=== PATIENT | female | born 1995 | race Caucasian/White ===

== ENCOUNTER 2016-10-18 21:51 | Emergency (ER) | payer MEDICAID ==
[~2016-10-18] VITALS: Ht 157.5 cm; Wt 51.3 kg
[~2016-10-18 21:51] MED LIST: BACTRIM DS 8001 TA1 PO; BACTRIM DS 8001 TAB PO; BENADRYL ALLERG25 MG PO; HYDROXYZINE10 MG PO; LO LOESTRIN FE1 TAB PO; NOMEDS XX; PEN-VK500 MG PO; PHENERGAN 25MG.25 M1 PO; PREDNISONE 10MG10 MG PO; PROVERA 10MG TA10 MG PO; TAMIFLU 75MG CA75 MG PO; VOLTAREN75 MG PO
--- NOTE | 2016-10-18 22:16 | Emergency Room Report ---
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 N Clinical Suspician of Infection? N Mental Status: 1 - Regular (Normal Baseline) Sepsis Risk:Low Sepsis Risk Have you (or family members/close friends) recently traveled outside the [place]? N If Yes, where/when: Have you had exposure to infectious disease within the past month? TB? Other? Specify: Source patient, RN notes reviewed, family, RN/MD Exam Limitations no limitations Comment This is a 20-year-old lady arriving to the emergency room together with her grandmother complaining with vaginal bleeding. I have seen this same patient on Saturday, with same symptoms at that time she presented here complaining with vaginal bleeding for the past 3 weeks, specifically advising that she has been using at least 32 tampons per day. I have started her on Provera and instructed her to follow-up with Dr. Ruiz. The CT scan of her abdomen and pelvis also indicated a ruptured ovarian cyst. Patient was started with Dr. Hirsch on control pills, upon completion of the prescription for Provera. Return to work today, and started passing blood clots as well as bright blood vaginally again. ALLERGIES Coded Allergies: No Known Allergies (10/18/16) Home Medications Active Scripts Medroxyprogesterone Acetate (Provera 10MG Tablet) 10 MG PO DAILY #10 TAB Prov: 10/15/16 History Medical History General CAD? No Angina: No [place]: No Hypertension? No Hyperlipidemia? No CHF? No DVT? No PE? No COPD? No Asthma? No Anemia? No GERD? No Gastric ulcers? No GI Bleed? No Hernia? No Thyroid Problems? No Hypothyroidism? No CVA? No Seizures? No Diabetes? No Renal Insuffiency? No End Stage Renal Disease? No UTI? No Stones? No BPH? No GB Disease: No Nephritic Syndrome? No Asplenia? No Hepatitis? No Sickle Cell Disease? No Arthritis? No Migraines? No Cataracts? No Glaucoma? No MRSA? Yes HIV? No TB? No Anxiety? No Depression? No Cancer? No More? No Immunization Hx DT/Tetanus 5-10 Years Ago Surgical Hx Previous Surgery?Y Tonsils [employer] [place] Hx LMP Now Social History Smoking Hx Smoker: Current Every Day Smoker Tobacco: Yes Type Cigarettes Alcohol Alcohol: No Review of Systems All Other Systems Reviewed and Negative Genitourinary abnormal vaginal bleeding. Physical Exam Vital Signs Vital Signs Date Time Temp Pulse Resp B/P Pulse O2 O2 Flow FiO2 Ox Delivery Rate 10/19 2219 98.0 85 20 121/68 99 10/18 2152 98.0 85 20 121/ 99 General Appearance normal appearance, WD/WN, no apparent distress Neck normal inspection, non-tender, supple, full range of motion Respiratory Status Yes: trachea midline, chest symmetrical, non tender chest. No: respiratory distress. Lung Sounds bilateral: normal breath sounds, lungs clear. 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 No Comment Patient appears medically stable, in no acute distress. Given the fact that she has just had a thorough workup, no further testing is medically necessary this time. Patient will be written a work excuse for a couple of days, instructed to follow-up with Dr. Hirsch if not better, on Saturday. She will continue her Provera as instructed on Saturday. Results/Orders Laboratory Tests 10/18/162152: Sodium Cancelled, Potassium Cancelled, Chloride Cancelled, Carbon Dioxide Cancelled, BUN Cancelled, Creatinine Cancelled, Estimated Creat Clear Cancelled, Estimated GFR (MDRD) Cancelled, Glucose Cancelled, Calcium Cancelled, Total Bilirubin Cancelled, AST Cancelled, ALT Cancelled, Alkaline Phosphatase Cancelled, Total Protein Cancelled, Albumin Cancelled, Globulin Cancelled, Albumin/Globulin Ratio Cancelled, WBC Cancelled, RBC Cancelled, Hgb Cancelled, Hct Cancelled, MCV Cancelled, RDW Cancelled, Plt Count Cancelled, Gran % Cancelled, Gran # Cancelled, Lymphocytes % Cancelled, Eosinophils % Cancelled, Basophils % Cancelled, Lymphocytes # Cancelled, Eosinophils # Cancelled, Basophils # Cancelled, PUBS MCHC Cancelled, MCH Cancelled, Urine Color Cancelled , Urine Appearance Cancelled, Urine pH Cancelled, Ur Specific [place] Cancelled Current Medication Orders Sig/Linda Start time Last Medication Dose Route Stop Time Status Admin Acetaminophen/ 0 .STK-MED ONE 10/18 2201 DC Codeine Phosphate PO Acetaminophen/ 1 ANDREY ONCE ONE 10/18 2199 DC 10/18 Codeine Phosphate PO 10/18 Departure Departure Time of Disposition 2213 Disposition DC Home or Self Care(routine) Clinical Impression Primary Impression: Vaginal bleeding Condition STABLE Referrals Joseph ZENG,Ronny [place]: 5 Days-Call Office if not better Patient Instructions DI for Vaginal Bleeding Additional Instructions Please remain a complete pelvic rest (no intercourse, no heavy lifting, no excessive walking, etc) for the next 3 days. If any recurrent vaginal bleeding follow-up with Dr. Hirsch on Saturday. Continue Provera as previously discussed. Discharge Counseling Counseled pt/family regarding diagnosis, medications/RX, home care, follow up needs Comment Please remain a complete pelvic rest (no intercourse, no heavy lifting, no excessive walking, etc) for the next 3 days. If any recurrent vaginal bleeding follow-up with Dr. Hirsch on Saturday. Continue Provera as previously discussed. ED Critical Care Critical Care No at [id number]
--- NOTE | 2016-10-18 22:16 | Emergency Room Report ---
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 N Clinical Suspician of Infection? N Mental Status: 1 - Regular (Normal Baseline) Sepsis Risk:Low Sepsis Risk Have you (or family members/close friends) recently traveled outside the [place]? N If Yes, where/when: Have you had exposure to infectious disease within the past month? TB? Other? Specify: Source patient, RN notes reviewed, family, RN/MD Exam Limitations no limitations Comment This is a 20-year-old lady arriving to the emergency room together with her grandmother complaining with vaginal bleeding. I have seen this same patient on Saturday, with same symptoms at that time she presented here complaining with vaginal bleeding for the past 3 weeks, specifically advising that she has been using at least 32 tampons per day. I have started her on Provera and instructed her to follow-up with Dr. Ruiz. The CT scan of her abdomen and pelvis also indicated a ruptured ovarian cyst. Patient was started with Dr. Hirsch on control pills, upon completion of the prescription for Provera. Return to work today, and started passing blood clots as well as bright blood vaginally again. ALLERGIES Coded Allergies: No Known Allergies (10/18/16) Home Medications Active Scripts Medroxyprogesterone Acetate (Provera 10MG Tablet) 10 MG PO DAILY #10 TAB Prov: 10/15/16 History Medical History General CAD? No Angina: No [place]: No Hypertension? No Hyperlipidemia? No CHF? No DVT? No PE? No COPD? No Asthma? No Anemia? No GERD? No Gastric ulcers? No GI Bleed? No Hernia? No Thyroid Problems? No Hypothyroidism? No CVA? No Seizures? No Diabetes? No Renal Insuffiency? No End Stage Renal Disease? No UTI? No Stones? No BPH? No GB Disease: No Nephritic Syndrome? No Asplenia? No Hepatitis? No Sickle Cell Disease? No Arthritis? No Migraines? No Cataracts? No Glaucoma? No MRSA? Yes HIV? No TB? No Anxiety? No Depression? No Cancer? No More? 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 Physical Exam Vital Signs Vital Signs Date Time Temp Pulse Resp B/P Pulse O2 O2 Flow FiO2 Ox Delivery Rate 10/19 2219 98.0 85 20 121/68 99 10/18 2152 98.0 85 20 121/ 99 General Appearance normal appearance, WD/WN, no apparent distress Neck normal inspection, non-tender, supple, full range of motion Respiratory Status Yes: trachea midline, chest symmetrical, non tender chest. No: respiratory distress. Lung Sounds bilateral: normal breath sounds, lungs clear. 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 No Comment Patient appears medically stable, in no acute distress. Given the fact that she has just had a thorough workup, no further testing is medically necessary this time. Patient will be written a work excuse for a couple of days, instructed to follow-up with Dr. Hirsch if not better, on Saturday. She will continue her Provera as instructed on Saturday. Results/Orders Laboratory Tests 10/18/162152: Sodium Cancelled, Potassium Cancelled, Chloride Cancelled, Carbon Dioxide Cancelled, BUN Cancelled, Creatinine Cancelled, Estimated Creat Clear Cancelled, Estimated GFR (MDRD) Cancelled, Glucose Cancelled, Calcium Cancelled, Total Bilirubin Cancelled, AST Cancelled, ALT Cancelled, Alkaline Phosphatase Cancelled, Total Protein Cancelled, Albumin Cancelled, Globulin Cancelled, Albumin/Globulin Ratio Cancelled, WBC Cancelled, RBC Cancelled, Hgb Cancelled, Hct Cancelled, MCV Cancelled, RDW Cancelled, Plt Count Cancelled, Gran % Cancelled, Gran # Cancelled, Lymphocytes % Cancelled, Eosinophils % Cancelled, Basophils % Cancelled, Lymphocytes # Cancelled, Eosinophils # Cancelled, Basophils # Cancelled, PUBS MCHC Cancelled, MCH Cancelled, Urine Color Cancelled , Urine Appearance Cancelled, Urine pH Cancelled, Ur Specific [place] Cancelled Current Medication Orders Sig/Linda Start time Last Medication Dose Route Stop Time Status Admin Acetaminophen/ 0 .STK-MED ONE 10/18 2201 DC Codeine Phosphate PO Acetaminophen/ 1 ANDREY ONCE ONE 10/18 2199 DC 10/18 Codeine Phosphate PO 10/18 Departure Departure Time of Disposition 2213 Disposition DC Home or Self Care(routine) Clinical Impression Primary Impression: Vaginal bleeding Condition STABLE Referrals Joseph ZENG,Ronny [place]: 5 Days-Call Office if not better Patient Instructions DI for Vaginal Bleeding Additional Instructions Please remain a complete pelvic rest (no intercourse, no heavy lifting, no excessive walking, etc) for the next 3 days. If any recurrent vaginal bleeding follow-up with Dr. Hirsch on Saturday. Continue Provera as previously discussed. Discharge Counseling Counseled pt/family regarding diagnosis, medications/RX, home care, follow up needs Comment Please remain a complete pelvic rest (no intercourse, no heavy lifting, no excessive walking, etc) for the next 3 days. If any recurrent vaginal bleeding follow-up with Dr. Hirsch on Saturday. Continue Provera as previously discussed. ED Critical Care Critical Care No at [id number]
[2016-10-18 22:20] VITALS: BP 121/68
[2016-10-20] MEDS ORDERED: CRYSELLE 30 MCG1 TAB PO (08:48)
[2016-10-20] MEDS ORDERED: AVPAK AZITHROM250 MG PO (08:51)
[2016-10-20] MEDS ORDERED: ULTRAM50 MG PO (11:11)
[2016-10-20] MEDS ORDERED: PHENERGAN25 M3 PO (11:13)
== END 2016-10-18 22:20 | disposition home or self-care (01) ==
LOC: ER 21:51
DX: N93.9 Abnormal uterine and vaginal bleeding, unspecified (principal); Z72.0 Tobacco use

== ENCOUNTER → 2017-03-05 | Outpatient (CLI) | payer MEDICAID ==
[~2017-03-05] MED LIST changes: +AVPAK AZITHROM250 MG PO; +CRYSELLE 30 MCG1 TAB PO; +PHENERGAN25 M3 PO; +ULTRAM50 MG PO
[2017-03-05 08:00] LABS: FASTING URINE GLUCOSE NEGATIVE
[2017-03-05 08:20] LABS: BUN 12 mg/dL (7-18); GFR (ESTIMATED) 91 ML/MIN (59-)
[2017-03-05 09:17] LABS: 1 HR URINE GLUCOSE NEGATIVE mg/ml
[2017-03-05 10:22] LABS: 2 HR URINE GLUCOSE NEGATIVE mg/ml
[2017-03-05 11:21] LABS: 3 HR URINE GLUCOSE NEGATIVE mg/ml
== END ==
LOC: LAB 07:38
PROVIDERS: Family Medicine Addiction Medicine
DX: R42 Dizziness and giddiness (principal)

== ENCOUNTER 2017-03-18 13:19 | Emergency (ER) | payer MEDICAID ==
[~2017-03-18] VITALS: Ht 157.5 cm; Wt 48.1 kg
[2017-03-18 13:39] LABS: URINE BILIRUBIN - DIPSTICK 1+ (NEG)
[2017-03-18 13:40] LABS: URINE BLOOD 3+ (NEG)
--- NOTE | 2017-03-18 14:14 | Urgent Treatment Center Report ---
See Addendum History of Present Issue Date/Time Seen by Provider 03/18/17 1352 Visit Reason Pt arrived:Walked Presenting Problem:BURNING WITH URINATION, LEFT SIDE PAIN Location if Accident: Onset of symptoms date/time:/ or onset unknown for:MEDICAL HX UNKNOWN Have you (or family members/close friends) recently traveled outside the [place]? N If Yes, where/when: Have you had exposure to infectious disease within the past month? TB? Other? Specify: Patient state that she thinks she has a UTI States that she has been having some burning and pain with urination. States that she feels like she is having to go freqently and only going small amounts at time. States that pain is worse in her left side and pain has continued to get worse so she decided to come in and get checked out ALLERGIES Coded Allergies: No Known Allergies (10/18/16) Home Medications Reported Medications NORGESTREL-ETHINYL ESTRADIOL (Cryselle-28 Tablet) 1 TAB PO DAILY #28 History Medical History General CAD? No Angina: No [place]: No Hypertension? No Hyperlipidemia? No CHF? No DVT? No PE? No COPD? No Asthma? No Anemia? No GERD? No Gastric ulcers? No GI Bleed? No Hernia? No Thyroid Problems? No Hypothyroidism? No CVA? No Seizures? No Diabetes? No Renal Insuffiency? No UTI? No Stones? No BPH? No GB Disease: No Nephritic Syndrome? No Asplenia? No Hepatitis? No Sickle Cell Disease? No Arthritis? No Migraines? No Cataracts? No Glaucoma? No MRSA? Yes HIV? No TB? No Anxiety? No Depression? No Cancer? No More? No Immunization HX DT/Tetanus 5-10 Years Ago Surgical Hx Previous Surgery?Y Tonsils Social History Smoking Hx Smoker: Current Every Day Smoker Tobacco: Yes Type Cigarettes Packs/day < 1 Pack Alcohol Alcohol: No Review of Systems All Other Systems Reviewed and Negative Genitourinary frequency, hesitancy, pain. Comment State that she has been having pain with urination, burning when she urinated, feeling of urgency and frequency for a couple of weeks now States that she has had some extra antibiotics at home that she has taken but they have not helped with her symptoms Physical Exam Vital Signs Vital Signs Date Time Temp Pulse Resp B/P Pulse O2 O2 Flow FiO2 Ox Delivery Rate 03/18 1336 98.3 112 16 130/90 98 General Appearance normal appearance, WD/WN, no apparent distress Respiratory Status Yes: trachea midline, chest symmetrical, non tender chest. No: respiratory distress. Cardiovascular normal exam, regular rate/rhythm, no peripheral edema, no gallop Gastrointestinal normal bowel sounds, normal exam, non tender, no guarding Back normal inspection, no CVA tenderness, no vertebral tenderness Neurologic alert, normal exam, oriented x 3 Medical Decision Making LABS/Meds/Orders Pt receiving controlled substance in ED? No Results/Orders Laboratory Tests 03/18/17 1330: Urine Test NEGATIVE 03/18/17 1322: Urine Color DARK YELLOW, Urine Appearance Clear, Urine pH 5.5, Ur Specific [place] >1.030 H, Urine Protein 3+ H, Urine Ketones TRACE H, Urine Blood 3+ H, Urine Nitrate NEGATIVE, Urine Bilirubin 1+ H, Urine Urobilinogen 0.2, Ur Leukocyte Esterase 1+ H, Urine Glucose NEGATIVE Current Medication Orders Sig/Linda Start time Last Medication Dose Route Stop Time Status Admin Ceftriaxone Sodium 0 .STK-MED ONE 03/18 1401 DC .ROUTE Lidocaine HCl 0 .STK-MED ONE 03/18 1401 DC .ROUTE Ceftriaxone Sodium 1 GM ONCE ONE 03/18 1400 DC 03/18 IM 03/18 1401 1407 Lidocaine HCl 0 ONCE ONE 03/18 1400 DC 03/18 IM 03/18 1401 1408 Orders Procedure Date/time Status [facility] URINE 03/18 1330 Complete [facility] URINE DIPSTICK 03/18 1322 Complete Departure Departure Time of Disposition 1414 Disposition DC Home or Self Care(routine) Clinical Impression Primary Impression: UTI (urinary tract infection) Qualifiers: Urinary tract infection type: site unspecified Hematuria presence: with hematuria Qualified Code: N39.0 - Urinary tract infection, site not specified Condition STABLE Referrals Star ZENG,Celso Perez MD,[place] Patient Instructions Urinary Tract Infection Additional Instructions If UTI's continued may want to follow up with Urology for evaluation DRINK PLENTY OF WATER, water will help to flush the kidneys and keep you hydrated you need to be drinking lots of water Take medication as prescribed Follow up with family doctor Return if needed Discharge Counseling Counseled pt/family regarding diagnosis, test results, home care, follow up needs Prescriptions Current Visit Scripts SULFAMETHOXAZOLE W/TRIMETHOPRI (Bactrim Ds Tab) 1 TABLET PO BID #20 TAB Phenazopyridine HCl (Pyridium) 100 MG PO TID #6 TAB at 0045
[2017-03-18 14:18] VITALS: BP 130/90
--- OUTSIDE RECORDS SUMMARY | 2017-03-28 03:31 | External Medical Summary Rpt | CCD ---
Author Author , ZAK Organization ZAK Address Unknown Phone [email or web address] Care Team Providers Care Air Traffic Control Manager Name Role Phone HAIR J, HAIR J Unavailable Unavailable HAIR J, HAIR J Unavailable Unavailable ARNOLD EDA, ARNOLD Unavailable Unavailable EDA ARNOLD EDA, ARNOLD Unavailable Unavailable EDA ODELL ODELL Unavailable Unavailable ODELL ODELL Unavailable Unavailable BEINEKE, BEINEKE Unavailable Unavailable BESSON XANDER, BESSON Unavailable Unavailable XANDER KRANTHI MÁRQUEZ, KRANTHI YULISA Unavailable Unavailable KRANTHI ANN YULISA Unavailable Unavailable KRANTHI DAMON MD, Unavailable Unavailable KRANTHI DAMON MD [facility] Unavailable Unavailable SERVICE, [facility] KATT AIR BAG BUILDER, KATT Unavailable Unavailable AIR BAG BUILDER KATT AIR BAG BUILDER, KATT Unavailable Unavailable AIR BAG BUILDER CELLAROSI - YORBA, Unavailable Unavailable CELLAROSI - YORBA SHY BEGUM Unavailable Unavailable HERIBERTO BEGUM, Unavailable Unavailable HERIBERTO BEGUM [facility], Unavailable Unavailable [facility] Unavailable Unavailable LAB, [facility] PRANEETH, PRANEETH Unavailable Unavailable PRANEETH TONJA, Unavailable Unavailable PRANEETH TONJA PRANEETH FILIPPO, Unavailable Unavailable PRANEETH, FILIPPO YULI VISION, Unavailable Unavailable YULI VISION [place] Un[facility] Un[facility] [place] BHANU DEWEY, Unavailable Unavailable BHANU DEWEY BHANU DEWEY, Unavailable Unavailable BHANU DEWEY MURRAY, MURRAY Unavailable Unavailable MURRAY, MURRAY Unavailable Unavailable [place] BETTINA, Unavailable Unavailable [place] BETTINA [place] BETTINA, Unavailable Unavailable [place] BETTINA MAIRA, MAIRA Unavailable Unavailable MAIRA MANSOOR, MAIRA Unavailable Unavailable MANSOOR MAIRA MANSOOR, MAIRA Unavailable Unavailable MANSOOR MARYAN BARRY, Unavailable Unavailable MARYAN BARRY [facility], Unavailable Unavailable [facility] Unavailable Unavailable [place] Unavailable Unavailable [facility], [facility] Un[facility] Un[facility] Un[facility] Un[facility] Un[facility] Unavailable [facility], [facility] CASE, CASE Unavailable Unavailable MOORE, MOORE Unavailable Unavailable MOORE, MOORE Unavailable Unavailable MOORE, NICKIE A, Unavailable Unavailable MOORE, NICKIE A [facility], Unavailable Unavailable [facility] KEDING SAPPHIRE, KEDING Unavailable Unavailable SAPPHIRE [place] SAPPHIRE, [place] Unavailable Unavailable SAPPHIRE [facility] Unavailable Unavailable [facility], [facility] Nohemy Simons MD, Unavailable Unavailable Nohemy Simons MD [facility] Unavailable Unavailable [facility], [facility] Unavailable Unavailable [facility], [facility] Unavailable Unavailable [facility] Unavailable Unavailable [facility], [facility] Unavailable Unavailable CORPORATION OF AM, 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 Unavailable Unavailable ASSOCIATES, 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 Gilbert Brary MD, Unavailable Unavailable Gilbert Barry MD [facility] Unavailable Unavailable SERVICES, [facility] DAVID HERNANDEZ Unavailable Unavailable ALE AVILA, Unavailable Unavailable ALE AGUILERA JAM, Unavailable Unavailable AGIULERA JAM LINWOOD ROS, LINWOOD Unavailable Unavailable ROS NEVAEH DMD BAPTIST, NEVAEH Unavailable Unavailable DMD [facility]IST NEVAEH DMD BAPTIST, NEVAEH Unavailable Unavailable [facility]MD [facility] Un[facility] GERALD KER, GERALD KER Unavailable Unavailable BARBER, IDRIS A, Unavailable Unavailable BARBER, IDRIS A MIKI RAN, MIKI RAN Unavailable Unavailable MIKI ELIZONDO, MIKI RAN Unavailable Unavailable [facility], Un[facility]available [facility], [facility] RICH II, RICH Unavailable Unavailable II RICH II O, RICH Unavailable Unavailable II O RICH II O, RICH Unavailable Unavailable II O [facility], Unavailable Unavailable [facility], Unavailable Unavailable [facility] Unavailable Unavailable [facility], [id number], Unavailable Unavailable [id number] Unavailable Unavailable [id number] [address] [id number], [facility] [id number] [address] [id number] ANDRE BRITNEY, ANDRE Unavailable Unavailable BRITNEY DEE OUMOU, Unavailable Unavailable DEE OUMOU DEE OUMOU, Unavailable Unavailable DEE [facility]UM[facility] TERESA CELESTE, TERESA Unavailable Unavailable CELESTE TERESA CELESTE, TERESA Unavailable Unavailable CELESTE SCIFRES ANG, SCIFRES Unavailable Unavailable ANG CURIEL EUGENIA, CURIEL Unavailable Unavailable EUGENIA HAILE, HAILE Unavailable Unavailable [facility], Unavailable Unavailable [facility] Unavailable Unavailable EMERGENCY PHYS, [facility] IVAN DON, Unavailable Unavailable IVAN DON IVAN DON, Unavailable Unavailable IVAN DON IVAN, DON R, Unavailable Unavailable IVAN, DON R [facility], Unavailable Unavailable [facility] Unavailable Unavailable #591, [id number] ANTHONY, ANTHONY Unavailable Unavailable Purpose Continuity of Care Document - 02-02-2008 through 2016 Problems Code Diagnosis DOS Provider Status [id number] OTHER 01-16-2017 [facility] SPECIFIED DORSOPATHIE S LUMBAR REGION M546 PAIN IN 01-16-2017 [facility] THORACIC SPINE M9906 SEGMENTAL & 01-16-2017 [facility] SOMATIC DYSFUNCTION LOWER EXTREMITY J05704 REGULAR 01-07-2017 [facility] ASTIGMATISM BILATERAL R51 HEADACHE 12-14-2016 [facility] W60004 MIGRAINE 10-23-2016 [facility] UNS NOT N EMERGENCY INTRACT W/O PHYS STATUS MIGRAINOSUS N938 OTHER SPEC 10-23-2016 LABORATORY ABNORMAL [facility] OF UTERINE & ALEENA H VAGINAL BLEEDING R110 NAUSEA 10-23-2016 [facility] Z720 TOBACCO USE 10-20-2016 [facility] N939 ABNORMAL 10-18-2016 [facility], VAGINAL PLLC BLEEDING UNSPECIFIED N34570 UNSPECIFIED 10-15-2016 [facility]IAN [facility], CYST RIGHT PLLC SIDE N921 EXCESS & 10-15-2016 [facility] FREQUENT [facility], MENSTRUATIO PLLC N W/IRREGULAR CYCLE [id number] PAIN IN 09-26-2016 [facility] RIGHT SHOULDER M542 CERVICALGIA 09-26-2016 [facility] D40472 MUSCLE 09-26-2016 [facility] SPASM OF BACK M9901 SEGMENTAL & 09-26-2016 [facility] SOMATIC DYSFUNCTION CERVICAL REGION M9902 SEGMENTAL & 09-26-2016 [facility] SOMATIC DYSFUNCTION THORACIC REGION M9905 SEGMENTAL & 09-26-2016 [facility] SOMATIC DYSFUNCTION OF PELVIC REGION M545 LOW BACK 09-17-2016 [place] [facility] M9903 SEGMENTAL & 09-17-2016 [place] S[facility]AT[facility] FAMILY DYSFUNCTION CHIROPRACTI OF LUMBAR C REGION M9904 SEGMENTAL & 09-17-2016 [place] SOMATIC FAMILY DYSFUNCTION CHIROPRACTI OF SACRAL C REGION V7231 ROUTINE 06-04-2013 HAIR J GYNECOLOGIC AL EXAMINATION V7241 06-04-2013 HAIR J EXAMINATION OR TEST NEGATIVE RESULT V745 SCREENING 06-04-2013 HAIR J EXAMINATION FOR VENEREAL DISEASE 782.1 782.1 03-24-2013 [place] NONSPECIF [facility] SKIN ERUPT [facility] 7827 SPONTANEOUS 03-24-2013 [facility] 786.59 786.59 03-24-2013 [place] CHEST PAIN [facility] 42446 OTHER CHEST 03-24-2013 [place] PAIN [facility] 5990 URINARY 12-15-2012 KRANTHI YULISA TRACT INFECTION SITE NOT SPECIFIED 413.9 413.9 12-07-2012 [place] ANGINA [facility] PECTORIS [facility] NEC/NOS 4139 OTHER AND 12-07-2012 [place] UNSPECIFIED [facility] ANGINA INC PECTORIS 599.0 599.0 URIN 12-07-2012 [place] TRACT [facility] INFECTION Hospital NOS 46641 ACUTE 10-28-2012 IVAN LARYNGITIS, DON WITHOUT MENTION OF OBSTRUCTIO 4659 ACUTE URIS 10-28-2012 IVAN OF DON UNSPECIFIED SITE 462 ACUTE 10-24-2012 [facility] 4618 OTHER ACUTE 10-16-2012 [facility] 30777 NAUSEA WITH 10-16-2012 [facility] VOMITING PHYSICIANS GROUP 76928 INTESTINAL 10-03-2012 [facility] INF PHYSICIANS ENTERITIS GROUP DUE OTH VIRAL ENTERITIS 0091 COLITIS 09-25-2012 [facility] ENTERIT&GAS PHYSICIANS TROENTERIT GROUP INF ORIGIN 75572 UNSPECIFIED 09-02-2012 KRANTHI YULISA VIRAL INFECTION IN CCE & UNS SITE 786.50 786.50 09-01-2012 [place] CHEST PAIN [facility] 34212 CHEST PAIN 09-01-2012 MAIRA MANSOOR UNSPECIFIED 7850 UNSPECIFIED 08-11-2012 [facility] TACHYCARDIA [facility] 0340 STREPTOCOCC 07-28-2012 [facility] AL SORE PHYSICIANS THROAT GROUP 01470 ESOPHAGEAL 07-10-2012 [facility] EDA REFLUX 34482 UNS 07-10-2012 [facility] EDA GASTRITIS&G ASTRODUODIT IS W/O MENTION HEMORR 5589 OTH&UNSPEC 05-29-2012 [facility] NONINFECTIO [facility]GENCY US SERVICES GASTROENTER ITIS&COLITI S 86154 ABDOMINAL 05-29-2012 [facility] PAIN, EMERGENCY UNSPECIFIED SERVICES SITE 80805 ABDOMINAL 05-29-2012 [facility] RIGHT [facility] LOWER INC QUADRANT 20751 NAUSEA 05-27-2012 KRANTHI YULISA ALONE 0542 HERPETIC 05-13-2012 [facility] GINGIVOSTOM DON ATITIS 10368 UNSPECIFIED 04-02-2012 TERES[facility] CELESTE VAGINITIS AND VULVOVAGINI TIS 7804 DIZZINESS 03-17-2012 KRANTHI YULISA AND GIDDINESS V7242 03-12-2012 [facility] EXAMINATION HIGH OR TEST SCHOOL HEAL POSITIVE RESULT 7232 CERVICOCRAN 02-13-2012 [place] IAL [facility] SYNDROME C CENTE 7241 PAIN IN 02-13-2012 [place] THORACIC [facility] SPINE C CENTE 7248 OTHER 02-13-2012 [place] SYMPTOMS CHIROPRACTI REFERABLE C CENTE TO BACK 7392 NONALLOPATH 12-25-2011 [place] IC LESION CHIROPRACTI OF THORACIC C CENTE REGION NEC 7394 NONALLOPATH 12-25-2011 [place] IC LESION CHIROPRACTI OF SACRAL C CENTE REGION NEC 6820 CELLULITIS 12-18-2011 BHANU AND ABSCESS DEWEY OF FACE 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 47336 ULCERATIVE 11-21-2011 AGUILERA BLEPHARITIS JAM 4619 ACUTE 10-23-2011 BHANU SINUSITIS, DEWEY UNSPECIFIED 4660 ACUTE 10-23-2011 BHANU BRONCHITIS DEWEY 6100 SOLITARY 10-04-2011 HAIR J CYST OF BREAST 6102 FIBROADENOS 10-04-2011 HAIR J IS OF BREAST 6101 DIFFUSE 09-21-2011 [facility] 30133 MASTODYNIA 09-21-2011 [facility] 33405 LUMP OR 09-18-2011 RICH II MASS IN O BREAST 6260 ABSENCE OF 09-12-2011 [facility] MENSTRUATIO [facility] N INC 04034 ASTHMA, 08-23-2011 [place] UNSPECIFIED BETTINA , UNSPECIFIED STATUS 52669 OTHER SPEC 08-23-2011 [place] GASTRITIS BETTINA WITHOUT MENTION HEMORRHAGE 97188 ACUTE 08-09-2011 [facility] WITHOUT MENTION OF HEMORRHAGE 54176 VOMITING 08-09-2011 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 67611 CHRONIC 08-08-2011 DEE TENSION OUM[facility] TYPE HEADACHE 33505 ABDOMINAL 08-08-2011 DEE PAIN RIGHT OUMOU UPPER QUADRANT 6235 LEUKORRHEA 07-11-2011 LAB [facility] NOT AMERIC SPECIFIED HOLDING INFECTIVE V2503 ENCOUNTER 07-10-2011 [facility]O EMERGENCY CONTRACEPT CNSL&PRESCR IPTION 463 ACUTE 05-16-2011 DEE TONSILLITIS OUMOU V0481 NEED 04-18-2011 [facility]CTI [facility] CENTER VACCINATION &INOCULATIO N FLU 91194 OTHER 03-26-2011 [facility] FATIGUE INC 67056 CHRONIC 03-21-2011 IVAN FATIGUE DON SYNDROME 6826 CELLULITIS 02-05-2011 IVAN AND ABSCESS DON OF LEG EXCEPT FOOT 5210 DENTAL 01-17-2011 NEVAEH DMD CARIES BAPTIST 6253 DYSMENORRHE 01-02-2011 [place] 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 6262 EXCESSIVE 01-02-2011 [place] 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 MENSTRUATIO N 41210 DIARRHEA 08-10-2010 [facility] 9199 OTH&UNSPEC 07-31-2010 [place] SUP INJURY [facility] MX&UNSPEC SITES INF 09459 SHORTNESS 07-27-2010 [place] CO OF BREATH [facility] 7234 BRACHIAL 07-03-2010 [place] NEURITIS OR CHIROPRACTI C CENTE RADICULITIS NOS 25652 SPASM OF 07-03-2010 [place] MUSCLE [facility]OPRACTI C CENTE 7397 NONALLOPATH 07-03-2010 [place] IC LESION CHIROPRA[facility]I OF UPPER C CENTE EXTREMITIES NEC 7231 CERVICALGIA 05-04-2010 [place] SAPPHIRE 7840 HEADACHE 05-04-2010 [facility] CO [facility] 22370 METHICILLIN 04-04-2010 IV[facility] RESISTANT DON STAPHYLOCOC CUS AUREUS 7821 RASH AND 03-21-2010 IVAN OTHER DON NONSPECIFIC SKIN ERUPTION 97183 HORDEOLUM 03-02-2010 YULI EXTERNUM VISION 6929 CONTACT 01-31-2010 [facility] DERMATITIS& DON OTHER ECZ[place] DUE UNSPEC CAUSE 7098 OTHER 01-31-2010 [place] [place] SPECIFIED MIDDLE DISORDER OF SCHOOL SKIN 9164 HIP THI 01-11-2010 IVAN, LEG&ANK DON R INSECT BITE NONVENOMOUS W/O INF 20843 PAIN IN 11-01-2009 [facility] 92984 SPRAIN AND 11-01-2009 [facility] STRAIN OF EMERGENCY UNSPECIFIED SERVICES SITE OF ASSOCIATES WRIST 920 CONTUSION 11-01-2009 [facility] OF FACE EMERGENCY SCALP AND SERVICES NECK EXCEPT ASSOCIATES EYE 55069 UNSPECIFIED 08-26-2009 [place], SITE OF DON R ANKLE SPRAIN AND STRAIN 4779 ALLERGIC 08-15-2009 ELISABETH, RHINITIS IDRIS A CAUSE UNSPECIFIED 4871 INFLUENZA 03-15-2009 [place], WITH OTHER DON R RESPIRATORY MANIFESTATI ONS 3670 HYPERMETROP 01-17-2009 YULI IA VISION 56989 DENTAL 08-24-2008 [facility] CARIES FOR EXTENDING ORAL&MAXILL INTO PULP OFACIAL SURGERY 5216 ANKYLOSIS 08-24-2008 [facility] FOR ORAL&MAXILL OFACIAL SURGERY 37225 OTHER 02-02-2008 [place], SPECIFIED DON R DISORDERS OF URINARY TRACT Allergies, Adverse Reactions, Alerts Type Allergy to substance Adverse Reaction to Substance Substance Reaction Severity NO KNOWN ALLERGIES Unknown Unknown Medications Na ND Rx Da Fi Fi Am Da Di Ph RX Ph St me C No te ll ll ou ys ag ar # ys at rm s nt no ma ic us Or Da si cy ia de te s n re d NU 00 07 07 1. 28 00 RI Ac VA 05 -0 -2 00 00 TE ti RI 20 5- 8- 0 01 ve NG 27 20 20 18 AI 30 17 17 31 D VA 3 69 PH GI AR NA MA L CY RI NG #3 93 8 FL 68 05 06 1. 1 00 RI Ac UC 46 -1 -0 00 00 TE ti ON 20 2- 9- 0 01 ve AZ 10 20 20 18 AI OL 34 17 17 37 D E 0 44 PH 15 AR 0 MA MG CY TA #3 BL 93 ET 8 ME 29 05 06 4. 1 00 RI Ac TR 30 -1 -0 00 00 TE ti ON 00 2- 9- 0 01 ve ID 22 20 20 18 AI AZ 70 17 17 37 D OL 1 45 PH E AR 50 MA 0 CY MG #3 TA 93 BL 8 ET NU 00 05 06 1. 28 00 RI Ac VA 05 -0 -0 00 00 TE ti RI 20 8- 2- 0 01 ve NG 27 20 20 18 AI 30 17 17 31 D VA 3 69 PH GI AR NA MA L CY RI NG #3 93 8 MORRELL 55 05 06 9. 23 00 RI Ac MA 11 -0 -0 00 00 TE ti TR 10 9- 2- 0 01 ve IP 29 20 20 18 AI TA 10 17 17 33 D N 9 56 PH MORRELL AR CC MA CY 25 #3 MG 93 8 TA BL ET NJ 65 05 06 14 5 00 RI Ac OM 16 -0 -0 .0 00 TE ti ET 20 6- 2- 00 01 ve MARORQUIN 52 20 20 18 AI ZI 11 17 17 29 D NE 0 21 PH AR 25 MA CY MG #3 TA 93 BL 8 ET TR 65 05 06 15 5 00 RI Ac AM 16 -0 -0 .0 00 TE ti AD 20 6- 2- 00 01 ve OL 62 20 20 18 AI 71 17 17 29 D HC 1 22 PH L AR 50 MA CY MG #3 TA 93 BL 8 ET ME 00 05 06 20 5 00 RI Ac TO 09 -0 -0 .0 00 TE ti CL 32 7- 2- 00 01 ve OP 20 20 20 18 AI RA 30 17 17 29 D VA 5 80 PH DE AR MA 10 CY MG #3 93 TA 8 BL ET NJ 59 05 06 15 5 00 RI Ac ED 74 -1 -0 .0 00 TE ti NI 60 0- 2- 00 01 ve SO 17 20 20 18 AI NE 50 17 17 33 D 6 71 PH 20 AR MA MG CY TA #3 BL 93 ET 8 ME 59 05 05 10 [address] 76 -0 -2 .0 00 TE ti OX 23 1- 6- 00 01 ve YP 74 20 20 18 AI RO 20 17 17 22 D GE [address] AR ER MA ON CY E 10 #3 93 MG 8 TA B AZ 50 05 05 6. 5 00 RI Ac IT 11 -0 -2 00 00 TE ti HR 10 2- 6- 0 01 ve OM 78 20 20 18 AI YC 76 17 17 23 D IN 6 42 PH AR 25 MA 0 CY MG #3 TA 93 BL 8 ET CR 00 05 05 28 28 00 RI Ac YS 55 -0 -2 .0 00 TE ti EL 59 2- 6- 00 01 ve LE 04 20 20 18 AI -2 95 17 17 23 D 8 8 43 PH TA AR BL MA ET CY #3 93 8 SO 00 10 0 No DI 40 -0 UM 97 8- Lo 98 20 ng CH 30 13 er LO 9 RI Ac DE ti ve 0. 9% SO HERMES TI ON Fa 63 10 0 No mo 32 -0 ti 30 8- Lo di 73 20 ng ne 90 13 er 2 20 Ac MG ti /2 ve ML Vi al BA [address] 40 -0 ER 91 8- Lo IO [address] 60 13 er AT 5 IC Ac ti SA ve LI NE AL DI 00 10 0 No PH 40 -0 EN 92 8- Lo HY [address] 03 13 er AM 1 IN Ac E ti 50 ve MG /M L SY RN G SO 00 10 0 No HERMES 00 -0 -M 90 8- Lo ED 04 20 ng RO 72 13 er L 2 12 Ac 5 ti MG ve AL JU 00 09 10 6 21 21 RI 89 OW Ac NE 55 -1 -3 .0 TE 90 EN ti L 59 4- 0- 00 43 ve 1 02 20 20 AI RA MG 54 11 11 D ND -2 2 PH AL 0 AR W MC MA G CY TA BL 03 ET 93 8 # 03 93 JU 00 09 09 6 21 21 RI 89 OW Ac NE 55 -1 -1 .0 TE 90 EN ti L 59 4- 4- 00 43 ve 1 02 20 20 AI RA MG 54 11 11 D ND -2 2 PH AL 0 AR W MC MA G CY TA BL 03 ET 93 8 # 03 93 BE 50 09 09 1 28 28 RI 89 RU Ac YA 41 -0 -0 .0 TE 84 SS ti Z 90 9 27 EL ve 28 40 20 20 AI L 70 11 11 D DE TA 3 PH NI BL AR SE ET MA M CY 03 93 8 # 03 93 00 08 08 1 [address] Ac 14 -2 -2 .0 TE 59 EP ti 39 2- 2- 00 27 HE ve 89 20 20 AI NS 80 11 11 D 1 PH DO AR N MA R CY 03 93 8 # 03 93 TR 59 07 07 2. 1 RI 89 WE Ac IA 76 -2 -2 00 TE 21 LL ti ZO 23 5- 5- 0 77 S ve LA 71 20 20 AI CH M 80 11 11 D AM 0. 4 PH BE 25 AR RS MA MG CY MO RG TA 03 AN BL 93 ET 8 # 03 93 ME 50 07 07 14 7 RI 89 NE Ac TR 11 -1 -1 .0 TE 15 FF ti ON 10 87 ve ID 33 20 20 AI KE AZ 40 11 11 D RR OL 1 PH I E AR J 50 MA 0 CY MG 03 TA 93 BL 8 ET # 03 93 FL 00 07 07 1. 1 RI 89 NE Ac UC 17 -1 -1 00 TE 15 FF ti ON 25 9- 9- 0 88 ve AZ 41 20 20 AI KE OL 21 11 11 D RR E 1 PH I 15 AR J 0 MA MG CY TA 03 BL 93 ET 8 # 03 93 [place] 51 07 07 45 3 RI [address] 67 -1 -1 .0 TE 15 FF ti AT 21 9- 9- 00 89 ve IN 26 20 20 AI KE -T 30 11 11 D RR RI 1 PH I AM AR J CI MA NO CY LO NE 03 93 CR 8 EA # M 03 93 NJ 68 11 11 [address] Ac OM 38 -0 -0 .0 IN 61 EP ti ET 20 3- 3- 00 IC 16 HE ve MARROQUIN 04 20 20 NS ZI 10 10 10 PH NE 1 AR DO MA N 25 CY R MG LL C TA BL ET MORRELL 53 10 10 [address] Ac LF 74 -0 -0 .0 TE 32 EP ti AM 60 8- 8- 00 75 HE ve ET 27 20 20 AI NS HO 20 10 10 D XA 5 PH DO ZO AR N LE MA R -T CY MP 03 DS 93 8 TA # BL 03 ET 93 00 10 10 1 [address] Ac 14 -0 -0 .0 TE 28 EP ti 39 5- 5- 00 33 HE ve 89 20 20 AI NS 80 10 10 D 1 PH DO AR N MA R CY 03 93 8 # 03 93 LO 00 10 10 3 [address] Ac RA 78 -0 -0 .0 TE 28 EP ti TA 15 5- 5- 00 34 HE ve DI 07 20 20 AI NS NE 70 10 10 D 1 PH DO 10 AR N MA R MG CY TA 03 BL 93 ET 8 # 03 93 DO 00 09 09 20 10 RI 85 SC Ac XY 14 -1 -1 .0 TE 01 IF ti CY 33 6- 6- 00 89 RE ve CL 14 20 20 AI S IN 25 10 10 D AN E 0 PH GE HY AR LA CL MA M AT CY E 10 03 0 93 MG 8 # CA 03 P 93 00 08 08 [address] Ac 14 -1 -1 .0 TE 60 EP ti 39 7- 7- 00 10 HE ve 89 20 20 AI NS 80 10 10 D 1 PH DO AR N MA R CY 03 93 8 # 03 93 DE 51 08 08 [address] Ac SO 67 -1 -1 0. TE 60 EP ti XI 21 7- 7- 00 11 HE ve ME 27 20 20 0 AI NS TA 00 10 10 D SO 7 PH DO NE AR N MA R 0. CY 25 % 03 CR 93 EA 8 M # 03 93 DE 51 07 07 [address] Ac SO 67 -2 -2 0. TE 34 EP ti XI 21 8- 9- 00 13 HE ve ME 27 20 20 0 AI NS TA 00 10 10 D SO 7 PH DO NE AR N MA R 0. CY 25 % 03 CR 93 EA 8 M # 03 93 ME 00 07 07 2 [address] Ac TH 60 -2 -2 .0 TE 34 EP ti YL 34 8- 8- 00 12 HE ve NJ 59 20 20 AI NS ED 31 10 10 D NI 5 PH DO SO AR N LO MA R NE CY 4 03 MG 93 8 DO # SE 03 PK 93 00 05 05 2. [address] Ac 09 -2 -2 00 TE 57 EP ti 39 8- 8- 0 92 HE ve 10 20 20 AI NS 72 10 10 D 9 PH DO AR N MA R CY 03 93 8 # 03 93 RA 00 04 04 3 [address] Ac NI 17 -2 -2 .0 TE 16 EP ti TI 24 8- 8- 00 96 HE ve DI 35 20 20 AI NS NE 74 10 10 D 9 PH DO 15 AR N 0 MA R MG CY TA 03 BL 93 ET 8 # 03 93 AZ 59 03 03 6. [address] Ac IT 76 -3 -3 00 TE 77 EP ti HR 23 0- 0- 0 20 HE ve OM 06 20 20 AI NS YC 00 10 10 D IN 1 PH DO AR N 25 MA R 0 CY MG 03 TA 93 BL 8 ET # 03 93 IB 53 03 03 [address] Ac UP 74 -3 -3 .0 TE 77 EP ti RO 60 0- 0- 00 18 HE ve FE 46 20 20 AI NS N 40 10 10 D 40 5 PH DO 0 AR N MG MA R CY TA BL 03 ET 93 8 # 03 93 AM 65 01 01 00 [address] Ac OX 86 -1 -2 .0 TE 77 EP ti IC 20 9- 8- 00 62 HE ve IL 01 20 20 AI NS LI 60 10 10 D N 5 PH DO 25 AR N 0 M R MG #3 93 CA 8 PS UL E TA 00 09 10 00 10 5 WA 70 GA Ac VA 00 -2 -0 .0 L- 38 IN ti FL 40 5- 8- 00 MA 37 EY ve U 80 20 20 RT 5 75 08 09 09 VA 5 PH CH MG AR AE MA L CA CY S PS UL #5 E 91 NJ 60 09 09 00 [address] Ac OM 43 -0 -2 0. TE 90 EP ti ET 20 9- 4- 00 32 HE ve MARROQUIN 60 20 20 0 AI NS ZI 80 09 09 D NE 4 PH DO AR N 6. M R 25 #3 93 MG 8 /5 ML SY RP AZ 59 08 09 00 6. [address] Ac IT 76 -2 -1 00 TE 69 EP ti HR 23 4- 0- 0 40 HE ve OM 06 20 20 AI NS YC 00 09 09 D IN 1 PH DO AR N 25 M R 0 #3 MG 93 8 TA BL ET LO 00 08 09 00 [address] Ac RA 78 -2 -1 .0 TE 69 EP ti TA 15 4- 0- 00 41 HE ve DI 07 20 20 AI NS NE 70 09 09 D 1 PH DO 10 AR N M R MG #3 93 TA 8 BL ET NA 00 08 09 00 [address] Ac SO 08 -2 -1 .0 TE 69 EP ti NE 51 4- 0- 00 42 HE ve X 28 20 20 AI NS 50 80 09 09 D 1 PH DO MC AR N G M R NA #3 SA 93 L 8 SP RA Y 63 03 03 [address] Ac 30 -1 -[address] 96 EP ti 40 8- 6- 00 SI 33 HE ve 65 20 20 DE NS 80 09 09 1 PH DO AR N MA R CY OF CY NT HI AN A 00 03 03 00 1[address] Ac 09 -2 -2 00 TE 62 EP ti 39 0- 6- 0 34 HE ve 10 20 20 AI NS 72 09 09 D 9 PH DO AR N M R #3 93 8 NJ 00 03 03 [address] Ac OM 78 -1 -[address] 96 EP ti ET 11 8- 6- 00 SI 34 HE ve MARROQUIN 83 20 20 DE NS ZI 01 09 09 NE 0 PH DO AR N 25 MA R CY MG OF TA CY BL NT ET HI AN A Immunization Name Date Rout CVX Reac Dose Comm Prov Is Faci e tion ent ider Refu lity Give sed n IIV3 11-0 141 TRU No TRU 2-20 MUNA MUNA VACC 11 CO CO INE HEAL HEAL SPLI TH TH T CENT CENT VIRU ER ER S 0.5 ML DOSA GE IM USE IIV3 10-2 141 TRU No TRU 7-20 MUNA MUNA VACC 10 CO CO INE HEAL HEAL SPLI TH TH T CENT CENT VIRU ER ER S 0.5 ML DOSA GE IM USE IIV3 02-15 141 TRU No DHS/ 4-20 MUNA CO VACC 09 CO HEAL INE HEAL TH SPLI TH CENT T CENT RAL VIRU ER BANK S 0.5 ACCT ML DOSA GE IM USE Vital Signs 03-24-2013 15:44 Name Value Interpretat Reference Comment ion Range BP 70 mm[Hg] Diastolic BP Systolic 124 mm[Hg] Heart 80 /min Rate/Pulse O2% 98 % Respiratory 20 /min Rate 03-24-2013 15:14 Name Value Interpretat Reference Comment ion Range BP 63 mm[Hg] Diastolic BP Systolic 105 mm[Hg] Heart 60 /min Rate/Pulse O2% 99 % Respiratory 18 /min Rate 12-07-2012 22:14 Name Value Interpretat Reference Comment ion Range Body 97.8 [degF] Temperature BP 77 mm[Hg] Diastolic BP Systolic 125 mm[Hg] Heart 88 /min Rate/Pulse O2% 99 % Respiratory 20 /min Rate 12-07-2012 21:20 Name Value Interpretat Reference Comment ion Range BP 82 mm[Hg] Diastolic BP Systolic 131 mm[Hg] Heart 84 /min Rate/Pulse O2% 99 % Respiratory 20 /min Rate 09-01-2012 22:46 Name Value Interpretat Reference Comment ion Range BP 56 mm[Hg] Diastolic BP Systolic 119 mm[Hg] Heart 85 /min Rate/Pulse O2% 98 % Respiratory 12 /min Rate Results Labs Lab Lab Date Result Refere Interp Status Commen Order Detail nces retati t Range on CBC with AUTO DIFF (03-24-2013 14:10) WBC # 03-24- 10.9 4.5-13. complet Bld 013 K/MM3 0 ed Auto 14:10 RBC # 5.07 4.2-5.4 complet Bld 013 M/mm3 ed Auto 14:10 Hgb 15.0 12.2-16 complet Bld-mCn 013 g/dL .2 ed c 14:10 Hct Fr 44.7 % 37.0-47 complet Bld 013 .0 ed 14:10 MCV RBC 08- 88.2 fl 82.2-97 complet 013 .8 ed 14:10 MCH RBC 03-24- 29.5 pg 27-31.2 complet Qn 013 ed Auto 14:10 MEAN 33.5 31.8-35 complet CORPUSC 013 g/dl .4 ed ULAR 14:10 HGB CONC RDW RBC 13.7 % 11.5-17 complet Auto 013 .5 ed 14:10 Platele 211 142-424 complet t Bld 013 K/mm3 ed Ql 14:10 Manual MEAN 8.0 fl 7.4-10. complet PLATELE 013 4 ed T 14:10 VOLUME Granulo 73.2 % 37.0-80 complet cytes 013 .0 ed Fr Bld 14:10 Auto LYMPH % 03-24-2 21.6 % 10-50 complet 013 ed 14:10 Monocyt 03-24-2 4.7 % complet es Fr 013 ed Bld 14:10 Auto Eosinop 03-24-2 0.3 % 0.1-12. complet hil Fr 013 0 ed Bld 14:10 Auto Basophi 03-24-2 0.1 % 0.1-2.0 complet ls Fr 013 ed Bld 14:10 Auto Granulo 03-24-2 8.0 1.8-7.8 complet cytes # 013 K/mm3 ed Bld 14:10 Auto Lymphoc 08-2 2.4 0.7-4.5 complet ytes Fr 013 K/mm3 ed Bld 14:10 Auto Monocyt 08-2 0.5 0.1-1.0 complet es # 013 K/mm3 ed Bld 14:10 Auto Eosinop 08-2 0.0 0.0-0.4 complet hil # 013 K/mm3 ed Bld 14:10 Auto Basophi 03-24-2 0.0 0-0.2 complet ls # 013 K/MM3 ed Bld 14:10 Auto B-HCG Ur Ql (12-07-2012 21:20) B-HCG 06-23-2 NEGATIV NEG complet Ur Ql 013 E ed 21:20 URINALYSIS/COMPLETE (12-07-2012 21:20) URINE 06-23-2 RED YELLOW complet COLOR 013 ed 21:20 URINE 06-23-2 TURBID CLEAR complet APPEARA 013 ed NCE 21:20 URINE 06-23-2 NEGATIV NEG complet GLUCOSE 013 E ed - 21:20 DIPSTIC K URINE 06-23-2 NEGATIV NEG complet BILIRUB 013 E ed IN - 21:20 DIPSTIC K URINE 06-23-2 NEGATIV NEG complet KETONE 013 E mg/dL ed 21:20 URINE 06-23-2 Greater 1.005-1 complet SPECIFI 013 than .030 ed C 21:20 or GRAVITY equal to 1.030 URINE 06-23-2 3+ NEG complet BLOOD 013 ed 21:20 URINE 06-23-2 7.0 UNK 5.0-8.5 complet PH 013 ed 21:20 URINE 06-23-2 2+ NEG complet PROTEIN 013 mg/dL ed - 21:20 DIPSTIC K URINE 06-23-2 0.2 NEG complet UROBILI 013 E.U./dL ed NOGEN - 21:20 DIPSTIC K URINE 06-23-2 NEGATIV NEG complet NITRATE 013 E ed - 21:20 DIPSTIC K URINE 06-23-2 TRACE NEG complet LEUK 013 ed ESTERAS 21:20 E URINE 06-23-2 TNTC 0 complet RBC 013 rbc/hpf ed 21:20 URINE 06-23-2 OCC O complet WBC 013 wbc/hpf ed 21:20 COMPREHENSIVE METABOLIC PANEL (09-01-2012 21:30) Glucose 03-18-2 82 74-106 complet 013 mg/dL ed Bld-mCn 21:30 c BUN 03-18-2 10 7-18 complet Bld-mCn 013 mg/dL ed c 21:30 Creat 03-18-2 0.7 0.6-1.0 complet SerPl-m 013 mg/dL ed Cnc 21:30 ESTIMAT 03-18-2 95 50-200 complet ED 013 ML/MIN ed CREATIN 21:30 INE CLEARAN CE Sodium -18-2 140 136-145 complet SerPl-s 013 mmoL/L ed Cnc 21:30 Potassi 03-18-2 3.8 3.5-5.1 complet um 013 mmoL/L ed SerPl-s 21:30 Cnc Chlorid 18-2 105 98-107 complet e 013 mmoL/L ed SerPl-s 21:30 Cnc CO2 18-2 28 21.0-32 complet SerPl-s 013 mmoL/L .0 ed Cnc 21:30 Calcium 18-2 8.9 8.5-10. complet 013 mg/dL 1 ed SerPl-m 21:30 Cnc Prot -18-2 6.7 6.4-8.2 complet SerPl-m 013 gm/dL ed Cnc 21:30 Albumin 18-2 3.7 3.4-5.0 complet 013 gm/dL ed SerPl-m 21:30 Cnc Globuli 18-2 3.0 1.3-3.2 complet n 013 gm/dL ed Ser-mCn 21:30 c Albumin 18-2 1.2 UNK 1.1-1.8 complet /Glob 013 ed SerPl-m 21:30 Rto Bilirub 18-2 0.2 0.2-1.0 complet 013 mg/dL ed SerPl-m 21:30 Cnc AST 18-2 14 U/L 15-37 complet SerPl-c 013 ed Cnc 21:30 ALT 18-2 35 U/L 30-65 complet SerPl-c 013 ed Cnc 21:30 ALP 18-2 102 U/L 50-136 complet SerPl-c 013 ed Cnc 21:30 D Dimer PPP (09-01-2012 21:30) D Dimer 18-2 Less 0-400 complet PPP 013 than ed 21:30 100 ng/mL CBC with AUTO DIFF (09-01-2012 21:30) WBC # 03-18-2 5.1 4.5-13. complet Bld 013 K/MM3 0 ed Auto 21:30 RBC # -18-2 5.06 4.2-5.4 complet Bld 013 M/mm3 ed Auto 21:30 Hgb 18-2 14.9 12.2-16 complet Bld-mCn 013 g/dL .2 ed c 21:30 Hct Fr 18-2 42.5 % 37.0-47 complet Bld 013 .0 ed 21:30 MCV RBC 03-18-2 84.0 fl 82.2-97 complet 013 .8 ed 21:30 MCH RBC 03-18-2 29.4 pg 27-31.2 complet Qn 013 ed Auto 21:30 MEAN 03-18-2 35.0 31.8-35 complet CORPUSC 013 g/dl .4 ed ULAR 21:30 HGB CONC RDW RBC 03-18-2 12.6 % 11.5-17 complet Auto 013 .5 ed 21:30 Platele 03-18-2 175 142-424 complet t Bld 013 K/mm3 ed Ql 21:30 Manual MEAN 03-18-2 7.9 fl 7.4-10. complet PLATELE 013 4 ed T 21:30 VOLUME Granulo 03-18-2 47.1 % 37.0-80 complet cytes 013 .0 ed Fr Bld 21:30 Auto LYMPH % 03-18-2 45.2 % 10-50 complet 013 ed 21:30 Monocyt 03-18-2 4.9 % complet es Fr 013 ed Bld 21:30 Auto Eosinop 03-18-2 2.5 % 0.1-12. complet hil Fr 013 0 ed Bld 21:30 Auto Basophi 03-18-2 0.3 % 0.1-2.0 complet ls Fr 013 ed Bld 21:30 Auto Granulo 03-18-2 2.4 1.8-7.8 complet cytes # 013 K/mm3 ed Bld 21:30 Auto Lymphoc 03-18-2 2.3 0.7-4.5 complet ytes Fr 013 K/mm3 ed Bld 21:30 Auto Monocyt 03-18-2 0.3 0.1-1.0 complet es # 013 K/mm3 ed Bld 21:30 Auto Eosinop 03-18-2 0.1 0.0-0.4 complet hil # 013 K/mm3 ed Bld 21:30 Auto Basophi 03-18-2 0.0 0-0.2 complet ls # 013 K/MM3 ed Bld 21:30 Auto ESR Bld Qn 15M (09-01-2012 21:30) ESR Bld 03-18-2 1 mm/hr 0-20 complet Qn 15M 013 ed 21:30 B-HCG Ur Ql (09-01-2012 21:25) B-HCG 03-18-2 NEGATIV NEG complet Ur Ql 013 E ed 21:25 URINALYSIS/COMPLETE (09-01-2012 21:25) URINE 03-18-2 YELLOW YELLOW complet COLOR 013 ed 21:25 URINE 03-18-2 CLEAR CLEAR complet APPEARA 013 ed NCE 21:25 URINE 03-18-2 NEGATIV NEG complet GLUCOSE 013 E ed - 21:25 DIPSTIC K URINE 03-18-2 NEGATIV NEG complet BILIRUB 013 E ed IN - 21:25 DIPSTIC K URINE 03-18-2 NEGATIV NEG complet KETONE 013 E mg/dL ed 21:25 URINE 03-18-2 1.010 1.005-1 complet SPECIFI 013 UNK .030 ed C 21:25 GRAVITY URINE 03-18-2 NEGATIV NEG complet BLOOD 013 E ed 21:25 URINE 03-18-2 8.5 UNK 5.0-8.5 complet PH 013 ed 21:25 URINE 03-18-2 NEGATIV NEG complet PROTEIN 013 E mg/dL ed - 21:25 DIPSTIC K URINE 03-18-2 0.2 NEG complet UROBILI 013 E.U./dL ed NOGEN - 21:25 DIPSTIC K URINE 03-18-2 NEGATIV NEG complet NITRATE 013 E ed - 21:25 DIPSTIC K URINE 03-18-2 NEGATIV NEG complet LEUK 013 E ed ESTERAS 21:25 E URINE 03-18-2 OCC O complet WBC 013 wbc/hpf ed 21:25 URINE 03-18-2 3-5 0-5 complet SQUAMOU 013 #/hpf ed S CELLS 21:25 URINE 03-18-2 OCC O complet BACTERI 013 ed A 21:25 Procedures Procedure DOS Code Location Performer Comment THERAPEUT 16051 MURRAY MURRAY IC PX 1/> 7 AREAS [place] 15 [place] [address] MURRAY MURRAY 1/> AREAS 7 EACH 15 MIN NEUROMUSC REEDUCA CHIROPRAC 18050 MURRAY MURRAY TIC 7 MANIPULAT FARRAH TX SPINAL 3-4 REGIONS APPL 74546 MURRAY MURRAY MODALITY 7 1/> AREAS ELEC STIMJ UNATTENDE D CHIROPRAC 94960 MURRAY MURRAY TIC 7 MANIPLTV TX EXTRASPIN AL 1/> REGION OPHTH 10241 [facility] MOORE MEDICAL 7 XM&EVAL COMPRHNSV ESTAB PT 1/> FITTING 92500 OSCAR MOORE SPECTACLE 7 S XCPT APHAKIA MONOFOCAL IADNA 56482 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 CHLAMYDIA 7 Y GABBIE OF Y GABBIE OF ALEENA ALEENA TRACHOMAT H H IS AMPLIFIED PROBE TQ IADNA 74503 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 TRICHOMON 7 Y GABBIE OF Y [facility] [place] ALEENA VAGINALIS H H AMPLIFIED PROBE TECH IADNA 03459 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 NEISSERIA 7 Y GABBIE OF Y GAB[facility] OF ALEENA ALEENA GONORRHOE H H AE AMPLIFIED PROBE TQ FINAL G9638 THIERRY HART REPORTS 7 MEDICAL W/O DOC IMAGING 1/MORE ASS DOSE REDUCTION TECH GROUND A0425 [facility] MILEAGE 7 AMBULANCE AMBULANCE PER SERVICE SERVICE STATUTE MILE AMBULANCE A0429 [facility] SERVICE 7 AMBULANCE AMBULANCE BLS SERVICE SERVICE EMERGENCY TRANSPORT THERAPEUT 12366 ROSENDO ROSENDO IC 7 [facility] INJECTION [place] [address] [facility] HART HEAD/BRAI 7 MEDICAL N W/O IMAGING CONTRAST ASS MATERIAL GONADOTRO 40932 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 PIN 7 Y Y CHORIONIC CORPORATI CORPORATI ON OF AM ON OF AM QUANTITAT FARRAH US PREG 90258 [facility] PRANEETH UTERUS 7 MEDICAL REAL TIME IMAGING W/IMAGE ASS DCMTN TRANSVAG CHIROPRAC 94266 ODELL BAIN TIC 7 MANIPLTV TX EXTRASPIN AL 1/> REGION CHIROPRAC 32839 ODELL BAIN TIC 7 MANIPULAT FARRAH TX SPINAL 3-4 REGIONS CHIROPRAC 67352 [facility] FAMILY MANIPULAT CHIROPRAC FARRAH TX TIC SPINAL 5 REGIONS RADEX 89029 [facility] SPINE 7 FAMILY CERVICAL CHIROPRAC 2 OR 3 TIC VIEWS RADEX 58498 [facility] SPINE 7 FAMILY LUMBOSACR CHIROPRAC AL 2/3 TIC VIEWS APPL 59205 MANDO CRUZ MODALITY 7 FAMILY 1/> AREAS CHIROPRAC TRACTION TIC MECHANICA L BLOOD 65424 ROS[facility] ROBBINS COUNT 3 [facility] COMPLETE INC INC AUTO&AUTO DIFRNTL WBC URNLS DIP 32945 ROS[facility]O ROBBINS 3 [facility] STICK/TAB INC INC LET REAGENT AUTO MICROSCOP Y URINE 60816 [facility] ROBBINS 3 [facility] TEST INC INC VISUAL COLOR CMPRSN METHS IAADIADOO 09445 IVAN IVAN 3 DON DON STREPTOCO CCUS GROUP A CUL BACT 68491 Content Ramen QUEST XCPT 3 DIAGNOSTI DIAGNOSTI URINE CS CS BLOOD/STO OL AEROBIC ISOL IAADIADOO 44648 [facility] 3 PHYSICIAN PHYSICIAN STREPTOCO S GROUP S GROUP CCUS GROUP A URINE 24885 KRANTHI YULISA KRANTHI YULISA 3 TEST VISUAL COLOR CMPRSN METHS IAADIADOO 08331 [facility] 3 PHYSICIAN PHYSICIAN STREPTOCO S GROUP S GROUP CCUS GROUP A ECG 54754 MAIRA LEMUSEY ROUTINE 3 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 ECG W/LEAST 12 LDS I&R ONLY ECG 20229 ROSA ELENA CUBA ROUTINE 3 XANDER XANDER ECG W/LEAST 12 LDS I&R ONLY RADIOLOGI 81214 ROSENDO ROBBINS C EXAM 3 [facility] CHEST 2 INC INC VIEWS FRONTAL&[place] [address] ROSENDO ROBBINS THYROXINE 3 [facility] TOTAL INC INC SEDIMENTA 44708 ROSENDO ROBBINS TION RATE 3 [facility] RBC INC INC NON-AUTOM ATED BILIRUBIN 88609 ROSEND[facility] ROBBINS DIRECT 3 [facility] INC INC ECG 99894 ROS[facility] ROBBINS ROUTINE 3 [facility] ECG INC INC W/LEAST 12 LDS TRCG ONLY W/O I&R COMPREHEN 31274 ROS[facility] ROBBINS SIVE 3 [facility] [place] [address] ROSENDO ROBBINS THYROID 3 [facility] STIMULATI INC INC NG HORMONE TSH BLOOD 59232 ROS[facility] ROBBINS COUNT 3 [facility] COMPLETE INC INC AUTO&AUTO DIFRNTL WBC THYROID 92033 ROS[facility] ROBBINS HORM 3 [facility] UPTK/THYR INC INC OID HORMONE BINDING RATIO LIPID 71593 ROSEND[facility] ROBBINS PANEL 3 [facility] INC INC URNLS DIP 22687 [facility] ROBBINS 2 [facility] STICK/TAB INC INC LET REAGENT AUTO MICROSCOP Y BLOOD 96733 ROESNDO ROBBINS COUNT 2 [facility] COMPLETE INC INC AUTO&[place] [address] ROSENDO ROBBINS AMYLASE 2 [facility] INC INC COMPREHEN 31729 ROS[facility] ROBBINS SIVE 2 [facility] [place] [address] ROSENDO ROBBINS LIPASE 2 [place] [address] ROS[facility] ROBBINS INFUSION 2 [facility] THERAPY/P INC INC ROPHYLAXI S /DX 1ST TO 1 HR THERAPEUT 90093 ROS[facility] ROBBINS IC 2 [facility] INJECTION INC INC IV PUSH EACH NEW DRUG URINE 80095 [facility] ROBBINS 2 [facility] TEST INC INC VISUAL COLOR CMPRSN METHS IAADIADOO 48754 KRANTHI CRISOSTOMO YULISA 2 STREPTOCO CCUS GROUP A URNLS DIP 92377 IVAN IVAN 2 DON DON STICK/TAB LET RGNT NON-AUTO W/O MICRSCP IADNA 92749 MEDICAL MEDICAL NEISSERIA 2 DIAGNOSTI DIAGNOST[facility] GONORRHOE AE AMPLIFIED PROBE TQ IADNA NOS 04933 MEDICAL MEDICAL 2 DIAGNOSTI DIAGNOSTI AMPLIFIED [facility] PROBE TQ EACH ORGANISM IADNA 33184 MEDICAL MEDICAL ALAYNA 2 DIAGNOSTI DIAGNOSTI SPECIES [facility] AMPLIFIED PROBE TQ IADNA 44270 MEDICAL MEDICAL CHLAMYDIA 2 DIAGNOSTI DIAGNOSTI [facility] TRACHOMAT IS AMPLIFIED PROBE TQ URINE 66573 KRANTHI MÁRQUEZ KRANTHI YULISA 2 TEST VISUAL COLOR CMPRSN METHS URINE 32746 ROSENDO ROBBINS 2 [facility] VISUAL HEAL HEAL COLOR CMPRSN METHS THERAPEUT 69127 CAREY PATELANA IC PX 1/> 2 AREAS CHIROPRAC CHIROPRAC EACH 15 TIC CENTE TIC CENTE MIN EXERCISES CHIROPRAC 65960 [place] TIC 2 MANIPULAT CHIROPRAC CHIROPRAC FARRAH TX TIC CENTE TIC CENTE SPINAL 3-[place] [address] [place] 1/> AREAS 2 EACH 15 CHIROPRAC CHIROPRAC MINUTES TIC CENTE TIC CENTE MASSAGE CHIROPRAC 44095 [place] TIC 2 MANIPULAT CHIROPRAC CHIROPRAC FARRAH TX TIC CENTE TIC CENTE SPINAL 3-[place] [address] [place] 1/> AREAS 2 EACH 15 CHIROPRAC CHIROPRAC MIN TIC CENTE [place] [address] [place] 1/> AREAS 2 EACH 15 CHIROPRAC CHIROPRAC MIN TIC CENTE TIC CENTE NEUROMUSC REEDUCA THERAPEUT 92359 [place] IC PX 1/> 2 AREAS CHIROPRAC CHIROPRAC EACH 15 TIC [place]ENT[place] [address] [place] 1/> AREAS 2 EACH 15 CHIROPRAC CHIROPRAC MINUTES TIC CENTE TIC CENTE MASSAGE CHIROPRAC 41885 [place] TIC 2 MANIPULAT CHIROPRAC CHIROPRAC FARRAH TX TIC CENTE TIC CENTE SPINAL 3-4 REGIONS RADEX 75222 [place] SPINE 2 LUMBOSACR CHIROPRAC CHIROPRAC AL 2/3 TIC CENTE TIC CENTE VIEWS APPL 53703 [place] MODALITY 2 1/> AREAS CHIROPRAC CHIROPRAC TRACTION TIC CENTE TIC CENTE MECHANICA L APPL 78232 [place] MODALITY 2 1/> AREAS CHIROPRAC CHIROPRAC TRACTION T[place] [address] [place] 1/> AREAS 2 EACH 15 CHIROPRAC CHIROPRAC MINUTES TIC CENTE TIC CENTE MASSAGE CHIROPRAC 54811 [place] TIC 2 MANIPULAT CHIROPRAC CHIROPRAC FARRAH TX TIC CENTE TIC CENTE SPINAL 3-4 REGIONS THERAPEUT 85057 [place] IC PX 1/> 2 AREAS CHIROPRAC CHIROPRAC EACH 15 TIC CENTE TIC CENTE MIN EXERCISES THERAPEUT 26580 [place] IC PX 1/> 2 AREAS CHIROPRAC CHIROPRAC EACH 15 TIC CENTE TIC CENTE MIN EXERCISES CHIROPRAC 68516 [place] TIC 2 MANIPULAT CHIROPRAC CHIROPRAC FARRAH TX TIC CENTE TIC CENTE SPINAL 3-4 REGIONS APPL 40164 [place] MODALITY 2 1/> AREAS CHIROPRAC CHIROPRAC TRACTION TIC CENTE TIC CENTE MECHANICA L APPL 22220 [place] MODALITY 2 1/> AREAS CHIROPRAC CHIROPRAC TRACTION TIC CENTE TIC CENTE MECHANICA L MANUAL 69326 [place] THERAPY 2 TQS 1/> CHIROPRAC CHIROPRAC REGIONS TIC CENTE TIC CENTE EACH 15 MINUTES CHIROPRAC 69723 [place] TIC 2 MANIPULAT CHIROPRAC CHIROPRAC FARRAH TX TIC CENTE TIC CENTE SPINAL 3-4 REGIONS DETERMINA 14186 ALE AGUILERA TION 2 JAM JAM REFRACTIV E STATE PRESSURIZ 12783 ROSENDO CURIEL ED/NONPRE 2 [facility] INHALATIO N TREATMENT ALBUTEROL J7613 ROS[facility] CURIEL INHAL 2 [facility] PROD THRU DME U DOSE 1 MG US BREAST 97970 THIERRY DACOSTA REAL 2 MEDICAL TONJA TIME IMAGING W/IMAGE ASS DOCUMENTA TION BASIC 40996 ROS[facility] ROBBINS METABOLIC 2 [facility] [place] [address] ROSENDO ROBBINS THYROID 2 [facility] STIMULATI INC INC NG HORMONE TSH BLOOD 03717 ROS[facility] ROBBINS COUNT 2 [facility] COMPLETE INC INC AUTO&AUTO DIFRNTL WBC GONADOTRO 47614 ROS[facility] ROBBINS PIN 2 [facility] CHORIONIC INC INC QUANTITAT FARRAH SPMTRY 53955 [place] BARTHOLOMEW W/VC 2 BETTINA BETTINA EXPIRATOR Y ZOHAIB W/WO MXML VOL VNTJ INFUSION J7030 [facility] NORMAL 2 Y Y SALINE [facility] SOLUTION [address] [place] [address] [facility] LIPASE 2 Y Y [facility] BLOOD 06941 [facility] COUNT 2 Y Y COMPLETE [facility] AUTOMATED GONADOTRO 90329 [facility] PIN 2 Y Y CHORIONIC [facility] QUALITATI VE URNLS DIP 87678 [facility] 2 Y Y STICK/TAB [facility] LET REAGENT AUTO MICROSCOP Y COMPREHEN 87505 [facility] SIVE 2 Y Y METABOLIC [facility] PANEL ONDANSETR Q0162 [facility] ON 1 MG 2 Y Y ORL NOT [facility] EXCEED [address] [place] [address] [facility] INFUSION 2 Y Y HYDRATION [facility] INITIAL 31 MIN-1 HOUR IADNA 58354 LAB GABBIE LAB GABBIE NEISSERIA 2 [employer] GONORRHOE AE AMPLIFIED PROBE TQ IADNA 40338 LAB GABBIE LAB GABBIE CHLAMYDIA 2 [employer] TRACHOMAT IS AMPLIFIED PROBE TQ SMR PRIM 90268 [facility] [place] R[facility] SRC WET 2 MOUNT NFCT AGT URINE 44803 LUIZ DEE 1 OUMOU OUMOU TEST VISUAL COLOR CMPRSN METHS IIV3 86860 ROSEND[facility] ROBBINS VACCINE 1 [facility] VIRUS 0.5 ML DOSAGE IM USE BLOOD 56095 ROS[facility] ROBBINS COUNT 1 [facility] COMPLETE INC INC AUTO&[place] [address] [facility] ROBBINS THYROID 1 [facility] STIMULATI INC INC NG HORMONE TSH COMPREHEN 59469 [facility] ROBBINS SIVE 1 [facility] METABOLIC INC INC PANEL IAADIADOO 64457 [facility] CATHERINES 1 DON DON [place] IV D9242 NEVAEH DMD NEVAEH DMD CONSCIOUS 1 [facility] SEDATION/ ANALG - EA ADD 15 MINUTES IV D9242 NEVAEH DMD NEVAEH DMD CONSCIOUS 1 [employer] SEDATION/ ANALG - EA ADD 15 MINUTES SMR PRIM 30344 [place] GERALD KER SRC WET 1 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 MOUNT ASSOCIATE NFCT AGT S CUL BACT 09472 [facility] ROBBINS STOOL 1 [facility] AEROBIC INC INC ISOL SALMONELL A&SHIGELL IAADIADOO 85002 [facility] CATHERINES 1 DON DON STREPTOCO CCUS GROUP A CHIROPRAC 89448 [place] TIC 1 ROS MANIPULAT CHIROPRAC FARRAH TX TIC CENTE SPINAL 1-2 REGIONS APPL 76478 [place] MODALITY 1 ROS 1/> AREAS CHIROPRAC ELEC TIC CENTE STIMJ UNATTENDE D APPL 64565 [place] MODALITY 1 ROS 1/> AREAS CHIROPRAC TRACTION TIC CENTE MECHANICA L APPL 08051 [place] MODALITY 0 ROS 1/> AREAS CHIROPRAC TRACTION TIC CENTE MECHANICA L APPL 00815 [place] MODALITY 0 ROS 1/> AREAS CHIROPRAC ELEC TIC CENTE STIMJ UNATTENDE D CHIROPRAC 40542 [place] TIC 0 ROS MANIPULAT CHIROPRAC FARRAH TX TIC CENTE SPINAL 1-2 REGIONS CHIROPRAC 51639 [place] TIC 0 ROS MANIPLTV CHIROPRAC TX TIC CENTE EXTRASPIN AL 1/> REGION CHIROPRAC 31679 [place] TIC 0 ROS MANIPLTV CHIROPRAC TX TIC CENTE EXTRASPIN AL 1/> REGION CHIROPRAC 83621 [place] TIC 0 ROS MANIPULAT CHIROPRAC FARRAH TX TIC CENTE SPINAL 1-2 REGIONS APPL 36288 [place] MODALITY 0 ROS 1/> AREAS CHIROPRAC ELEC TIC CENTE STIMJ UNATTENDE D APPL 47156 [place] MODALITY 0 ROS 1/> AREAS CHIROPRAC TRACTION TIC CENTE MECHANICA L APPL 89960 [place] MODALITY 0 ROS 1/> AREAS CHIROPRAC ELEC TIC CENTE STIMJ UNATTENDE D APPL 51593 [place] MODALITY 0 ROS 1/> AREAS CHIROPRAC TRACTION TIC CENTE MECHANICA L CHIROPRAC 73836 [place] TIC 0 ROS MANIPULAT CHIROPRAC FARRAH TX TIC CENTE SPINAL 1-2 REGIONS CHIROPRAC 81092 [place] TIC 0 ROS MANIPLTV CHIROPRAC TX TIC CENTE EXTRASPIN AL 1/> REGION CHIROPRAC 73114 [place] TIC 0 ROS MANIPLTV CHIROPRAC TX TIC CENTE EXTRASPIN AL 1/> REGION CHIROPRAC 94199 [place] TIC 0 ROS MANIPULAT CHIROPRAC FARRAH TX TIC CENTE SPINAL 1-2 REGIONS APPL 85913 [place] MODALITY 0 ROS 1/> AREAS CHIROPRAC TRACTION TIC CENTE MECHANICA L APPL 46842 [place] MODALITY 0 ROS 1/> AREAS CHIROPRAC TIC CENTE ULTRASOUN D EA 15 MIN APPLICATI 47712 [place] ON 0 SAPPHIRE SAPPHIRE MODALITY 1/> AREAS HOT/COLD PACKS THERAPEUT 77015 [place] IC PX 1/> 0 SAPPHIRE SAPPHIRE AREAS EACH 15 MIN EXERCISES APPL 56842 [place] MODALITY 0 SAPPHIRE SAPPHIRE 1/> AREAS TRACTION MECHANICA L CHIROPRAC 58874 [place] TIC 0 SAPPHIRE SAPPHIRE MANIPULAT FARRAH TX SPINAL 1-2 REGIONS IIV3 07559 ROSENDO ROBBINS VACCINE [address] [facility] VIRUS 0.5 ML DOSAGE IM USE CUL BACT 41753 [facility] ROBBINS XCPT 0 [facility] URINE INC INC BLOOD/STO OL AEROBIC ISOL CUL BACT 74974 [facility] ROBBINS AEROBIC 0 [facility] ADDL INC INC METHS DEFINITIV E EA ISOL SUSCEPTIB 70576 [facility] ROBBINS LTY STDY 0 [facility] ANTIMICRB INC INC IAL MICRO/[place] [address] [place] PRANEETH, MAXILLOFA 0 MEDICAL FILIPPO CIAL W/O IMAGING CONTRAST ASSOCIATE MATERIAL S 3D 18010 [place] PRANEETH, RENDERING 0 MEDICAL FILIPPO IMAGING W/INTERP& ASSOCIATE POSTPROC S DIFF WORK STATION RADEX 90595 [facility] WRIST 0 MEDICAL FILIPPO COMPLETE IMAGING MINIMUM 3 ASSOCIATE VIEWS S URNLS DIP 62778 [facility] STICK/TAB INC INC LET REAGENT AUTO MICROSCOP Y URINE 93016 [facility] 0 [facility] TEST INC INC VISUAL COLOR CMPRSN METHS BLOOD 91264 [facility] ROBBINS COUNT 0 [facility] COMPLETE INC INC AUTO&AUTO DIFRNTL WBC BASIC 25632 [facility] ROBBINS METABOLIC 0 [facility] PANEL INC INC CALCIUM TOTAL RADEX 93147 MONCHO IVAN, ANKLE 0 DON R DON R COMPLETE MINIMUM 3 VIEWS RADIOLOGI 56749 MONCHO IVAN, C 0 DON R DON R EXAMINATI ON FOOT 2 VIEWS URNLS DIP 62105 COMBINED COMBINED 9 PHYSICIAN PHYSICIAN STICK/TAB S LAB S LAB LET REAGENT AUTO MICROSCOP Y GENERAL 38989 COMBINED COMBINED HEALTH 9 PHYSICIAN PHYSICIAN PANEL S LAB S LAB PARTICLE 19869 COMBINED COMBINED AGGLUTINA 9 PHYSICIAN PHYSICIAN TION S LAB S LAB SCREEN EACH ANTIBODY IAADIADOO 75055 COMBINED COMBINED 9 PHYSICIAN PHYSICIAN INFLUENZA S LAB S LAB IAADIADOO 22494 MONCHO IVAN, Marlen DON R DON R STREPTOCO CCUS GROUP A IAADI 03147 [facility] BULLON INFLUENZA 9 [facility] B VIRUS INC INC IAADI 00209 [facility] ROBBINS INFFLUENZ 9 [facility] A A VIRUS INC INC IADNA NOS 71849 [facility] ROB[facility]INS 9 [facility] AMPLIFIED INC INC PROBE TQ EACH ORGANISM IIV3 43475 DHS/CO [facility] VACCINE 9 HEALTH CO [facility] VIRUS 0.5 BANK ACCT ML DOSAGE IM USE IAADIADOO 83902 MONCHO IVAN, 9 DON R DON R STREPTOCO CCUS GROUP A OPHTH 57191 [facility] 9 VISION NICKIE A XM&EVAL COMPRHNSV ESTAB PT 1/> ORTHOPANT 48982 [facility] CHRISTINA BEGUM 9 FOR HERIBERTO S ORAL&MAXI LLOFACIAL SURGERY Encounters Encounter Start End Date Code Location Performer Type Date OFFICE 25990 [facility] OUTPATIEN 7 7 T NEW 30 MINUTES OFFICE 12562 [facility] CONSULTAT 7 7 N ION NEUROLOGY NEW/ESTAB PATIENT 40 MIN OFFICE 07021 THIERRY BEGUM OUTPATIEN 7 7 Treater T VISIT 25 MINUTES EMERGENCY 29760 [facility] 7 7 FRANNIE - YORBA DEPARTMEN EMERGENCY T VISIT PHYS HIGH/URGE NT SEVERITY OFFICE 11538 GUI CASE OUTPATIEN 7 7 ONLINE COMMUNICATIONS SPECIALIST T VISIT ASSOCIATE 15 S, MINUTES EMERGENCY 14723 BRANDYN BARRY DEPT 7 7 PHYSIC[facility] THRE[facility] - 7 7 [facility] OUTPATIEN INC T EMERGENCY 97595 [facility] 7 7 FRANNIE DEPARTMEN EMERGENCY T VISIT SERVI HIGH/URGE NT SEVERITY EMERGENCY 55549 [facility] 7 7 [facility] DEPARTMEN INC T VISIT LOW/MODER SEVERITY HOSPITAL [facility] - 7 7 [facility] OUTPATIEN INC T EMERGENCY 50832 BRANDYN SCHNEIDER 7 7 PHYSICIAN U DEPARTMEN S, PLLC T VISIT MODERATE SEVERITY OFFICE 52291 GUI VILLANUEVA OUTPATIEN 7 7 ONLINE COMMUNICATIONS SPECIALIST II T VISIT ASSOCIATE 15 S, MINUTES EMERGENCY 51771 [facility] 7 7 [facility] DEPARTMEN INC T VISIT LOW/MODER SEVERITY HOSPITAL [facility] - 7 7 [facility] OUTPATIEN INC T EMERGENCY 97753 BRANDYN SCHNEIDER DEPT 7 7 PHYSICIAN U VISIT S, PLLC HIGH SEVERITY& THREAT FUNCJ OFFICE 27100 ODELL BAIN OUTPATIEN 7 7 T NEW 30 MINUTES OFFICE 53182 MANDO CRUZ OUTPATIEN 7 7 FAMILY T NEW 30 CHIROPRAC MINUTES TIC PERIODIC 73032 REGINALDO Nation PREVENTIV 3 3 E MED EST PATIENT -17S Emergency MANN DAMON MD (ER) 3 14:10 3 15:45 [facility] - 3 3 [facility] OUTPATIEN INC T Emergency MANN Simons MD (ER) 3 21:33 3 22:14 [facility] EMERGENCY 37274 [facility] 3 3 [facility] DEPARTMEN INC T VISIT LOW/MODER SEVERITY HOSPITAL [facility] - 3 3 [facility] OUTPATIEN INC T OFFICE 14277 MONCHO CATHERINES OUTPATIEN 3 3 DON DON T VISIT 15 MINUTES OFFICE 18483 [facility] OUTPATIEN 3 3 PHYSICIAN T VISIT S GROUP 15 MINUTES OFFICE 41962 KRANTHI [facility] OUTPATIEN 3 3 T VISIT 15 MINUTES OFFICE 01709 [facility] OUTPATIEN 3 3 PHYSICIAN T VISIT S GROUP 10 MINUTES OFFICE 39112 [facility] OUTPATIEN 3 3 PHYSICIAN T VISIT S GROUP 15 MINUTES OFFICE 07542 [facility] OUTPATIEN 3 3 PHYSICIAN T VISIT S GROUP 15 MINUTES OFFICE 61440 KRANTHI MÁRQUEZ OUTPATIEN 3 3 T VISIT 15 MINUTES Emergency MANN Barry MD (ER) 3 21:04 3 23:15 [facility] EMERGENCY 27871 MAIRA BARRY DEPT 3 3 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 VISIT HIGH SEVERITY& THREAT FUNCJ OFFICE 41564 TYLEREMELY MIL[facility] OUTPATIEN 3 3 EDA EDA T VISIT 15 MINUTES HOSPITAL [facility] - 3 3 [facility] OUTPATIEN INC T OFFICE 86238 [facility] OUTPATIEN 3 3 PHYSICIAN T VISIT S GROUP 15 MINUTES OFFICE 46497 TYLEREMELY [facility] OUTPATIEN 3 3 EDA EDA T NEW 30 MINUTES OFFICE 89058 [facility] OUTPATIEN 3 3 PHYSICIAN T VISIT S GROUP 15 MINUTES HOSPITAL [facility] - 2 2 [facility] OUTPATIEN INC T EMERGENCY 90160 [facility] 2 2 [facility] DEPARTMEN INC T VISIT MODERATE SEVERITY EMERGENCY 50820 LUCRECIA POWELL DEPT 2 2 EMERGENCY BRITNEY VISIT SERVICES HIGH SEVERITY& THREAT FUNCJ OFFICE 35630 KRANTHI MÁRQUEZ OUTPATIEN 2 2 T VISIT 15 MINUTES OFFICE 08332 IVAN IVAN OUTPATIEN 2 2 DON DON T VISIT 15 MINUTES OFFICE 22912 IVAN IVAN OUTPATIEN 2 2 DON DON T VISIT 15 MINUTES OFFICE 80462 TERESA MOORE OUTPATIEN 2 2 CELESTE CELESTE T VISIT 15 MINUTES OFFICE 45330 KRANTHI MÁRQUEZ OUTPATIEN 2 2 T VISIT 15 MINUTES OFFICE 41673 [facility] ROBBINS OUTPATIEN 2 2 [facility] 15 HEAL HEAL MINUTES OFFICE 82739 MAIRA BARRY OUTPATIEN 2 2 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 T VISIT 10 MINUTES OFFICE 23130 MONCHO IVAN OUTPATIEN 2 2 DON DON T VISIT 15 MINUTES OFFICE 54014 CYNTHIANA OUTPATIEN 2 2 T VISIT CHIROPRAC 15 TIC CENTE MINUTES OFFICE 13944 BHANU BHANU OUTPATIEN 2 2 DEWEY DEWEY T VISIT 15 MINUTES OFFICE 99816 ALE AGUILERA OUTPATIEN 2 2 JAM JAM T NEW 60 MINUTES OFFICE 14587 [facility] CURIEL OUTPATIEN 2 2 [facility] T VISIT HOSPITAL 15 MINUTES OFFICE 86027 BHANU BHANU OUTPATIEN 2 2 DEWEY DEWEY T VISIT 15 MINUTES OFFICE 07250 REGINALDO HAIR J OUTPATIEN 2 2 T VISIT 10 MINUTES [facility] T OFFICE 34204 RICH RICH OUTPATIEN 2 2 II O II O T VISIT 15 MINUTES [facility] OFFICE 76732 [place] OUTPATIEN 2 2 BETTINA BETTINA T NEW 30 MINUTES EMERGENCY 24077 KATT BOLIVAR 2 2 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 T VISIT HIGH/URGE NT SEVERITY [facility] LUIZ DEE OUTPATIEN 2 2 [facility] O[facility] T VISIT 15 MINUTES OFFICE 89442 BHANU BHANU OUTPATIEN 2 2 DEWEY DEWEY T VISIT 10 MINUTES OFFICE 34644 LUIZ MORROWEFER OUTPATIEN 2 2 [facility] T VISIT 10 MINUTES OFFICE 77072 MIKI LIVINGSTON RAN OUTPATIEN 2 2 T VISIT 15 MINUTES OFFICE 05438 LUIZ BOXER OUTPATIEN 1 1 [facility] OUMOU T NEW 30 MINUTES [facility] OFFICE 21000 [facility]CHO ARMSTRONGHENS OUTPATIEN 1 1 DON DON T VISIT 15 MINUTES OFFICE 10024 IVAN IVAN OUTPATIEN 1 1 DON DON T VISIT 15 MINUTES OFFICE 82265 GUI GERALD KER OUTPATIEN 1 1 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 T NEW 30 [facility] MINUTES [facility] - [facility] 1 [facility] T OFFICE 18939 [facility] ARMSTRONGHENS OUTPATIEN 1 1 DON DON T VISIT 15 MINUTES OFFICE 54901 [facility] ROSENDO OUTPATIEN 1 1 [facility] 15 MINUTES OFFICE 45612 [facility] ROBBINS OUTPATIEN 1 1 [facility] 15 MINUTES OFFICE 13739 CAREY LINWOOD OUTPATIEN 0 0 ROS T NEW 30 [facility] ROBBINS OUTPATIEN 0 0 [facility] 10 MINUTES OFFICE 73381 IVANNAVID CATHERINES OUTPATIEN 0 0 DON DON T VISIT 15 MINUTES OFFICE 34615 IVAN IVAN OUTPATIEN 0 0 DON DON T VISIT 15 MINUTES [facility] T OFFICE 14599 MONCHO IVAN OUTPATIEN 0 0 DON DON T VISIT 15 MINUTES OFFICE 66904 YULI MOSCOSO OUTPATIEN 0 0 VISION ANG T NEW 20 MINUTES OFFICE 91709 MONCHO IVAN OUTPATIEN 0 0 DON DON T VISIT 15 MINUTES OFFICE 93848 ROSEND[facility] ROSENDO OUTPATIEN 0 0 [facility] 15 MINUTES OFFICE 39565 MONCHO IVAN OUTPATIEN 0 0 DON R DON R T VISIT 15 MINUTES [facility] OUT[facility] T EMERGENCY 62664 LUCRECIA BARRY, DEPT 0 0 EMERGENCY [facility] VISIT SERVICES HIGH SEVERITY& ASSOCIATE THREAT S FUN EMERGENCY 86731 [facility] 0 0 [facility] DEPARTMEN INC T VISIT LOW/MODER SEVERITY OFFICE 90252 MONCHO IVAN OUTPATIEN 0 0 DON R DON R T VISIT 15 MINUTES [facility] T OFFICE 55782 MONCHO IVAN OUTPATIEN 0 0 DON R DON R T VISIT 15 MINUTES OFFICE 40339 ELISABETH BARBER OUTPATIEN 0 0 IDRIS A IDRIS A T VISIT 15 MINUTES OFFICE 93828 MONCHO IVAN OUTPATIEN 0 0 DON R DON R T VISIT 25 MINUTES OFFICE 51030 ELISABETH BARBER OUTPATIEN 0 0 IDRIS A IDRIS A T VISIT 15 MINUTES OFFICE 01834 MONCHO IVAN OUTPATIEN 9 9 DON R DON R T VISIT 15 MINUTES OFFICE 06079 MONCHO IVAN OUTPATIEN 9 9 DON R DON R T VISIT 15 MINUTES EMERGENCY 46210 LUCRECIA BARRY, 9 9 EMERGENCY MARYAN S DEPARTMEN SERVICES T VISIT MODERATE ASSOCIATE SEVERITY S EMERGENCY 64631 [facility] 9 9 [facility] DEPART[facility] INC T VISIT LOW/MODER SEVERITY [facility]OSP[facility] 9 9 [facility] OUTPATI[facility] INC T OFFICE 30301 MONCHO IVAN OUTPATIEN 9 9 DON R DON R T VISIT 15 MINUTES OFFICE 86140 MONCHO IVAN OUTPATIEN 9 9 DON R DON R T VISIT 15 MINUTES OFFICE 71440 MONCHO IVAN OUTPATIEN 9 9 DON R DON R T VISIT 15 MINUTES OFFICE 38992 AL SHERI MARCUM 9 9 FOR HERIBERTO ARROYO 10 ORAL&MAXI MINUTES LLOFACIAL SURGERY OFFICE 94844 MONCHO IVAN OUTPATIEN 8 8 DON R DON R T NEW 20 MINUTES
--- OUTSIDE RECORDS SUMMARY | 2017-03-28 03:31 | External Medical Summary Rpt | CCD ---
Author Author , ZAK Organization ZAK Address Unknown Phone [email or web address] Care Team Providers Care [employer] Worker Name Role Phone HAIR J, HAIR J [...] DAMON MD, Unavailable Unavailable KRANTHI DAMON MD [facility] Unavailable Unavailable SERVICE, [facility] KATT 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, KATT Unavailable Unavailable 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 KATT 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, KATT Unavailable Unavailable 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 CELLAROSI - YORBA, Unavailable Unavailable CELLAROSI - YORBA SHY BEGUM Unavailable Unavailable HERIBERTO BEGUM, Unavailable Unavailable HERIBERTO BEGUM [facility], Unavailable Unavailable [facility] Unavailable Unavailable LAB, [facility] PRANEETH, PRANEETH Unavailable Unavailable PRANEETH TONJA, Unavailable Unavailable PRANEETH TONJA PRANEETH FILIPPO, Unavailable Unavailable PRANEETH, FILIPPO YULI VISION, Unavailable Unavailable [facility] [place] [facility] Un[facility] [place] BHANU DEWEY, Unavailable Unavailable BHANU DEWEY BHANU DEWEY, Unavailable Unavailable BHANU DEWEY MURRAY, MURRAY Unavailable Unavailable MURRAY, MURRAY Unavailable Unavailable [place] BETTINA, Unavailable Unavailable [place] BETTINA [place] BET[place]INA, Unavailable Unavailable [place] BETTINA MAIRA, MAIRA Unavailable Unavailable MAIRA MANSOOR, MAIRA Unavailable Unavailable MANSOOR MAIRA MANSOOR, MAIRA Unavailable Unavailable MANSOOR MARYAN BARRY, Unavailable Unavailable MARYAN BARRY [facility], Unavailable Unavailable [facility] Unavailable Unavailable PU[facility]O REAL, [facility] Unavailable Unavailable [facility]ENTER, [facility] Unavailable [facility] [...] NICKIE A, Unavailable Unavailable MOORE, NICKIE A [facility], Unavailable Unavailable [facility]ED[facility] SAPPHIRE, K[place] Unavailable Unavailable [facility]PHIRE [place] [facility], [place] Unavailable Unavailable [facility] Unavailable Unavailable [facility], [facility] Nohemy Simons MD, Unavailable [...] CORPORATION OF AM, 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 Unavailable Unavailable ASSOCIATES, 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 Gilbert Barry MD, Unavailable Unavailable Gilbert Barry MD [facility] Unavailable Unavailable SERVICES, [facility] DAVID HERNANDEZ Unavailable Unavailable ALE AVILA, Unavailable Unavailable ALE AGUILERA JAM, Unavailable Unavailable AGUILERA JAM LINWOOD ROS, LINWOOD Unavailable Unavailable ROS NEVAEH DMD HOLINESS, NEVAEH Unavailable Unavailable DMD HOLINESS NEVAEH DMD HOLINESS, NEVAEH Unavailable Unavailable DMD HOLINESS [facility], [facility] [...] [facility]NO[facility], Unavailable Unavailable [facility] Unavailable Unavailable [facility], [id number] Unavailable Unavailable [id number] Unavailable [facility]available [id number] [address] [id number], [facility] [id number] # [id number] ANDRE BRITNEY, ANDRE Unavailable Unavailable BRITNEY DEE OUMOU, Unavailable Unavailable DEE OUMOU DEE OUMOU, Unavailable Unavailable DEE OUMOU TERESA CELESTE, TERESA Unavailable Unavailable CELESTE TERESA CELESTE, TERESA Unavailable Unavailable CELESTE SCIFRES ANG, SCIFRES Unavailable Unavailable ANG CURIEL EUGENIA, CURIEL Unavailable Unavailable EUGENIA HAILE, HAILE Unavailable Unavailable SOTINGEANU, Unavailable [facility]available [facility] Unavailable Unavailable [facility]ENCY PH[facility], [facility] IVAN DON, Unavailable Unavailable IVAN DON IAVN DON, Unavailable Unavailable IVAN DON IVAN, DON R, Unavailable Unavailable IVAN, DON R [facility], Unavailable Unavailable [facility] Unavailable Unavailable #[id number], [id number] ANTHONY, ANTHONY Unavailable Unavailable Purpose Continuity of Care Document - 02-02-2008 through 2016 Problems Code Diagnosis DOS Provider Status M5386 OTHER 01-16-2017 MURRAY SPECIFIED DORSOPATHIE S LUMBAR REGION M546 PAIN IN 01-16-2017 [facility] THORACIC SPINE M9906 SEGMENTAL & 01-16-2017 [facility] SOMATIC DYSFUNCTION LOWER EXTREMITY F54238 REGULAR 01-07-2017 [facility] ASTIGMATISM BILATERAL R51 HEADACHE 12-14-2016 [facility] S83204 MIGRAINE 10-23-2016 [facility] UNS NOT N EMERGENCY INTRACT W/O PHYS STATUS MIGRAINOSUS N938 OTHER SPEC 10-23-2016 LABORATORY ABNORMAL GABBIE OF UTERINE & ALEENA H VAGINAL BLEEDING R110 NAUSEA 10-23-2016 [facility] Z720 TOBACCO USE 10-20-2016 PSYCHIATRIC N939 ABNORMAL 10-18-2016 [facility] UTERINE & PHYSICIANS, VAGINAL PLLC BLEEDING UNSPECIFIED L67651 UNSPECIFIED 10-15-2016 [facility] OVARIAN PHYSICIANS, CYST RIGHT PLLC SIDE N921 EXCESS & 10-15-2016 [facility] FREQUENT PHYSICIANS, MENSTRUATIO PLLC N W/IRREGULAR CYCLE L09775 PAIN IN 09-26-2016 [facility] RIGHT SHOULDER M542 CERVICALGIA 09-26-2016 [facility] B38256 MUSCLE 09-26-2016 [facility] SPASM OF BACK M9901 SEGMENTAL & 09-26-2016 [facility] SOMATIC DYSFUNCTION CERVICAL REGION M9902 SEGMENTAL & 09-26-2016 [facility] SOMATIC DYSFUNCTION THORACIC REGION M9905 SEGMENTAL & 09-26-2016 [facility] SOMATIC DYSFUNCTION OF PELVIC REGION M545 LOW BACK 09-17-2016 [place] PA[facility]ILY [facility] M9903 SEGMENTAL & 09-17-2016 [facility] SOMATIC FAMILY DYSFUNCTION CHIROPRACTI OF LUMBAR C REGION M9904 SEGMENTAL & 09-17-2016 [place] SOMATIC FAMILY DYSFUNCTION CHIROPRACTI OF SACRAL C REGION V7231 ROUTINE 06-04-2013 HAIR J GYNECOLOGIC AL EXAMINATION V7241 06-04-2013 HAIR J EXAMINATION OR TEST NEGATIVE RESULT V745 SCREENING 06-04-2013 HAIR J EXAMINATION FOR VENEREAL DISEASE 782.1 782.1 03-24-2013 [place] NONSPECIF [facility] SKIN ERUPT [facility] 7827 SPONTANEOUS 03-24-2013 [place] [facility] 786.59 786.59 03-24-2013 [place] CHEST PAIN [facility] 13483 OTHER CHEST 03-24-2013 [place] PAIN [facility] INC 5990 URINARY 12-15-2012 KRANTHI YULISA TRACT INFECTION SITE NOT SPECIFIED 413.9 413.9 12-07-2012 [place] ANGINA [facility] PECTORIS [facility] NEC/NOS 4139 OTHER AND 12-07-2012 [place] UNSPECIFIED [facility] ANGINA INC PECTORIS 599.0 599.0 URIN 12-07-2012 [place] TRACT [facility] INFECTION Hospital NOS 99605 ACUTE 10-28-2012 IVAN LARYNGITIS, DON WITHOUT MENTION OF OBSTRUCTIO 4659 ACUTE URIS 10-28-2012 IVAN OF DON UNSPECIFIED SITE 462 ACUTE 10-24-2012 [facility] 4618 OTHER ACUTE 10-16-2012 [facility] SINUSITIS [facility]YSIC[facility]ANS [facility] 17670 NAUSEA WITH 10-16-2012 [facility] VOMITING PHYSICIANS GROUP 46919 INTESTINAL 10-03-2012 [facility] INF PHYSICIANS ENTERITIS GROUP DUE OTH VIRAL ENTERITIS 0091 COLITIS 09-25-2012 [facility] ENTERIT&GAS PHYSICIANS TROENTERIT GROUP INF ORIGIN 90555 UNSPECIFIED 09-02-2012 KRANTHI YULISA VIRAL INFECTION IN CCE & UNS SITE 786.50 786.50 09-01-2012 [place] CHEST PAIN [facility] 02974 CHEST PAIN 09-01-2012 MAIRA MANSOOR UNSPECIFIED 7850 UNSPECIFIED 08-11-2012 [facility] [facility] TACHYCARDIA INC 0340 STREPTOCOCC 07-28-2012 [facility] AL SORE PHYSICIANS THROAT GROUP 95961 ESOPHAGEAL 07-10-2012 [facility] EDA REFLUX 89503 UNS 07-10-2012 [facility] EDA GASTRITIS&G ASTRODUODIT IS W/O MENTION HEMORR 5589 OTH&UNSPEC 05-29-2012 [facility] NONINFECTIO EMERGENCY US SERVICES GASTROENTER ITIS&COLITI S 64406 ABDOMINAL 05-29-2012 [facility] PAIN, EMERGENCY UNSPECIFIED SERVICES SITE 08846 ABDOMINAL 05-29-2012 [facility] PAIN RIGHT [facility] LOWER INC QUADRANT 39935 NAUSEA 05-27-2012 KRANTHI YULISA ALONE 0542 HERPETIC 05-13-2012 [facility] GINGIVOSTOM DON ATITIS 69213 UNSPECIFIED 04-02-2012 TERESA CELESTE VAGINITIS AND VULVOVAGINI [...] 12-18-2011 BHANU AND ABSCESS DEWEY OF FACE 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 52032 ULCERATIVE 11-21-2011 AGUILERA BLEPHARITIS JAM 4619 ACUTE 10-23-2011 BHANU SINUSITIS, DEWEY UNSPECIFIED 4660 ACUTE 10-23-2011 BHANU BRONCHITIS DEWEY 6100 SOLITARY 10-04-2011 HAIR J CYST OF BREAST 6102 FIBROADENOS 10-04-2011 HA[facility] J IS OF BREAST 6101 DIFFUSE 09-21-2011 [facility] 08581 MASTODYNIA 09-21-2011 [facility] 72714 LUMP OR 09-18-2011 RICH II MASS IN O BREAST 6260 ABSENCE OF 09-12-2011 [facility] MENSTRUATIO [facility] N INC 71053 ASTHMA, 08-23-2011 [place] UNSPECIFIED BETTINA , UNSPECIFIED STATUS 32508 OTHER SPEC 08-23-2011 [place] GASTRITIS BETTINA WITHOUT MENTION HEMORRHAGE 80641 ACUTE 08-09-2011 [facility] WITHOUT MENTION OF HEMORRHAGE 75310 VOMITING 08-09-2011 KATT 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 ALONE 38599 CHRONIC 08-08-2011 DEE TENSION OUMOU TYPE HEADACHE 36854 ABDOMINAL 08-08-2011 DEE PAIN RIGHT OUMOU UPPER QUADRANT 6235 LEUKORRHEA 07-11-2011 LAB GABBIE NOT AMERIC SPECIFIED HOLDING INFECTIVE V2503 ENCOUNTER 07-10-2011 [facility]O EMERGENCY CONTRACEPT CNSL&PRESCR IPTION 463 ACUTE 05-16-2011 DEE TONSILLITIS OUMOU V0481 NEED 04-18-2011 [facility] VACCINATION &INOCULATIO N FLU 93131 OTHER 03-26-2011 [facility] FATIGUE INC 77157 CHRONIC 03-21-2011 IVAN FATIGUE DON SYNDROME 6826 CELLULITIS 02-05-2011 IVAN AND ABSCESS DON OF LEG EXCEPT FOOT 5210 DENTAL 01-17-2011 NEVAEH DMD CARIES HOLINESS 6253 DYSMENORRHE 01-02-2011 [place] 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 6262 EXCESSIVE 01-02-2011 [place] FREQUENT 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 MENSTRUATIO N 06226 DIARRHEA 08-10-2010 [facility] 9199 OTH&UNSPEC 07-31-2010 [facility] CO SUP INJURY [facility] MX&UNSPEC SITES INF 27390 SHORTNESS 07-27-2010 [facility] CO OF BREATH [facility] 7234 BRACHIAL 07-03-2010 [place] NEURITIS OR [facility]IROPRACTI [facility] CENTE RADICULITIS NOS 11419 SPASM OF 07-03-2010 [place] MUSCLE [facility] CENTE 7397 NONALLOPATH 07-03-2010 [place] IC LESION CHIROPRACTI OF UPPER C CENTE EXTREMITIES NEC 7231 CERVICALGIA 05-04-2010 [place] SAPPHIRE 7840 HEADACHE 05-04-2010 [facility] CO [facility] 38121 METHICILLIN 04-04-2010 IVAN RESISTANT DON STAPHYLOCOC CUS AUREUS 7821 RASH AND 03-21-2010 IVAN OTHER DON NONSPECIFIC SKIN ERUPTION 86975 HORDEOLUM 03-02-2010 YULI EXTERNUM VISION 6929 CONTACT 01-31-2010 IV[facility] DERMATITIS& DON OTHER ECZEMA DUE UNSPEC CAUSE 7098 OTHER 01-31-2010 [facility] CO SPECIFIED MIDDLE DISORDER OF SCHOOL SKIN 9164 HIP THI 01-11-2010 IVAN, LEG&ANK DON R INSECT BITE NONVENOMOUS W/O INF 17585 PAIN IN 11-01-2009 [place] JOINT[facility] 96698 SPRAIN AND 11-01-2009 [facility] STRAIN OF EMERGENCY UNSPECIFIED SERVICES SITE OF ASSOCIATES WRIST 920 CONTUSION 11-01-2009 [facility] OF FACE EMERGENCY SCALP AND SERVICES NECK EXCEPT ASSOCIATES EYE 46156 UNSPECIFIED 08-26-2009 [place], SITE OF DON R ANKLE SPRAIN AND STRAIN 4779 ALLERGIC 08-15-2009 ELISABETH, RHINITIS IDRIS A CAUSE UNSPECIFIED 4871 INFLUENZA 03-15-2009 [facility], WITH OTHER DON R RESPIRATORY MANIFESTATI ONS 3670 HYPERMETROP 01-17-2009 YULI IA VISION 97709 DENTAL 08-24-2008 [facility] CARIES FOR EXTENDING ORAL&MAXILL INTO PULP OFACIAL SURGERY 5216 ANKYLOSIS 08-24-2008 [facility] FOR ORAL&MAXILL OFACIAL SURGERY 63671 OTHER 02-02-2008 [facility]CHO, SPECIFIED DON R DISORDERS [...] #3 MG 93 8 TA BL ET MS 65 05 06 14 5 00 RI Ac OM 16 -0 -0 .0 00 TE ti ET 20 6- 2- 00 01 ve MARROQUIN 52 20 20 18 AI ZI 11 [...] AI RA 30 17 17 29 D PR 5 80 PH DE AR MA 10 CY MG #3 93 TA 8 BL ET MS 59 05 06 15 5 00 RI [...] CR 8 EA # M 03 93 MS 68 11 11 1 12 2 CL [...] 34 8- 8- 00 12 HE ve MS 59 20 20 AI NS ED 31 [...] 00 10 5 WA 70 GA Ac PR 00 -2 -0 .0 L- 38 IN ti FL 40 5- 8- 00 MA 37 EY ve U 80 20 20 RT 5 75 08 09 09 PR 5 PH CH MG AR AE MA L CA CY S PS UL #5 E 91 MS 60 09 09 00 12 4 RI [...] AR N M R #3 93 8 MS 00 03 03 00 12 6 EA [...] Procedure DOS Code Location Performer Comment THERAPEUT 11728 MURRAY MURRAY IC PX 1/> 7 AREAS [place]ACH 15 [place] [address] MURRAY MURRAY 1/> AREAS 7 EACH 15 MIN NEUROMUSC REEDUCA CHIROPRAC 86450 MURRAY MURRAY TIC 7 MANIPULAT FARRAH TX SPINAL 3-4 REGIONS APPL 17845 MURRAY MURRAY MODALITY 7 1/> AREAS ELEC STIMJ UNATTENDE D CHIROPRAC 47734 MURRAY MURRAY TIC 7 MANIPLTV TX EXTRASPIN AL 1/> REGION OPHTH 01400 [facility] MEDICAL 7 XM&EVAL COMPRHNSV ESTAB PT 1/> FITTING 10320 OSCAR MOORE SPECTACLE 7 S XCPT APHAKIA MONOFOCAL IADNA 26267 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 CHLAMYDIA 7 Y GABBIE OF Y GABBIE OF ALEENA ALEENA TRACHOMAT H H IS AMPLIFIED PROBE TQ IADNA 12793 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 TRICHOMON 7 Y GABBIE OF Y GABBIE OF ALEENA ALEENA VAGINALIS H H AMPLIFIED PROBE TECH IADNA 88791 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 NEISSERIA 7 Y GABBIE OF Y GABBIE OF ALEENA ALEENA GONORRHOE H H AE AMPLIFIED PROBE TQ FINAL G9638 THIERRY HART REPORTS 7 MEDICAL W/O DOC IMAGING 1/MORE ASS DOSE REDUCTION TECH GROUND A0425 [facility] MILEAGE 7 AMBULANCE AMBULANCE PER SERVICE SERVICE STATUTE MILE AMBULANCE A0429 [facility] SERVICE 7 AMBULANCE AMBULANCE BLS SERVICE SERVICE EMERGENCY TRANSPORT THERAPEUT 27213 [facility] IC 7 MEM HOSP [facility]OS[facility] INJECTION [place] [address] [facility] HART HEAD/BRAI 7 MEDICAL N W/O IMAGING CONTRAST ASS MATERIAL GONADOTRO 75580 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 PIN 7 Y Y CHORIONIC CORPORATI CORPORATI ON OF AM ON OF AM QUANTITAT FARRAH US PREG 95130 [facility] PRANEETH UTERUS 7 MEDICAL REAL TIME IMAGING W/IMAGE ASS DCMTN TRANSVAG CHIROPRAC 38577 [facility] BAIN TIC 7 MANIPLTV TX EXTRASPIN AL 1/> REGION CHIROPRAC 88111 [facility] BAIN TIC 7 MANIPULAT FARRAH TX SPINAL 3-4 REGIONS [facility]OPRAC [facility]60 [facility] FAMILY MANIPULAT CHIROPRAC FARRAH TX TIC SPINAL 5 REGIONS RADEX 22577 [facility] SPINE 7 FAMILY CERVICAL CHIROPRAC 2 OR 3 TIC VIEWS RADEX 09931 [facility] SPINE 7 FAMILY LUMBOSACR CHIROPRAC AL 2/3 TIC VIEWS APPL 18003 MANDO CRUZ MODALITY 7 FAMILY 1/> AREAS CHIROPRAC TRACTION TIC MECHANICA L BLOOD 09789 [facility] COUNT 3 [facility] COMPLETE INC INC AUTO&AUTO DIFRNTL WBC URNLS DIP 28621 [facility] ROBBINS 3 [facility] STICK/TAB INC INC LET REAGENT AUTO MICROSCOP Y URINE 38128 [facility] ROBBINS 3 [facility] TEST INC INC VISUAL COLOR CMPRSN METHS IAADIADOO 85936 IVAN IVAN 3 DON DON STREPTOCO CCUS GROUP A CUL BACT 46224 [facility] XCPT 3 DIAGNOSTI DIAGNOSTI URINE CS CS BLOOD/STO OL AEROBIC ISOL IAADIADOO 03716 [facility] 3 PHYSICIAN PHYSICIAN STREPTOCO S GROUP S GROUP CCUS GROUP A URINE 56484 KRANTHI YULISA KRANTHI YULISA 3 TEST VISUAL COLOR CMPRSN METHS IAADIADOO 24926 [facility] 3 PHYSICIAN PHYSICIAN STREPTOCO S GROUP S GROUP CCUS GROUP A ECG 28759 MAIAR LEMUSEY ROUTINE 3 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 ECG W/LEAST 12 LDS I&R ONLY ECG 31661 ROSA ELENA CUBA ROUTINE 3 XANDER XANDER ECG W/LEAST 12 LDS I&R ONLY RADIOLOGI 48516 [facility] ROBBINS C EXAM 3 [facility] CHEST 2 INC INC VIEWS FRONTAL&[place] [address] [facility] THYROXINE 3 [facility] TOTAL INC INC SEDIMENTA 78510 [facility] TION RATE 3 [facility] H[facility] RBC INC INC NON-AUTOM ATED BILIRUBIN 12377 [facility] DIRECT 3 [facility]OS[facility]OS[facility] INC INC ECG 82912 [facility] ROUTINE 3 [facility] H[facility] ECG INC INC W/LEAST 12 LDS TRCG ONLY W/O I&R COMPREHEN 42462 [facility] SIVE 3 [facility] [place] [address] [facility] THYROID 3 [facility] H[facility] STIMULATI INC INC NG HORMONE TSH BLOOD 53664 [facility] COUNT 3 [facility]OS[facility] COMPLETE INC INC AUTO&AUTO DIFRNTL WBC THYROID 22564 [facility] HORM 3 [facility] UPTK/THYR INC INC OID HORMONE BINDING RATIO LIPID 58419 [facility] PANEL 3 [facility] INC INC URNLS DIP 05140 [facility] ROBBINS 2 [facility] STICK/TAB INC INC LET REAGENT AUTO MICROSCOP Y BLOOD 30576 [facility] COUNT 2 [facility] COMPLETE INC INC AUTO&[place] [address] [facility] AMYLASE 2 MEM HOS[facility]OS[facility] INC INC COMPREHEN 29805 [facility] SIVE 2 MEM [facility] [address] [facility] LIPASE 2 [place] [address] [facility] INFUSION 2 [facility] THERAPY/P INC INC ROPHYLAXI S /DX 1ST TO 1 HR THERAPEUT 52250 [facility] IC 2 [facility] INJECTION INC INC IV PUSH EACH NEW DRUG URINE 90482 [facility] ROBBINS 2 [facility] TEST INC INC VISUAL COLOR CMPRSN METHS IAADIADOO 77076 KRANTHI CRISOSTOMO YULISA 2 STREPTOCO CCUS GROUP A URNLS DIP 66082 IVAN IVAN 2 DON DON STICK/TAB LET RGNT NON-AUTO W/O MICRSCP IADNA 28117 MEDICAL MEDICAL NEISSERIA 2 DIAGNOSTI DIAGNOSTI [facility] GONORRHOE AE AMPLIFIED PROBE TQ IADNA NOS 93224 MEDICAL MEDICAL 2 DIAGNOSTI DIAGNOSTI AMPLIFIED C [facility] PROBE TQ EACH ORGANISM IADNA 73069 MEDICAL MEDICAL ALAYNA 2 DIAGNOSTI DIAGNOSTI SPECIES [facility] AMPLIFIED PROBE TQ IADNA 17788 MEDICAL MEDICAL CHLAMYDIA 2 DIAGNOSTI DIAGNOSTI [facility] LLC TRACHOMAT IS AMPLIFIED PROBE TQ URINE 67386 KRANTHI MÁRQUEZ KRANTHI YULISA 2 TEST VISUAL COLOR CMPRSN METHS URINE 09141 [facility] ROBBINS 2 [facility] VISUAL HEAL HEAL COLOR CMPRSN METHS THERAPEUT 60600 CAREY PATELANA IC PX 1/> 2 AREAS CHIROPRAC CHIROPRAC EACH 15 TIC CENTE TIC CENTE MIN EXERCISES CHIROPRAC 88560 [place] TIC 2 MANIPULAT CHIROPRAC CHIROPRAC FARRAH TX TIC CENTE TIC CENTE SPINAL 3-[place] [address] [place] 1/> AREAS 2 EACH 15 CHIROPRAC CHIROPRAC MINUTES TIC CENTE TIC CENTE MASSAGE CHIROPRAC 43197 [place] TIC 2 MANIPULAT CHIROPRAC CHIROPRAC FARRAH TX TIC CENTE TIC CENTE SPINAL 3-[place] [address] [place] 1/> AREAS 2 EACH 15 CHIROPRAC CHIROPRAC MIN TIC CENTE [place] [address] [place] 1/> AREAS 2 EACH 15 CHIROPRAC CHIROPRAC MIN TIC CENTE TIC CENTE NEUROMUSC REEDUCA THERAPEUT 74233 [place] IC PX 1/> 2 AREAS CHIROPRAC CHIROPRAC EACH 15 TIC [place] [address] [place] 1/> AREAS 2 EACH 15 CHIROPRAC CHIROPRAC MINUTES TIC CENTE TIC CENTE MASSAGE CHIROPRAC 25128 [place] TIC 2 MANIPULAT CHIROPRAC CHIROPRAC FARRAH TX TIC CENTE TIC CENTE SPINAL 3-4 REGIONS RADEX 38333 [place] SPINE 2 LUMBOSACR CHIROPRAC CHIROPRAC AL 2/3 TIC CENTE TIC CENTE VIEWS APPL 54235 [place] MODALITY 2 1/> AREAS CHIROPRAC CHIROPRAC TRACTION TIC CENTE TIC CENTE MECHANICA L APPL 23323 [place] MODALITY 2 1/> AREAS CHIROPRAC CHIROPRAC TRACTION T[place] [address] [place] 1/> AREAS 2 EACH 15 CHIROPRAC CHIROPRAC MINUTES TIC CENTE TIC CENTE MASSAGE CHIROPRAC 61355 [place] TIC 2 MANIPULAT CHIROPRAC CHIROPRAC FARRAH TX TIC CENTE TIC CENTE SPINAL 3-4 REGIONS THERAPEUT 59435 [place] IC PX 1/> 2 AREAS CHIROPRAC CHIROPRAC EACH 15 TIC CENTE TIC CENTE MIN EXERCISES THERAPEUT 15410 [place] IC PX 1/> 2 AREAS CHIROPRAC CHIROPRAC EACH 15 TIC CENTE TIC CENTE MIN EXERCISES CHIROPRAC 40447 [place] TIC 2 MANIPULAT CHIROPRAC CHIROPRAC FARRAH TX TIC CENTE TIC CENTE SPINAL 3-4 REGIONS APPL 33335 [place] MODALITY 2 1/> AREAS CHIROPRAC CHIROPRAC TRACTION TIC CENTE TIC CENTE MECHANICA L APPL 06105 [place] MODALITY 2 1/> AREAS CHIROPRAC CHIROPRAC TRACTION TIC CENTE TIC CENTE MECHANICA L MANUAL 38485 [place] THERAPY 2 TQS 1/> CHIROPRAC CHIROPRAC REGIONS TIC CENTE TIC CENTE EACH 15 MINUTES CHIROPRAC 82236 [place] TIC 2 MANIPULAT CHIROPRAC CHIROPRAC FARRAH TX TIC CENTE TIC CENTE SPINAL 3-4 REGIONS DETERMINA 29088 ALE AGUILERA TION 2 JAM JAM REFRACTIV E STATE PRESSURIZ 68356 [facility] CURIEL ED/NONPRE 2 [facility] INHALATIO N TREATMENT ALBUTEROL J7613 [place] CURIEL INHAL 2 [facility] PROD THRU DME U DOSE 1 MG US BREAST 19608 THIERRY DACOSTA REAL 2 MEDICAL TONJA TIME IMAGING W/IMAGE ASS DOCUMENTA TION BASIC 94888 [facility] ROBBINS METABOLIC 2 [facility] [place] [address] [facility] ROBBINS THYROID 2 [facility] STIMULATI INC INC NG HORMONE TSH BLOOD 86428 [facility] ROBBINS COUNT 2 [facility] COMPLETE INC INC AUTO&AUTO DIFRNTL WBC GONADOTRO 81387 [facility] ROBBINS PIN 2 [facility] CHORIONIC INC INC QUANTITAT FARRAH SPMTRY 94420 [place] BARTHOLOMEW W/VC 2 BETTINA BETTINA EXPIRATOR Y ZOHAIB W/WO MXML VOL VNTJ INFUSION J7030 [facility] NORMAL 2 Y Y SALINE [facility] SOLUTION [address] [place] [address] [facility] LIPASE 2 Y Y [facility] BLOOD 80098 [facility] COUNT 2 Y Y COMPLETE [facility] AUTOMATED GONADOTRO 42679 [facility] PIN 2 Y Y CHORIONIC [facility] QUALITATI VE URNLS DIP 06321 [facility] 2 Y Y STICK/TAB [facility] LET REAGENT AUTO MICROSCOP Y COMPREHEN 35435 [facility] SIVE 2 Y Y METABOLIC [facility] PANEL ONDANSETR Q0162 [facility] ON 1 MG 2 Y Y ORL NOT [facility] EXCEED [place] [address] [facility] INFUSION 2 Y Y HYDRATION [facility] INITIAL 31 MIN-1 HOUR IADNA 71752 [facility] NEISSERIA 2 [employer] [employer] GONORRHOE AE AMPLIFIED PROBE TQ IADNA 80793 [facility] CHLAMYDIA 2 [facility] [employer] [facility] TRACHOMAT IS AMPLIFIED PROBE TQ SMR PRIM 53923 [facility] [facility] WET 2 MOUNT NFCT AGT URINE 99105 LUIZ DEE 1 OUMOU OUMOU TEST VISUAL COLOR CMPRSN METHS IIV3 41225 [facility] ROBBINS VACCINE 1 [facility] VIRUS 0.5 ML DOSAGE IM USE BLOOD 29661 [facility] ROBBINS COUNT 1 [facility] COMPLETE INC INC AUTO&[place] [address] [facility] ROBBINS THYROID 1 [facility] STIMULATI INC INC NG HORMONE TSH COMPREHEN 36775 [facility] ROBBINS SIVE 1 [facility] METABOLIC INC INC PANEL IAADIADOO 84120 [place] CATHERINES 1 DON [place] IV D[address] NEVAEH DMD NEVAEH DMD CONSCIOUS 1 HOLINESS HOLINESS SEDATION/ ANALG - EA ADD 15 MINUTES IV D9242 NEVAEH DMD NEVAEH DMD CONSCIOUS 1 HOLINESS HOLINESS SEDATION/ ANALG - EA ADD 15 MINUTES SMR PRIM 30224 [place] [facility] K[facility] SRC WET 1 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 [employer] ASS[employer]IATE NFCT AGT S CUL BACT 32554 [facility] ROBBINS STOOL 1 [facility] AEROBIC INC INC ISOL SALMONELL A&SHIGELL IAADIADOO 50194 [place] CATHERINES 1 DON DON STREPTOCO CCUS GROUP A CHIROPRAC 04669 [place] TIC 1 ROS MANIPULAT CHIROPRAC FARRAH TX TIC CENTE SPINAL 1-2 REGIONS APPL 12737 [place] MODALITY 1 ROS 1/> AREAS CHIROPRAC ELEC TIC CENTE STIMJ UNATTENDE D APPL 78977 [place] MODALITY 1 ROS 1/> AREAS CHIROPRAC TRACTION TIC CENTE MECHANICA L APPL 45921 [place] MODALITY 0 ROS 1/> AREAS CHIROPRAC TRACTION TIC CENTE MECHANICA L APPL 02400 [place] MODALITY 0 ROS 1/> AREAS CHIROPRAC ELEC TIC CENTE STIMJ UNATTENDE D CHIROPRAC 62338 [place] TIC 0 ROS MANIPULAT CHIROPRAC FARRAH TX TIC CENTE SPINAL 1-2 REGIONS CHIROPRAC 13175 [place] TIC 0 ROS MANIPLTV CHIROPRAC TX TIC CENTE EXTRASPIN AL 1/> REGION CHIROPRAC 14500 [place] TIC 0 ROS MANIPLTV CHIROPRAC TX TIC CENTE EXTRASPIN AL 1/> REGION CHIROPRAC 72468 [place] TIC 0 ROS MANIPULAT CHIROPRAC FARRAH TX TIC CENTE SPINAL 1-2 REGIONS APPL 56301 [place] MODALITY 0 ROS 1/> AREAS CHIROPRAC ELEC TIC CENTE STIMJ UNATTENDE D APPL 11757 [place] MODALITY 0 ROS 1/> AREAS CHIROPRAC TRACTION TIC CENTE MECHANICA L APPL 62299 [place] MODALITY 0 ROS 1/> AREAS CHIROPRAC ELEC TIC CENTE STIMJ UNATTENDE D APPL 27089 [place] MODALITY 0 ROS 1/> AREAS CHIROPRAC TRACTION TIC CENTE MECHANICA L CHIROPRAC 68608 [place] TIC 0 ROS MANIPULAT CHIROPRAC FARRAH TX TIC CENTE SPINAL 1-2 REGIONS CHIROPRAC 32236 [place] TIC 0 ROS MANIPLTV CHIROPRAC TX TIC CENTE EXTRASPIN AL 1/> REGION CHIROPRAC 19538 [place] TIC 0 ROS MANIPLTV CHIROPRAC TX TIC CENTE EXTRASPIN AL 1/> REGION CHIROPRAC 50213 [place] TIC 0 ROS MANIPULAT CHIROPRAC FARRAH TX TIC CENTE SPINAL 1-2 REGIONS APPL 90168 [place] MODALITY 0 ROS 1/> AREAS CHIROPRAC TRACTION TIC CENTE MECHANICA L APPL 10347 [place] MODALITY 0 ROS 1/> AREAS CHIROPRAC TIC CENTE ULTRASOUN D EA 15 MIN APPLICATI 99778 [place] ON 0 SAPPHIRE SAPPHIRE MODALITY 1/> AREAS HOT/COLD PACKS THERAPEUT 31070 [place] IC PX 1/> 0 SAPPHIRE SAPPHIRE AREAS EACH 15 MIN EXERCISES APPL 19540 [place] MODALITY 0 SAPPHIRE SAPPHIRE 1/> AREAS TRACTION MECHANICA L CHIROPRAC 58938 [place] TIC 0 SAPPHIRE SAPPHIRE MANIPULAT FARRAH TX SPINAL 1-2 REGIONS IIV3 55945 [facility] 2001 VIRUS 0.5 ML DOSAGE IM USE CUL BACT 61878 [facility] XCPT [facility] URINE INC INC BLOOD/STO OL AEROBIC ISOL CUL BACT 86513 [facility] AEROBIC 0 [facility] ADDL INC INC METHS DEFINITIV E EA ISOL SUSCEPTIB 81974 [facility] LTY STDY 0 [facility] ANTIMICRB INC INC IAL MICRO/[place] [address] [place] PRANEETH, MAXILLOFA 0 MEDICAL FILIPPO CIAL W/O IMAGING CONTRAST ASSOCIATE MATERIAL S 3D 77795 [place] PRANEETH, RENDERING 0 MEDICAL FILIPPO IMAGING W/INTERP& ASSOCIATE POSTPROC S DIFF WORK STATION RADEX 08910 [facility], WRIST 0 MEDICAL FILIPPO COMPLETE IMAGING MINIMUM 3 ASSOCIATE VIEWS S URNLS DIP 43568 [facility] STICK/TAB INC INC LET REAGENT AUTO MICROSCOP Y URINE 20805 [facility] 0 [facility] TEST INC INC VISUAL COLOR CMPRSN METHS BLOOD 76984 [facility] COUNT 0 [facility] COMPLETE INC INC AUTO&AUTO DIFRNTL WBC BASIC 02097 [facility] METABOLIC 0 [facility] PANEL INC INC CALCIUM TOTAL RADEX 39952 MONCHO IVAN, ANKLE 0 DON R DON R COMPLETE MINIMUM 3 VIEWS RADIOLOGI 46382 MONCHO IVAN, C 0 DON R DON R EXAMINATI ON FOOT 2 VIEWS URNLS DIP 74182 COMBINED COMBINED 9 PHYSICIAN PHYSICIAN STICK/TAB S LAB S LAB LET REAGENT AUTO MICROSCOP Y GENERAL 17503 COMBINED COMBINED HEALTH 9 PHYSICIAN PHYSICIAN PANEL S LAB S LAB PARTICLE 96571 COMBINED COMBINED AGGLUTINA 9 PHYSICIAN PHYSICIAN TION S LAB S LAB SCREEN EACH ANTIBODY IAADIADOO 61538 COMBINED COMBINED 9 PHYSICIAN PHYSICIAN INFLUENZA S LAB S LAB IAADIADOO 78296 MONCHO IVAN, Marlen DON R DON R STREPTOCO CCUS GROUP A IAADI 96069 [facility] INFLUENZA 9 [facility] B VIRUS INC INC IAADI 12344 [facility] INFFLUENZ 9 [facility] A A VIRUS INC INC IADNA NOS 59147 [facility] AMPLIFIED INC INC PROBE TQ EACH ORGANISM IIV3 72092 DHS/CO [facility] VACCINE [address] [facility] [address] [facility] VIRUS 0.5 BANK ACCT ML DOSAGE IM USE IAADIADOO 81726 MONCHO IVAN, 9 DON R DON R STREPTOCO CCUS GROUP A OPHTH 59594 YULI MOORE [facility] 9 VISION NICKIE A XM&EVAL COMPRHNSV ESTAB PT 1/> ORTHOPANT 03680 [facility] CHRISTINA BEGUM 9 FOR HERIBERTO S ORAL&MAXI LLOFACIAL SURGERY Encounters Encounter Start End Date Code Location Performer Type Date OFFICE 69445 [facility] OUTPATIEN 7 7 T NEW 30 MINUTES OFFICE 23417 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 T VISIT ASSOCIATE 15 S, MINUTES EMERGENCY 80518 BRANDYN BARRY DEPT 7 7 PHYSICIAN VISIT S, [facility]& THREAT [facility] - 7 7 [facility] OUTPATIEN INC T EMERGENCY 48852 [facility] 7 7 FRANNIE DEPARTMEN EMERGENCY T VISIT SERVI HIGH/URGE NT SEVERITY EMERGENCY 93449 [facility] 7 7 [facility] DEPARTMEN INC T VISIT LOW/MODER SEVERITY [facility]OSPITAL [facility] - 7 7 [facility] OUTPATIEN INC T EMERGENCY 88803 BRANDYN SCHNEIDER 7 7 PHYSICIAN U DEPARTMEN S, PLLC T VISIT MODERATE SEVERITY OFFICE 72661 GUI VILLANUEVA OUTPATIEN 7 7 ASSISTANT ENGINEER II T VISIT ASSOCIATE 15 S, MINUTES EMERGENCY 61628 [facility] 7 7 [facility] DEPARTMEN INC T VISIT LOW/MODER SEVERITY [facility]OSPITAL [facility] - 7 7 [facility] OUTPATIEN INC T EMERGENCY 15513 BRANDYN SCHNEIDER DEPT 7 7 PHYSICIAN U VISIT S, PLLC HIGH SEVERITY& THREAT FUNCJ OFFICE 70830 ODELL BAIN OUTPATIEN 7 7 T NEW 30 MINUTES OFFICE 09301 MANDO CRUZ OUTPATIEN 7 7 FAMILY T NEW 30 CHIROPRAC MINUTES TIC PERIODIC 82628 REGINALDO Nation PREVENTIV 3 3 E MED EST PATIENT -17S Emergency MANN DAMON MD (ER) 3 14:10 3 15:45 [facility] - 3 3 [facility] OUTPATIEN INC T Emergency MANN Simons MD (ER) 3 21:33 3 22:14 [facility] EMERGENCY 18361 [facility] 3 3 [facility] DEPARTMEN INC T VISIT LOW/MODER SEVERITY HOSPITAL [facility] - 3 3 [facility] OUTPATIEN INC T OFFICE 52137 MONCHO CATHERINES OUTPATIEN 3 3 DON DON T VISIT 15 MINUTES OFFICE 04298 [facility] OUTPATIEN 3 3 PHYSICIAN T VISIT S GROUP 15 MINUTES OFFICE 86778 KRANTHI [facility] OUTPATIEN 3 3 T VISIT 15 MINUTES OFFICE 92192 [facility] OUTPATIEN 3 3 PHYSICIAN T VISIT S GROUP 10 MINUTES OFFICE 02986 [facility] OUTPATIEN 3 3 PHYSICIAN T VISIT S GROUP 15 MINUTES OFFICE 93676 [facility] OUTPATIEN 3 3 PHYSICIAN T VISIT S GROUP 15 MINUTES OFFICE 64995 KRANTHI MÁRQUEZ OUTPATIEN 3 3 T VISIT 15 MINUTES Emergency MANN Barry MD (ER) 3 21:04 3 23:15 [facility] EMERGENCY 05805 MAIRA BARRY DEPT 3 3 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 VISIT HIGH SEVERITY& THREAT FUNCJ OFFICE 31784 TYLEREMELY MILVIA OUTPATIEN 3 3 EDA EDA T VISIT 15 MINUTES HOSPITAL [facility] - 3 3 [facility] OUTPATIEN INC T OFFICE 20469 [facility] OUTPATIEN 3 3 PHYSICIAN T VISIT S GROUP 15 MINUTES OFFICE 73558 TYLEREMELY [facility] OUTPATIEN 3 3 EDA EDA T NEW 30 MINUTES OFFICE 94616 [facility] OUTPATIEN 3 3 PHYSICIAN T VISIT S GROUP 15 MINUTES HOSPITAL [facility] - 2 2 [facility] OUTPATIEN INC T EMERGENCY 78809 [facility] 2 2 [facility] DEPARTMEN INC T VISIT MODERATE SEVERITY EMERGENCY 06477 LUCRECIA POWELL DEPT 2 2 EMERGENCY BRITNEY VISIT SERVICES HIGH SEVERITY& THREAT FUNCJ OFFICE 28983 KRANTHI MÁRQUEZ OUTPATIEN 2 2 T VISIT 15 MINUTES OFFICE 73685 IVAN IVAN OUTPATIEN 2 2 DON DON T VISIT 15 MINUTES OFFICE 00118 IVAN IVAN OUTPATIEN 2 2 DON DON T VISIT 15 MINUTES OFFICE 14279 TERESA MOORE OUTPATIEN 2 2 CELESTE CELESTE T VISIT 15 MINUTES OFFICE 50168 KRANTHI MÁRQUEZ OUTPATIEN 2 2 T VISIT 15 MINUTES OFFICE 74254 [facility] ROBBINS OUTPATIEN 2 2 [facility]IS[facility] 15 HEAL HEAL MINUTES OFFICE 01677 MAIRA BARRY OUTPATIEN 2 2 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 T VISIT 10 MINUTES OFFICE 18013 MONCHO IVAN OUTPATIEN 2 2 DON DON T VISIT 15 MINUTES OFFICE 59588 [place] OUTPATIEN 2 2 T VISIT CHIROPRAC 15 TIC CENTE MINUTES OFFICE 36509 BHANU BHANU OUTPATIEN 2 2 DEWEY DEWEY T VISIT 15 MINUTES OFFICE 85484 ALE AGUILERA OUTPATIEN 2 2 JAM JAM T NEW 60 MINUTES OFFICE 32392 [facility] CURIEL OUTPATIEN 2 2 [facility] T VISIT HOSPITAL 15 MINUTES OFFICE 72161 BHANU BHANU OUTPATIEN 2 2 DEWEY DEWEY T VISIT 15 MINUTES OFFICE 01995 REGINALDO HAIR J OUTPATIEN 2 2 T VISIT 10 MINUTES HOSPITAL [facility] - 2 2 [facility] OUTPATIEN INC T OFFICE 88467 RICH RICH OUTPATIEN 2 2 II O II O T VISIT 15 MINUTES HOSPITAL [facility] - 2 2 [facility] OUTPATIEN INC T OFFICE 88356 [place] OUTPATIEN 2 2 BETTINA BETTINA T NEW 30 MINUTES EMERGENCY 63952 KATT BOLIVAR 2 2 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 DEPARTMEN T VISIT HIGH/URGE NT SEVERITY [facility] 10290 LUIZ DEE OUTPATIEN 2 2 OUMOU OUMOU T VISIT 15 MINUTES OFFICE 74249 BHANU BHANU OUTPATIEN 2 2 DEWEY DEWEY T VISIT 10 MINUTES OFFICE 83013 LUIZ MORROWEFER OUTPATIEN 2 2 [facility]UM[facility] OUMOU T VISIT 10 MINUTES OFFICE 88823 MIKI LIVINGSTON RAN OUTPATIEN 2 2 T VISIT 15 MINUTES OFFICE 06620 LUIZ BOXER OUTPATIEN 1 1 OUMOU OUMOU T NEW 30 MINUTES HOSPITAL [facility] - 1 1 [facility] OUTPATIEN INC T OFFICE 52585 MONCHO ARMSTRONGHENS OUTPATIEN 1 1 DON DON T VISIT 15 MINUTES OFFICE 79413 IVAN IVAN OUTPATIEN 1 1 DON DON T VISIT 15 MINUTES OFFICE 74612 GUI GERALD KER OUTPATIEN 1 1 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 T NEW 30 [facility] MINUTES [facility] - 1 1 [facility] OUTPATIEN INC T OFFICE 98936 MONCHO ARMSTRONGHENS OUTPATIEN 1 1 DON DON T VISIT 15 MINUTES OFFICE 49202 [facility] OUTPATIEN 1 1 [facility] 15 MINUTES OFFICE 97753 [facility] ROBBINS OUTPATIEN 1 1 [facility] 15 MINUTES OFFICE 99288 CAREY [facility] OUTPATIEN 0 0 ROS T NEW 30 [facility]IROPRAC [facility]UTES [facility] 81001 [facility] ROBBINS OUTPATIEN 0 0 [facility] 10 MINUTES OFFICE 83437 IVANNAVID CATHERINES OUTPATIEN 0 0 DON DON T VISIT 15 MINUTES OFFICE 51710 IVAN IVAN OUTPATIEN 0 0 DON DON T VISIT 15 MINUTES HOSPITAL [facility] - 0 0 [facility] OUTPATIEN INC T OFFICE 84246 MONCHO IVAN OUTPATIEN 0 0 DON DON T VISIT 15 MINUTES OFFICE 81597 YULI MOSCOSO OUTPATIEN 0 0 VISION ANG T NEW 20 MINUTES OFFICE 90782 MONCHO IVAN OUTPATIEN 0 0 DON DON T VISIT 15 MINUTES OFFICE 29613 [facility] OUTPATIEN 0 0 [facility] 15 MINUTES OFFICE 27518 MONCHO IVAN OUTPATIEN 0 0 DON R DON R T VISIT 15 MINUTES HOSPITAL [facility] 0 0 [facility] OUTPATIEN INC T EMERGENCY 07118 LUCRECIA BARRY, DEPT 0 0 EMERGENCY [facility] VISIT SERVICES HIGH SEVERITY& ASSOCIATE THREAT S FUN EMERGENCY 49105 [facility] 0 0 [facility] DEPARTMEN INC T VISIT LOW/MODER SEVERITY OFFICE 35790 MONCHO IVAN OUTPATIEN 0 0 DON R DON R T VISIT 15 MINUTES HOSPITAL [facility] - 0 0 [facility] OUTPATIEN INC T OFFICE 10948 MONCHO IVAN OUTPATIEN 0 0 DON R DON R T VISIT 15 MINUTES OFFICE 93054 ELISABETH BARBER OUTPATIEN 0 0 IDRIS A IDRIS A T VISIT 15 MINUTES OFFICE 80651 MONCHO IVAN OUTPATIEN 0 0 DON R DON R T VISIT 25 MINUTES OFFICE 62644 ELISABETH BARBER OUTPATIEN 0 0 IDRIS A IDRIS A T VISIT 15 MINUTES OFFICE 05052 MONCHO IVAN OUTPATIEN 9 9 DON R DON R T VISIT 15 MINUTES OFFICE 06841 MONCHO IVAN OUTPATIEN 9 9 DON R DON R T VISIT 15 MINUTES EMERGENCY 13481 LUCRECIA BARRY, 9 9 EMERGENCY MARYAN S DEPARTMEN SERVICES T VISIT MODERATE ASSOCIATE SEVERITY S EMERGENCY 87357 [facility] 9 9 [facility] DEPARTMEN INC T VISIT LOW/MODER SEVERITY HOSPITAL [facility] - 9 9 [facility] OUTPATIEN INC T OFFICE 66685 MONCHO IVAN OUTPATIEN 9 9 DON R DON R T VISIT 15 MINUTES OFFICE 36707 MONCHO IVAN OUTPATIEN 9 9 DON R DON R T VISIT 15 MINUTES OFFICE 51881 MONCHO IVAN OUTPATIEN 9 9 DON R DON R T VISIT 15 MINUTES OFFICE 29778 IA SHERI MARCUM 9 9 FOR HERIBERTO ARROYO 10 ORAL&MAXI MINUTES LLOFACIAL SURGERY OFFICE 53891 MONCHO IVAN OUTPATIEN 8 8 DON R DON R T NEW 20 MINUTES
--- OUTSIDE RECORDS SUMMARY | 2017-03-28 03:36 | External Medical Summary Rpt | CCD ---
Author Author , ZAK LEMUSRENE Address Unknown Phone [email or web address] Care Visual Journalist Name Role Phone REGINALDO Nation, REGINALDO Nation Unavailable Unavailable REGINALDO Nation, REGINALDO J Unavailable Unavailable ARNOLD EDA, ARNOLD Unavailable Unavailable EDA ARNOLD EDA, ARNOLD Unavailable Unavailable EDA ODELL, ODELL Unavailable Unavailable ODELL, ODELL Unavailable Unavailable BEINEKE, BEINEKE Unavailable Unavailable BESSON XANDER, BESSON Unavailable Unavailable XANDER KRANTHI YULISA, KRANTHI YULISA Unavailable Unavailable KRANTHI YULISA, KRANTHI YULISA Unavailable Unavailable [facility] Unavailable Unavailable SERVICE, [facility] KATT FLORAL DESIGNER, KATT Unavailable Unavailable FLORAL DESIGNER CELLAROSI - YORBA, Unavailable Unavailable CELLAROSI - YORBA SHY BEGUM Unavailable Unavailable HERIBERTO BEGUM, Unavailable Unavailable HERIBERTO BEGUM [facility], Un[facility] Unavailable Unavailable LAB, [facility] PRANEETH, PRANEETH Unavailable Unavailable PRANEETH TONJA, Unavailable Unavailable PRANEETH TONJA PRANEETH, FILIPPO, Unavailable Unavailable PRANEETH, FILIPPO [facility], Unavailable Unavailable [facility] [place] [facility] Un[facility] [place]available [place] BHANU DEWEY, Unavailable Unavailable BHANU DEWEY BHANU DEWEY, Unavailable Unavailable BHANU DEWEY MURRAY, MURRAY Unavailable Unavailable MURRAY, MURRAY Unavailable Unavailable [place] BETTINA, Unavailable Unavailable [place] BETTINA [place] BETTINA, Unavailable Unavailable [place] BETTINA MAIRA MAIRA Unavailable Unavailable MAIRA MANSOOR, MAIRA Unavailable Unavailable MANSOOR MAIRA MANSOOR, MAIRA Unavailable Unavailable MANSOOR MARYAN RAO, Unavailable Unavailable MARYAN RAO [facility], Unavailable Unavailable [facility] Unavailable Unavailable [facility] [place] Un[place] [facility], [facility] Unavailable Unavailable [facility] Unavailable [facility]available [facility]available [facility] [employer] [facility] Unavailable Un[facility] [employer] Unavailable Unavailable INC, [facility] CASE, CASE Unavailable Unavailable MOORE, MOORE Unavailable Unavailable MOORE, MOORE Unavailable Unavailable MOORE, NICKIE A, Unavailable Unavailable MOORE, NICKIE A [facility], Unavailable Unavailable [facility] KEDING SAPPHIRE, KEDING Unavailable Unavailable SAPPHIRE [facility] SAPPHIRE, K[place] Unavailable Unavailable SAP[facility] Unavailable Unavailable HOLD[facility], [facility] Unavailable Unavailable [facility], [facility] Unavailable Unavailable [facility], [facility] Unavailable Unavailable [facility], [facility] Unavailable Unavailable CORPORATION OF AM, [facility] [place] RN FIELD 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 Unavailable Unavailable [facility]OCIATES, 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 Unavailable Unavailable SERVICES, [facility] DAVID HERNANDEZ Unavailable Unavailable AGUILERA JAM, Unavailable Unavailable AGUILERA JAM AGUILERA JAM, Unavailable Unavailable AGUILERA JAM LINWOOD ROS, LINWOOD Unavailable Unavailable ROS NEVAEH DMD BAPTIST, NEVAEH Unavailable Unavailable DMD BAPTIST NEVAEH DMD BAPTIST, NEVAEH Unavailable Unavailable [facility] GERALD KER, GERALD KER Unavailable Unavailable BARBER IDRIS A, Unavailable Unavailable ELISABETH IDRIS A MIKI RAN, MIKI RAN Unavailable Unavailable MIKI DEL RIO RAN Unavailable Unavailable [facility], [facility]available [facility], [facility] RICH II, RICH Unavailable Unavailable II RICH II O, RICH Unavailable Unavailable II O RICH II O, RICH Unavailable Unavailable II O [facility], Unavailable Unavailable [facility], Unavailable Unavailable [facility] Unavailable Un[id number], Unavailable Unavailable [id number] Unavailable Unavailable [id number] [id number], [facility] [id number] [address] [id number] ANDRE TAN, ANDRE Unavailable Unavailable BRITNEY DEE OUMOU, Unavailable Unavailable DEE OUMOU DEE OUMOU, Unavailable Unavailable DEE OUM[facility] TERESA CELESTE, TERESA Unavailable Unavailable CELESTE TERESA CELESTE, TERESA Unavailable Unavailable CELESTE SCIFRES ANG, SCIFRES Unavailable Unavailable ANG CURIEL EUGENIA, CURIEL Unavailable Unavailable EUGENIA HAILE, HAILE Unavailable Unavailable [facility], [facility], [facility] IVAN DON, Unavailable Unavailable IVAN DON IVAN DON, Unavailable Unavailable IVAN DON IVAN, DON R, Unavailable Unavailable IVAN, DON R [facility], Unavailable Unavailable [facility] Unavailable Unavailable [address]591, [facility] ANTHONY CRUZ Unavailable Unavailable Purpose Continuity of Care Document - 02-02-2008 through 2016 Problems Code Diagnosis DOS Provider Status M5386 OTHER 01-16-2017 M[facility] SPECIFIED DORSOPATHIE S LUMBAR REGION M546 PAIN IN 01-16-2017 [facility] THORACIC SPINE M9906 SEGMENTAL & 01-16-2017 [facility] SOMATIC DYSFUNCTION LOWER EXTREMITY I42226 REGULAR 01-07-2017 MOORE ASTIGMATISM BILATERAL R51 HEADACHE 12-14-2016 [facility] N05244 MIGRAINE 10-23-2016 KRISTIN UNS NOT N EMERGENCY INTRACT W/O PHYS STATUS MIGRAINOSUS N938 OTHER SPEC 10-23-2016 LABORATORY ABNORMAL [facility] OF UTERINE & ALEENA H VAGINAL BLEEDING R110 NAUSEA 10-23-2016 [facility] Z720 TOBACCO USE 10-20-2016 [facility] N939 ABNORMAL 10-18-2016 [facility], VAGINAL PLLC BLEEDING UNSPECIFIED E49127 UNSPECIFIED 10-15-2016 [facility] OVARIAN [facility], CYST RIGHT PLLC SIDE N921 EXCESS & 10-15-2016 [facility] FREQUENT PHYS[facility]IANS, MENSTRUATIO PLLC N W/IRREGULAR CYCLE L30868 PAIN IN 09-26-2016 O[facility] RIGHT SHOULDER M542 CERVICALGIA 09-26-2016 O[facility] E15864 MUSCLE 09-26-2016 [facility] SPASM OF BACK M9901 SEGMENTAL & 09-26-2016 [facility] SOMATIC DYSFUNCTION CERVICAL REGION M9902 SEGMENTAL & 09-26-2016 [facility] SOMATIC DYSFUNCTION THORACIC REGION M9905 SEGMENTAL & 09-26-2016 [facility] SOMATIC DYSFUNCTION OF PELVIC REGION M545 LOW BACK 09-17-2016 [facility] PAIN FAMILY CHIROPRACTI C M9903 SEGMENTAL & 09-17-2016 [facility] SOMATIC FAMILY DYSFUNCTION CHIROPRACTI OF LUMBAR C REGION M9904 SEGMENTAL & 09-17-2016 [facility] SOMATIC FAMILY DYSFUNCTION CHIROPRACTI OF SACRAL C REGION V7231 ROUTINE 06-04-2013 REGINALDO Nation GYNECOLOGIC AL EXAMINATION V7241 06-04-2013 REGINALDO Nation EXAMINATION OR TEST NEGATIVE RESULT V745 SCREENING 06-04-2013 REGINALDO Nation EXAMINATION FOR VENEREAL DISEASE 7827 SPONTANEOUS 03-24-2013 [facility] 64071 OTHER CHEST 03-24-2013 [facility] 5990 URINARY 12-15-2012 KRANTHI YULISA TRACT INFECTION SITE NOT SPECIFIED 4139 OTHER AND 12-07-2012 [facility] UNSPECIFIED [facility] ANGINA INC PECTORIS 43344 ACUTE 10-28-2012 IVAN LARYNGITIS, DON WITHOUT MENTION OF OBSTRUCTIO 4659 ACUTE URIS 10-28-2012 IVAN OF DON UNSPECIFIED SITE 462 ACUTE 10-24-2012 [facility] 4618 OTHER ACUTE 10-16-2012 [facility] SINUSITIS PHYSICIANS GROUP 43405 NAUSEA WITH 10-16-2012 [facility] VOMITING PHYSICIANS GROUP 36509 INTESTINAL 10-03-2012 [facility] INF PHYSICIANS ENTERITIS GROUP DUE OT VIRAL ENTERITIS 0091 COLITIS 09-25-2012 [facility] ENTERIT&GAS PHYSICIANS TROENTERIT GROUP INF ORIGIN 83402 UNSPECIFIED 09-02-2012 KRANTHI YULISA VIRAL INFECTION IN CCE & UNS SITE 79983 CHEST PAIN 09-01-2012 MAIRA MANSOOR UNSPECIFIED 7850 UNSPECIFIED 08-11-2012 [facility] TACHYCARDIA INC 0340 STREPTOCOCC 07-28-2012 [facility] AL SORE PHYSICIANS THROAT GROUP 81245 ESOPHAGEAL 07-10-2012 ARNEMELY EDA REFLUX 10773 UNS 07-10-2012 [facility] VERAS GASTRITIS&G ASTRODUODIT IS W/O MENTION HEMORR 5589 OTH&UNSPEC 05-29-2012 [facility] NONINFECTIO [facility] US SERVICES GASTROENTER ITIS&COLITI S 46600 ABDOMINAL 05-29-2012 [facility] PAIN, EMERGENCY UNSPECIFIED SERVICES SITE 74513 ABDOMINAL 05-29-2012 [facility] PAIN RIGHT [facility] LOWER INC QUADRANT 26225 NAUSEA 05-27-2012 KRANTHI YULISA ALONE 0542 HERPETIC 05-13-2012 IVAN GINGIVOSTOM DON ATITIS 69846 UNSPECIFIED 04-02-2012 TERESA KAR VAGINITIS AND VULVOVAGINI TIS 7804 DIZZINESS 03-17-2012 [...] 12-18-2011 BHANU AND ABSCESS DEWEY OF FACE 46782 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 46446 ULCERATIVE 11-21-2011 AGUILERA BLEPHARITIS JAM 4619 ACUTE 10-23-2011 BHANU SINUSITIS, DEWEY UNSPECIFIED 4660 ACUTE 10-23-2011 BHANU BRONCHITIS DEWEY 6100 SOLITARY 10-04-2011 HAIR J CYST OF BREAST 6102 FIBROADENOS 10-04-2011 HAIR J IS OF BREAST 6101 DIFFUSE 09-21-2011 [facility] MEDICAL MASTOPATHY IMAGING ASS 77709 MASTODYNIA 09-21-2011 [facility] 15255 LUMP OR 09-18-2011 RICH II MASS IN O BREAST 6260 ABSENCE OF 09-12-2011 [facility] MENSTRUATIO [facility] N [facility] 90821 ASTHMA, 08-23-2011 [place] UNSPECIFIED BETTINA , UNSPECIFIED STATUS 90708 OTHER SPEC 08-23-2011 [place] GASTRITIS BETTINA WITHOUT MENTION HEMORRHAGE 21305 ACUTE 08-09-2011 [facility] WITHOUT MENTION OF HEMORRHAGE 82554 VOMITING 08-09-2011 KATT FLORAL DESIGNER ALONE 49053 CHRONIC 08-08-2011 DEE TENSION [facility]UM[facility] TYPE HEADACHE 40039 ABDOMINAL 08-08-2011 DEE PAIN RIGHT OUM[facility] UPPER QUADRANT 6235 LEUKORRHEA 07-11-2011 LAB [facility] NOT AMERIC SPECIFIED HOLDING INFECTIVE V2503 ENCOUNTER 07-10-2011 MIKI ELIZONDO EMERGENCY CONTRACEPT CNSL&PRESCR IPTION 463 ACUTE 05-16-2011 DEE TONSILLITIS OUMOU V0481 NEED 04-18-2011 [facility] VACCINATION &INOCULATIO N FLU 06367 OTHER 03-26-2011 [facility] FATIGUE INC 16234 CHRONIC 03-21-2011 IVAN FATIGUE DON SYNDROME 6826 CELLULITIS 02-05-2011 IVAN AND ABSCESS DON OF LEG EXCEPT FOOT 5210 DENTAL 01-17-2011 NEVAEH DMD CARIES BAPTIST 6253 DYSMENORRHE 01-02-2011 [place] A RN FIELD 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 ASS[facility] 6262 EXCESSIVE 01-02-2011 [place] FREQUENT RN FIELD 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 ASSOCIATES MENSTRUATIO N 42737 DIARRHEA 08-10-2010 [facility] [place] [place] [facility] 9199 OTH&UNSPEC 07-31-2010 [facility] SUP INJURY [facility]LE OT SCHOOL MX&UNSPEC SITES INF 71650 SHORTNESS 07-27-2010 [facility] OF BREATH MIDDLE SCHOOL 7234 BRACHIAL 07-03-2010 [place] NEURITIS OR [facility]IROPRACTI [facility] CENTE RADICULITIS NOS 53491 SPASM OF 07-03-2010 [place] MUSCLE [facility]OPRACTI [facility] CENTE 7397 NONALLOPATH 07-03-2010 [place] IC LESION CHIROPRACTI OF UPPER C CENTE EXTREMITIES NEC 7231 CERVICALGIA 05-04-2010 [place] SAPPHIRE 7840 HEADACHE 05-04-2010 [facility] 41392 METHICILLIN 04-04-2010 IVAN RESISTANT DON STAPHYLOCOC CUS AUREUS 7821 RASH AND 03-21-2010 IVAN OTHER DON NONSPECIFIC SKIN ERUPTION 99239 HORDEOLUM 03-02-2010 YULI EXTERNUM VISION 6929 CONTACT 01-31-2010 IVAN DERMATITIS& DON OTHER ECZEMA DUE UNSPEC CAUSE 7098 OTHER 01-31-2010 [facility] SPECIFIED MIDDLE DISORDER OF SCHOOL SKIN 9164 HIP THI 01-11-2010 IVAN, LEG&ANK DON R INSECT BITE NONVENOMOUS W/O INF 53714 PAIN IN 11-01-2009 [place] [facility] 96311 SPRAIN AND 11-01-2009 [facility] STRAIN OF EMERGENCY UNSPECIFIED SERVICES SITE OF ASSOCIATES WRIST 920 CONTUSION 11-01-2009 [facility] OF FACE EMERGENCY SCALP AND SERVICES NECK EXCEPT ASSOCIATES EYE 47913 UNSPECIFIED 08-26-2009 [facility], SITE OF DON R ANKLE SPRAIN AND STRAIN 4779 ALLERGIC 08-15-2009 BARBER, RHINITIS IDRIS A CAUSE UNSPECIFIED 4871 INFLUENZA 03-15-2009 [facility], WITH OTHER DON R RESPIRATORY MANIFESTATI ONS 3670 HYPERMETROP 01-17-2009 YULI IA VISION 25600 DENTAL 08-24-2008 [facility] FOR EXTENDING ORAL&MAXILL INTO PULP OFACIAL SURGERY 5216 ANKYLOSIS 08-24-2008 [facility] OF TEETH FOR ORAL&MAXILL OFACIAL SURGERY 99364 OTHER 02-02-2008 IVAN, SPECIFIED DON R DISORDERS OF URINARY TRACT Medications Na ND Rx Da Fi Fi [...] MG #3 TA 93 BL 8 ET DC 65 05 06 14 5 00 RI [...] AI RA 30 17 17 29 D IN 5 80 PH DE AR MA 10 CY MG #3 93 TA 8 BL ET NU 00 05 06 1. 28 [...] #3 MG 93 8 TA BL ET DC 59 05 06 15 5 00 RI [...] BL MA ET CY #3 93 8 JU 00 09 10 6 21 21 [...] .0 TE 84 SS ti Z 90 9- 9- 00 27 EL ve 28 40 20 20 [...] 00 TE 15 FF ti ON 25 02-23- 88 ve AZ 41 20 20 AI KE OL 21 11 11 D RR E 1 PH I 15 AR J 0 MA MG CY TA 03 BL 93 ET 8 # 03 93 [place] 51 07 07 45 3 RI [address] 67 -1 -1 .0 TE 15 FF ti AT 21 89 ve IN 26 20 20 AI KE -T 30 11 11 D RR RI 1 PH I AM AR J CI MA NO CY LO NE 03 93 CR 8 EA # M 03 93 DC 68 11 11 1 12 2 CL [...] 34 8- 8- 00 12 HE ve DC 59 20 20 AI NS ED 31 [...] BL 93 ET 8 # 03 93 IB 53 03 03 [address] Ac UP 74 -3 -3 .0 TE 77 EP ti RO 60 0- 0- 00 18 HE ve FE 46 20 20 AI NS N 40 10 10 D 40 5 PH DO 0 AR N MG MA R CY TA BL 03 ET 93 8 # 03 93 AZ 59 03 03 6. [address] Ac IT 76 -3 -3 00 TE 77 EP ti HR 23 0- 0- 0 20 HE ve OM 06 20 20 AI NS YC 00 10 10 D IN 1 PH DO AR N 25 MA R 0 CY MG 03 TA 93 BL 8 ET # 03 93 AM 65 01 01 [...] 00 10 5 WA 70 GA Ac IN 00 -2 -0 .0 L- 38 IN ti FL 40 5- 8- 00 MA 37 EY ve U 80 20 20 RT 5 75 08 09 09 IN 5 PH CH MG AR AE MA L CA CY S PS UL #5 E 91 DC 60 09 09 00 12 4 RI [...] 00 1[address] Ac 2 -2 00 TE 62 EP ti 39 0- 6- 0 34 HE ve 10 20 20 AI NS 72 09 09 D 9 PH DO AR N M R #3 93 8 DC 00 03 03 00 12 6 EA [...] 0.5 ML DOSA GE IM USE IIV3 09- 141 TRU No DHS/ 4-20 [facility] CO VACC 09 CO HEAL INE HEAL TH SPLI TH CENT T CENT RAL VIRU ER BANK S 0.5 ACCT ML DOSA GE IM USE Procedures Procedure DOS Code Location Performer Comment THERAPEUT 19872 MURRAY MURRAY IC PX 1/> 7 AREAS EACH 15 [place] [address] MURRAY MURRAY 1/> AREAS 7 EACH 15 MIN NEUROMUSC REEDUCA APPL 74585 MURRAY MURRAY MODALITY 7 1/> AREAS ELEC STIMJ UNATTENDE D CHIROPRAC 71424 MURRAY MURRAY TIC 7 MANIPLTV TX EXTRASPIN AL 1/> REGION CHIROPRAC 01595 MURRAY MURRAY TIC 7 MANIPULAT FARRAH TX SPINAL 3-4 REGIONS OPHTH 03947 [facility] MEDICAL 7 XM&EVAL COMPRHNSV ESTAB PT 1/> FITTING 64701 [facility] SPECTACLE 7 S XCPT [facility] 32836 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 CHLAMYDIA 7 Y GABBIE OF Y GABBIE OF ALEENA ALEENA TRACHOMAT H H IS AMPLIFIED PROBE TQ IADNA 92855 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 NEISSERIA 7 Y G[facility]E OF Y [facility] ALENEA GONORRHOE H H AE AMPLIFIED PROBE TQ IADNA 31424 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 TRICHOMON 7 Y GABBIE OF Y [facility] OF [facility]ENA ALEENA VAGINALIS H H AMPLIFIED PROBE TECH FINAL G9638 [facility] REPORTS 7 MEDICAL W/O DOC IMAGING 1/[place] [address] [facility] HEAD/BRAI 7 MEDICAL N W/O IMAGING CONTRAST ASS MATERIAL GROUND A0425 [facility] MILEAGE 7 AMBULANCE AMBULANCE PER SERVICE SERVICE STATUTE MILE AMBULANCE A0429 [facility] SERVICE 7 AMBULANCE AMBULANCE BLS SERVICE SERVICE EMERGENCY TRANSPORT THERAPEUT 76948 [facility] IC 7 [facility] INJECTION INC INC IV PUSH EACH NEW DRUG GONADOTRO 62279 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 PIN 7 Y Y CHORIONIC CORPORATI CORPORATI ON OF AM ON OF AM QUANTITAT FARRAH US PREG 39816 THI[facility] PRANEETH UTERUS 7 MEDICAL REAL TIME IMAGING W/IMAGE ASS DCMTN TRANSVAG CHIROPRAC 40535 [facility] TIC 7 MANIPLTV TX EXTRASPIN AL 1/> REGION CHIROPRAC 96002 [facility] TIC 7 MANIPULAT FARRAH TX SPINAL 3-4 REGIONS CHIROPRAC 06524 [facility] TIC 7 FAMILY MANIPULAT CHIROPRAC FARRAH TX TIC SPINAL 5 REGIONS APPL 64916 [facility] MODALITY 7 FAMILY 1/> AREAS CHIROPRAC TRACTION TIC MECHANICA L RADEX 51354 [facility] SPINE 7 FAMILY LUMBOSACR CHIROPRAC AL 2/3 TIC VIEWS RADEX 45718 [facility] SPINE 7 FAMILY CERVICAL CHIROPRAC 2 OR 3 TIC VIEWS BLOOD 85996 [facility] COUNT 3 [facility] COMPLETE INC INC AUTO&AUTO DIFRNTL WBC URINE 58429 [facility] 3 [facility] TEST INC INC VISUAL COLOR CMPRSN METHS URNLS DIP 98462 [facility] 3 [facility] STICK/TAB INC INC LET REAGENT AUTO MICROSCOP Y IAADIADOO 37709 [facility] IVAN 3 DON DON STREPTOCO CCUS GROUP A CUL BACT 68939 [employer] [facility] XCPT 3 DIAGNOSTI DIAGNOSTI URINE CS CS BLOOD/STO OL AEROBIC ISOL IAADIADOO 26151 [facility] 3 PHYSICIAN PHYSICIAN STREPTOCO S GROUP S GROUP CCUS GROUP A URINE 52318 KRANTHI YULISA KRANTHI YULISA 3 TEST VISUAL COLOR CMPRSN METHS IAADIADOO 92666 [facility] 3 PHYSICIAN PHYSICIAN STREPTOCO S GROUP S GROUP CCUS GROUP A ECG 60770 BESSON BESSON ROUTINE 3 XANDER XANDER ECG W/LEAST 12 LDS I&R ONLY ECG 86730 BESSON BESSON ROUTINE 3 XANDER XANDER ECG W/LEAST 12 LDS I&R ONLY LIPID 59381 [facility] PANEL 3 [place] [address] [facility] THYROID 3 [facility] [place] [place] [facility] STIMULATI INC INC NG HORMONE TSH RADIOLOGI 71712 PRANEETH DACOSTA C EXAM 3 TONJA TONJA CHEST 2 VIEWS FRONTAL&[place] [address] [facility] THYROXINE 3 [facility] TOTAL INC INC SEDIMENTA 01403 [facility] TION RATE 3 [facility] [place] [place] [facility] RBC INC INC NON-AUTOM ATED COMPREHEN 63908 [facility] SIVE 3 [facility] [place] [place] [facility] METABOLIC INC INC PANEL ECG 22792 [facility] ROUTINE 3 [facility] ECG INC INC W/LEAST 12 LDS TRCG ONLY W/O I&R BILIRUBIN 12272 [facility] DIRECT 3 [facility] INC INC BLOOD 98235 [facility] COUNT 3 [facility] COMPLETE INC INC AUTO&AUTO DIFRNTL WBC THYROID 81060 [facility] HORM 3 [facility] [place] [place] [facility] UPTK/THYR [place] [address] [facility] INFUSION 2 [facility] [place] [place] [facility] [place] [place] [facility] THERAPY/P INC INC ROPHYLAXI S /DX 1ST TO 1 HR THERAPEUT 12735 [facility] IC 2 [facility] INJECTION INC INC IV PUSH EACH NEW DRUG BLOOD 17807 [facility] COUNT 2 [facility] COMPLETE INC INC AUTO&AUTO DIFRNTL WBC COMPREHEN 06809 [facility] SIVE 2 [facility] [address] [facility] LIPASE 2 [facility] INC INC URINE 95386 [facility] 2 [facility] TEST INC [place] [address] [facility] AMYLASE 2 [facility]OS[facility] INC INC URNLS DIP 20456 [facility] 2 [facility] STICK/TAB INC INC LET REAGENT AUTO MICROSCOP Y IAADIADOO 35151 KRANTHI MÁRQUEZ 2 STREPTOCO CCUS GROUP A URNLS DIP 22509 IVAN IVAN 2 DON DON STICK/TAB LET RGNT NON-AUTO W/O MICRSCP IADNA 77253 MEDICAL MEDICAL NEISSERIA 2 DIAGNOSTI DIAGNOSTI [facility] GONORRHOE AE AMPLIFIED PROBE TQ IADNA NOS 60352 MEDICAL MEDICAL 2 DIAGNOSTI DIAGNOSTI AMPLIFIED C [facility] LAB [facility] PROBE TQ EACH ORGANISM IADNA 17228 MEDICAL MEDICAL ALAYNA 2 DIAGNOSTI DIAGNOSTI SPECIES [facility] AMPLIFIED PROBE TQ IADNA 34219 MEDICAL MEDICAL CHLAMYDIA 2 DIAGNOSTI DIAGNOSTI C LAB LLC C LAB LLC TRACHOMAT IS AMPLIFIED PROBE TQ URINE 25796 KRANTHI MÁRQUEZ 2 TEST VISUAL COLOR CMPRSN METHS URINE 91418 [facility] 2 [facility] [employer] S[facility] VISUAL HEAL HEAL COLOR CMPRSN METHS THERAPEUT 49339 CAREY PATELANA IC PX 1/> 2 AREAS CHIROPRAC CHIROPRAC EACH 15 TIC CENTE TIC CENTE MIN EXERCISES CHIROPRAC 31438 [place] TIC 2 MANIPULAT CHIROPRAC CHIROPRAC FARRAH TX TIC CENTE TIC CENTE SPINAL 3-4 REGIONS CHIROPRAC 95755 [place] TIC 2 MANIPULAT CHIROPRAC CHIROPRAC FARRAH TX TIC CENTE TIC CENTE SPINAL 3-[place] [address] [place] 1/> AREAS 2 EACH 15 CHIROPRAC CHIROPRAC MIN TIC CENTE [place] [address] [place] 1/> AREAS 2 EACH 15 CHIROPRAC CHIROPRAC MINUTES [place] [address] [place] 1/> AREAS 2 EACH 15 CHIROPRAC CHIROPRAC MINUTES TIC CENTE TIC CENTE MASSAGE APPL 46006 [place] MODALITY 2 1/> AREAS CHIROPRAC CHIROPRAC TRACTION TIC CENTE TIC CENTE MECHANICA L THERAPEUT 62278 [place] IC PX 1/> 2 AREAS CHIROPRAC CHIROPRAC EACH 15 TIC CENT[place] [address] [place] 1/> AREAS 2 EACH 15 CHIROPRAC CHIROPRAC MIN TIC CENTE TIC CENTE NEUROMUSC REEDUCA RADEX 24476 [place] SPINE 2 LUMBOSACR CHIROPRAC CHIROPRAC AL 2/3 TIC CENTE TIC CENTE VIEWS CHIROPRAC 84464 [place] TIC 2 MANIPULAT CHIROPRAC CHIROPRAC FARRAH TX TIC CENTE TIC CENTE SPINAL 3-4 REGIONS THERAPEUT 80709 [place] IC PX 1/> 2 AREAS CHIROPRAC CHIROPRAC EACH 15 TIC [place] [address] [place] 1/> AREAS 2 EACH 15 CHIROPRAC CHIROPRAC MINUTES TIC CENTE TIC CENTE MASSAGE APPL 37255 [place] MODALITY 2 1/> AREAS CHIROPRAC CHIROPRAC TRACTION TIC CENTE TIC CENTE MECHANICA L CHIROPRAC 62501 [place] TIC 2 MANIPULAT CHIROPRAC CHIROPRAC FARRAH TX TIC CENTE TIC CENTE SPINAL 3-4 REGIONS CHIROPRAC 32429 [place] TIC 2 MANIPULAT CHIROPRAC CHIROPRAC FARRAH TX TIC CENTE TIC CENTE SPINAL 3-4 REGIONS APPL 79158 [place] MODALITY 2 1/> AREAS CHIROPRAC CHIROPRAC TRACTION TIC CENTE TIC CENTE MECHANICA L THERAPEUT 40279 [place] IC PX 1/> 2 AREAS CHIROPRAC CHIROPRAC EACH 15 TIC CENTE TIC CENTE MIN EXERCISES APPL 98021 [place] MODALITY 2 1/> AREAS CHIROPRAC CHIROPRAC TRACTION TIC CENTE TIC CENTE MECHANICA L MANUAL 14712 [place] THERAPY 2 TQS 1/> CHIROPRAC CHIROPRAC REGIONS TIC CENTE TIC CENTE EACH 15 MINUTES CHIROPRAC 91285 [place] TIC 2 MANIPULAT CHIROPRAC CHIROPRAC FARRAH TX TIC CENTE TIC CENTE SPINAL 3-4 REGIONS DETERMINA 04214 AGUILERA AGUILERA IMELDAON 2 JAM JAM REFRACTIV E STATE ALBUTEROL J7613 [place] CURIEL INHAL 2 [facility] PROD THRU DME U DOSE 1 MG PRESSURIZ 52924 ROS[place] CURIEL ED/NONPRE 2 [facility] INHALATIO N TREATMENT US BREAST 27838 [place] ROBBINS REAL 2 [facility] [place] [place] [facility] [place] [place] [facility] TIME INC INC W/IMAGE DOCUMENTA TION GONADOTRO 62776 [facility] ROBBINS PIN 2 [facility] [place] [place] [facility] CHORIONIC INC INC QUANTITAT FARRAH BASIC 51688 ROSENDO ROBBINS METABOLIC 2 [facility] [place] [address] ROSENDO ROBBINS THYROID 2 [facility] [place] [place] [facility] STIMULATI INC INC NG HORMONE TSH BLOOD 85872 ROSENDO ROBBINS COUNT 2 [facility] COMPLETE INC INC AUTO&AUTO DIFRNTL WBC SPMTRY 82418 [place] [facility] W/VC 2 BETTINA BETTINA EXPIRATOR Y ZOHAIB W/WO MXML VOL VNTJ URNLS DIP 58440 [facility] 2 Y Y [facility] [place] [address] [facility] INFUSION 2 Y Y HYDRATION [facility] INITIAL 31 MIN-1 HOUR ONDANSETR [id number] [facility] ON 1 MG 2 Y Y ORL NOT [facility] EXCEED 48 HR DOSE REG INFUSION [id number] [facility] NORMAL 2 Y Y SALINE [facility] SOLUTION 1000 CC COMPREHEN [id number] [facility] SIVE 2 Y Y METABOLIC [facility] [place] [address] [facility] LIPASE 2 Y Y [facility] BLOOD 56654 [facility] COUNT 2 Y Y COMPLETE [facility] AUTOMATED GONADOTRO 45523 [facility] PIN 2 Y Y CHORIONIC [facility] QUALITATI VE IADNA 61171 LAB GABBIE LAB GABBIE NEISSERIA 2 [employer] GONORRHOE AE AMPLIFIED PROBE TQ IADNA 65455 [facility] CHLAMYDIA 2 [employer] TRACHOMAT IS AMPLIFIED PROBE TQ SMR PRIM 66036 MIKI ELIZONDO MIKI RAN SRC WET 2 MOUNT NFCT AGT URINE 42274 LUIZ DEE 1 [facility]UM[facility] TEST VISUAL COLOR CMPRSN METHS IIV3 72965 [facility] VACCINE 1 [facility] VIRUS 0.5 [place] [address] [facility] THYROID 1 [facility] STIMULATI INC INC NG HORMONE TSH COMPREHEN 08644 [facility] SIVE 1 [facility] METABOLIC INC INC PANEL BLOOD 66153 [facility] COUNT 1 [facility] COMPLETE INC INC AUTO&AUTO DIFRNTL WBC IAADIADOO 19719 IVAN IVAN 1 DON DON STREPTOC[place] IV D9242 NEVAEH DMD NEVAEH DMD CONSCIOUS 1 [employer] SEDATION/ ANALG - EA ADD 15 MINUTES IV D9242 NEVAEH DMD NEVAEH DMD CONSCIOUS 1 [employer] SEDATION/ ANALG - EA ADD 15 MINUTES SMR PRIM 99802 GUI GERALD KER SRC WET 1 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 NFCT AGT S CUL BACT 74247 [facility] STOOL 1 [facility] [place] [place] [facility] AEROBIC INC INC ISOL JANY Rosas&ALFRED IAADIADOO 25906 MONCHO CATHERINES 1 DON DON STREPTOCO CCUS GROUP A APPL 07088 [place] [facility] MODALITY 1 ROS 1/> AREAS CHIROPRAC ELEC TIC CENTE STIMJ UNATTENDE D APPL 20061 [place] [facility] MODALITY 1 ROS 1/> AREAS CHIROPRAC TRACTION TIC CENTE MECHANICA L CHIROPRAC 79775 [place] [facility] TIC 1 ROS MANIPULAT CHIROPRAC FARRAH TX TIC CENTE SPINAL 1-2 REGIONS CHIROPRAC 12730 [place] [facility] TIC 0 ROS MANIPLTV CHIROPRAC TX TIC CENTE EXTRASPIN AL 1/> REGION CHIROPRAC 67693 [place] TIC 0 ROS MANIPULAT CHIROPRAC FARRAH TX TIC CENTE SPINAL 1-2 REGIONS APPL 81565 [place] MODALITY 0 ROS 1/> AREAS CHIROPRAC TRACTION TIC CENTE MECHANICA L APPL 23142 [place] MODALITY 0 ROS 1/> AREAS CHIROPRAC ELEC TIC CENTE STIMJ UNATTENDE D APPL 97771 [place] MODALITY 0 ROS 1/> AREAS CHIROPRAC ELEC TIC CENTE STIMJ UNATTENDE D APPL 95744 [place] MODALITY 0 ROS 1/> AREAS CHIROPRAC TRACTION TIC CENTE MECHANICA L CHIROPRAC 18649 [place] TIC 0 ROS MANIPLTV CHIROPRAC TX TIC CENTE EXTRASPIN AL 1/> REGION CHIROPRAC 12510 [place] TIC 0 ROS MANIPULAT CHIROPRAC FARRAH TX TIC CENTE SPINAL 1-2 REGIONS CHIROPRAC 17152 [place] TIC 0 ROS MANIPULAT CHIROPRAC FARRAH TX TIC CENTE SPINAL 1-2 REGIONS CHIROPRAC 81684 [place] TIC 0 ROS MANIPLTV CHIROPRAC TX TIC CENTE EXTRASPIN AL 1/> REGION APPL 99827 [place] MODALITY 0 ROS 1/> AREAS CHIROPRAC TRACTION TIC CENTE MECHANICA L APPL 57442 [place] MODALITY 0 ROS 1/> AREAS CHIROPRAC ELEC TIC CENTE STIMJ UNATTENDE D APPL 39122 [place] MODALITY 0 ROS 1/> AREAS CHIROPRAC TRACTION TIC CENTE MECHANICA L CHIROPRAC 56251 [place] TIC 0 ROS MANIPLTV CHIROPRAC TX TIC CENTE EXTRASPIN AL 1/> REGION CHIROPRAC 42221 [place] TIC 0 ROS MANIPULAT CHIROPRAC FARRAH TX TIC CENTE SPINAL 1-2 REGIONS APPL 05606 [place] MODALITY 0 ROS 1/> AREAS CHIROPRAC TIC CENTE ULTRASOUN D EA 15 MIN APPLICATI 76988 [place] ON 0 SAPPHIRE SAPPHIRE MODALITY 1/> AREAS HOT/COLD PACKS THERAPEUT 17164 [place] IC PX 1/> 0 SAPPHIRE SAPPHIRE AREAS EACH 15 MIN EXERCISES CHIROPRAC 49257 [place] TIC 0 SAPPHIRE SAPPHIRE MANIPULAT FARRAH TX SPINAL 1-2 REGIONS APPL 37443 [place] MODALITY 0 SAPPHIRE SAPPHIRE 1/> AREAS TRACTION MECHANICA L IIV3 39789 [facility] VACCINE 0 [facility] VIRUS 0.5 ML DOSAGE IM USE SUSCEPTIB 12075 [facility] LTY STDY 0 [facility] ANTIMICRB INC INC IAL MICRO/AGA R DILUTJ CUL BACT 31610 [facility] XCPT 0 [facility] URINE INC INC BLOOD/STO OL AEROBIC ISOL CUL BACT 66446 [facility] AEROBIC 0 [facility] ADDL INC INC METHS DEFINITIV E EA ISOL 3D 28549 THIERRY DACOSTA RENDERING 0 MEDICAL FILIPPO IMAGING W/INTERP& ASSOCIATE POSTPROC S DIFF WORK STATION URINE 04595 [facility] 0 [facility] TEST INC INC VISUAL COLOR CMPRSN METHS RADEX 61539 THIERRY PRANEETH, WRIST 0 MEDICAL FILIPPO COMPLETE IMAGING MINIMUM [address] [place] [address] THIERRY PRANEETH, MAXILLOFA 0 MEDICAL FILIPPO CIAL W/O IMAGING CONTRAST ASSOCIATE MATERIAL S URNLS DIP 70933 [facility] 0 [facility] STICK/TAB INC INC LET REAGENT AUTO MICROSCOP Y BASIC 15200 [facility] METABOLIC 0 [facility] PANEL INC INC CALCIUM TOTAL BLOOD 03309 [facility] COUNT 0 [facility] COMPLETE INC INC AUTO&AUTO DIFRNTL WBC RADEX 93140 MONCHO IVAN, ANKLE 0 DON R DON R COMPLETE MINIMUM 3 VIEWS RADIOLOGI 45208 MONCHO IVAN, C 0 DON R DON R EXAMINATI ON FOOT 2 VIEWS URNLS DIP 57477 COMBINED COMBINED 9 PHYSICIAN PHYSICIAN STICK/TAB S LAB S LAB LET REAGENT AUTO MICROSCOP Y PARTICLE 81229 COMBINED COMBINED AGGLUTINA 9 PHYSICIAN PHYSICIAN TION S LAB S LAB SCREEN EACH ANTIBODY IAADIADOO 75175 COMBINED COMBINED 9 PHYSICIAN PHYSICIAN INFLUENZA S LAB S LAB GENERAL 11069 COMBINED COMBINED HEALTH 9 PHYSICIAN PHYSICIAN PANEL S LAB S LAB IAADIADOO 63612 MONCHO IVAN 9 DON R DON R STREPTOCO CCUS GROUP A IADNA NOS 13913 ROS[facility]ARISTEO ROBBINS 9 [facility] AMPLIFIED INC INC PROBE TQ EACH ORGANISM IAADI 90186 [facility]ARISTE[facility] ROBBINS INFLUENZA 9 [facility] B VIRUS INC INC IAADI 58372 [facility] INFFLUENZ 9 [facility] A A VIRUS INC INC IIV3 55010 [facility] VACCINE 9 HEALTH CO [facility] VIRUS 0.5 BANK ACCT ML DOSAGE IM USE IAADIADOO 80427 MONCHO IVAN 9 DON R DON R STREPTOCO CCUS GROUP A OPHTH 69388 YULI MOORE, [facility] 9 VISION NICKIE A XM&EVAL COMPRHNSV ESTAB PT 1/> ORTHOPANT 50558 CO CHRISTINA MARCUM 9 FOR HERIBERTO S ORAL&MAXI LLOFACIAL SURGERY Encounters Encounter Start End Date Code Location Performer Type Date OFFICE 47667 TERRI MURRAY OUTPATIEN 7 7 T NEW 30 MINUTES OFFICE 19930 [facility] 7 7 N ION NEUROLOGY NEW/ESTAB PATIENT 40 MIN OFFICE 55719 THIERRY BEGUM OUTPATIEN 7 7 [facility] T VISIT 25 MINUTES EMERGENCY 82229 [facility] 7 7 FRANNIE - YORBA DEPARTMEN EMERGENCY T VISIT PHYS HIGH/URGE NT SEVERITY OFFICE 06892 GUI CASE OUTPATIEN 7 7 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 T VISIT ASSOCIATE 15 S, MINUTES EMERGENCY 90496 BRANDYN RAO DEPT 7 7 PHYSICIAN VISIT S, PLLC HIGH SEVERITY& THREAT FUN [facility]OSP[facility] - 7 7 [facility] OUTPATIEN INC T EMERGENCY 65401 [facility] 7 7 FRANNIE DEPARTMEN EMERGENCY T VISIT SERVI HIGH/URGE NT SEVERITY EMERGENCY 75300 BRANDYN SCHNEIDER 7 7 PHYSICIAN U DEPARTMEN S, [facility] T VISIT MODERATE SEVERITY EMERGENCY 83310 [facility] 7 7 [facility] DEPARTMEN INC T VISIT LOW/MODER SEVERITY [facility]OSPITAL [facility] - 7 7 [facility] OUTPATIEN INC T OFFICE 80142 GUI VILLANUEVA OUTPATIEN 7 7 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 - 3 3 [facility] OUTPATIEN INC T EMERGENCY 68919 [facility] 3 3 [facility] DEPARTMEN INC T VISIT LOW/MODER SEVERITY HOSPITAL [facility] - 3 3 [facility] OUTPATIEN INC T OFFICE 26245 MONCHO IVAN OUTPATIEN 3 3 DON DON T VISIT 15 MINUTES OFFICE 98621 [facility] OUTPATIEN 3 3 PHYSICIAN T VISIT S GROUP 15 MINUTES OFFICE 42001 KRANTHI MÁRQUEZ OUTPATIEN 3 3 T VISIT 15 MINUTES OFFICE 42802 [facility] OUTPATIEN 3 3 PHYSICIAN T VISIT S GROUP 10 MINUTES OFFICE 03260 [facility] OUTPATIEN 3 3 PHYSICIAN T VISIT S GROUP 15 MINUTES OFFICE 93220 [facility] OUTPATIEN 3 3 PHYSICIAN T VISIT S GROUP 15 MINUTES OFFICE 28566 KRANTHI MÁRQUEZ OUTPATIEN 3 3 T VISIT 15 MINUTES EMERGENCY 28257 MAIRA RAO DEPT 3 3 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 VISIT HIGH SEVERITY& THREAT FUNCJ OFFICE 71789 MILVIA STEEL OUTPATIEN 3 3 EDA EDA T VISIT 15 MINUTES HOSPITAL [facility] - 3 3 [facility] OUTPATIEN INC T OFFICE 99080 [facility] OUTPATIEN 3 3 PHYSICIAN T VISIT S GROUP 15 MINUTES OFFICE 35132 MILVIA STEEL OUTPATIEN 3 3 EDA EDA T NEW 30 MINUTES OFFICE 14319 [facility] OUTPATIEN 3 3 PHYSICIAN T VISIT S GROUP 15 MINUTES EMERGENCY 46015 LUCRECIA POWELL DEPT 2 2 EMERGENCY BRITNEY VISIT SERVICES HIGH SEVERITY& THREAT FUNCJ EMERGENCY 37937 [facility] 2 2 [facility] DEPARTMEN INC T VISIT MODERATE SEVERITY HOSPITAL [facility] - 2 2 [facility] OUTPATIEN INC T OFFICE 71195 KRANTHI MÁRQUEZ OUTPATIEN 2 2 T VISIT 15 MINUTES OFFICE 08466 IVAN IVAN OUTPATIEN 2 2 DON DON T VISIT 15 MINUTES OFFICE 40625 MONCHO CATHERINES OUTPATIEN 2 2 DON DON T VISIT 15 MINUTES OFFICE 25686 TERESA MOORE OUTPATIEN 2 2 CELESTE CELESTE T VISIT 15 MINUTES OFFICE 16479 KRANTHI MÁRQUEZ OUTPATIEN 2 2 T VISIT 15 MINUTES OFFICE 53389 [facility] ROBBINS OUTPATIEN 2 2 [facility] 15 HEAL HEAL MINUTES OFFICE 45312 MAIRA RAO OUTPATIEN 2 2 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 T VISIT 10 MINUTES OFFICE 28339 MONCHO IVAN OUTPATIEN 2 2 DON DON T VISIT 15 MINUTES OFFICE 79271 [place] OUTPATIEN 2 2 T VISIT CHIROPRAC 15 TIC CENTE MINUTES OFFICE 78634 BHANU BHANU OUTPATIEN 2 2 DEWEY DEWEY T VISIT 15 MINUTES OFFICE 75870 ALE AGUILERA OUTPATIEN 2 2 JAM JAM T NEW 60 MINUTES OFFICE 17907 [facility] CURIEL OUTPATIEN 2 2 [facility] 15 MINUTES OFFICE 63302 BHANU BHANU OUTPATIEN 2 2 DEWEY DEWEY T VISIT 15 MINUTES OFFICE 26729 REGINALDO Nation OUTPATIEN 2 2 T VISIT 10 MINUTES HOSPITAL [facility] - 2 2 [facility] OUTPATIEN INC T OFFICE 43593 [facility] OUTPATIEN 2 2 II O II O T VISIT 15 MINUTES HOSPITAL [facility] - 2 2 [facility] OUTPATIEN INC T OFFICE 17423 [place] [facility] 2 2 BETTINA BETTINA T NEW 30 MINUTES EMERGENCY 66182 [facility] 2 2 Y [facility] T VISIT HIGH/URGE NT SEVERITY [facility]OSPITAL [facility] 2 2 Y [facility] T OFFICE 59059 DEE DEE OUTPATIEN 2 2 [facility]UM[facility] OUMOU T VISIT 15 MINUTES OFFICE 51929 BHANU BHANU OUTPATIEN 2 2 DEWEY DEWEY T VISIT 10 MINUTES OFFICE 50263 DEE DEE OUTPATIEN 2 2 OUMOU OUMOU T VISIT 10 MINUTES OFFICE 90593 MIKI LIV[place] RAN OUTPATIEN 2 2 T VISIT 15 MINUTES OFFICE 32180 DEE DEE OUTPATIEN 1 1 OUMOU OUMOU T NEW 30 MINUTES HOSPITAL [facility] - 1 1 [facility] OUTPATIEN INC T OFFICE 78085 MONCHO CATHERINES OUTPATIEN 1 1 DON DON T VISIT 15 MINUTES OFFICE 22151 MONCHO CATHERINES OUTPATIEN 1 1 DON DON T VISIT 15 MINUTES OFFICE 36775 [place] GERALD KER OUTPATIEN 1 1 RN FIELD 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 T NEW 30 ASSOCIATE MINUTES [facility] - 1 1 [facility] OUTPATIEN INC T OFFICE 80799 MONCHO ARMSTRONGHENS OUTPATIEN 1 1 DON DON T VISIT 15 MINUTES OFFICE 45247 [facility] ROBBINS OUTPATIEN 1 1 [facility] 15 MINUTES OFFICE 35800 [facility] ROBBINS OUTPATIEN 1 1 [facility] 15 MINUTES OFFICE 65739 CAREY MURRAYX OUTPATIEN 0 0 ROS T NEW 30 CHIROPRAC MINUTES [facility] OFFICE 79054 [facility] ROBBINS OUTPATIEN 0 0 [facility] 10 MINUTES OFFICE 22220 MONCHO CATHERINES OUTPATIEN 0 0 DON DON T VISIT 15 MINUTES OFFICE 09055 MONCHO ARMSTRONGHENS OUTPATIEN 0 0 DON DON T VISIT 15 MINUTES OFFICE 38218 IVAN IVAN OUTPATIEN 0 0 DON DON T VISIT 15 MINUTES HOSPITAL [facility] - 0 0 [facility] OUTPATIEN INC T OFFICE 82857 YULI MOSCOSO OUTPATIEN 0 0 VISION ANG T NEW 20 MINUTES OFFICE 04258 MONCHO ARMSTRONGHENS OUTPATIEN 0 0 DON DON T VISIT 15 MINUTES OFFICE 70916 [facility] ROBBINS OUTPATIEN 0 0 [facility] 15 MINUTES OFFICE 79667 IVAN, IVAN, OUTPATIEN 0 0 DON R DON R T VISIT 15 MINUTES EMERGENCY 61096 LUCRECIA RAO, DEPT 0 0 EMERGENCY [facility] VISIT SERVICES HIGH SEVERITY& ASSOCIATE THREAT S [facility] - 0 0 [facility] OUTPATIEN INC T EMERGENCY 37996 [facility] 0 0 [facility] DEPARTMEN INC T VISIT LOW/MODER SEVERITY OFFICE 21510 MONCHO IVAN OUTPATIEN 0 0 DON R DON R T VISIT 15 MINUTES HOSPITAL [facility] - 0 0 [facility] [place] [place] [facility] OUTPATIEN INC T OFFICE 54706 MONCHO IVAN OUTPATIEN 0 0 DON R DON R T VISIT 15 MINUTES OFFICE 08720 ELISABETH BARBER OUTPATIEN 0 0 IDRIS A IDRIS A T VISIT 15 MINUTES OFFICE 11009 MONCHO IVAN OUTPATIEN 0 0 DON R DON R T VISIT 25 MINUTES OFFICE 17398 ELISABETH BARBER OUTPATIEN 0 0 IDRIS A IDRIS A T VISIT 15 MINUTES OFFICE 23436 MONCHO IVAN OUTPATIEN 9 9 DON R DON R T VISIT 15 MINUTES OFFICE 08152 MONCHO IVAN OUTPATIEN 9 9 DON R DON R T VISIT 15 MINUTES EMERGENCY 70184 [facility] 9 9 [facility] [place] [place] [facility] DEPARTMEN INC T VISIT LOW/MODER SEVERITY HOSPITAL [facility] - 9 9 [facility] [place] [place] [facility] 36235 LUCRECIA RAO, 9 9 EMERGENCY [facility] T VISIT MODERATE ASSOCIATE SEVERITY S OFFICE 38594 MONCHO IVAN OUTPATIEN 9 9 DON R DON R T VISIT 15 MINUTES OFFICE 51694 MONCHO IVAN OUTPATIEN 9 9 DON R DON R T VISIT 15 MINUTES OFFICE 69090 MONCHO IVAN OUTPATIEN 9 9 DON R DON R T VISIT 15 MINUTES OFFICE 57429 CO SHERI MARCUM 9 9 FOR HERIBERTO S T NEW 10 ORAL&MAXI MINUTES LLOFACIAL SURGERY OFFICE 56040 MONCHO IVAN OUTPATIEN 8 8 DAINA R DAINA R T DINA 20 MINUTES
--- OUTSIDE RECORDS SUMMARY | 2017-03-28 03:36 | External Medical Summary Rpt | CCD ---
Author Author , ZAK LEMUSRENE Address Unknown Phone [email or web address] Care Team Providers Care Global Marketing Specialist Name Role Phone REGINALDO Nation, REGINALDO Nation Unavailable Unavailable REGINALDO Nation, REGINALDO J Unavailable Unavailable ARNOLD EDA, ARNOLD Unavailable Unavailable EDA ARNOLD EDA, ARNOLD Unavailable Unavailable EDA ODELL, ODELL Unavailable Unavailable OEDLL, ODELL Unavailable Unavailable BEINEKE, BEINEKE Unavailable Unavailable BESSON XANDER, BESSON Unavailable Unavailable XANDER KRANTHI YULISA, KRANTHI YULISA Unavailable Unavailable KRANTHI YULISA, KRANTHI YULISA Unavailable Unavailable [facility] Unavailable Unavailable SERVICE, [employer] [facility] KATT RETAIL SEASONAL SPECIALIST, KATT Unavailable Unavailable RETAIL SEASONAL SPECIALIST CELLAROSI - YORBA, Unavailable Unavailable CELLAROSI - YORBA SHY BEGUM Unavailable Unavailable HERIBERTO BEGUM, Unavailable Unavailable HERIBERTO BEGUM [facility], Un[facility] Unavailable Unavailable LAB, [facility] PRANEETH, PRANEETH Unavailable Unavailable PRANEETH TONJA, Unavailable Unavailable PRANEETH TONJA PRANEETH, FILIPPO, Unavailable Unavailable PRANEETH, FILIPPO [facility], Unavailable Unavailable [facility] [place] [facility] [place] [place] BHANU DEWEY, Unavailable Unavailable BHANU DEWEY BHANU DEWEY, Unavailable Unavailable BHANU DEWEY MURRAY, MURRAY Unavailable Unavailable MURRAY, MURRAY Unavailable Unavailable [place] BETTINA, Unavailable Unavailable [place] BETTINA [place] BETTINA, Unavailable Unavailable [place] BETTINA MAIRA MAIRA Unavailable Unavailable MAIRA MANSOOR, MAIRA Unavailable Unavailable MANSOOR MAIRA MANSOOR, MAIRA Unavailable Unavailable MANSOOR MARYAN RAO, Unavailable Unavailable MARYAN RAO [facility], Unavailable Unavailable [facility] Unavailable Unavailable [facility] [place] [facility] [facility] Unavailable Unavailable [facility] Unavailable Unavailable [facility] Unavailable [facility]available [facility] [employer] [facility] [employer] [employer] [facility] Unavailable Un[facility] [employer] [facility] Unavailable Unavailable INC, [facility] CASE, CASE Unavailable Unavailable MOORE, MOORE Unavailable Unavailable MOORE, MOORE Unavailable Unavailable MOORE, NICKIE A, Unavailable Unavailable MOORE, NICKIE A [facility], Unavailable Unavailable [facility], [facility] Unavailable Unavailable [facility]PH[facility], [place] Unavailable Unavailable [facility] Un[facility] Un[facility], [facility] Unavailable Unavailable HOLD[facility], [facility] Unavailable [facility]available HOLDING, [facility] Unavailable Unavailable [facility], [facility] Unavailable Unavailable [facility], [facility] Unavailable Unavailable CORPORATION OF AM, [facility] Unavailable Unavailable [facility], [facility] Unavailable Unavailable SERVICES, [facility] DAVID HERNANDEZ Unavailable Unavailable AGUILERA JAM, Unavailable Unavailable AGUILERA JAM AGUILERA JAM, Unavailable Unavailable AGUILERA JAM LINWOOD ROS, LINWOOD Unavailable Unavailable ROS NEVAEH DMD MANDAEISM, NEVAEH Unavailable Unavailable DMD MANDAEISM NEVAEH DMD MANDAEISM, NEVAEH Unavailable Unavailable [facility] Un[facility], MEDICAL [...] [facility], Unavailable Unavailable [facility] Unavailable Unavailable [facility], [id number], Unavailable Unavailable [id number] Unavailable Unavailable [id number] [address] [id number], [facility] [id number] [address] [id number] ANDRE TAN, ANDRE Unavailable Unavailable BRITNEY DEE OUMOU, Unavailable Unavailable DEE OUMOU DEE OUMOU, Unavailable Unavailable DEE OUM[facility] TERESA CELESTE, TERESA Unavailable Unavailable CELESTE TERESA CELESTE, TERESA Unavailable Unavailable CELESTE SCIFRES ANG, SCIFRES Unavailable Unavailable ANG CURIEL EUGENIA, CURIEL Unavailable Unavailable EUGENIA HAILE, HAILE Unavailable Unavailable SOTINGEANU, Unavailable [facility]available [facility] Unavailable Unavailable EMERGENCY PHYS, [facility] IVAN DON, Unavailable Unavailable IVAN DON IVAN DON, Unavailable Unavailable IVAN DON IVAN, DON R, Unavailable Unavailable IVAN, DON R [facility], Unavailable Unavailable [facility] Unavailable Unavailable #591, [facility] ANTHONY CRUZ Unavailable Unavailable Purpose Continuity of Care Document - 02-02-2008 through 2016 Problems Code Diagnosis DOS Provider Status [id number] OTHER 01-16-2017 MURRAY SPECIFIED DORSOPATHIE S LUMBAR REGION M546 PAIN IN 01-16-2017 [facility] THORACIC SPINE M9906 SEGMENTAL & 01-16-2017 [facility] SOMATIC DYSFUNCTION LOWER EXTREMITY U30464 REGULAR 01-07-2017 [facility] ASTIGMATISM BILATERAL R51 HEADACHE 12-14-2016 [facility] A80991 MIGRAINE 10-23-2016 [facility] UNS NOT N EMERGENCY INTRACT W/O PHYS STATUS MIGRAINOSUS N938 OTHER SPEC 10-23-2016 LABORATORY ABNORMAL [facility] OF UTERINE & [facility]LE[facility] H VAGINAL BLEEDING R110 NAUSEA 10-23-2016 [facility] Z720 TOBACCO USE 10-20-2016 [facility] N939 ABNORMAL 10-18-2016 [facility] UTERINE & PHYSICIANS, VAGINAL PLLC BLEEDING UNSPECIFIED C57179 UNSPECIFIED 10-15-2016 [facility] OVARIAN PHYSICIANS, CYST RIGHT PLLC SIDE N921 EXCESS & 10-15-2016 [facility] FREQUENT PHYSICIANS, MENSTRUATIO PLLC N W/IRREGULAR CYCLE L36176 PAIN IN 09-26-2016 [facility] RIGHT SHOULDER M542 CERVICALGIA 09-26-2016 [facility] L29050 MUSCLE 09-26-2016 [facility] SPASM OF BACK M9901 [...] SPONTANEOUS 03-24-2013 [facility] 79717 OTHER CHEST 03-24-2013 [facility] 5990 URINARY 12-15-2012 KRANTHI YULISA TRACT INFECTION SITE NOT SPECIFIED 4139 OTHER AND 12-07-2012 [facility] UNSPECIFIED [facility] ANGINA INC PECTORIS 44859 ACUTE 10-28-2012 IVAN LARYNGITIS, DON WITHOUT MENTION OF OBSTRUCTIO 4659 ACUTE URIS 10-28-2012 IVAN OF DON UNSPECIFIED SITE 462 ACUTE 10-24-2012 [facility] 4618 OTHER ACUTE 10-16-2012 [facility] SINUSITIS [facility] 01496 NAUSEA WITH 10-16-2012 [facility] VOMITING PHYSICIANS GROUP 12461 INTESTINAL 10-03-2012 [facility] INF PHYSICIANS ENTERITIS GROUP DUE OT VIRAL ENTERITIS 0091 COLITIS 09-25-2012 [facility] ENTERIT&GAS PHYSICIANS TROENTERIT GROUP INF ORIGIN 12716 UNSPECIFIED 09-02-2012 KRANTHI YULISA VIRAL INFECTION IN CCE & UNS SITE 28554 CHEST PAIN 09-01-2012 MAIRA MANSOOR UNSPECIFIED 7850 UNSPECIFIED 08-11-2012 [facility] TACHYCARDIA INC 0340 STREPTOCOCC 07-28-2012 [facility] AL SORE PHYSICIANS THROAT GROUP 60450 ESOPHAGEAL 07-10-2012 ARNEMELY EDA REFLUX 80682 UNS 07-10-2012 [facility]AS GASTRITIS&G ASTRODUODIT IS W/O MENTION HEMORR 5589 OTH&UNSPEC 05-29-2012 [place] NONINFECTIO [facility]Y US SERVICES GASTROENTER ITIS&COLITI S 74230 ABDOMINAL 05-29-2012 [place] PAIN, EMERGENCY UNSPECIFIED SERVICES SITE 22648 ABDOMINAL 05-29-2012 [facility] PAIN RIGHT [facility] LOWER INC QUADRANT 48541 NAUSEA 05-27-2012 KRANTHI YULISA ALONE 0542 HERPETIC 05-13-2012 IVAN GINGIVOSTOM DON ATITIS 74593 UNSPECIFIED 04-02-2012 TERESA KAR VAGINITIS AND VULVOVAGINI [...] 12-18-2011 BHANU AND ABSCESS DEWEY OF FACE 68142 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 17062 ULCERATIVE 11-21-2011 AGUILERA BLEPHARITIS JAM 4619 ACUTE 10-23-2011 BHANU SINUSITIS, DEWEY UNSPECIFIED 4660 ACUTE 10-23-2011 BHANU BRONCHITIS DEWEY 6100 SOLITARY 10-04-2011 HAIR J CYST OF BREAST 6102 FIBROADENOS 10-04-2011 HAIR J IS OF BREAST 6101 DIFFUSE 09-21-2011 [facility] MASTOPATHY IM[facility] 77235 MASTODYNIA 09-21-2011 [facility] 79565 LUMP OR 09-18-2011 [facility] II MASS IN O BREAST 6260 ABSENCE OF 09-12-2011 [facility] MENSTRUATIO [facility] N INC 33718 ASTHMA, 08-23-2011 [place] UNSPECIFIED BETTINA , UNSPECIFIED STATUS 82055 OTHER SPEC 08-23-2011 [place] GASTRITIS BETTINA WITHOUT MENTION HEMORRHAGE 51948 ACUTE 08-09-2011 [facility] WITHOUT MENTION OF HEMORRHAGE 56122 VOMITING 08-09-2011 KATT RETAIL SEASONAL SPECIALIST ALONE 89742 CHRONIC 08-08-2011 DEE TENSION [facility] TYPE HEADACHE 88512 ABDOMINAL 08-08-2011 DEE PAIN RIGHT [facility] UPPER QUADRANT 6235 LEUKORRHEA 07-11-2011 LAB [facility] NOT AMERIC SPECIFIED HOLDING INFECTIVE V2503 ENCOUNTER 07-10-2011 [facility] ELIZONDO EMERGENCY CONTRACEPT CNSL&PRESCR IPTION 463 ACUTE 05-16-2011 DEE TONSILLITIS OUMOU V0481 NEED 04-18-2011 [facility] VACCINATION &INOCULATIO N FLU 46077 OTHER 03-26-2011 [facility] FATIGUE INC 28066 CHRONIC 03-21-2011 IVAN FATIGUE DON SYNDROME 6826 CELLULITIS 02-05-2011 IVAN AND ABSCESS DON OF LEG EXCEPT FOOT 5210 DENTAL 01-17-2011 NEVAEH DMD CARIES MANDAEISM 6253 DYSMENORRHE 01-02-2011 [place] A GENERAL I [facility] 6262 EXCESSIVE 01-02-2011 [place] [facility]ENT GENER[facility] I [facility] ASSOC[facility]ATES MENSTRUATIO N 65732 DIARRHEA 08-10-2010 [facility] INC 9199 OTH&UNSPEC 07-31-2010 [facility]P [facility]Y [facility] OT S[facility]OL MX&UNSPEC SITES INF 47395 SHORTNESS 07-27-2010 [facility] OF BREATH [facility]LE SCHOOL 7234 BRACHIAL 07-03-2010 [place] [facility] RADICULITIS NOS 14096 SPASM OF 07-03-2010 [place] MUSCLE [facility]ENT[facility] 7397 NONALLOPATH 07-03-2010 [place] IC LESION [facility]OP[facility]I OF UPPER C CENTE EXTREMITIES NEC 7231 CERVICALGIA 05-04-2010 [place] 7840 HEADACHE 05-04-2010 [facility] 48073 METHICILLIN 04-04-2010 IVAN RESISTANT DON STAPHYLOCOC CUS AUREUS 7821 RASH AND 03-21-2010 IVAN OTHER DON NONSPECIFIC SKIN ERUPTION 70564 HORDEOLUM 03-02-2010 YULI EXTERNUM VISION 6929 CONTACT 01-31-2010 IVAN DERMATITIS& DON OTHER ECZEMA DUE UNSPEC CAUSE 7098 OTHER 01-31-2010 [facility] SPECIFIED MIDDLE DISORDER OF SCHOOL SKIN 9164 HIP THI 01-11-2010 IVAN, LEG&ANK DON R INSECT BITE NONVENOMOUS W/O INF 10276 PAIN IN 11-01-2009 [facility] [facility] 34550 SPRAIN AND 11-01-2009 [facility] STRAIN OF EMERGENCY UNSPECIFIED SERVICES SITE OF ASSOCIATES WRIST 920 CONTUSION 11-01-2009 [facility] OF FACE EMERGENCY SCALP AND SERVICES NECK EXCEPT ASSOCIATES EYE 05969 UNSPECIFIED 08-26-2009 [facility], SITE OF DON R ANKLE SPRAIN AND STRAIN 4779 ALLERGIC 08-15-2009 BARBER, RHINITIS IDRIS A CAUSE UNSPECIFIED 4871 INFLUENZA 03-15-2009 [facility], WITH OTHER DON R RESPIRATORY MANIFESTATI ONS 3670 HYPERMETROP 01-17-2009 YULI [place] VISION 39176 DENTAL 08-24-2008 [facility] FOR EXTENDING ORAL&MAXILL INTO PULP OFACIAL SURGERY 5216 ANKYLOSIS 08-24-2008 [facility] OF TEETH FOR ORAL&MAXILL OFACIAL SURGERY 77402 OTHER 02-02-2008 IVAN, SPECIFIED DON R DISORDERS [...] MG #3 TA 93 BL 8 ET AL 65 05 06 14 5 00 RI [...] AI RA 30 17 17 29 D AL 5 80 PH DE AR MA 10 [...] 17 33 D N 9 56 PH MORRLEL AR CC MA CY 25 #3 MG 93 8 TA BL ET AL 59 05 06 15 5 00 RI [...] CR 8 EA # M 03 93 AL 68 11 11 1 12 2 CL [...] 34 8- 8- 00 12 HE ve AL 59 20 20 AI NS ED 31 [...] 00 10 5 WA 70 GA Ac AL 00 -2 -0 .0 L- 38 IN ti FL 40 5- 8- 00 MA 37 EY ve U 80 20 20 RT 5 75 08 09 09 AL 5 PH CH MG AR AE MA L CA CY S PS UL #5 E 91 AL 60 09 09 00 12 4 RI [...] AR N M R #3 93 8 AL 00 03 03 00 12 6 EA [...] Procedure DOS Code Location Performer Comment THERAPEUT 29005 MURRAY MURRAY IC PX 1/> 7 AREAS [place]ACH 15 [place] [address] MURRAY MURRAY 1/> AREAS 7 EACH 15 MIN NEUROMUSC REEDUCA APPL 37864 MURRAY MURRAY MODALITY 7 1/> AREAS ELEC STIMJ UNATTENDE D CHIROPRAC 43054 MURRAY MURRAY TIC 7 MANIPLTV TX EXTRASPIN AL 1/> REGION CHIROPRAC 87786 MURRAY MURRAY TIC 7 MANIPULAT FARRAH TX SPINAL 3-4 REGIONS OPHTH 29519 [facility] MEDICAL 7 XM&EVAL COMPRHNSV ESTAB PT 1/> FITTING 40477 [facility] SPECTACLE 7 S XCPT APHAKIA MONOFOCAL [facility] 25125 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 CHLAMYDIA 7 Y GAB[facility] OF Y GABBEI OF ALEENA ALEENA TRACHOMAT H H IS AMPLIFIED PROBE TQ IADNA 31740 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 NEISSERIA 7 Y [facility] OF Y [facility] OF [facility]ENA ALEENA GONORRHOE H H AE AMPLIFIED PROBE TQ IADNA 94377 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 TRICHOMON 7 Y GABBIE OF Y [facility] OF ALEENA ALEENA VAGINALIS H H AMPLIFIED PROBE TECH FINAL G9638 [facility] REPORTS 7 MEDICAL W/O DOC IMAGING 1/[place] [address] [facility] HEAD/BRAI 7 MEDICAL N W/O IMAGING CONTRAST ASS MATERIAL GROUND A0425 [facility] MILEAGE 7 AMBULANCE AMBULANCE PER SERVICE SERVICE STATUTE MILE AMBULANCE A0429 [facility] SERVICE 7 AMBULANCE AMBULANCE BLS SERVICE SERVICE EMERGENCY TRANSPORT THERAPEUT 53207 [facility] IC 7 [facility] INJECTION INC INC IV PUSH EACH NEW DRUG GONADOTRO 56772 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 PIN 7 Y Y CHORIONIC CORPORATI CORPORATI ON OF AM ON OF AM QUANTITAT AFRRAH US PREG 66921 [facility] PRANEETH UTERUS 7 MEDICAL REAL TIME IMAGING W/IMAGE ASS DCMTN TRANSVAG CHIROPRAC 00984 [facility] BAIN TIC 7 MANIPLTV TX EXTRASPIN AL 1/> REGION CHIROPRAC 68340 [facility] BAIN TIC 7 MANIPULAT FARRAH TX SPINAL 3-[address] [facility] TIC 7 FAMILY MANIPULAT CHIROPRAC FARRAH TX TIC SPINAL [address] [facility] MODALITY 7 FAMILY 1/> AREAS CHIROPRAC TRACTION TIC MECHANICA L RADEX 00036 [facility] SPINE 7 FAMILY LUMBOSACR CHIROPRAC AL 2/[address] [facility] SPINE 7 FAMILY CERVICAL CHIROPRAC 2 OR 3 TIC VIEWS BLOOD 91554 [facility] COUNT 3 [facility] COMPLETE INC INC AUTO&AUTO DIFRNTL WBC URINE 21406 [facility]INS 3 [facility] TEST INC INC VISUAL COLOR CMPRSN METHS URNLS DIP 42088 [facility] 3 [facility] STICK/TAB INC INC LET REAGENT AUTO MICROSCOP Y IAADIADOO 81494 [facility] IVAN 3 DON DON STREPTOCO CCUS GROUP A CUL BACT 98904 [facility] XCPT 3 DIAGNOSTI DIAGNOSTI URINE CS CS BLOOD/STO OL AEROBIC ISOL IAADIADOO 36097 [facility] 3 PHYSICIAN PHYSICIAN STREPTOCO S GROUP S GROUP CCUS GROUP A URINE 81344 KRANTHI YULISA KRANTHI YULISA 3 TEST VISUAL COLOR CMPRSN METHS IAADIADOO 20283 [facility] 3 PHYSICIAN PHYSICIAN STREPTOCO S GROUP S GROUP CCUS GROUP A ECG 67337 BESSON BESSON ROUTINE 3 XANDER XANDER ECG W/LEAST 12 LDS I&R ONLY ECG 24164 [facility] BESSON ROUTINE 3 XANDER XANDER ECG W/LEAST 12 LDS I&R ONLY LIPID 59253 [facility] PANEL 3 [place] [address] [facility] THYROID 3 [facility] H[facility] STIMULATI INC INC NG HORMONE TSH RADIOLOGI 59202 PRANEETH DACOSTA C EXAM 3 TONJA TONJA CHEST 2 VIEWS FRONTAL&[place] [address] [facility] THYROXINE 3 [facility] TOTAL INC INC SEDIMENTA 21601 [facility] TION RATE 3 [facility] RBC INC INC NON-AUTOM ATED COMPREHEN 95698 [facility] SIVE 3 [facility] METABOLIC INC INC PANEL ECG 68286 [facility] ROUTINE 3 [facility] ECG INC INC W/LEAST 12 LDS TRCG ONLY W/O I&R BILIRUBIN 80652 [facility] DIRECT 3 [facility] INC INC BLOOD 69557 [facility] COUNT 3 [facility] COMPLETE INC INC AUTO&AUTO DIFRNTL WBC THYROID 07325 [facility] HORM 3 [facility] UPTK/THYR [place] [address] [facility] INFUSION 2 [facility] THERAPY/P INC INC ROPHYLAXI S /DX 1ST TO 1 HR THERAPEUT 28139 [facility] IC 2 [facility] INJECTION INC INC IV PUSH EACH NEW DRUG BLOOD 96805 [facility] COUNT 2 [facility] COMPLETE INC INC AUTO&AUTO DIFRNTL WBC COMPREHEN 89026 [facility] SIVE 2 [facility] [address] [facility] LIPASE 2 [facility] INC INC URINE 52775 [facility] 2 [facility] TEST INC [place] [address] [facility] AMYLASE 2 [facility] INC INC URNLS DIP 61187 [facility] 2 [facility] STICK/TAB INC INC LET REAGENT AUTO MICROSCOP Y IAADIADOO 56928 KRANTHI MÁRQUEZ 2 STREPTOCO CCUS GROUP A URNLS DIP 86875 IVAN IVAN 2 DON DON STICK/TAB LET RGNT NON-AUTO W/O MICRSCP IADNA 58462 MEDICAL MEDICAL NEISSERIA 2 DIAGNOSTI DIAGNOSTI [facility] GONORRHOE AE AMPLIFIED PROBE TQ IADNA NOS 42652 MEDICAL MEDICAL 2 DIAGNOSTI DIAGNOSTI AMPLIFIED [facility] PROBE TQ EACH ORGANISM IADNA 20377 MEDICAL MEDICAL ALAYNA 2 DIAGNOSTI DIAGNOSTI SPECIES [facility] AMPLIFIED PROBE TQ IADNA 86992 MEDICAL MEDICAL CHLAMYDIA 2 DIAGNOSTI DIAGNOSTI [facility] LAB LLC TRACHOMAT IS AMPLIFIED PROBE TQ URINE 22912 KRANTHI MÁRQUEZ 2 TEST VISUAL COLOR CMPRSN METHS URINE 41877 [facility]INS 2 [facility] [employer] [facility] [employer] S[facility] VISUAL HEAL HEAL COLOR CMPRSN METHS THERAPEUT 31974 CAREY PATELANA IC PX 1/> 2 AREAS CHIROPRAC CHIROPRAC EACH 15 TIC CENTE TIC CENTE MIN EXERCISES CHIROPRAC 87341 [place] TIC 2 MANIPULAT CHIROPRAC CHIROPRAC FARRAH TX TIC CENTE TIC CENTE SPINAL 3-4 REGIONS CHIROPRAC 97225 [place] TIC 2 MANIPULAT CHIROPRAC CHIROPRAC FARRAH TX TIC CENTE TIC CENTE SPINAL 3-[place] [address] [place] 1/> AREAS 2 EACH 15 CHIROPRAC CHIROPRAC MIN TIC CENTE [place] [address] [place] 1/> AREAS 2 EACH 15 CHIROPRAC CHIROPRAC MINUTES [place] [address] [place] 1/> AREAS 2 EACH 15 CHIROPRAC CHIROPRAC MINUTES TIC CENTE TIC CENTE MASSAGE APPL 59975 [place] MODALITY 2 1/> AREAS CHIROPRAC CHIROPRAC TRACTION TIC CENTE TIC CENTE MECHANICA L THERAPEUT 31529 [place] IC PX 1/> 2 AREAS CHIROPRAC CHIROPRAC EACH 15 TIC [place]ENT[place] [address] [place] 1/> AREAS 2 EACH 15 CHIROPRAC CHIROPRAC MIN TIC CENTE TIC CENTE NEUROMUSC REEDUCA RADEX 47666 [place] SPINE 2 LUMBOSACR CHIROPRAC CHIROPRAC AL 2/3 TIC CENTE TIC CENTE VIEWS CHIROPRAC 31600 [place] TIC 2 MANIPULAT CHIROPRAC CHIROPRAC FARRAH TX TIC CENTE TIC CENTE SPINAL 3-4 REGIONS THERAPEUT 90040 [place] IC PX 1/> 2 AREAS CHIROPRAC CHIROPRAC EACH 15 TIC [place] [address] [place] 1/> AREAS 2 EACH 15 CHIROPRAC CHIROPRAC MINUTES TIC CENTE TIC CENTE MASSAGE APPL 20224 [place] MODALITY 2 1/> AREAS CHIROPRAC CHIROPRAC TRACTION TIC CENTE TIC CENTE MECHANICA L CHIROPRAC 76903 [place] TIC 2 MANIPULAT CHIROPRAC CHIROPRAC FARRAH TX TIC CENTE TIC CENTE SPINAL 3-4 REGIONS CHIROPRAC 70960 [place] TIC 2 MANIPULAT CHIROPRAC CHIROPRAC FARRAH TX TIC CENTE TIC CENTE SPINAL 3-4 REGIONS APPL 97944 [place] MODALITY 2 1/> AREAS CHIROPRAC CHIROPRAC TRACTION TIC CENTE TIC CENTE MECHANICA L THERAPEUT 70487 [place] IC PX 1/> 2 AREAS CHIROPRAC CHIROPRAC EACH 15 TIC CENTE TIC CENTE MIN EXERCISES APPL 18180 [place] MODALITY 2 1/> AREAS CHIROPRAC CHIROPRAC TRACTION TIC CENTE TIC CENTE MECHANICA L MANUAL 67122 [place] THERAPY 2 TQS 1/> CHIROPRAC CHIROPRAC REGIONS TIC CENTE TIC CENTE EACH 15 MINUTES CHIROPRAC 22977 [place] TIC 2 MANIPULAT CHIROPRAC CHIROPRAC FARRAH TX TIC CENTE TIC CENTE SPINAL 3-4 REGIONS DETERMINA 29742 AGUILERA AGUILERA IMELDAON 2 JAM JAM REFRACTIV E STATE ALBUTEROL J7613 [facility] CURIEL INHAL 2 [facility] PROD THRU DME U DOSE 1 MG PRESSURIZ 65513 [facility] CURIEL ED/NONPRE 2 [facility] INHALATIO N TREATMENT US BREAST 11238 [facility] REAL 2 [facility] TIME INC INC W/IMAGE DOCUMENTA TION GONADOTRO 32890 [facility] PIN 2 [facility] CHORIONIC INC INC QUANTITAT FARRAH BASIC 17365 [facility] METABOLIC 2 [facility] [place] [address] [facility] THYROID 2 [facility] STIMULATI INC INC NG HORMONE TSH BLOOD 50725 [facility] COUNT 2 [facility] COMPLETE INC INC AUTO&AUTO DIFRNTL WBC SPMTRY 66634 [place] [facility] W/VC 2 BETTINA BETTINA EXPIRATOR Y ZOHAIB W/WO MXML VOL VNTJ URNLS DIP 03060 [facility] 2 Y Y STICK/[facility] [place] [address] [facility] INFUSION 2 Y Y HYDRATION [facility] INITIAL 31 MIN-1 HOUR ONDANSETR Q0162 [facility] ON 1 MG 2 Y Y ORL NOT HOSPITAL HOSPITAL EXCEED 48 HR DOSE REG INFUSION J7030 [facility] NORMAL 2 Y Y SALINE [facility] SOLUTION 1000 CC COMPREHEN 48215 [facility] SIVE 2 Y Y METABOLIC [place] [address] [facility] LIPASE 2 Y Y [facility]OSP[facility] BLOOD 76267 [facility] COUNT 2 Y Y COMPLETE [facility] AUTOMATED GONADOTRO 85082 [facility] PIN 2 Y Y CHORIONIC [facility] QUALITATI VE IADNA 93968 [facility] NEISSERIA 2 [facility] GONORRHOE AE AMPLIFIED PROBE TQ IADNA 30841 [facility] CHLAMYDIA 2 [facility] TRACHOMAT IS AMPLIFIED PROBE TQ SMR PRIM 51752 MIKI ELIZONDO MIKI RAN SRC WET 2 MOUNT NFCT AGT URINE 88742 LUIZ DEE 1 OUMOU OUMOU TEST VISUAL COLOR CMPRSN METHS IIV3 05711 [facility] ROBBINS VACCINE 1 [facility] VIRUS 0.5 [place] [address] [facility] THYROID 1 [facility] STIMULATI INC INC NG HORMONE TSH COMPREHEN 59293 [facility] SIVE 1 [facility] METABOLIC INC INC PANEL BLOOD 06484 [facility] COUNT 1 [facility] COMPLETE INC INC AUTO&AUTO DIFRNTL WBC IAADIADOO 59897 IVAN IVAN 1 DON DON ST[place] IV D[address]242 NEVAEH DMD NEVAEH DMD CONSCIOUS 1 MANDAEISM MANDAEISM SEDATION/ ANALG - EA ADD 15 MINUTES IV D9242 NEVAEH DMD NEVAEH DMD CONSCIOUS 1 MANDAEISM MANDAEISM SEDATION/ ANALG - EA ADD 15 MINUTES SMR PRIM 56431 GUI GERALD KER SRC WET 1 GENERAL 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 NFCT AGT S CUL BACT 94120 [facility]INS STOOL 1 [facility] AEROBIC INC INC ISOL JANY Rosas&ALFRED IAADIADOO 03099 [place] CATHERINES 1 DON DON STREPTOCO CCUS GROUP A APPL 30101 [place] [facility] MODALITY 1 ROS 1/> AREAS CHIROPRAC ELEC TIC CENTE STIMJ UNATTENDE D APPL 47632 [place] [facility] MODALITY 1 ROS 1/> AREAS CHIROPRAC TRACTION TIC CENTE MECHANICA L CHIROPRAC 25079 [place] [facility] TIC 1 ROS MANIPULAT CHIROPRAC F[facility] TX TIC CENTE SPINAL 1-2 REGIONS CHIROPRAC 17993 [place] [facility] TIC 0 ROS MANIPLTV CHIROPRAC TX TIC CENTE EXTRASPIN AL 1/> REGION CHIROPRAC 20790 [place] TIC 0 ROS MANIPULAT CHIROPRAC FARRAH TX TIC CENTE SPINAL 1-2 REGIONS APPL 84195 [place] MODALITY 0 ROS 1/> AREAS CHIROPRAC TRACTION TIC CENTE MECHANICA L APPL 56294 [place] MODALITY 0 ROS 1/> AREAS CHIROPRAC ELEC TIC CENTE STIMJ UNATTENDE D APPL 14766 [place] MODALITY 0 ROS 1/> AREAS CHIROPRAC ELEC TIC CENTE STIMJ UNATTENDE D APPL 71806 [place] MODALITY 0 ROS 1/> AREAS CHIROPRAC TRACTION TIC CENTE MECHANICA L CHIROPRAC 90119 [place] TIC 0 ROS MANIPLTV CHIROPRAC TX TIC CENTE EXTRASPIN AL 1/> REGION CHIROPRAC 29708 [place] TIC 0 ROS MANIPULAT CHIROPRAC FARRAH TX TIC CENTE SPINAL 1-2 REGIONS CHIROPRAC 12841 [place] TIC 0 ROS MANIPULAT CHIROPRAC FARRAH TX TIC CENTE SPINAL 1-2 REGIONS CHIROPRAC 07257 [place] TIC 0 ROS MANIPLTV CHIROPRAC TX TIC CENTE EXTRASPIN AL 1/> REGION APPL 10295 [place] MODALITY 0 ROS 1/> AREAS CHIROPRAC TRACTION TIC CENTE MECHANICA L APPL 72430 [place] MODALITY 0 ROS 1/> AREAS CHIROPRAC ELEC TIC CENTE STIMJ UNATTENDE D APPL 58145 [place] MODALITY 0 ROS 1/> AREAS CHIROPRAC TRACTION TIC CENTE MECHANICA L CHIROPRAC 67403 [place] TIC 0 ROS MANIPLTV CHIROPRAC TX TIC CENTE EXTRASPIN AL 1/> REGION CHIROPRAC 35706 [place] TIC 0 ROS MANIPULAT CHIROPRAC FARRAH TX TIC CENTE SPINAL 1-2 REGIONS APPL 20715 [place] MODALITY 0 ROS 1/> AREAS CHIROPRAC TIC CENTE ULTRASOUN D EA 15 MIN APPLICATI 46397 [place] ON 0 SAPPHIRE SAPPHIRE MODALITY 1/> AREAS HOT/COLD PACKS THERAPEUT 68753 [place] IC PX 1/> 0 SAPPHIRE SAPPHIRE AREAS EACH 15 MIN EXERCISES CHIROPRAC 97864 [place] TIC 0 SAPPHIRE SAPPHIRE MANIPULAT FARRAH TX SPINAL 1-2 REGIONS APPL 44421 [place] MODALITY 0 SAPPHIRE SAPPHIRE 1/> AREAS TRACTION MECHANICA L IIV3 07518 [facility] ROBBINS VACCINE 0 [facility] VIRUS 0.5 ML DOSAGE IM USE SUSCEPTIB 41585 [facility] ROBB[facility] LTY STDY 0 [facility] ANTIMICRB INC INC IAL MICRO/AGA R DILUTJ CUL BACT 96391 [facility] XCPT 0 [facility] URINE INC INC BLOOD/STO OL AEROBIC ISOL CUL BACT 51339 [facility] AEROBIC 0 [facility] ADDL INC INC METHS DEFINITIV E EA ISOL 3D 97045 THIERRY DACOSTA RENDERING 0 MEDICAL FILIPPO IMAGING W/INTERP& ASSOCIATE POSTPROC S DIFF WORK STATION URINE 27516 [facility] 0 [facility] TEST INC INC VISUAL COLOR CMPRSN METHS RADEX 94901 THIERRY PRANEETH, WRIST 0 MEDICAL FILIPPO COMPLETE IMAGING MINIMUM [address] [place] [address] THIERRY PRANEETH, MAXILLOFA 0 MEDICAL FILIPPO CIAL W/O IMAGING CONTRAST ASSOCIATE MATERIAL S URNLS DIP 98766 [facility] 0 [facility] STICK/TAB INC INC LET REAGENT AUTO MICROSCOP Y BASIC 89429 [facility] ROB[facility] METABOLIC 0 [facility] PANEL INC INC CALCIUM TOTAL BLOOD 30639 [facility] ROB[facility] COUNT 0 [facility] COMPLETE INC INC AUTO&AUTO DIFRNTL WBC RADEX 64409 MONCHO IVAN, ANKLE 0 DON R DON R COMPLETE MINIMUM 3 VIEWS RADIOLOGI 92029 MONCHO IVAN, C 0 DON R DON R EXAMINATI ON FOOT 2 VIEWS URNLS DIP 00686 COMBINED COMBINED 9 PHYSICIAN PHYSICIAN STICK/TAB S LAB S LAB LET REAGENT AUTO MICROSCOP Y PARTICLE 40919 COMBINED COMBINED AGGLUTINA 9 PHYSICIAN PHYSICIAN TION S LAB S LAB SCREEN EACH ANTIBODY IAADIADOO 46686 COMBINED COMBINED 9 PHYSICIAN PHYSICIAN INFLUENZA S LAB S LAB GENERAL 25479 COMBINED COMBINED HEALTH 9 PHYSICIAN PHYSICIAN PANEL S LAB S LAB IAADIADOO 99516 MONCHO IVAN 9 DON R DON R STREPTOCO CCUS GROUP A IADNA NOS 44667 ROSENDOARITSEO ROBBINS 9 [facility] AMPLIFIED INC INC PROBE TQ EACH ORGANISM IAADI 99187 ROSENDOARISTEO ROBBINS INFLUENZA 9 [facility] B VIRUS INC INC IAADI 87189 [facility] INFFLUENZ 9 [facility] A A VIRUS INC INC IIV3 89319 [facility] VACCINE 9 HEALTH CO [facility] VIRUS 0.5 BANK ACCT ML DOSAGE IM USE IAADIADOO 71341 MONCHO IVAN 9 DON R DON R STREPTOCO CCUS GROUP A OPHTH 63631 YULI MOORE, [facility] 9 VISION NICKIE A XM&EVAL COMPRHNSV ESTAB PT 1/> ORTHOPANT 28989 AR CHRISTINA MARCUM 9 FOR HERIBERTO S ORAL&MAXI LLOFACIAL SURGERY Encounters Encounter Start End Date Code Location Performer Type Date OFFICE 09466 TERRI MURRAY OUTPATIEN 7 7 T NEW 30 MINUTES OFFICE 25961 [facility] 7 7 N ION NEUROLOGY NEW/ESTAB PATIENT 40 MIN OFFICE 86414 THIERRY BEGUM OUTPATIEN 7 7 [facility] T VISIT 25 MINUTES EMERGENCY 39569 [facility] 7 7 FRANNIE - YORBA DEPARTMEN EMERGENCY T VISIT PHYS HIGH/URGE NT SEVERITY OFFICE 52086 GUI CASE OUTPATIEN 7 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 VISIT ASSOCIATE 15 S, MINUTES EMERGENCY 69392 BRANDYN RAO DEPT 7 7 PHYSICIAN VISIT S, PLLC HIGH SEVERITY& THREAT FUN [facility] - 7 7 [facility] OUTPATIEN INC T EMERGENCY 85980 [facility] 7 7 FRANNIE DEPARTMEN EMERGENCY T VISIT SERVI HIGH/URGE NT SEVERITY EMERGENCY 76583 BRANDYN SCHNEIDER 7 7 PHYSICIAN U DEPARTMEN S, [facility] T VISIT MODERATE SEVERITY EMERGENCY 17485 [facility] 7 7 [facility] DEPARTMEN INC T VISIT LOW/MODER SEVERITY [facility]OSPITAL [facility] - 7 7 [facility] OUTPATIEN INC T OFFICE 45010 GUI VILLANUEVA OUTPATIEN 7 7 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 II T VISIT ASSOCIATE 15 S, MINUTES HOSPITAL [facility] - 7 7 [facility] OUTPATIEN INC T EMERGENCY 13942 BRANDYN SCHNEIDER DEPT 7 7 PHYSICIAN U [facility]IS[facility] S, [facility] HIGH SEVERITY& THREAT FUNCJ EMERGENCY 23938 [facility] 7 7 [facility] DEPARTMEN INC T VISIT LOW/MODER SEVERITY OFFICE 84967 ODELL BAIN OUTPATIEN 7 7 T NEW 30 MINUTES OFFICE 98456 MANDO CRUZ OUTPATIEN 7 7 FAMILY T NEW 30 CHIROPRAC MINUTES TIC PERIODIC 53410 REGINALDO Nation PREVENTIV 3 3 E MED EST PATIENT 06-02[facility] - 3 3 [facility] OUTPATIEN INC T EMERGENCY 74757 [facility] 3 3 [facility] DEPARTMEN INC T VISIT LOW/MODER SEVERITY HOSPITAL [facility] - 3 3 [facility] OUTPATIEN INC T OFFICE 51280 MONCHO IVAN OUTPATIEN 3 3 DON DON T VISIT 15 MINUTES OFFICE 15456 [facility] OUTPATIEN 3 3 PHYSICIAN T VISIT S GROUP 15 MINUTES OFFICE 50861 KRANTHI MÁRQUEZ OUTPATIEN 3 3 T VISIT 15 MINUTES OFFICE 16412 [facility] OUTPATIEN 3 3 PHYSICIAN T VISIT S GROUP 10 MINUTES OFFICE 55685 [facility] OUTPATIEN 3 3 PHYSICIAN T VISIT S GROUP 15 MINUTES OFFICE 37483 [facility] OUTPATIEN 3 3 PHYSICIAN T VISIT S GROUP 15 MINUTES OFFICE 29479 KRANTHI MÁRQUEZ OUTPATIEN 3 3 T VISIT 15 MINUTES EMERGENCY 10189 MAIRA RAO DEPT 3 3 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 VISIT HIGH SEVERITY& THREAT FUNCJ OFFICE 45824 MILVIA STEEL OUTPATIEN 3 3 EDA EDA T VISIT 15 MINUTES HOSPITAL [facility] - 3 3 [facility] OUTPATIEN INC T OFFICE 06832 [facility] OUTPATIEN 3 3 PHYSICIAN T VISIT S GROUP 15 MINUTES OFFICE 43192 MILVIA STEEL OUTPATIEN 3 3 EDA EDA T NEW 30 MINUTES OFFICE 15966 [facility] OUTPATIEN 3 3 PHYSICIAN T VISIT S GROUP 15 MINUTES EMERGENCY 87625 LUCRECIA POWELL DEPT 2 2 EMERGENCY BRITNEY VISIT SERVICES HIGH SEVERITY& THREAT FUNCJ EMERGENCY 54024 [facility] 2 2 [facility] DEPARTMEN INC T VISIT MODERATE SEVERITY HOSPITAL [facility] - 2 2 [facility] OUTPATIEN INC T OFFICE 34659 KRANTHI MÁRQUEZ OUTPATIEN 2 2 T VISIT 15 MINUTES OFFICE 35412 IVAN IVAN OUTPATIEN 2 2 DON DON T VISIT 15 MINUTES OFFICE 83667 MONCHO CATHERINES OUTPATIEN 2 2 DON DON T VISIT 15 MINUTES OFFICE 43527 TERESA MOORE OUTPATIEN 2 2 CELESTE CELESTE T VISIT 15 MINUTES OFFICE 14977 KRANTHI MÁRQUEZ OUTPATIEN 2 2 T VISIT 15 MINUTES OFFICE 96157 [facility] ROBBINS OUTPATIEN 2 2 [facility] 15 HEAL HEAL MINUTES OFFICE 56641 MAIRA RAO OUTPATIEN 2 2 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 T VISIT 10 MINUTES OFFICE 71108 MONCHO IVAN OUTPATIEN 2 2 DON DON T VISIT 15 MINUTES OFFICE 20747 [place] OUTPATIEN 2 2 T VISIT CHIROPRAC 15 TIC CENTE MINUTES OFFICE 30515 BHANU BHANU OUTPATIEN 2 2 DEWEY DEWEY T VISIT 15 MINUTES OFFICE 02180 ALE AGUILERA OUTPATIEN 2 2 JAM JAM T NEW 60 MINUTES OFFICE 60022 [facility] CURIEL OUTPATIEN 2 2 [facility] T VISIT HOSPITAL 15 MINUTES OFFICE 06988 BHANU BHANU OUTPATIEN 2 2 DEWEY DEWEY T VISIT 15 MINUTES OFFICE 26852 REGINALDO Nation OUTPATIEN 2 2 T VISIT 10 MINUTES HOSPITAL [facility] - 2 2 [facility] OUTPATIEN INC T OFFICE 07456 RICH RICH OUTPATIEN 2 2 II O II O T VISIT 15 MINUTES HOSPITAL [facility] - 2 2 [facility] OUTPATI[facility] INC T OFFICE 04401 [place] OUTPATIEN 2 2 BETTINA BETTINA T NEW 30 MINUTES EMERGENCY 97985 [facility]ERSIT 2 2 Y [facility] T VISIT HIGH/URGE NT SEVERITY HOSPITAL [facility] - 2 2 Y [facility] T OFFICE 85237 DEE DEE OUTPATIEN 2 2 [facility] T VISIT 15 MINUTES OFFICE 10393 BHANU BHANU OUTPATIEN 2 2 DEWEY DEWEY T VISIT 10 MINUTES OFFICE 54220 DEE DEE OUTPATIEN 2 2 [facility] T VISIT 10 MINUTES OFFICE 76669 MIKI LIVINGSTON RAN OUTPATIEN 2 2 T VISIT 15 MINUTES OFFICE 71108 DEE DEE OUTPATIEN 1 1 [facility] OUM[facility] T NEW 30 MINUTES HOSPITAL [facility] - 1 1 [facility] OUTPATIEN INC T OFFICE 43631 MONCHO CATHERINES OUTPATIEN 1 1 DON DON T VISIT 15 MINUTES OFFICE 69299 MONCHO CATHERINES OUTPATIEN 1 1 DON DON T VISIT 15 MINUTES OFFICE 10002 [place] GERALD KER OUTPATIEN 1 1 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 [facility] - 1 1 [facility] OUTPATIEN INC T OFFICE 76771 MONCHO ARMSTRONGHENS OUTPATIEN 1 1 DON DON T VISIT 15 MINUTES OFFICE 54056 [facility] ROBBINS OUTPATIEN 1 1 [facility] 15 MINUTES OFFICE 53626 [facility] ROBBINS OUTPATIEN 1 1 [facility] 15 MINUTES OFFICE 28230 CAREY MURRAYX OUTPATIEN 0 0 ROS T NEW 30 CHIROPRAC MINUTES [facility] OFFICE 61060 [facility] ROBBINS OUTPATIEN 0 0 [facility] 10 MINUTES OFFICE 03389 MONCHO CATHERINES OUTPATIEN 0 0 DON DON T VISIT 15 MINUTES OFFICE 14221 MONCHO ARMSTRONGHENS OUTPATIEN 0 0 DON DON T VISIT 15 MINUTES OFFICE 93560 IVAN IVAN OUTPATIEN 0 0 DON DON T VISIT 15 MINUTES [facility]OSPITAL [facility] - 0 0 [facility] OUTPATIEN INC T OFFICE 06146 YULI MOSCOSO OUTPATIEN 0 0 VISION ANG T NEW 20 MINUTES OFFICE 17779 MONCHO ARMSTRONGHENS OUTPATIEN 0 0 DON DON T VISIT 15 MINUTES OFFICE 99881 [facility] ROBBINS OUTPATIEN 0 0 [facility] 15 MINUTES OFFICE 88279 IVAN, IVAN, OUTPATIEN 0 0 DON R DON R T VISIT 15 MINUTES EMERGENCY 86061 LUCRECIA RAO, DEPT 0 0 EMERGENCY [facility] VISIT SERVICES HIGH SEVERITY& ASSOCIATE THREAT S [facility] - 0 0 [facility] OUTPATIEN INC T EMERGENCY 99556 [facility] 0 0 [facility] DEPARTMEN INC T VISIT LOW/MODER SEVERITY OFFICE 04934 MONCHO IVAN OUTPATIEN 0 0 DON R DON R T VISIT 15 MINUTES HOSPITAL [facility] - 0 0 [facility] OUTPATIEN INC T OFFICE 79913 MONCHO IVAN OUTPATIEN 0 0 DON R DON R T VISIT 15 MINUTES OFFICE 54979 ELISABETH BARBER OUTPATIEN 0 0 IDRIS A IDRIS A T VISIT 15 MINUTES OFFICE 63839 MONCHO IVAN OUTPATIEN 0 0 DON R DON R T VISIT 25 MINUTES OFFICE 94184 ELISABETH BARBER OUTPATIEN 0 0 IDRIS A IDRIS A T VISIT 15 MINUTES OFFICE 38489 MONCHO IVAN OUTPATIEN 9 9 DON R DON R T VISIT 15 MINUTES OFFICE 47889 MONCHO IVAN OUTPATIEN 9 9 DON R DON R T VISIT 15 MINUTES EMERGENCY 20351 [facility] 9 9 [facility] DEPARTMEN INC T VISIT LOW/MODER SEVERITY HOSPITAL [facility] - 9 9 [facility] 26748 LUCRECIA RAO, 9 9 EMERGENCY [facility] SERVICES T VISIT MODERATE ASSOCIATE SEVERITY S OFFICE 91044 MONCHO IVAN OUTPATIEN 9 9 DON R DON R T VISIT 15 MINUTES OFFICE 33574 MONCHO IVAN OUTPATIEN 9 9 DON R DON R T VISIT 15 MINUTES OFFICE 82475 MONCHO IVAN OUTPATIEN 9 9 DON R DON R T VISIT 15 MINUTES OFFICE 45719 AR SHERI MARCUM 9 9 FOR HERIBERTO S T NEW 10 ORAL&MAXI MINUTES LLOFACIAL SURGERY OFFICE 43827 MONCHO IVAN OUTPATIEN 8 8 DAINA R DAINA R T DINA 20 MINUTES
--- OUTSIDE RECORDS SUMMARY | 2017-03-28 03:37 | External Medical Summary Rpt | CCD ---
Author Author , ZAK LEMUSRENE Address Unknown Phone [email or web address] Immunization Name Date Rout CVX Reac Dose Comm Prov Is Faci e tion ent ider Refu lity Give sed n Tdap 06-1 115 999 Hist H149 No H149 , 6-20 oric Adso 08 al rbed Info rmat ion - Sour ce Unsp ecif ied Meni 06-1 32 999 Hist H149 No H149 neptali 6-20 oric occa 08 al l Info MPSV rmat 4 ion - Sour ce Unsp ecif ied MMR 10-0 3 999 Hist H149 No H149 5-20 oric 00 al Info rmat ion - Sour ce Unsp ecif ied DTaP 10-0 107 999 Hist H149 No H149 , UF 5-20 oric 00 al Info rmat ion - Sour ce Unsp ecif ied Hector 10-0 10 999 Hist H149 No H149 o-IP 5-20 oric V 00 al Info rmat ion - Sour ce Unsp ecif ied MMR 11-1 3 999 Hist H196 No H196 3-19 oric 97 al Info rmat ion - Sour ce Unsp ecif ied DTP- 10-1 22 999 Hist H196 No H196 Hib 5-19 oric 97 al Info rmat ion - Sour ce Unsp ecif ied Hep 05-1 8 999 Hist H196 No H196 B, 9-19 oric ped/ 97 al adol Info rmat ion - Sour ce Unsp ecif ied Hector 11-1 2 999 Hist H196 No H196 o-OP 5-19 oric V 96 al Info rmat ion - Sour ce Unsp ecif ied DTP- 11-1 22 999 Hist H196 No H196 Hib 5-19 oric 96 al Info rmat ion - Sour ce Unsp ecif ied Hector 09-1 2 999 Hist H196 No H196 o-OP 6-19 oric V 96 al Info rmat ion - Sour ce Unsp ecif ied DTP- 09- 22 999 Hist H196 No H196 Hib 6-19 oric 96 al Info rmat ion - Sour ce Unsp ecif ied DTP- - 22 999 Hist H196 No H196 Hib 5-19 oric 96 al Info rmat ion - Sour ce Unsp ecif ied Hector 07- 2 999 Hist H196 No H196 o-OP 5-19 oric V 96 al Info rmat ion - Sour ce Unsp ecif ied Hep 07- 8 999 Hist H196 No H196 B, 5-19 oric ped/ 96 al adol Info rmat ion - Sour ce Unsp ecif ied
--- OUTSIDE RECORDS SUMMARY | 2017-03-28 03:37 | External Medical Summary Rpt | CCD ---
Author Author , ZAK LEMUSRENE Address Unknown Phone [email or web address] Immunization Name Date Rout CVX Reac Dose [...]
== END 2017-03-18 14:18 | disposition home or self-care (01) ==
LOC: UTC 13:19
PROVIDERS: Nurse Practitioner
DX: N39.0 Urinary tract infection, site not specified (principal); F17.210 Nicotine dependence, cigarettes, uncomplicated

== ENCOUNTER 2017-03-19 17:38 | Emergency (ER) | payer MEDICAID ==
[~2017-03-19] VITALS: Ht 157.5 cm; Wt 48.1 kg
--- NOTE | 2017-03-19 18:34 | Urgent Treatment Center Report ---
See Addendum History of Present Issue Date/Time Seen by Provider 03/19/17 8181 Visit Reason Pt arrived:Walked Presenting Problem:HERE FOR UTI YESTERDAY, DOES NOT FEEL BETTER. ON ABX FOR ONE DAY, C/O LOW ABD PAIN, ON PYRIDIUM Location if Accident: Onset of symptoms date/time:/ or onset unknown for:MEDICAL HX UNKNOWN Have you (or family members/close friends) recently traveled outside the [place]? N If Yes, where/when: Have you had exposure to infectious disease within the past month? TB? Other? Specify: Pt came from triage for decision d/t worsening abdominal pain. Was seen in [facility] yesterday. Dx UTI. Started vomiting. initially thought due to bactrim but now not sure. has had two doses of bactrim. Called [facility] to discuss "intolerance to medication". Was told to stop bactrim and start macrobid but since abdominal pain worsening, came on in. Vomited last this morning. No fever. Dysuria improved w/ pyridium. Currently 25 days late on menstrual cycle. Hx of ruptureed ovarian cysts. Urine preg negative yesterday. Source patient Exam Limitations no limitations ALLERGIES Coded Allergies: No Known Allergies (10/18/16) Home Medications Active Scripts SULFAMETHOXAZOLE W/TRIMETHOPRI (Bactrim Ds Tab) 1 TABLET PO BID #20 TAB Prov: 03/18/17 Phenazopyridine HCl (Pyridium) 100 MG PO TID #6 TAB Prov: 03/18/17 Reported Medications NORGESTREL-ETHINYL ESTRADIOL (Cryselle-28 Tablet) 1 TAB PO DAILY #28 History Medical History General CAD? No Angina: No [place]: No Hypertension? No Hyperlipidemia? No CHF? No DVT? No PE? No COPD? No Asthma? No Anemia? No GERD? No Gastric ulcers? No GI Bleed? No Hernia? No Thyroid Problems? No Hypothyroidism? No CVA? No Seizures? No Diabetes? No Renal Insuffiency? No UTI? No Stones? No BPH? No GB Disease: No Nephritic Syndrome? No Asplenia? No Hepatitis? No Sickle Cell Disease? No Arthritis? No Migraines? No Cataracts? No Glaucoma? No MRSA? Yes HIV? No TB? No Anxiety? No Depression? No Cancer? No More? No Immunization HX DT/Tetanus 5-10 Years Ago Surgical Hx Previous Surgery?Y Tonsils Social History Smoking Hx Smoker: Current Every Day Smoker Tobacco: Yes Type Cigarettes Packs/day < 1 Pack Alcohol Alcohol: No Review of Systems All Other Systems Reviewed and Negative Constitutional see HPI Gastrointestinal see HPI Genitourinary see HPI. Musculoskeletal back pain (left lower) Physical Exam Vital Signs Vital Signs Date Time Temp Pulse Resp B/P Pulse O2 O2 Flow FiO2 Ox Delivery Rate 03/19 1750 98.6 88 16 116/71 98 03/19 1744 98.6 88 16 116/71 98 General Appearance appears uncomfortable, guarding left lower abdomen Respiratory Status No: respiratory distress. Cardiovascular no peripheral edema Gastrointestinal soft, no organomegaly, guarding (LLQ), no rebound, tenderness ( LLQ) Back CVA tenderness (L) Neurologic alert, oriented x 3 Skin normal color, warm/dry Medical Decision Making LABS/Meds/Orders Pt receiving controlled substance in ED? No Progress [facility] Progress Notes Date 03/19/17 Time 1830 Comment Discussed symptoms and exam as well as possible differentials. Pt agreeable to transfer to ER for further evaluation of worsening abdominal pain. Report called to CRISTA Pryor MD. Departure Departure Time of Disposition 183 Disposition Still a Patient Clinical Impression Primary Impression: Abdominal pain, left lower quadrant Condition STABLE Additional Instructions sending to ER for further evaluation at 1833
--- NOTE | 2017-03-19 18:34 | Urgent Treatment Center Report ---
See Addendum History of Present Issue Date/Time Seen by Provider 03/19/17 5532 Visit Reason Pt arrived:Walked Presenting Problem:HERE FOR UTI YESTERDAY, DOES NOT FEEL BETTER. ON ABX FOR ONE DAY, C/O LOW ABD PAIN, ON PYRIDIUM Location if Accident: Onset of symptoms date/time:/ or onset unknown for:MEDICAL HX UNKNOWN Have you (or family members/close friends) recently traveled outside the [place]? N If Yes, where/when: Have you had exposure to infectious disease within the past month? TB? Other? Specify: Pt came from triage for decision d/t worsening abdominal pain. Was seen in [facility] yesterday. Dx UTI. Started vomiting. initially thought due to bactrim but now not sure. has had two doses of bactrim. Called [facility] to discuss "intolerance to medication". Was told to stop bactrim and start macrobid but since abdominal pain worsening, came on in. Vomited last this morning. No fever. Dysuria improved w/ pyridium. Currently 25 days late on menstrual cycle. Hx of ruptureed ovarian cysts. Urine preg negative yesterday. Source patient Exam Limitations no limitations ALLERGIES Coded Allergies: No Known Allergies (10/18/16) Home Medications Active Scripts SULFAMETHOXAZOLE W/TRIMETHOPRI (Bactrim Ds Tab) 1 TABLET PO BID #20 TAB Prov: 03/18/17 Phenazopyridine HCl (Pyridium) 100 MG PO TID #6 TAB Prov: 03/18/17 Reported Medications NORGESTREL-ETHINYL ESTRADIOL (Cryselle-28 Tablet) 1 TAB PO DAILY #28 History Medical History General CAD? No Angina: No CT: No Hypertension? No Hyperlipidemia? No CHF? No DVT? No PE? No COPD? No Asthma? No Anemia? No GERD? No Gastric ulcers? No GI Bleed? No Hernia? No Thyroid Problems? No Hypothyroidism? No CVA? No Seizures? No Diabetes? No Renal Insuffiency? No UTI? No Stones? No BPH? No GB Disease: No Nephritic Syndrome? No Asplenia? No Hepatitis? No Sickle Cell Disease? No Arthritis? No Migraines? No Cataracts? No Glaucoma? No MRSA? Yes HIV? No TB? No Anxiety? No Depression? No Cancer? No More? No Immunization HX DT/Tetanus 5-10 Years Ago Surgical Hx Previous Surgery?Y Tonsils Social History Smoking Hx Smoker: Current Every Day Smoker Tobacco: Yes Type Cigarettes Packs/day < 1 Pack Alcohol Alcohol: No Review of Systems All Other Systems Reviewed and Negative Constitutional see HPI Gastrointestinal see HPI Genitourinary see HPI. Musculoskeletal back pain (left lower) Physical Exam Vital Signs Vital Signs Date Time Temp Pulse Resp B/P Pulse O2 O2 Flow FiO2 Ox Delivery Rate 03/19 1750 98.6 88 16 116/71 98 03/19 1744 98.6 88 16 116/71 98 General Appearance appears uncomfortable, guarding left lower abdomen Respiratory Status No: respiratory distress. Cardiovascular no peripheral edema Gastrointestinal soft, no organomegaly, guarding (LLQ), no rebound, tenderness ( LLQ) Back CVA tenderness (L) Neurologic alert, oriented x 3 Skin normal color, warm/dry Medical Decision Making LABS/Meds/Orders Pt receiving controlled substance in ED? No Progress [facility] Progress Notes Date 03/19/17 Time 1830 Comment Discussed symptoms and exam as well as possible differentials. Pt agreeable to transfer to ER for further evaluation of worsening abdominal pain. Report called to CRISTA Pryor MD. Departure Departure Time of Disposition 183 Disposition Still a Patient Clinical Impression Primary Impression: Abdominal pain, left lower quadrant Condition STABLE Additional Instructions sending to ER for further evaluation at 1833
[2017-03-19 20:25] LABS: URINE SQUAMOUS CELLS 20-50 #/hpf (0-5)
[2017-03-19 20:38] LABS: LYMPH % 18.1 % (10-50.0)
[2017-03-19 20:39] LABS: LYMPH # 1.5 K/mm3 (0.7-4.5)
[2017-03-19 20:42] LABS: HEMOGLOBIN 14.9 g/dL (12.2-16.2)
--- NOTE | 2017-03-19 22:15 | Emergency Room Report ---
History of Present Illness Time Seen by 2019 Presenting Problem in Triage Pt arrived:Walked Presenting Problem:CRAMPING LEFT LOWER ABDOMINAL PAIN, HX OF UTI, 25 DAYS OVERDUE ON PERIOD, SEXUALLY ACTIVE AND NO CONTROL. POOR APPETITE AND VOMITING TODAY. 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 N Clinical Suspician of Infection? N Mental Status: 1 - Regular (Normal Baseline) Sepsis Risk:Low Sepsis Risk Have you (or family members/close friends) recently traveled outside the [place]? N If Yes, where/when: Have you had exposure to infectious disease within the past month? N TB? Other? Specify: Source patient, RN notes reviewed, family, old records Exam Limitations no limitations Comment pt was seen in the [facility] and was thought to have uti on and switched to macrobid - no taken yet - she has abd pain with nausea and late menses no diarrhea Cardiac Chest Pain Chest pain indicative of cardiac No Timing/Duration this evening Severity moderate ALLERGIES Coded Allergies: No Known Allergies (10/18/16) Home Medications Active Scripts SULFAMETHOXAZOLE W/TRIMETHOPRI (Bactrim Ds Tab) 1 TABLET PO BID #20 TAB Prov: 03/18/17 Phenazopyridine HCl (Pyridium) 100 MG PO TID #6 TAB Prov: 03/18/17 Reported Medications NORGESTREL-ETHINYL ESTRADIOL (Cryselle-28 Tablet) 1 TAB PO DAILY #28 History Medical History General CAD? No Angina: No [place]: No Hypertension? No Hyperlipidemia? No CHF? No DVT? No PE? No COPD? No Asthma? No Anemia? No GERD? No Gastric ulcers? No GI Bleed? No Hernia? No Thyroid Problems? No Hypothyroidism? No CVA? No Seizures? No Diabetes? No Renal Insuffiency? No End Stage Renal Disease? No UTI? No Stones? No BPH? No GB Disease: No Nephritic Syndrome? No Asplenia? No Hepatitis? No Sickle Cell Disease? No Arthritis? No Migraines? No Cataracts? No Glaucoma? No MRSA? Yes HIV? No TB? No Anxiety? No Depression? No Cancer? No More? 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 Respiratory denies cough, denies shortness of breath, denies wheezing Cardiovascular denies palpitations Gastrointestinal see HPI, abdominal pain, nausea, vomiting Genitourinary denies: dysuria, frequency, hesitancy. Musculoskeletal denies back pain, denies joint pain, denies joint swelling, denies neck pain Skin denies rash Psychiatric/Neurological denies headache, denies seizure Physical Exam Vital Signs Vital Signs Date Time Temp Pulse Resp B/P Pulse O2 O2 Flow FiO2 Ox Delivery Rate 03/19 2156 98.6 95 20 111/70 97 03/19 2109 98.4 94 20 113/73 99 03/19 1934 98.4 88 16 135/70 99 03/19 1750 98.6 88 16 116/71 98 03/19 1744 98.6 88 16 116/71 98 - WBC >12,000 or <4,000 or 10% bands? 2 or more SIRS Criteria Met? B/P:111/70 MAP:86 Creatinine >2.0? UA output<0.5ml/kg/hr for 2 hrs? Platelet count >100,000? Lactate >2.0mmol/1? INR >1.2 or PTT > than 60 sec? Evidence of Organ Dysfunction? Provider documented clinical suspician of infection? N Sepsis Criteria Count: 0 Sepsis Risk: Low Sepsis Risk General Appearance no apparent distress Eye Exam - bilateral eye PERRL, bilateral eye EOMI Ear, Nose, Throat normal ENT inspection Neck supple Respiratory Status No: respiratory distress. 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 No Results/Orders Laboratory Tests 10/03/17 2015: Sodium 138, Potassium 3.7, Chloride 102, Carbon Dioxide 24, BUN 12, Creatinine 1.0, Estimated Creat Clear 68, Estimated GFR (MDRD) 70, Glucose 90, Calcium 9.4, Total Bilirubin 0.5, AST 8 L, ALT 20, Alkaline Phosphatase 82, Total Protein 8.2, Albumin 4.4, Globulin 3.8 H, Albumin/Globulin Ratio 1.2, Amylase 68, Lipase 114, WBC 9.1, RBC 5.46 H, Hgb 14.9, Hct 45.2, MCV 82.8, RDW 13.4, Plt Count 194, MPV 8.4, Gran % 78.1, Gran # 7.1, Lymphocytes % 18.1, Monocytes % 3.2 , Eosinophils % 0.4, Basophils % 0.3, Lymphocytes # 1.5, Monocytes # 0.3, Eosinophils # 0.0, Basophils # 0.0, PUBS MCHC 32.7, MCH 27.1 03/19/17 1830: Urine Color OTHER, Urine Appearance SL CLOUDY, Urine pH TNP, Ur Specific [place] TNP, Urine Protein TNP, Urine Ketones TNP, Urine Blood TNP, Urine Nitrate TNP, Urine Bilirubin TNP, Urine Urobilinogen TNP, Ur Leukocyte Esterase TNP, Urine RBC 3-5, Urine WBC 20-50, Ur Squamous Epith Cells 20-50, Urine Bacteria 3+, Urine Mucus 3+, Urine Glucose TNP Current Medication Orders Sig/Linda Start time Last Medication Dose Route Stop Time Status Admin Ondansetron HCl 4 MG ONCE ONE 03/19 2100 DC 03/19 IV 03/19 Ondansetron HCl 0 .STK-MED ONE 03/19 2054 DC .ROUTE Sodium Chloride 1,000 ML .STK-MED ONE 03/19 2030 DC IV Sodium Chloride 1,000 ML .Q1H1M 03/19 2000 DC 03/19 IV 03/19 Sodium Chloride 10 ML PRN PRN 03/19 2000 AC IV 03/20 1947 Sodium Chloride 10 ML PRN PRN 03/19 1945 AC IV 03/20 1945 Orders Procedure Date/time Status DIET-NOTHING BY MOUTH 03/[address] ABD & PELVIS W/O CONTRAST 03/19 2019 Active URINE 03/[address] ABD/PELVIS REQ 03/19 1947 Complete IV SALINE LOCK 03/19 1947 Active URINALYSIS/COMPLETE 03/19 1947 Complete LIPASE 03/19 1947 Complete CBC WITH AUTO DIFF 03/19 1947 Complete CHEM 12 PROFILE 03/19 1947 Complete AMYLASE 03/19 1947 Complete CULTURE, URINE 03/19 1830 Active Departure Departure Time of Disposition 2212 Disposition DC Home or Self Care(routine) Clinical Impression Primary Impression: Abdominal pain, left lower quadrant Secondary Impressions: UTI (urinary tract infection) Qualifiers: Urinary tract infection type: acute cystitis Hematuria presence: without hematuria Qualified Code: N30.00 - Acute cystitis without hematuria Condition STABLE Patient Instructions DI for Vomiting -- Adult Additional Instructions see pcp for follow up and culture results Discharge Counseling Counseled pt/family regarding diagnosis, test results, medications/RX, follow up needs ED Critical Care Critical Care No at 2214
--- NOTE | 2017-03-19 22:15 | Emergency Room Report ---
History of Present Illness Time Seen by 2019 Presenting Problem in Triage Pt arrived:Walked Presenting Problem:CRAMPING LEFT LOWER ABDOMINAL PAIN, HX OF UTI, 25 DAYS OVERDUE ON PERIOD, SEXUALLY ACTIVE AND NO CONTROL. POOR APPETITE AND VOMITING TODAY. Onset of symptoms date/time:03/18/1708/03/799 or onset unknown for:MEDICAL HX UNKNOWN Treatment Prior to Arrival: BACTRIM AND PYRIDIUM FROM [facility] Provided by: PHYSICIAN Sepsis Risk Assessment: Temp: 98.6 B/P: 111/70 MAP: 86 Pulse: 95 Resp: 20 Recent fever? N Clinical Suspician of Infection? N Mental Status: 1 - Regular (Normal Baseline) Sepsis Risk:Low Sepsis Risk Have you (or family members/close friends) recently traveled outside the [place]? N If Yes, where/when: Have you had exposure to infectious disease within the past month? N TB? Other? Specify: Source patient, RN notes reviewed, family, old records Exam Limitations no limitations Comment pt was seen in the [facility] and was thought to have uti on and switched to macrobid - no taken yet - she has abd pain with nausea and late menses no diarrhea Cardiac Chest Pain Chest pain indicative of cardiac No Timing/Duration this evening Severity moderate ALLERGIES Coded Allergies: No Known Allergies (10/18/16) Home Medications Active Scripts SULFAMETHOXAZOLE W/TRIMETHOPRI (Bactrim Ds Tab) 1 TABLET PO BID #20 TAB Prov: 03/18/17 Phenazopyridine HCl (Pyridium) 100 MG PO TID #6 TAB Prov: 03/18/17 Reported Medications NORGESTREL-ETHINYL ESTRADIOL (Cryselle-28 Tablet) 1 TAB PO DAILY #28 History Medical History General CAD? No Angina: No [place]: No Hypertension? No Hyperlipidemia? No CHF? No DVT? No PE? No COPD? No Asthma? No Anemia? No GERD? No Gastric ulcers? No GI Bleed? No Hernia? No Thyroid Problems? No Hypothyroidism? No CVA? No Seizures? No Diabetes? No Renal Insuffiency? No End Stage Renal Disease? No UTI? No Stones? No BPH? No GB Disease: No Nephritic Syndrome? No Asplenia? No Hepatitis? No Sickle Cell Disease? No Arthritis? No Migraines? No Cataracts? No Glaucoma? No MRSA? Yes HIV? No TB? No Anxiety? No Depression? No Cancer? No More? 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 Respiratory denies cough, denies shortness of breath, denies wheezing Cardiovascular denies palpitations Gastrointestinal see HPI, abdominal pain, nausea, vomiting Genitourinary denies: dysuria, frequency, hesitancy. Musculoskeletal denies back pain, denies joint pain, denies joint swelling, denies neck pain Skin denies rash Psychiatric/Neurological denies headache, denies seizure Physical Exam Vital Signs Vital Signs Date Time Temp Pulse Resp B/P Pulse O2 O2 Flow FiO2 Ox Delivery Rate 03/19 2156 98.6 95 20 111/70 97 03/19 2109 98.4 94 20 113/73 99 03/19 1934 98.4 88 16 135/70 99 03/19 1750 98.6 88 16 116/71 98 03/19 1744 98.6 88 16 116/71 98 - WBC >12,000 or <4,000 or 10% bands? 2 or more SIRS Criteria Met? B/P:111/70 MAP:86 Creatinine >2.0? UA output<0.5ml/kg/hr for 2 hrs? Platelet count >100,000? Lactate >2.0mmol/1? INR >1.2 or PTT > than 60 sec? Evidence of Organ Dysfunction? Provider documented clinical suspician of infection? N Sepsis Criteria Count: 0 Sepsis Risk: Low Sepsis Risk General Appearance no apparent distress Eye Exam - bilateral eye PERRL, bilateral eye EOMI Ear, Nose, Throat normal ENT inspection Neck supple Respiratory Status No: respiratory distress. 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 No Results/Orders Laboratory Tests 10/03/17 2015: Sodium 138, Potassium 3.7, Chloride 102, Carbon Dioxide 24, BUN 12, Creatinine 1.0, Estimated Creat Clear 68, Estimated GFR (MDRD) 70, Glucose 90, Calcium 9.4, Total Bilirubin 0.5, AST 8 L, ALT 20, Alkaline Phosphatase 82, Total Protein 8.2, Albumin 4.4, Globulin 3.8 H, Albumin/Globulin Ratio 1.2, Amylase 68, Lipase 114, WBC 9.1, RBC 5.46 H, Hgb 14.9, Hct 45.2, MCV 82.8, RDW 13.4, Plt Count 194, MPV 8.4, Gran % 78.1, Gran # 7.1, Lymphocytes % 18.1, Monocytes % 3.2 , Eosinophils % 0.4, Basophils % 0.3, Lymphocytes # 1.5, Monocytes # 0.3, Eosinophils # 0.0, Basophils # 0.0, PUBS MCHC 32.7, MCH 27.1 03/19/17 1830: Urine Color OTHER, Urine Appearance SL CLOUDY, Urine pH TNP, Ur Specific [place] TNP, Urine Protein TNP, Urine Ketones TNP, Urine Blood TNP, Urine Nitrate TNP, Urine Bilirubin TNP, Urine Urobilinogen TNP, Ur Leukocyte Esterase TNP, Urine RBC 3-5, Urine WBC 20-50, Ur Squamous Epith Cells 20-50, Urine Bacteria 3+, Urine Mucus 3+, Urine Glucose TNP Current Medication Orders Sig/Linda Start time Last Medication Dose Route Stop Time Status Admin Ondansetron HCl 4 MG ONCE ONE 03/19 2100 DC 03/19 IV 03/19 Ondansetron HCl 0 .STK-MED ONE 03/19 2054 DC .ROUTE Sodium Chloride 1,000 ML .STK-MED ONE 03/19 2030 DC IV Sodium Chloride 1,000 ML .Q1H1M 03/19 2000 DC 03/19 IV 03/19 Sodium Chloride 10 ML PRN PRN 03/19 2000 AC IV 03/20 1947 Sodium Chloride 10 ML PRN PRN 03/19 1945 AC IV 03/20 1945 Orders Procedure Date/time Status DIET-NOTHING BY MOUTH 03/[address] ABD & PELVIS W/O CONTRAST 03/19 2019 Active URINE 03/[address] ABD/PELVIS REQ 03/19 1947 Complete IV SALINE LOCK 03/19 1947 Active URINALYSIS/COMPLETE 03/19 1947 Complete LIPASE 03/19 1947 Complete CBC WITH AUTO DIFF 03/19 1947 Complete CHEM 12 PROFILE 03/19 1947 Complete AMYLASE 03/19 1947 Complete CULTURE, URINE 03/19 1830 Active Departure Departure Time of Disposition 2212 Disposition DC Home or Self Care(routine) Clinical Impression Primary Impression: Abdominal pain, left lower quadrant Secondary Impressions: UTI (urinary tract infection) Qualifiers: Urinary tract infection type: acute cystitis Hematuria presence: without hematuria Qualified Code: N30.00 - Acute cystitis without hematuria Condition STABLE Patient Instructions DI for Vomiting -- Adult Additional Instructions see pcp for follow up and culture results Discharge Counseling Counseled pt/family regarding diagnosis, test results, medications/RX, follow up needs ED Critical Care Critical Care No at 2213
[2017-03-19 23:12] VITALS: BP 111/70
--- NOTE | 2017-03-20 05:52 | RADIOLOGY REPORT PS360 ---
CT ABD PELVIS W/O CONTRAST HISTORY: LOWER ABD PAINno female. Patient Age: 21 years: Female Ordering Physician: Gilbert Barry MD TECHNIQUE: Helical CT scanning through abdomen and pelvis with no oral nor IV contrast utilized. COMPARISON : No previous FINDINGS Lower thorax. Lung bases appear clear with no active disease. Heart normal size. Abdomen pelvis. Lack of oral and IV contrast in this young patient decreased sensitivity. Liver, spleen,, appears satisfactory, unremarkable. Gallbladder unremarkable. No calcified stones. Pancreas. Satisfactory. Not optimally seen due to lack of contrast but unremarkable. Its slightly generous size throughout normal for younger age patient. Adrenals unremarkable. Kidneys. No urinary tract calculi nor obstruction GI tract. Appendix is visualizedq. No evidence of appendicitis. There is generous some liquid stool seen at the right and transverse colon which could reflect developing diarrhea, enteritis. It is not yet reached the left colon. Minimal stool and gas at left colon Also scattered moderate air-fluid levels within fluid-filled small bowel loops at the lower abdomen.. Nonspecific but could reflect developing enteritis as well Pelvis. Enlarged appearing LEFT OVARY measuring 5 x 3 cm and contains numerous follicles most likely. . Generous RIGHT OVARY measuring 4.5 cm x 2 cm. There is fluid the cul-de-sac most evident to the right. Could reflect recent cyst leakage or rupture If pelvicPain consider pelvic ultrasound .. The uterus is anteverted with moderate endometrial stripe. Scattered small mesenteric lymph nodes with a few left retroperitoneal lymph nodes. Nonspecific may merely reflect some reactive nodes in this younger age patient. But should be kept in mind if pain should progress. Osseous structures are: no significant findings. There are a few scattered benign bone islands both right and left hip as well as proximal right femur IMPRESSION. 1. No prominent findings. Nonspecific observations 2 if pelvic pain consider pelvic ultrasound with following observations: -Enlarged left ovary measuring up to 5 x 3 cm; with likely numerous moderate follicles throughout. -Mildly prominent right ovary measuring 4.5 x 2 cm -Minimal Fluid in cul-de-sac most evident towards right adnexa. Could reflect Reflect recent cyst leakage or rupture. 3. Liquid stool at right colon with with generous fluid and moderate air-fluid levels at distal small bowel. Nonspecific at this point but could potentially reflect developing enteritis and diarrhea 4. Small left retroperitoneal nodes & scattered small mesenteric lymph nodes. Most likely reactive nodes but should be kept in mind if abdominal pain progresses. Spleen normal size 5. Appendix normal Fax report to ER. Thank you
--- OUTSIDE RECORDS SUMMARY | 2017-03-28 09:00 | External Medical Summary Rpt | CCD ---
Author Author , ZAK Organization ZAK Address Unknown Phone [email or web address] [facility] Care Team Providers Care Hoist Cylinder Loader Name Role Phone HAIR J, HAIR J [...] DAMON MD, Unavailable Unavailable KRANTHI DAMON MD [facility] Unavailable Unavailable SERVICE, [facility] KATT HAMPER MAKER, KATT Unavailable Unavailable HAMPER MAKER KATT HAMPER MAKER, KATT Unavailable Unavailable HAMPER MAKER CELLAROSI - YORBA, Unavailable Unavailable CELLAROSI - YORBA SHY BEGUM Unavailable Unavailable HERIBERTO BEGUM, Unavailable Unavailable HERIBERTO BEGUM [facility], Unavailable Unavailable [facility] Unavailable Unavailable LAB, [facility] PRANEETH, PRANEETH Unavailable Unavailable PRANEETH TONJA, Unavailable Unavailable PRANEETH TONJA PRANEETH FILIPPO, Unavailable Unavailable PRANEETH, FILIPPO YULI [facility], Unavailable Unavailable [facility] [place] [facility] [place] [place] [place] BHANU DEWEY, Unavailable Unavailable BHANU DEWEY BHANU DEWEY, Unavailable Unavailable BHANU DEWEY MURRAY, MURRAY Unavailable Unavailable MURRAY, MURRAY Unavailable Unavailable [place] BETTINA, Unavailable Unavailable [place] BETTINA [place] BETTINA, Unavailable Unavailable [place] BETTINA MAIRA, MAIRA Unavailable Unavailable MAIRA MANSOOR, MAIRA Unavailable Unavailable MANSOOR MAIRA MANSOOR, MAIRA Unavailable Unavailable MANSOOR MARYAN BARRY, Unavailable Unavailable MARYAN BARRY [facility], Unavailable Unavailable [facility] Unavailable Unavailable [place], [facility] Unavailable Unavailable [facility], [facility] Unavailable Unavailable [facility] [...] NICKIE A, Unavailable Unavailable MOORE, NICKIE A [facility], Unavailable Unavailable [facility]EDING [facility], KEDING Unavailable Unavailable [facility]PHIRE [facility], [place] Unavailable Unavailable SAP[facility] Unavailable Unavailable [facility], [facility] Nohemy Simons MD, Unavailable [...] [facility]POR[facility] AM, [facility] Unavailable Unavailable [facility], [facility] Gilbert Barry MD, Unavailable Unavailable Gilbert Barry MD [facility] Unavailable Unavailable SERVICES, [facility] DAVID HERNANDEZ Unavailable Unavailable ALE AVILA, Unavailable Unavailable ALE AGUILERA JAM, Unavailable Unavailable AGUILERA JAM LINWOOD ROS, LINWOOD Unavailable Unavailable ROS NEVAEH DMD ALEVISM, NEVAEH Unavailable Unavailable DMD ALEVISM NEVAEH DMD ALEVISM, NEVAEH Unavailable Unavailable DMD [facility] Un[facility], MED[facility] [...] DIAGNOSTICS [facility], Unavailable Unavailable [facility] Unavailable Unavailable [facility], [id number] Unavailable Unavailable [id number] Unavailable Unavailable [id number] [address] [id number], [facility] [address] [address] [id number] ANDRE BRITNEY, ANDRE Unavailable Unavailable BRITNEY DEE OUMOU, Unavailable Unavailable DEE OUMOU DEE OUMOU, Unavailable Unavailable DEE OUMOU TERESA CELESTE, TERESA Unavailable Unavailable CELESTE TERESA CELESTE, TERESA Unavailable Unavailable CELESTE SCIFRES ANG, SCIFRES Unavailable Unavailable ANG CURIEL EUGENIA, CURIEL Unavailable Unavailable EUGENIA HAILE, HAILE Unavailable Unavailable SOTINGEANU, Unavailable Unavailable [facility] Unavailable Unavailable EMERGENCY PH[facility], [facility] IVAN DON, Unavailable Unavailable IVAN DON IVAN DON, Unavailable Unavailable IVAN DON IVAN, DON R, Unavailable Unavailable IVAN, DON R [facility], Unavailable Unavailable [facility] Unavailable Unavailable [address]591, [facility] ANTHONY CRUZ Unavailable Unavailable GARCIA CHR, GARCIA Unavailable Unavailable CHR Purpose Continuity of Care Document - 02-02-2008 through 2016 Problems Code Diagnosis DOS Provider Status M5386 OTHER 01-16-2017 MURRAY SPECIFIED DORSOPATHIE S LUMBAR REGION M546 PAIN IN 01-16-2017 M[facility] THORACIC SPINE M9906 SEGMENTAL & 01-16-2017 MURRAY SOMATIC DYSFUNCTION LOWER EXTREMITY F98441 REGULAR 01-07-2017 [facility] ASTIGMATISM BILATERAL R51 HEADACHE 12-14-2016 [facility] J65709 MIGRAINE 10-23-2016 KRISTIN UNS NOT N EMERGENCY INTRACT W/O PHYS STATUS MIGRAINOSUS N938 OTHER SPEC 10-23-2016 LABORATORY ABNORMAL GABBIE OF UTERINE & ALEENA H VAGINAL BLEEDING R110 NAUSEA 10-23-2016 [facility] Z720 TOBACCO USE 10-20-2016 [facility] N939 ABNORMAL 10-18-2016 [facility] UTERINE & PHYSICIANS, VAGINAL PLLC BLEEDING UNSPECIFIED Z33799 UNSPECIFIED 10-15-2016 [facility] OVARIAN PHYSICIANS, CYST RIGHT PLLC SIDE N921 EXCESS & 10-15-2016 [facility] FREQUENT PHYSICIANS, MENSTRUATIO PLLC N W/IRREGULAR CYCLE A68143 PAIN IN 09-26-2016 [facility] RIGHT SHOULDER M542 CERVICALGIA 09-26-2016 [facility] C03795 MUSCLE 09-26-2016 [facility] SPASM OF BACK M9901 SEGMENTAL & 09-26-2016 [facility] SOMATIC DYSFUNCTION CERVICAL REGION M9902 SEGMENTAL & 09-26-2016 [facility] SOMATIC DYSFUNCTION THORACIC REGION M9905 SEGMENTAL & 09-26-2016 [facility] SOMATIC DYSFUNCTION OF PELVIC REGION M545 LOW BACK 09-17-2016 [facility] PA[facility]ILY [facility] M9903 SEGMENTAL & 09-17-2016 [facility] SOMATIC FAMILY DYSFUNCTION CHIROPRACTI OF LUMBAR C REGION M9904 SEGMENTAL & 09-17-2016 [facility] S[facility]ATIC FAMILY DYSFUNCTION CHIROPRACTI OF SACRAL C REGION V7231 ROUTINE 06-04-2013 HAIR J GYNECOLOGIC AL EXAMINATION V7241 06-04-2013 HAIR J EXAMINATION OR TEST NEGATIVE RESULT V745 SCREENING 06-04-2013 HAIR J EXAMINATION FOR VENEREAL DISEASE 782.1 782.1 03-24-2013 [place] NONSPECIF [facility] SKIN ERUPT [facility] 7827 SPONTANEOUS 03-24-2013 [place] [facility] 786.59 786.59 03-24-2013 [place] CHEST PAIN [facility] 10425 OTHER CHEST 03-24-2013 [facility] 5990 URINARY 12-15-2012 KRANTHI YULISA TRACT INFECTION SITE NOT SPECIFIED 413.9 413.9 12-07-2012 [place] ANGINA [facility] 4139 OTHER AND 12-07-2012 [place] UNSPECIFIED [facility] ANGINA INC PECTORIS 599.0 599.0 URIN 12-07-2012 [place] TRACT [facility] NOS 98756 ACUTE 10-28-2012 IVAN LARYNGITIS, DON WITHOUT MENTION OF OBSTRUCTIO 4659 ACUTE URIS 10-28-2012 IVAN OF DON UNSPECIFIED SITE 462 ACUTE 10-24-2012 [facility] 4618 OTHER ACUTE 10-16-2012 [facility] SINUSITIS [facility]YSICIANS GROUP 87682 NAUSEA WITH 10-16-2012 [facility] VOMITING PHYSICIANS GROUP 48355 INTESTINAL 10-03-2012 [facility] INF PHYSICIANS ENTERITIS GROUP DUE OTH VIRAL ENTERITIS 0091 COLITIS 09-25-2012 [facility] ENTERIT&GAS PHYSICIANS TROENTERIT GROUP INF ORIGIN 05174 UNSPECIFIED 09-02-2012 KRANTHI YULISA VIRAL INFECTION IN CCE & UNS SITE 786.50 786.50 09-01-2012 [place] CHEST PAIN [facility] 44821 CHEST PAIN 09-01-2012 MAIRA MANSOOR UNSPECIFIED 7850 UNSPECIFIED 08-11-2012 [facility] TACHYCARDIA INC 0340 STREPTOCOCC 07-28-2012 [facility] AL SORE PHYSICIANS THROAT GROUP 82642 ESOPHAGEAL 07-10-2012 [facility] EDA REFLUX 85624 UNS 07-10-2012 [facility] VERAS GASTRITIS&G ASTRODUODIT IS W/O MENTION HEMORR 5589 OTH&UNSPEC 05-29-2012 [facility]ECTIO [facility] US SERVICES GASTROENTER ITIS&COLITI S 12318 ABDOMINAL 05-29-2012 [facility] PAIN, EMERGENCY UNSPECIFIED SERVICES SITE 20794 ABDOMINAL 05-29-2012 [facility] PAIN RIGHT [facility] LOWER INC QUADRANT 92234 NAUSEA 05-27-2012 KRANTHI YULISA ALONE 0542 HERPETIC 05-13-2012 [facility] GINGIVOSTOM DON ATITIS 24169 UNSPECIFIED 04-02-2012 TERESA CELESTE VAGINITIS AND VULVOVAGINI [...] 12-18-2011 BHANU AND ABSCESS DEWEY OF FACE 42760 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 56320 ULCERATIVE 11-21-2011 AGUILERA BLEPHARITIS JAM 4619 ACUTE 10-23-2011 BHANU SINUSITIS, DEWEY UNSPECIFIED 4660 ACUTE 10-23-2011 HBANU BRONCHITIS DEWEY 6100 SOLITARY 10-04-2011 HAIR J CYST OF BREAST 6102 FIBROADENOS 10-04-2011 HAIR J IS OF BREAST 6101 DIFFUSE 09-21-2011 [facility] MASTOPATHY [facility] 71030 MASTODYNIA 09-21-2011 [facility] INC 46819 LUMP OR 09-18-2011 RICH II MASS IN O BREAST 6260 ABSENCE OF 09-12-2011 [facility] MENSTRUATIO [facility] N INC 99079 ASTHMA, 08-23-2011 [place] UNSPECIFIED BETTINA , UNSPECIFIED STATUS 77442 OTHER SPEC 08-23-2011 [place] GASTRITIS BETTINA WITHOUT MENTION HEMORRHAGE 30016 ACUTE 08-09-2011 [facility] WITHOUT MENTION OF HEMORRHAGE 32924 VOMITING 08-09-2011 KATT HAMPER MAKER ALONE 13688 CHRONIC 08-08-2011 DEE TENSION OUMOU TYPE HEADACHE 79853 ABDOMINAL 08-08-2011 DEE PAIN RIGHT OUMOU UPPER QUADRANT 6235 LEUKORRHEA 07-11-2011 LAB GABBIE NOT AMERIC SPECIFIED HOLDING INFECTIVE V2503 ENCOUNTER 07-10-2011 [facility]O EMERGENCY CONTRACEPT CNSL&PRESCR IPTION 463 ACUTE 05-16-2011 DEE TONSILLITIS OUMOU V0481 NEED 04-18-2011 [facility] VACCINATION &INOCULATIO N FLU 31322 OTHER 03-26-2011 [facility] FATIGUE INC 55819 CHRONIC 03-21-2011 IVAN FATIGUE DON SYNDROME 6826 CELLULITIS 02-05-2011 IVAN AND ABSCESS DON OF LEG EXCEPT FOOT 5210 DENTAL 01-17-2011 NEVAEH DMD CARIES ALEVISM 6253 DYSMENORRHE 01-02-2011 [place] [facility] 6262 EXCESSIVE 01-02-2011 [place] [facility] MENSTRUATIO N 11127 DIARRHEA 08-10-2010 [facility] 9199 OTH&UNSPEC 07-31-2010 [facility] SUP INJURY [facility]DLE [employer] S[facility] MX&UNSPEC SITES INF 90619 SHORTNESS 07-27-2010 [facility] CO OF BREATH [employer] 7234 BRACHIAL 07-03-2010 [place] NEURITIS OR [facility] CENTE RADICULITIS NOS 59242 SPASM OF 07-03-2010 [place] MUSCLE [facility] CENTE 7397 NONALLOPATH 07-03-2010 [place] IC LESION [facility] OF UPPER C CENTE EXTREMITIES NEC 7231 CERVICALGIA 05-04-2010 [place] SAPPHIRE 7840 HEADACHE 05-04-2010 [facility] CO [employer]LE S[facility]OL 20940 METHICILLIN 04-04-2010 IVAN RESISTANT DON STAPHYLOCOC CUS AUREUS 7821 RASH AND 03-21-2010 IVAN OTHER DON NONSPECIFIC SKIN ERUPTION 08563 HORDEOLUM 03-02-2010 YULI EXTERNUM VISION 6929 CONTACT 01-31-2010 IVAN DERMATITIS& DON OTHER ECZEMA DUE UNSPEC CAUSE 7098 OTHER 01-31-2010 [facility] SPECIFIED MIDDLE DISORDER OF SCHOOL SKIN 9164 HIP THI 01-11-2010 IVAN, LEG&ANK DON R INSECT BITE NONVENOMOUS W/O INF 34796 PAIN IN 11-01-2009 [facility] JOINT[facility] 24454 SPRAIN AND 11-01-2009 [facility] STRAIN OF EMERGENCY UNSPECIFIED SERVICES SITE OF ASSOCIATES WRIST 920 CONTUSION 11-01-2009 [facility] OF FACE EMERGENCY SCALP AND SERVICES NECK EXCEPT ASSOCIATES EYE 30930 UNSPECIFIED 08-26-2009 IVAN, SITE OF DON R ANKLE SPRAIN AND STRAIN 4779 ALLERGIC 08-15-2009 ELISABETH, RHINITIS IDRIS A CAUSE UNSPECIFIED 4871 INFLUENZA 03-15-2009 [facility], WITH OTHER DON R RESPIRATORY MANIFESTATI ONS 3670 HYPERMETROP 01-17-2009 YULI IA VISION 20212 DENTAL 08-24-2008 [facility] CARIES FOR EXTENDING ORAL&MAXILL INTO PULP OFACIAL SURGERY 5216 ANKYLOSIS 08-24-2008 [facility] FOR ORAL&MAXILL OFACIAL SURGERY 04397 OTHER 02-02-2008 IVAN, SPECIFIED DON R DISORDERS [...] L CY RI NG #3 93 8 ME 29 05 06 4. 1 00 RI Ac TR 30 -1 -0 00 00 TE ti ON 00 2- 9- 0 01 ve ID 22 20 20 18 AI AZ 70 17 17 37 D OL 1 45 PH E AR 50 MA 0 CY MG #3 TA 93 BL 8 ET FL 68 05 06 1. 1 00 RI Ac UC 46 -1 -0 00 00 TE ti ON 20 2- 9- 0 01 ve AZ 10 20 20 18 AI OL 34 17 17 37 D E 0 44 PH 15 AR 0 MA MG CY TA #3 BL 93 ET 8 NU 00 05 06 1. 28 00 [...] #3 MG 93 8 TA BL ET RI 65 05 06 14 5 00 RI [...] AI RA 30 17 17 29 D NH 5 80 PH DE AR MA 10 CY MG #3 93 TA 8 BL ET RI 59 05 06 15 5 00 RI Ac ED 74 -1 -0 .0 00 TE ti NI 60 0- 2- 00 01 ve SO 17 20 20 18 AI NE 50 17 17 33 D 6 71 PH 20 AR MA MG CY TA #3 BL 93 ET 8 CR 00 05 05 28 28 00 RI Ac YS 55 -0 -2 .0 00 TE ti EL 59 2- 6- 00 01 ve LE 04 20 20 18 AI -2 95 17 17 23 D 8 8 43 PH TA AR BL MA ET CY #3 93 8 AZ 50 05 05 6. 5 00 RI Ac IT 11 -0 -2 00 00 TE ti HR 10 2- 6- 0 01 ve OM 78 20 20 18 AI YC 76 17 17 23 D IN 6 42 PH AR 25 MA 0 CY MG #3 TA 93 BL 8 ET ME 59 05 05 [address] 76 -0 -2 .0 00 TE ti OX 23 1- 6- 00 01 ve YP 74 20 20 18 AI RO 20 17 17 22 D GE [address] AR ER MA ON CY E 10 #3 93 MG 8 TA B SO 00 10 0 No DI 40 [...] TE 84 SS ti Z 90 9 00 27 EL ve 28 40 20 [...] CR 8 EA # M 03 93 RI 68 11 11 1 12 2 CL [...] 34 8- 8- 00 12 HE ve RI 59 20 20 AI NS ED 31 [...] 00 10 5 WA 70 GA Ac NH 00 -2 -0 .0 L- 38 IN ti FL 40 5- 8- 00 MA 37 EY ve U 80 20 20 RT 5 75 08 09 09 NH 5 PH CH MG AR AE MA L CA CY S PS UL #5 E 91 RI 60 09 09 00 12 4 RI [...] SA 93 L 8 SP RA Y RI 00 03 03 [address] Ac OM 78 -1 -[address] 96 EP ti ET 11 8- 6- 00 SI 34 HE ve MARROQUIN 83 20 20 DE NS ZI 01 09 09 NE 0 PH DO AR N 25 MA R CY MG OF TA CY BL NT ET HI AN A 63 03 03 00 15 5 EA [...] AR N M R #3 93 8 Immunization Name Date Rout CVX Reac Dose [...] 0.5 ML DOSA GE IM USE IIV3 09-1 141 TRU No DHS/ 4-20 MUNA CO [...] K/MM3 0 ed Auto 14:10 RBC # 03-24- 5.07 4.2-5.4 complet Bld 013 M/mm3 ed Auto 14:10 Hgb 03-24-2 15.0 12.2-16 complet Bld-mCn 013 g/dL .2 ed c 14:10 Hct Fr 03-24-2 44.7 % 37.0-47 complet Bld 013 .0 ed 14:10 MCV RBC 08-2 88.2 fl 82.2-97 complet 013 .8 ed 14:10 MCH RBC 08- 29.5 pg 27-31.2 complet Qn 013 ed Auto 14:10 MEAN 03-24-2 33.5 31.8-35 complet CORPUSC 013 g/dl .4 ed ULAR 14:10 HGB CONC RDW RBC 03-24- 13.7 % 11.5-17 complet Auto 013 .5 ed 14:10 Platele 03-24- 211 142-424 complet t Bld 013 K/mm3 ed Ql 14:10 Manual MEAN 03-24-2 8.0 fl 7.4-10. complet PLATELE 013 4 ed T 14:10 VOLUME Granulo 03-24-2 73.2 % 37.0-80 complet cytes 013 .0 ed Fr Bld 14:10 Auto LYMPH % 08-2 21.6 % 10-50 complet 013 ed 14:10 Monocyt 08-2 4.7 % complet es Fr 013 ed Bld 14:10 Auto Eosinop 08-2 0.3 % 0.1-12. complet hil Fr 013 0 ed Bld 14:10 Auto Basophi 08-2 0.1 % 0.1-2.0 complet ls Fr 013 ed Bld 14:10 Auto Granulo 08-2 8.0 1.8-7.8 complet cytes # 013 K/mm3 ed Bld 14:10 Auto Lymphoc 1008-2 2.4 0.7-4.5 complet ytes Fr 013 K/mm3 ed Bld 14:10 Auto Monocyt 10-08-2 0.5 0.1-1.0 complet es # 013 K/mm3 ed Bld 14:10 Auto Eosinop 10-08-2 0.0 0.0-0.4 complet hil # 013 K/mm3 ed Bld 14:10 Auto Basophi 08-2 0.0 0-0.2 complet ls # 013 K/MM3 [...] ed CREATIN 21:30 INE CLEARAN CE Sodium 03-18-2 140 136-145 complet SerPl-s 013 mmoL/L ed Cnc 21:30 Potassi 18-2 3.8 3.5-5.1 complet um 013 mmoL/L ed SerPl-s 21:30 Cnc Chlorid 18-2 105 98-107 complet e 013 mmoL/L ed SerPl-s 21:30 Cnc CO2 18-2 28 21.0-32 complet SerPl-s 013 mmoL/L .0 ed Cnc 21:30 Calcium -18-2 8.9 8.5-10. complet 013 mg/dL 1 ed SerPl-m 21:30 Cnc Prot 18-2 6.7 6.4-8.2 complet SerPl-m 013 gm/dL ed [...] complet SerPl-c 013 ed Cnc 21:30 ALP 09-01-2 102 U/L 50-136 complet SerPl-c 013 ed Cnc 21:30 D Dimer PPP (09-01-2012 21:30) D Dimer -18-2 Less 0-400 complet PPP 013 than ed 21:30 100 ng/mL CBC with AUTO DIFF (09-01-2012 21:30) WBC # -18-2 5.1 4.5-13. complet Bld 013 K/MM3 0 ed Auto 21:30 RBC # -18-2 5.06 4.2-5.4 complet Bld 013 M/mm3 ed Auto 21:30 Hgb 18-2 14.9 12.2-16 complet Bld-mCn 013 g/dL .2 ed c 21:30 Hct Fr 03-18-2 42.5 % 37.0-47 complet Bld 013 .0 ed 21:30 MCV RBC 03-18-2 84.0 fl 82.2-97 complet 013 .8 ed 21:30 MCH RBC 03-18-2 29.4 pg 27-31.2 complet Qn 013 ed Auto 21:30 MEAN 03-18-2 35.0 31.8-35 complet CORPUSC 013 g/dl .4 ed ULAR 21:30 HGB CONC RDW RBC -18-2 12.6 % 11.5-17 complet Auto 013 .5 [...] Procedures Procedure DOS Code Location Performer Comment CHIROP[facility]AC 16516 MURRAY MURRAY TIC 7 MANIPLTV TX EXTRASPIN AL 1/> REGION CHIROP[facility]AC 22698 MURRAY MURRAY TIC 7 MANIPULAT FARRAH TX SPINAL 3-4 REGIONS APPL 65932 MURRAY MURRAY MODALITY 7 1/> AREAS ELEC STIMJ UNATTENDE D THERAPEUT 85893 MURRAY MURRAY IC PX 1/> 7 AREAS EACH 15 MIN EXERCISES THER PX 08-02-201 87182 MURRAY MURRAY 1/> AREAS 7 EACH 15 MIN NEUROMUSC REEDUCA FITTING 05358 [facility] SPECTACLE 7 S XCPT APHAKIA MONOFOCAL OPHTH 35613 [facility] MEDICAL 7 XM&EVAL COMPRHNSV ESTAB PT 1/> IADNA 57351 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 CHLAMYDIA 7 Y GABBIE OF Y GABBIE OF ALEENA ALEENA TRACHOMAT H H IS AMPLIFIED PROBE TQ IADNA 83428 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 NEISSERIA 7 Y GABBIE OF Y GABBIE OF ALEENA ALEENA GONORRHOE H H AE AMPLIFIED PROBE TQ IADNA 37902 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 TRICHOMON 7 Y GABBIE OF Y GABBIE OF ALEENA ALEENA VAGINALIS H H AMPLIFIED PROBE TECH THERAPEUT 29629 [facility] IC 7 [facility] INJECTION INC INC IV PUSH EACH NEW DR[facility] GROUND A0425 [facility] PER SERVICE SERVICE STATUTE MILE AMBULANCE A0429 [facility] SERVICE 7 AMBULANCE AMBULANCE BLS SERVICE SERVICE EMERGENCY TRANSPORT FINAL G9638 NEVADA HAILEY REPORTS 7 MEDICAL W/O DOC IMAGING 1/[place] [address] NEVADA HAILEY HEAD/BRAI 7 MEDICAL N W/O IMAGING CONTRAST ASS MATERIAL GONADOTRO 48008 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 PIN 7 Y Y CHORIONIC CORPORATI CORPORATI ON OF AM ON OF AM QUANTITAT FARRAH US PREG 64481 NEVADA PRANEETH UTERUS 7 MEDICAL REAL TIME IMAGING W/IMAGE ASS DCMTN TRANSVAG [facility]IROP[facility]AC 27401 [facility] BAIN TIC 7 MANIPLTV TX EXTRASPIN AL 1/> REGION CHIROPRAC 18881 [facility] BAIN TIC 7 MANIPULAT FARRAH TX SPINAL 3-4 REGIONS RADEX 12934 MANDO CRUZ SPINE 7 FAMILY CERVICAL CHIROPRAC 2 OR 3 TIC VIEWS CHIROPRAC 27695 MANDO CRUZ TIC 7 FAMILY MANIPULAT CHIROPRAC FARRAH TX TIC SPINAL 5 REGIONS APPL 28267 MANDO CRUZ MODALITY 7 FAMILY 1/> AREAS CHIROPRAC TRACTION TIC MECHANICA L RADEX 77720 MANDO CRUZ SPINE 7 FAMILY LUMBOSACR CHIROPRAC AL 2/3 TIC VIEWS BLOOD 46088 [facility]BINS COUNT 3 [facility] COMPLETE INC INC AUTO&AUTO DIFRNTL WBC URNLS DIP 33780 [facility] 3 [facility] STICK/TAB INC INC LET REAGENT AUTO MICROSCOP Y URINE 13167 [facility] ROBBINS 3 [facility] TEST INC INC VISUAL COLOR CMPRSN METHS IAADIADOO 47739 IVAN IVAN 3 DON DON STREPTOCO CCUS GROUP A CUL BACT 43937 [facility] XCPT 3 DIAGNOSTI DIAGNOSTI URINE CS CS BLOOD/STO OL AEROBIC ISOL IAADIADOO 38107 [facility] 3 PHYSICIAN PHYSICIAN STREPTOCO S GROUP S GROUP CCUS GROUP A URINE 72912 KRANTHI CRISOSTOMO YULISA 3 TEST VISUAL COLOR CMPRSN METHS IAADIADOO 37535 [facility] 3 PHYSICIAN PHYSICIAN STREPTOCO S GROUP S GROUP CCUS GROUP A ECG 38148 MAIRA BARRY ROUTINE 3 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 ECG W/LEAST 12 LDS I&R ONLY BLOOD 94746 [facility] ROBBINS COUNT 3 [facility] COMPLETE INC INC AUTO&AUTO DIFRNTL WBC ECG 28138 ROSA ELENA CUBA ROUTINE 3 XANDER XANDER ECG W/LEAST 12 LDS I&R ONLY RADIOLOGI 21657 [facility] ROBBINS C EXAM 3 [facility] CHEST 2 INC INC VIEWS FRONTAL&L ATERAL THYROID 42837 [facility]INS HORM 3 [facility] UPTK/THYR INC INC OID HORMONE BINDING RATIO BILIRUBIN 41903 [facility]INS DIRECT 3 [facility] INC INC LIPID 00982 [facility] PANEL 3 [facility] INC INC COMPREHEN 72916 [facility] SIVE 3 [facility] [place] [address] [facility]INS THYROID 3 [facility] STIMULATI [place] [address] [facility] THYROXINE 3 MEM [facility] TOTAL INC INC SEDIMENTA 54438 [facility] ROBBINS TIARISTEO RATE 3 [facility] RBC INC INC NON-AUTOM ATED ECG 77738 [facility] ROUTINE 3 [facility] ECG INC INC W/LEAST 12 LDS TRCG ONLY W/O I&[place] [address] [facility] AMYLASE 2 [facility] INC INC URINE 52697 [facility] ROB[facility]INS 2 [facility] TEST INC [place] [address] [facility] INFUSION 2 [facility] THERAPY/P INC INC ROPHYLAXI S /DX 1ST TO 1 HR COMPREHEN 01430 [facility] SIVE 2 [facility] METABOLIC INC INC PANEL URNLS DIP 10181 [facility] ROBBINS 2 [facility] STICK/TAB INC INC [place] [address] [facility] LIPASE 2 [facility] INC INC THERAPEUT 56126 [facility] IC 2 [facility] INJECTION INC INC IV PUSH EACH NEW DRUG BLOOD 52498 [facility] COUNT 2 [facility] COMPLETE INC INC AUTO&AUTO DIFRNTL WBC IAADIADOO 21475 KRANTHI CRISOSTOMO YULISA 2 STREPTOCO CCUS GROUP A URNLS DIP 35594 IVAN IVAN 2 DON DON STICK/TAB LET RGNT NON-AUTO W/O MICRSCP IADNA 33549 MEDICAL MEDICAL NEISSERIA 2 DIAGNOSTI DIAGNOSTI [facility] GONORRHOE AE AMPLIFIED PROBE TQ IADNA NOS 25747 MEDICAL MEDICAL 2 DIAGNOSTI DIAGNOSTI AMPLIFIED [facility] PROBE TQ EACH ORGANISM IADNA 52334 MEDICAL MEDICAL ALAYNA 2 DIAGNOSTI DIAGNOSTI SPECIES [facility] AMPLIFIED PROBE TQ IADNA 39403 MEDICAL MEDICAL CHLAMYDIA 2 [facility]AGNO[facility]I [facility]AGNOSTI [facility] TRACHOMAT IS AMPLIFIED PROBE TQ URINE 77646 KRANTHI MÁRQUEZ KRANTHI YULISA 2 TEST VISUAL COLOR CMPRSN METHS URINE 29441 ROSENDO ROBBINS 2 CO HIGH CO HIGH TEST [employer]CHO[employer] SCHO[employer] VISUAL HEAL HEAL COLOR CMPRSN METHS CHIROPRAC 30009 [place] COELLOTHIANA TIC 2 MANIPULAT CHIROPRAC CHIROPRAC FARRAH TX TIC CENTE TIC CENTE SPINAL 3-4 REGIONS THERAPEUT 26948 [place] IC PX 1/> 2 AREAS CHIROPRAC CHIROPRAC EACH 15 TIC [place] [address] [place] 1/> AREAS 2 EACH 15 CHIROPRAC CHIROPRAC MIN TIC CENTE TIC CENTE NEUROMUSC REEDUCA CHIROPRAC 17812 [place] TIC 2 MANIPULAT CHIROPRAC CHIROPRAC FARRAH TX TIC CENTE TIC CENTE SPINAL 3-4 [place] [address] [place] 1/> AREAS 2 EACH 15 CHIROPRAC CHIROPRAC MINUTES [place] [address] [place] 1/> AREAS 2 EACH 15 CHIROPRAC CHIROPRAC MINUTES TIC CENTE TIC CENTE MASSAGE RADEX 68862 [place] SPINE 2 LUMBOSACR CHIROPRAC CHIROPRAC AL 2/3 TIC CENTE TIC CENTE VIEWS CHIROPRAC 00818 [place] TIC 2 MANIPULAT CHIROPRAC CHIROPRAC FARRAH TX TIC CENTE TIC CENTE SPINAL 3-4 REGIONS APPL 11040 [place] MODALITY 2 1/> AREAS CHIROPRAC CHIROPRAC TRACTION TIC CENTE TIC CENTE MECHANICA L THERAPEUT 99545 [place] IC PX 1/> 2 AREAS CHIROPRAC CHIROPRAC EACH 15 TIC [place] [address] [place] 1/> AREAS 2 EACH 15 CHIROPRAC CHIROPRAC MIN TIC CENTE TIC CENTE NEUROMUSC REEDUCA THERAPEUT 33798 [place] IC PX 1/> 2 AREAS CHIROPRAC CHIROPRAC EACH 15 TIC CENTE TIC CENTE MIN EXERCISES APPL 58549 [place] MODALITY 2 1/> AREAS CHIROPRAC CHIROPRAC TRACTION TIC CENTE TIC CENTE MECHANICA L CHIROPRAC 44668 [place] TIC 2 MANIPULAT CHIROPRAC CHIROPRAC FARRAH TX TIC CENTE TIC CENTE SPINAL 3-[place] [address] [place] 1/> AREAS 2 EACH 15 CHIROPRAC CHIROPRAC MINUTES TIC CENTE TIC CENTE MASSAGE CHIROPRAC 56073 [place] TIC 2 MANIPULAT CHIROPRAC CHIROPRAC FARRAH TX TIC CENTE TIC CENTE SPINAL 3-4 REGIONS APPL 70947 [place] MODALITY 2 1/> AREAS CHIROPRAC CHIROPRAC TRACTION TIC CENTE TIC CENTE MECHANICA L THERAPEUT 69519 [place] IC PX 1/> 2 AREAS CHIROPRAC CHIROPRAC EACH 15 TIC CENTE TIC CENTE MIN EXERCISES APPL 25319 [place] MODALITY 2 1/> AREAS CHIROPRAC CHIROPRAC TRACTION TIC CENTE TIC CENTE MECHANICA L CHIROPRAC 56372 [place] TIC 2 MANIPULAT CHIROPRAC CHIROPRAC FARRAH TX TIC CENTE TIC CENTE SPINAL 3-4 REGIONS MANUAL 83814 [place] THERAPY 2 TQS 1/> CHIROPRAC CHIROPRAC REGIONS TIC CENTE TIC CENTE EACH 15 MINUTES DETERMINA 55476 ALE AGUILERA TION 2 JAM JAM REFRACTIV E STATE PRESSURIZ 53998 [place] CURIEL ED/NONPRE 2 [facility] TOMBALL INHALATIO N TREATMENT ALBUTEROL J7613 [place] CURIEL INHAL 2 [facility] PROD THRU DME U DOSE 1 MG US BREAST 78119 [facility] DACOSTA REAL 2 MEDICAL TONJA TIME IMAGING W/IMAGE ASS DOCUMENTA TION BASIC 22707 [facility] METABOLIC 2 [facility] [place] [address] [facility] THYROID 2 [facility] STIMULATI INC INC NG HORMONE TSH GONADOTRO 93566 [facility] PIN 2 [facility] CHORIONIC INC INC QUANTITAT FARRAH BLOOD 49282 [facility] COUNT 2 [facility] COMPLETE INC INC AUTO&AUTO DIFRNTL WBC SPMTRY 21428 [place] W/VC 2 BETTINA BETTINA EXPIRATOR Y ZOHAIB W/WO MXML VOL VNTJ BLOOD 51399 [facility] COUNT 2 Y Y COMPLETE [facility] [place] [address] [facility] LIPASE 2 Y Y [facility] GONADOTRO 88556 [facility] PIN 2 Y Y CHORIONIC [facility] QUALITATI VE URNLS DIP 23230 [facility] 2 Y Y STICK/TAB [facility] LET REAGENT AUTO MICROSCOP Y COMPREHEN 40797 [facility] SIVE 2 Y Y METABOLIC [facility] PANEL INFUSION [id number] [facility]ORMAL 2 Y Y SALINE [facility] SOL[place] [address] [place] [address] [facility] INFUSION 2 Y Y HYDRATION [facility] INITIAL 31 MIN-[address] [facility] ON 1 MG 2 Y Y ORL [facility] EXCEED 48 HR DOSE REG IADNA 76991 [facility] CHLAMYDIA 2 [employer] TRACHOMAT IS AMPLIFIED PROBE TQ IADNA 02802 [facility] NEISSERIA 2 [employer] GONORRHOE AE AMPLIFIED PROBE TQ SMR PRIM 53987 MIKI RAN MIKI RAN SRC WET 2 MOUNT NFCT AGT URINE 00893 LUIZ DEE 1 OUMOU OUMOU TEST VISUAL COLOR CMPRSN METHS IIV3 76392 [facility] VACCINE 1 [facility] INC VIRUS 0.5 ML DOSAGE IM USE BLOOD 27258 [facility] COUNT 1 [facility] COMPLETE INC INC AUTO&AUTO DIFRNTL WBC COMPREHEN 58045 [facility] SIVE 1 [facility] [place] [address] [facility] THYROID 1 [facility] STIMULATI INC INC NG HORMONE TSH IAADIADOO 42085 MONCHO IVAN 1 DON [place] D9242 NEVAEH DMD NEVAEH DMD CONSCIOUS 1 ALEVISM ALEVISM SEDATION/ ANALG - EA ADD 15 MINUTES IV D9242 NEVAEH DMD NEVAEH DMD CONSCIOUS 1 ALEVISM ALEVISM SEDATION/ ANALG - EA ADD 15 MINUTES SMR PRIM 85361 [place] GERALD KER SRC WET 1 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 NFCT AGT S CUL BACT 77879 [facility] STOOL 1 [facility] AEROBIC INC INC ISOL SALMONELL A&SHIGELL IAADIADOO 77285 MONCHO IVAN 1 DON DON STREPTOCO CCUS GROUP A CHIROPRAC 68444 [place] TIC 1 ROS MANIPULAT CHIROPRAC FARRAH TX TIC CENTE SPINAL 1-2 REGIONS APPL 63758 [place] MODALITY 1 ROS 1/> AREAS CHIROPRAC TRACTION TIC CENTE MECHANICA L APPL 96346 [place] MODALITY 1 ROS 1/> AREAS CHIROPRAC ELEC TIC CENTE STIMJ UNATTENDE D APPL 44186 [place] MODALITY 0 ROS 1/> AREAS CHIROPRAC TRACTION TIC CENTE MECHANICA L APPL 55942 [place] MODALITY 0 ROS 1/> AREAS CHIROPRAC ELEC TIC CENTE STIMJ UNATTENDE D CHIROPRAC 92482 [place] TIC 0 ROS MANIPULAT CHIROPRAC FARRAH TX TIC CENTE SPINAL 1-2 REGIONS CHIROPRAC 89464 [place] TIC 0 ROS MANIPLTV CHIROPRAC TX TIC CENTE EXTRASPIN AL 1/> REGION CHIROPRAC 52580 [place] TIC 0 ROS MANIPLTV CHIROPRAC TX TIC CENTE EXTRASPIN AL 1/> REGION CHIROPRAC 45338 [place] TIC 0 ROS MANIPULAT CHIROPRAC FARRAH TX TIC CENTE SPINAL 1-2 REGIONS APPL 91899 [place] MODALITY 0 ROS 1/> AREAS CHIROPRAC ELEC TIC CENTE STIMJ UNATTENDE D APPL 37612 [place] MODALITY 0 ROS 1/> AREAS CHIROPRAC TRACTION TIC CENTE MECHANICA L APPL 17021 [place] MODALITY 0 ROS 1/> AREAS CHIROPRAC ELEC TIC CENTE STIMJ UNATTENDE D APPL 98278 [place] MODALITY 0 ROS 1/> AREAS CHIROPRAC TRACTION TIC CENTE MECHANICA L CHIROPRAC 56905 [place] TIC 0 ROS MANIPULAT CHIROPRAC FARRAH TX TIC CENTE SPINAL 1-2 REGIONS CHIROPRAC 43878 [place] TIC 0 ROS MANIPLTV CHIROPRAC TX TIC CENTE EXTRASPIN AL 1/> REGION CHIROPRAC 54105 [place] LIN[place] TIC 0 ROS MANIPLTV CHIROPRAC TX TIC CENTE EXTRASPIN AL 1/> REGION CHIROPRAC 59921 [place] TIC 0 ROS MANIPULAT CHIROPRAC FARRAH TX TIC CENTE SPINAL 1-2 REGIONS APPL 16031 [place] MODALITY 0 ROS 1/> AREAS CHIROPRAC TRACTION TIC CENTE MECHANICA L APPL 21329 [place] MODALITY 0 ROS 1/> AREAS CHIROPRAC TIC CENTE ULTRASOUN D EA 15 MIN APPLICATI 64224 [place] ON 0 SAPPHIRE SAPPHIRE MODALITY 1/> AREAS HOT/COLD PACKS APPL 69070 [place] MODALITY 0 SAPPHIRE SAPPHIRE 1/> AREAS TRACTION MECHANICA L CHIROPRAC 17819 [place] TIC 0 SAPPHIRE SAPPHIRE MANIPULAT FARRAH TX SPINAL 1-2 REGIONS THERAPEUT 70585 [place] IC PX 1/> 0 SAPPHIRE SAPPHIRE AREAS EACH 15 MIN EXERCISES IIV3 08394 [facility] VACCINE 0 [facility] INC VIRUS 0.5 ML DOSAGE IM USE SUSCEPTIB 15329 [facility] LTY STDY 0 [facility] ANTIMICRB INC INC IAL MICRO/AGA R DILUTJ CUL BACT 66461 [facility] XCPT 0 [facility] URINE INC INC BLOOD/STO OL AEROBIC ISOL CUL BACT 34038 [facility] AEROBIC 0 [facility] ADDL INC INC METHS DEFINITIV E EA ISOL URINE 22977 [facility] TEST INC INC VISUAL COLOR CMPRSN METHS 3D 13914 THIERRY PRANEETH, RENDERING 0 MEDICAL FILIPPO IMAGING W/INTERP& ASSOCIATE POSTPROC S DIFF WORK STATION URNLS DIP 56335 [facility] 0 [facility] STICK/TAB INC [place] [address] [facility] MAXILLOFA 0 [facility] CIAL W/O INC INC CONTRAST MATERIAL RADEX 54357 [facility] WRIST 0 [facility] COMPLETE INC INC MINIMUM 3 VIEWS BLOOD 21496 [facility] COUNT 0 [facility] COMPLETE INC INC AUTO&AUTO DIFRNTL WBC BASIC 79592 [facility] METABOLIC 0 [facility] PANEL INC INC CALCIUM TOTAL RADEX 70740 MONCHO IVAN, ANKLE 0 DON R DON R COMPLETE MINIMUM 3 VIEWS RADIOLOGI 30511 MONCHO IVAN, C 0 DON R DON R EXAMINATI ON FOOT 2 VIEWS URNLS DIP 74605 COMBINED COMBINED 9 PHYSICIAN PHYSICIAN STICK/TAB S LAB S LAB LET REAGENT AUTO MICROSCOP Y IAADIADOO 57146 COMBINED COMBINED 9 PHYSICIAN PHYSICIAN INFLUENZA S LAB S LAB PARTICLE 51557 COMBINED COMBINED AGGLUTINA 9 PHYSICIAN PHYSICIAN TION S LAB S LAB SCREEN EACH ANTIBODY GENERAL 67543 COMBINED COMBINED HEALTH 9 PHYSICIAN PHYSICIAN PANEL S LAB S LAB IAADIADOO 31558 MONCHO IVAN, Marlen DON R DON R STREPTOCO CCUS GROUP A IAADI 12726 [facility] INFLUENZA 9 [facility] B VIRUS INC INC IAADI 97857 [facility] INFFLUENZ 9 [facility] A A VIRUS INC INC IADNA NOS 96121 [facility]BINS 9 [facility] AMPLIFIED INC INC PROBE TQ EACH ORGANISM IIV3 63293 DHS/CO [facility] VACCINE 9 HEALTH [facility] VIRUS 0.5 BANK ACCT ML DOSAGE IM USE IAADIADOO 14974 MONCHO IVAN, 9 DON R DON R STREPTOCO CCUS GROUP A OPHTH 94758 [facility] 9 VISION NICKIE A XM&EVAL COMPRHNSV ESTAB PT 1/> ORTHOPANT 77659 [facility] CHRISTINA BEGUM 9 FOR HERIBERTO S ORAL&MAXI LLOFACIAL SURGERY Encounters Encounter Start End Date Code Location Performer Type Date OFFICE 31415 [facility] OUTPATIEN 7 7 T NEW 30 MINUTES OFFICE 28540 [facility] 7 7 N ION NEUROLOGY NEW/ESTAB PATIENT 40 MIN OFFICE 64313 THIERRY BEGUM OUTPATIEN 7 7 [place] T VISIT 25 MINUTES EMERGENCY 52004 [facility] 7 7 FRANNIE - YORBA [facility] EMERGENCY T VISIT PHYS HIGH/URGE NT SEVERITY OFFICE 42461 GUI CASE OUTPATIEN 7 7 DIRECTOR PROSPECT T VISIT ASSOCIATE 15 S, MINUTES EMERGENCY 74274 BRANDYN BARRY DEPT 7 7 PHYSICIAN VISIT S, [facility] HIGH SEVERITY& THREAT [facility] - 7 7 [facility] OUTPATIEN INC T EMERGENCY [address] [facility] 7 7 FRANNIE DEPARTMEN EMERGENCY T VISIT SERVI HIGH/URGE NT SEVERITY EMERGENCY 16228 [facility] 7 7 [facility] DEPARTMEN INC T VISIT LOW/MODER SEVERITY EMERGENCY 79219 BRANDYN SCHNEIDER 7 [address] [facility] S, [facility] T VISIT MODERATE SEVERITY HOSPITAL [facility] - 7 7 [facility] OUTPATIEN INC T OFFICE 66994 GUI FINEROTT OUTPATIEN 7 7 DIRECTOR PROSPECT II T VISIT ASSOCIATE 15 S, MINUTES EMERGENCY 39877 [facility] 7 7 [facility] DEPARTMEN INC T VISIT LOW/MODER SEVERITY HOSPITAL [facility] - 7 7 [facility] OUTPATIEN INC T EMERGENCY 98220 BRANDYN SCHNEIDER DEPT 7 7 PHYSICIAN U VISIT S, PLLC HIGH SEVERITY& THREAT FUNCJ OFFICE 26929 ODELL BHAGATLEY OUTPATIEN 7 7 T NEW 30 MINUTES OFFICE 59918 MANDO CRUZ OUTPATIEN 7 7 FAMILY T NEW 30 CHIROPRAC MINUTES TIC PERIODIC 12208 REGINALDO Nation PREVENTIV 3 3 E MED EST PATIENT Emergency MANN DAMON MD (ER) 3 14:10 3 15:45 [facility] - 3 3 [facility] OUTPATIEN INC T Emergency MANN Simons MD (ER) 3 21:33 3 22:14 [facility] - 3 3 [facility] OUTPATIEN INC T EMERGENCY 10362 [facility] 3 3 [facility] DEPARTMEN INC T VISIT LOW/MODER SEVERITY OFFICE 66153 MONCHO CATHERINES OUTPATIEN 3 3 DON DON T VISIT 15 MINUTES OFFICE 68354 [facility] OUTPATIEN 3 3 PHYSICIAN T VISIT S GROUP 15 MINUTES OFFICE 67202 KRANTHI MÁRQUEZ OUTPATIEN 3 3 T VISIT 15 MINUTES OFFICE 05282 [facility] OUTPATIEN 3 3 PHYSICIAN T VISIT S GROUP 10 MINUTES OFFICE 96812 [facility] OUTPATIEN 3 3 PHYSICIAN T VISIT S GROUP 15 MINUTES OFFICE 70001 [facility] OUTPATIEN 3 3 PHYSICIAN T VISIT S GROUP 15 MINUTES OFFICE 32936 KRANTHI MÁRQUEZ OUTPATIEN 3 3 T VISIT 15 MINUTES Emergency MANN Barry MD (ER) 3 21:04 3 23:15 [facility] EMERGENCY 27840 MAIRA BARRY DEPT 3 3 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 VISIT HIGH SEVERITY& THREAT [facility] - 3 3 [facility] OUTPATIEN INC T OFFICE 34749 ARNEMELY STEEL OUTPATIEN 3 3 EDA EDA T VISIT 15 MINUTES OFFICE 37828 [facility] OUTPATIEN 3 3 PHYSICIAN T VISIT S GROUP 15 MINUTES OFFICE 90020 MILVIA STEEL OUTPATIEN 3 3 EDA EDA T NEW 30 MINUTES OFFICE 47949 [facility] OUTPATIEN 3 3 PHYSICIAN T VISIT S GROUP 15 MINUTES EMERGENCY 72087 [facility] 2 2 [facility] DEPARTMEN INC T VISIT MODERATE SEVERITY HOSPITAL [facility] - 2 2 [facility] OUTPATIEN INC T EMERGENCY 04452 LUCRECIA POWELL DEPT 2 2 EMERGENCY BRITNEY VISIT SERVICES HIGH SEVERITY& [facility] KRANTHI MÁRQUEZ OUTPATIEN 2 2 T VISIT 15 MINUTES OFFICE 45192 IVAN IVAN OUTPATIEN 2 2 DON DON T VISIT 15 MINUTES OFFICE 47943 IVAN IVAN OUTPATIEN 2 2 DON DON T VISIT 15 MINUTES OFFICE 88419 TERESA MOORE OUTPATIEN 2 2 CELESTE CELESTE T VISIT 15 MINUTES OFFICE 13594 KRANTHI MÁRQUEZ OUTPATIEN 2 2 T VISIT 15 MINUTES OFFICE 87693 [facility] ROBBINS OUTPATIEN 2 2 [facility] 15 HEAL HEAL MINUTES OFFICE 92095 MAIRA BARRY OUTPATIEN 2 2 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 T VISIT 10 MINUTES OFFICE 73805 MONCHO IVAN OUTPATIEN 2 2 DON DON T VISIT 15 MINUTES OFFICE 22387 [place] OUTPATIEN 2 2 T VISIT CHIROPRAC 15 TIC CENTE MINUTES OFFICE 35067 BHANU BHANU OUTPATIEN 2 2 DEWEY DEWEY T VISIT 15 MINUTES OFFICE 07499 ALE AGUILERA OUTPATIEN 2 2 JAM JAM T NEW 60 MINUTES OFFICE 26355 [facility] CURIEL OUTPATIEN 2 2 [facility] T VISIT HOSP[facility] 15 MINUTES OFFICE 22231 BHANU BHANU OUTPATIEN 2 2 DEWEY DEWEY T VISIT 15 MINUTES OFFICE 25957 REGINALDO Nation OUTPATIEN 2 2 T VISIT 10 MINUTES HOSPITAL [facility] - 2 2 [facility] OUTPATIEN INC T OFFICE 26052 RICH RICH OUTPATIEN 2 2 II O II O T VISIT 15 MINUTES HOSPITAL [facility] - 2 2 [facility] OUTPATIEN INC T OFFICE 31744 [place] OUTPATIEN 2 2 BETTINA BETTINA T NEW 30 MINUTES HOSPITAL UNIVERSIT - 2 2 Y OUTPATI HOSPITAL T EMERGENCY 19514 KATT BOLIVAR 2 2 HAMPER MAKER HAMPER MAKER DEPARTMEN T VISIT HIGH/URGE NT SEVERITY OFFICE 20185 LUIZ DEE OUTPATIEN 2 2 OUMOU OUMOU T VISIT 15 MINUTES OFFICE 10328 BHANU BHANU OUTPATIEN 2 2 DEWEY DEWEY T VISIT 10 MINUTES OFFICE 38409 LUIZ BOXER OUTPATIEN 2 2 OUMOU OUMOU T VISIT 10 MINUTES OFFICE 60093 [facility] GARCIA OUTPATIEN 2 2 PHYSICIAN CHR T VISIT S GROUP 15 MINUTES OFFICE 16224 LUIZ BOXER OUTPATIEN 1 1 OUMOU OUMOU T NEW 30 MINUTES HOSPITAL [facility] - 1 1 [facility] OUTPATIEN INC T OFFICE 45451 IVAN IVAN OUTPATIEN 1 1 DON DON T VISIT 15 MINUTES OFFICE 55068 IVAN IVAN OUTPATIEN 1 1 DON DON T VISIT 15 MINUTES OFFICE 02929 [place] GERALD KER OUTPATIEN 1 1 CUSHION FILLER T NEW 30 ASSOCIATE MINUTES [facility] - 1 1 [facility] OUTPATIEN INC T OFFICE 49898 IVAN IVAN OUTPATIEN 1 1 DON DON T VISIT 15 MINUTES OFFICE 98598 [facility] ROBBINS OUTPATIEN 1 1 [facility] 15 MINUTES OFFICE 94795 [facility] OUTPATIEN 1 1 [facility] 15 MINUTES OFFICE 01611 [place] LINWOOD OUTPATIEN 0 0 ROS T NEW 30 CHIROPRAC [facility]ES [facility] ROS[facility]O OUTPATIEN 0 0 [facility] 10 MINUTES OFFICE 70522 IVAN IVAN OUTPATIEN 0 0 DON DON T VISIT 15 MINUTES OFFICE 03349 IVAN IVAN OUTPATIEN 0 0 DON DON T VISIT 15 MINUTES HOSPITAL [facility] - 0 0 [facility] OUTPATIEN INC T OFFICE 25435 IVANNAVID IVAN OUTPATIEN 0 0 DON DON T VISIT 15 MINUTES OFFICE 60905 YULI MOSCOSO OUTPATIEN 0 0 VISION ANG T NEW 20 MINUTES OFFICE 21273 IVAN IVAN OUTPATIEN 0 0 DON DON T VISIT 15 MINUTES OFFICE 57711 [facility] ROBBINS OUTPATIEN 0 0 [facility] 15 MINUTES OFFICE 47526 MONCHO IVAN OUTSAMANTHAEN 0 0 DON R DON R T VISIT 15 MINUTES HOSPITAL [facility] - 0 0 [facility] OUTPATIEN INC T EMERGENCY 92547 [facility] 0 0 [facility] DEPARTMEN INC T VISIT LOW/MODER SEVERITY EMERGENCY 54176 LUCRECIA BARRY, DEPT 0 0 EMERGENCY [place] S VISIT SERVICES HIGH SEVERITY& ASSOCIATE THREAT S [facility] - 0 0 [facility] OUTPATIEN INC T OFFICE 50824 MONCHO IVAN OUTPATIEN 0 0 DON R DON R T VISIT 15 MINUTES OFFICE 95651 MONCHO IVAN OUTPATIEN 0 0 DON R DON R T VISIT 15 MINUTES OFFICE 38173 ELISABETH BARBER OUTPATIEN 0 0 IDRIS A IDRIS A T VISIT 15 MINUTES OFFICE 03951 MONCHO IVAN OUTPATIEN 0 0 DON R DON R T VISIT 25 MINUTES OFFICE 08751 ELISABETH BARBER OUTPATIEN 0 0 IDRIS A IDRIS A T VISIT 15 MINUTES OFFICE 39263 MONCHO IVAN OUTPATIEN 9 9 DON R DON R T VISIT 15 MINUTES OFFICE 72816 MONCHO IVAN OUTPATIEN 9 9 DON R DON R T VISIT 15 MINUTES EMERGENCY 69212 LUCRECIA BARRY, 9 9 EMERGENCY MARYAN S DEPARTMEN SERVICES T VISIT MODERATE ASSOCIATE SEVERITY S EMERGENCY 12948 [facility] 9 9 [facility] DEPARTMEN INC T VISIT LOW/MODER SEVERITY [facility]OSPITAL [facility] - 9 9 [facility] OUTPATIEN INC T OFFICE 63587 MONCHO IVAN OUTPATIEN 9 9 DON R DON R T VISIT 15 MINUTES OFFICE 92755 MONCHO IVAN OUTPATIEN 9 9 DON R DON R T VISIT 15 MINUTES OFFICE 46935 MONCHO IVAN OUTPATIEN 9 9 DON R DON R T VISIT 15 MINUTES OFFICE 18782 TN SHERI MARCUM 9 9 FOR HERIBERTO ARROYO 10 ORAL&MAXI MINUTES LLOFACIAL SURGERY OFFICE 65795 MONCHO IVAN OUTPATIEN 8 8 DON R DON R T NEW 20 MINUTES
--- OUTSIDE RECORDS SUMMARY | 2017-03-28 09:00 | External Medical Summary Rpt | CCD ---
Author Author , ZAK Organization ZAK Address Unknown Phone [email or web address] Healthcare Care Team Providers Care Property Staff Accountant Name Role Phone HAIR J, HAIR J [...] DAMON MD, Unavailable Unavailable KRANTHI DAMON MD [facility] Unavailable Unavailable SERVICE, [facility] KATT FENCE ERECTOR SUPERVISOR, KATT Unavailable Unavailable FENCE ERECTOR SUPERVISOR KATT FENCE ERECTOR SUPERVISOR, KATT Unavailable Unavailable FENCE ERECTOR SUPERVISOR CELLAROSI - YORBA, Unavailable Unavailable CELLAROSI - YORBA SHY BEGUM Unavailable Unavailable HERIBERTO BEGUM, Unavailable Unavailable HERIBERTO BEGUM [facility], Unavailable Unavailable [facility] Unavailable Unavailable LAB, [facility] PRANEETH, PRANEETH Unavailable Unavailable PRANEETH TONJA, Unavailable Unavailable PRANEETH TONJA PRANEETH FILIPPO, Unavailable Unavailable PRANEETH, FILIPPO YULI VISION, Unavailable Unavailable [facility] [place] [facility] Un[facility] [place] BHANU DEWEY, Unavailable Unavailable BHANU DEWEY BHANU DEWEY, Unavailable Unavailable BHANU DEWEY MURRAY, MURRAY Unavailable Unavailable MURRAY, MURRAY Unavailable Unavailable [place] BETTINA, Unavailable Unavailable [place] BETTINA [place] BET[place]INA, Unavailable Unavailable [place] BETTINA MAIRA, MAIRA Unavailable Unavailable MAIRA MANSOOR, MAIRA Unavailable Unavailable MANSOOR MAIRA MANSOOR, MAIRA Unavailable Unavailable MANSOOR MARYAN BARRY, Unavailable Unavailable MARYAN BARRY [facility], Unavailable Unavailable [facility] Unavailable Unavailable [place], [facility] Unavailable Unavailable CENTER, [facility] Unavailable Unavailable SCHOOL [...] NICKIE A, Unavailable Unavailable MOORE, NICKIE A [facility], Unavailable Unavailable [facility] KEDING SAPPHIRE, KEDING Unavailable Unavailable SAPPHIRE [facility], [place] Unavailable Unavailable SAPPHIRE [facility] Unavailable Unavailable [facility], [facility] Nohemy Simons MD, Unavailable [...] CORPORATION OF AM, [facility] Unavailable Unavailable [facility]OC[facility], [facility] Gilbert Barry MD, Unavailable Unavailable Gilbert Barry MD [facility] Unavailable Unavailable SERVICES, [facility] DAVID HERNANDEZ Unavailable Unavailable ALE AVILA, Unavailable Unavailable ALE AGUILERA JAM, Unavailable Unavailable AGUILERA JAM LINWOOD ROS, LINWOOD Unavailable Unavailable ROS NEVAEH DMD RESTORATIONIST, NEVAEH Unavailable Unavailable DMD RESTORATIONIST NEVAEH DMD RESTORATIONIST, NEVAEH Unavailable Unavailable DMD RESTORATIONIST [facility] GERALD KER, GERALD KER Unavailable Unavailable BARBER, IDRIS A, Unavailable Unavailable BARBER, IDRIS A MIKI RAN, MIKI RAN Unavailable Unavailable MIKI ELIZONDO, MKII RAN Unavailable Unavailable [facility], [facility], [facility] RICH II, RICH Unavailable Unavailable II RICH II O, RICH Unavailable Unavailable II O RICH II O, RICH Unavailable Unavailable II O [facility], Unavailable Unavailable [facility], Unavailable Unavailable [facility] Unavailable Unavailable [facility], [id number], Unavailable Unavailable [id number] Unavailable Unavailable [id number] [address] [id number], [facility] [id number] [address] [id number] ANDRE BRITNEY, ANDRE Unavailable Unavailable BRITNEY DEE OUMOU, Unavailable Unavailable DEE OUMOU DEE OUMOU, Unavailable Unavailable DEE OUMOU TERESA CELESTE, TERESA Unavailable Unavailable CELESTE TERESA CELESTE, TERESA Unavailable Unavailable CELESTE SCIFRES ANG, SCIFRES Unavailable Unavailable ANG CURIEL EUGENIA, CURIEL Unavailable Unavailable EUGENIA HAILE, HAILE Unavailable Unavailable SOTINGEANU, Unavailable Unavailable [facility] Unavailable Unavailable [facility], [facility] IVAN DON, Unavailable Unavailable IVAN DON IVAN DON, Unavailable Unavailable IVAN DON IVAN, DON R, Unavailable Unavailable IVAN, DON R [facility], Unavailable Unavailable [facility] Unavailable Unavailable #591, [facility] ANTHONY CRUZ Unavailable Unavailable GARCIA CHR, GARCIA Unavailable Unavailable CHR Purpose Continuity of Care Document - 02-02-2008 through 2016 Problems Code Diagnosis DOS Provider Status M5386 OTHER 01-16-2017 MURRAY SPECIFIED DORSOPATHIE S LUMBAR REGION M546 PAIN IN 01-16-2017 MURRAY THORACIC SPINE M9906 SEGMENTAL & 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 MURRAY SOMATIC DYSFUNCTION LOWER EXTREMITY [id number] REGULAR 01-07-2017 MOORE ASTIGMATISM BILATERAL R51 HEADACHE 12-14-2016 [facility] X99000 MIGRAINE 10-23-2016 KRISTIN UNS NOT N EMERGENCY INTRACT W/O PHYS STATUS MIGRAINOSUS N938 OTHER SPEC 10-23-2016 LABORATORY ABNORMAL GABBIE OF UTERINE & ALEENA H VAGINAL BLEEDING R110 NAUSEA 10-23-2016 [facility] Z720 TOBACCO USE 10-20-2016 [facility] N939 ABNORMAL 10-18-2016 [facility], VAGINAL PLLC BLEEDING UNSPECIFIED [id number] UNSPECIFIED 10-15-2016 [facility] OVARIAN [facility], CYST RIGHT PLLC SIDE N921 EXCESS & 10-15-2016 [facility] FREQUENT [facility], MENSTRUATIO PLLC N W/IRREGULAR CYCLE R80214 PAIN IN 09-26-2016 [facility] RIGHT SHOULDER M542 CERVICALGIA 09-26-2016 [facility] B03914 MUSCLE 09-26-2016 [facility] SPASM OF BACK M9901 [...] EXAMINATION FOR VENEREAL DISEASE 782.1 782.1 03-24-2013 [place] NONSPECIF [facility] SKIN ERUPT [facility] 7827 SPONTANEOUS 03-24-2013 [facility]ES [facility] 786.59 786.59 03-24-2013 [place] CHEST PAIN [facility] 40893 OTHER CHEST 03-24-2013 [facility] 5990 URINARY 12-15-2012 KRANTHI YULISA TRACT INFECTION SITE NOT SPECIFIED 413.9 413.9 12-07-2012 [place] ANGINA [facility] 4139 OTHER AND 12-07-2012 DIANA UNSPECIFIED [facility] ANGINA INC PECTORIS 599.0 599.0 URIN 12-07-2012 [place] TRACT [facility] NOS 74409 ACUTE 10-28-2012 IVAN LARYNGITIS, DON WITHOUT MENTION OF OBSTRUCTIO 4659 ACUTE URIS 10-28-2012 IVAN OF DON UNSPECIFIED SITE 462 ACUTE 10-24-2012 [facility] 4618 OTHER ACUTE 10-16-2012 [facility]INUS[facility]IS [facility] 71861 NAUSEA WITH 10-16-2012 [facility] VOMITING [facility]YS[facility] 21758 INTESTINAL 10-03-2012 [facility] INF PHYSICIANS ENTERITIS GROUP DUE OTH VIRAL ENTERITIS 0091 COLITIS 09-25-2012 [facility] ENTERIT&GAS PHYSICIANS TROENTERIT GROUP INF ORIGIN 90486 UNSPECIFIED 09-02-2012 KRANTHI YULISA VIRAL INFECTION IN CCE & UNS SITE 786.50 786.50 09-01-2012 [place] CHEST PAIN [facility] 94279 CHEST PAIN 09-01-2012 MAIRA MANSOOR UNSPECIFIED 7850 UNSPECIFIED 08-11-2012 [facility] TACHYCARDIA INC 0340 STREPTOCOCC 07-28-2012 [facility] AL SORE PHYSICIANS THROAT GROUP 10990 ESOPHAGEAL 07-10-2012 ARNOLD EDA REFLUX 46747 UNS 07-10-2012 [facility] VERAS GASTRITIS&G ASTRODUODIT IS W/O MENTION HEMORR 5589 OTH&UNSPEC 05-29-2012 [facility] US SERVICES GASTROENTER ITIS&COLITI S 64111 ABDOMINAL 05-29-2012 [facility] PAIN, [facility]ERGENCY UNSPECIFIED SERVICES SITE 54480 ABDOMINAL 05-29-2012 [facility] PAIN RIGHT [facility] LOWER INC QUADRANT 37829 NAUSEA 05-27-2012 KRANTHI YULISA ALONE 0542 HERPETIC 05-13-2012 MON[facility] GINGIVOSTOM DON ATITIS 07932 UNSPECIFIED 04-02-2012 TERESA CELESTE VAGINITIS AND VULVOVAGINI [...] 12-18-2011 BHANU AND ABSCESS DEWEY OF FACE 77687 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 12901 ULCERATIVE 11-21-2011 AGUILERA BLEPHARITIS JAM 4619 ACUTE 10-23-2011 BHANU SINUSITIS, DEWEY UNSPECIFIED 4660 ACUTE 10-23-2011 BHANU BRONCHITIS DEWEY 6100 SOLITARY 10-04-2011 HAIR J CYST OF BREAST 6102 FIBROADENOS 10-04-2011 HAIR J IS OF BREAST 6101 DIFFUSE 09-21-2011 [facility] 25002 MASTODYNIA 09-21-2011 [facility] 39115 LUMP [place] 09-18-2011 RICH II MASS IN O BREAST 6260 ABSENCE OF 09-12-2011 [facility] MENSTRUATIO [facility] N INC 19071 ASTHMA, 08-23-2011 [place] UNSPECIFIED BETTINA , UNSPECIFIED STATUS 45535 OTHER SPEC 08-23-2011 [place] GASTRITIS BETTINA WITHOUT MENTION HEMORRHAGE 44851 ACUTE 08-09-2011 [facility] WITHOUT MENTION OF HEMORRHAGE 74975 VOMITING 08-09-2011 KATT FENCE ERECTOR SUPERVISOR ALONE 67766 CHRONIC 08-08-2011 DEE TENSION OUMOU TYPE HEADACHE 08550 ABDOMINAL 08-08-2011 DEE PAIN RIGHT OUMOU UPPER QUADRANT 6235 LEUKORRHEA 07-11-2011 LAB GABBIE NOT AMERIC SPECIFIED HOLDING INFECTIVE V2503 ENCOUNTER 07-10-2011 MIKI CARO EMERGENCY CONTRACEPT CNSL&PRESCR IPTION 463 ACUTE 05-16-2011 DEE TONSILLITIS OUMOU V0481 NEED 04-18-2011 [facility] VACC[facility]ATION &INOCULATIO N FLU 08011 OTHER 03-26-2011 [facility] FATIGUE INC 05805 CHRONIC 03-21-2011 IVAN FATIGUE DON SYNDROME 6826 CELLULITIS 02-05-2011 IVAN AND ABSCESS DON OF LEG EXCEPT FOOT 5210 DENTAL 01-17-2011 NEVAEH DMD CARIES RESTORATIONIST 6253 DYSMENORRHE 01-02-2011 [place] [facility] 6262 EXCESSIVE 01-02-2011 [place] [facility] MENSTRUATIO N 47188 DIARRHEA 08-10-2010 [facility] 9199 OTH&UNSPEC 07-31-2010 [facility] SUP INJURY MIDDLE OT SCHOOL MX&UNSPEC SITES INF 72321 SHORTNESS 07-27-2010 [facility] CO OF BREATH [employer]DLE S[facility]OL 7234 BRACHIAL 07-03-2010 [place] NEURITIS OR [facility] RADICULITIS NOS 09263 SPASM OF 07-03-2010 [place] MUSCLE [facility] 7397 NONALLOPATH 07-03-2010 [place] IC LESION [facility]I OF UPPER C CENTE EXTREMITIES NEC 7231 CERVICALGIA 05-04-2010 [place] SAPPHIRE 7840 HEADACHE 05-04-2010 [facility] CO [facility]DLE S[facility]OL 84293 METHICILLIN 04-04-2010 IVAN RESISTANT DON STAPHYLOCOC CUS AUREUS 7821 RASH AND 03-21-2010 IVAN OTHER DON NONSPECIFIC SKIN ERUPTION 45103 HORDEOLUM 03-02-2010 YULI EXTERNUM VISION 6929 CONTACT 01-31-2010 IVAN DERMATITIS& DON OTHER ECZEMA DUE UNSPEC CAUSE 7098 OTHER 01-31-2010 [facility]MAN SPECIFIED MIDDLE DISORDER OF SCHOOL SKIN 9164 HIP THI 01-11-2010 IVAN, LEG&ANK DON R INSECT BITE NONVENOMOUS W/O INF 97994 PAIN IN 11-01-2009 [facility] [facility] 14358 SPRAIN AND 11-01-2009 [facility] STRAIN OF EMERGENCY UNSPECIFIED SERVICES SITE OF ASSOCIATES WRIST 920 CONTUSION 11-01-2009 [facility] OF FACE EMERGENCY SCALP AND SERVICES NECK EXCEPT ASSOCIATES EYE 36499 UNSPECIFIED 08-26-2009 IVAN, SITE OF DON R ANKLE SPRAIN AND STRAIN 4779 ALLERGIC 08-15-2009 ELISABETH, RHINITIS IDRIS A CAUSE UNSPECIFIED 4871 INFLUENZA 03-15-2009 MONCHO, WITH OTHER DON R RESPIRATORY MANIFESTATI ONS 3670 HYPERMETROP 01-17-2009 YULI IA VISION 51055 DENTAL 08-24-2008 [facility] CARIES FOR EXTENDING ORAL&MAXILL INTO PULP OFACIAL SURGERY 5216 ANKYLOSIS 08-24-2008 [facility] FOR ORAL&MAXILL OFACIAL SURGERY 11040 OTHER 02-02-2008 IVAN, SPECIFIED DON R DISORDERS [...] #3 MG 93 8 TA BL ET WY 65 05 06 14 5 00 RI [...] AI RA 30 17 17 29 D SC 5 80 PH DE AR MA 10 CY MG #3 93 TA 8 BL ET WY 59 05 06 15 5 00 RI [...] CR 8 EA # M 03 93 WY 68 11 11 1 12 2 CL [...] 34 8- 8- 00 12 HE ve WY 59 20 20 AI NS ED 31 [...] 00 10 5 WA 70 GA Ac SC 00 -2 -0 .0 L- 38 IN ti FL 40 5- 8- 00 MA 37 EY ve U 80 20 20 RT 5 75 08 09 09 SC 5 PH CH MG AR AE MA L CA CY S PS UL #5 E 91 WY 60 09 09 00 12 4 RI [...] SA 93 L 8 SP RA Y WY 00 03 03 00 12 6 EA [...] Procedure DOS Code Location Performer Comment CHIROPRAC 08969 MURRAY MURRAY TIC 7 MANIPLTV TX EXTRASPIN AL 1/> REGION CHIROPRAC 64364 MURRAY MURRAY TIC 7 MANIPULAT FARRAH TX SPINAL 3-4 REGIONS APPL 04831 MURRAY MURRAY MODALITY 7 1/> AREAS ELEC STIMJ UNATTENDE D THERAPEUT 89787 MURRAY MURRAY IC PX 1/> 7 AREAS EACH 15 MIN EXERCISES THER PX 08-02-201 56070 MURRAY MURRAY 1/> AREAS 7 EACH 15 MIN NEUROMUSC REEDUCA FITTING 74380 [facility]SC[facility] MOORE SPECTACLE 7 S XCPT APHAKIA MONOFOCAL OPHTH 32098 [facility]SC[facility] MOORE MEDICAL 7 XM&EVAL COMPRHNSV ESTAB PT 1/> IADNA 57677 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 CHLAMYDIA 7 Y GABBIE OF Y GABBIE OF ALEENA ALEENA TRACHOMAT H H IS AMPLIFIED PROBE TQ IADNA 51803 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 NEISSERIA 7 Y GABBIE OF Y GABBIE OF ALEENA ALEENA GONORRHOE H H AE AMPLIFIED PROBE TQ IADNA 60050 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 TRICHOMON 7 Y GABBIE OF Y GABBIE OF ALEENA ALEENA VAGINALIS H H AMPLIFIED PROBE TECH THERAPEUT 09508 [facility] IC 7 MEM HOSP [facility]OS[facility] INJECTION INC INC IV PUSH EACH NEW DRUG GROUND A0425 [facility] AMBULANCE AMBULANCE PER SERVICE SERVICE STATUTE MILE AMBULANCE A0429 [facility] 7 AMBULANCE AMBULANCE BLS SERVICE SERVICE EMERGENCY TRANSPORT FINAL G9638 [facility] REPORTS 7 MEDICAL W/O DOC IMAGING 1/[place] [address] [facility] HEAD/BRAI 7 MEDICAL N W/O IMAGING CONTRAST ASS MATERIAL GONADOTRO 48744 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 PIN 7 Y Y CHORIONIC CORPORATI CORPORATI ON OF AM ON OF AM QUANTITAT FARRAH US PREG 06649 [facility] PRANEETH UTERUS 7 MEDICAL REAL TIME IMAGING W/IMAGE ASS DCMTN TRANSVAG CHIROPRAC 42025 ODELL BAIN TIC 7 MANIPLTV TX EXTRASPIN AL 1/> REGION CHIROPRAC 85658 ODELL BAIN TIC 7 MANIPULAT FARRAH TX SPINAL 3-4 REGIONS RADEX 12118 MANDO CRUZ SPINE 7 FAMILY CERVICAL CHIROPRAC 2 OR 3 TIC VIEWS CHIROPRAC 18742 MANDO CRUZ TIC 7 FAMILY MANIPULAT CHIROPRAC FARRAH TX TIC SPINAL 5 REGIONS APPL 19563 MANDO CRUZ MODALITY 7 FAMILY 1/> AREAS CHIROPRAC TRACTION TIC MECHANICA L RADEX 85821 MANDO CRUZ SPINE 7 FAMILY LUMBOSACR CHIROPRAC AL 2/3 TIC VIEWS BLOOD 99981 [facility]BINS COUNT 3 [facility] COMPLETE INC INC AUTO&AUTO DIFRNTL WBC URNLS DIP 74439 [facility] 3 [facility] STICK/TAB INC INC LET REAGENT AUTO MICROSCOP Y URINE 07701 [facility] ROBBINS 3 [facility] TEST INC INC VISUAL COLOR CMPRSN METHS IAADIADOO 42254 IVAN IVAN 3 DON DON STREPTOCO CCUS GROUP A CUL BACT 21331 [facility] XCPT 3 DIAGNOSTI DIAGNOSTI URINE CS CS BLOOD/STO OL AEROBIC ISOL IAADIADOO 72544 [facility] 3 PHYSICIAN PHYSICIAN STREPTOCO S GROUP S GROUP CCUS GROUP A URINE 54544 KRANTHI CRISOSTOMO YULISA 3 TEST VISUAL COLOR CMPRSN METHS IAADIADOO 10188 [facility] 3 PHYSICIAN PHYSICIAN STREPTOCO S GROUP S GROUP CCUS GROUP A ECG 76068 MAIRA BARRY ROUTINE 3 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 ECG W/LEAST 12 LDS I&R ONLY BLOOD 23055 [facility] ROBBINS COUNT 3 [facility] COMPLETE INC INC AUTO&AUTO DIFRNTL WBC ECG 91042 ROSA ELENA CUBA ROUTINE 3 XANDER XANDER ECG W/LEAST 12 LDS I&R ONLY RADIOLOGI 80268 [facility] ROBBINS C EXAM 3 [facility] CHEST 2 INC INC VIEWS FRONTAL&L ATERAL THYROID 04053 [facility] ROBBINS HORM 3 [facility] UPTK/THYR INC INC OID HORMONE BINDING RATIO BILIRUBIN 83571 [facility] ROBBINS DIRECT 3 [facility] INC INC LIPID 44312 [facility] ROB[facility]INS PANEL 3 [facility] INC INC COMPREHEN 44176 [facility] ROBBINS SIVE 3 MEM [facility] [place] [address] [facility] ROB[facility]INS THYROID 3 [facility] STIMULATI [place] [address] [facility] ROBBINS THYROXINE 3 MEM HOSP [facility]OS[facility] TOTAL INC INC SEDIMENTA 43228 [facility] ROBBINS TIARISTEO RATE 3 [facility] RBC INC INC NON-AUTOM ATED ECG 95887 [facility]BINS ROUTINE 3 MEM [facility] ECG INC INC W/LEAST 12 LDS TRCG ONLY W/O I&[place] [address] [facility] ROBBINS AMYLASE 2 MEM H[facility] INC INC URINE 61339 [facility] ROBBINS 2 [facility] TEST INC [place] [address] [facility] ROBBINS INFUSION 2 [facility] THERAPY/P INC INC ROPHYLAXI S /DX 1ST TO 1 HR COMPREHEN 12982 [facility] SIVE 2 [facility] METABOLIC INC INC PANEL URNLS DIP 50838 [facility] ROBBINS 2 [facility] STICK/TAB INC INC [place] [address] [facility] LIPASE 2 [facility] INC INC THERAPEUT 80117 [facility] IC 2 [facility] INJECTION INC INC IV PUSH EACH NEW DRUG BLOOD 25999 [facility] COUNT 2 [facility] COMPLETE INC INC AUTO&AUTO DIFRNTL WBC IAADIADOO 61167 KRANTHI CRISOSTOMO YULISA 2 STREPTOCO CCUS GROUP A URNLS DIP 91197 IVAN IVAN 2 DON DON STICK/TAB LET RGNT NON-AUTO W/O MICRSCP IADNA 57161 MEDICAL MEDICAL NEISSERIA 2 DIAGNOSTI DIAGNOSTI [facility] GONORRHOE AE AMPLIFIED PROBE TQ IADNA NOS 10982 MEDICAL MEDICAL 2 DIAGNOSTI DIAGNOSTI AMPLIFIED [facility] PROBE TQ EACH ORGANISM IADNA 50765 MEDICAL MEDICAL ALAYNA 2 DIAGNOSTI DIAGNOSTI SPECIES [facility] AMPLIFIED PROBE TQ IADNA 27276 MEDICAL MEDICAL CHLAMYDIA 2 DIAGNOSTI DIAGNOSTI [facility] TRACHOMAT IS AMPLIFIED PROBE TQ URINE 23175 KRANTHI MÁRQUEZ KRANTHI YULISA 2 TEST VISUAL COLOR CMPRSN METHS URINE 61552 [facility] ROBBINS 2 CO [facility] TEST [facility] S[facility] VISUAL HEAL HEAL COLOR CMPRSN METHS CHIROPRAC 68095 [place] TIC 2 MANIPULAT CHIROPRAC CHIROPRAC FARRAH TX TIC CENTE TIC CENTE SPINAL 3-4 REGIONS THERAPEUT 11373 [place] IC PX 1/> 2 AREAS CHIROPRAC CHIROPRAC EACH 15 TIC [place]ENT[place] [address] [place] 1/> AREAS 2 EACH 15 CHIROPRAC CHIROPRAC MIN TIC CENTE TIC CENTE NEUROMUSC REEDUCA CHIROPRAC 49372 [place] TIC 2 MANIPULAT CHIROPRAC CHIROPRAC FARRAH TX TIC CENTE TIC CENTE SPINAL 3-[place] [address] [place] 1/> AREAS 2 EACH 15 CHIROPRAC CHIROPRAC MINUTES [place] [address] [place] 1/> AREAS 2 EACH 15 CHIROPRAC CHIROPRAC MINUTES TIC CENTE TIC CENTE MASSAGE RADEX 35783 [place] SPINE 2 LUMBOSACR CHIROPRAC CHIROPRAC AL 2/3 TIC CENTE TIC CENTE VIEWS CHIROPRAC 70226 [place] TIC 2 MANIPULAT CHIROPRAC CHIROPRAC FARRAH TX TIC CENTE TIC CENTE SPINAL 3-4 REGIONS APPL 25448 [place] MODALITY 2 1/> AREAS CHIROPRAC CHIROPRAC TRACTION TIC CENTE TIC CENTE MECHANICA L THERAPEUT 67466 [place] IC PX 1/> 2 AREAS CHIROPRAC CHIROPRAC EACH 15 TIC [place] [address] [place] 1/> AREAS 2 EACH 15 CHIROPRAC CHIROPRAC MIN TIC CENTE TIC CENTE NEUROMUSC REEDUCA THERAPEUT 51518 [place] IC PX 1/> 2 AREAS CHIROPRAC CHIROPRAC EACH 15 TIC CENTE TIC CENTE MIN EXERCISES APPL 40593 [place] MODALITY 2 1/> AREAS CHIROPRAC CHIROPRAC TRACTION TIC CENTE TIC CENTE MECHANICA L CHIROPRAC 43036 [place] TIC 2 MANIPULAT CHIROPRAC CHIROPRAC FARRAH TX TIC CENTE TIC CENTE SPINAL 3-[place] [address] [place] 1/> AREAS 2 EACH 15 CHIROPRAC CHIROPRAC MINUTES TIC CENTE TIC CENTE MASSAGE CHIROPRAC 44607 [place] TIC 2 MANIPULAT CHIROPRAC CHIROPRAC FARRAH TX TIC CENTE TIC CENTE SPINAL 3-4 REGIONS APPL 01012 [place] MODALITY 2 1/> AREAS CHIROPRAC CHIROPRAC TRACTION TIC CENTE TIC CENTE MECHANICA L THERAPEUT 63596 [place] IC PX 1/> 2 AREAS CHIROPRAC CHIROPRAC EACH 15 TIC CENTE TIC CENTE MIN EXERCISES APPL 53588 [place] MODALITY 2 1/> AREAS CHIROPRAC CHIROPRAC TRACTION TIC CENTE TIC CENTE MECHANICA L CHIROPRAC 00858 [place] TIC 2 MANIPULAT CHIROPRAC CHIROPRAC FARRAH TX TIC CENTE TIC CENTE SPINAL 3-4 REGIONS MANUAL 61442 [place] THERAPY 2 TQS 1/> CHIROPRAC CHIROPRAC REGIONS TIC CENTE TIC CENTE EACH 15 MINUTES DETERMINA 43307 ALE AGUILERA TION 2 JAM JAM REFRACTIV E STATE PRESSURIZ 33640 [facility] CURIEL ED/NONPRE 2 [facility] INHALATIO N TREATMENT ALBUTEROL J7613 [facility] CURIEL INHAL 2 [facility] PROD THRU DME U DOSE 1 MG US BREAST 94502 [facility] DACOSTA REAL 2 MEDICAL TONJA TIME IMAGING W/IMAGE ASS DOCUMENTA TION BASIC 10231 [facility] ROBBINS METABOLIC 2 [facility] [place] [address] [facility]INS THYROID 2 [facility] STIMULATI INC INC NG HORMONE TSH GONADOTRO 49957 [facility] PIN 2 [facility] CHORIONIC INC INC QUANTITAT FARRAH BLOOD 10579 [facility] COUNT 2 [facility] COMPLETE INC INC AUTO&AUTO DIFRNTL WBC SPMTRY 21591 [place] W/VC 2 BETTINA BETTINA EXPIRATOR Y ZOHAIB W/WO MXML VOL VNTJ BLOOD 03765 [facility] COUNT 2 Y Y COMPLETE [facility] [place] [address] [facility] LIPASE 2 Y Y [facility] GONADOTRO 00881 [facility] PIN 2 Y Y CHORIONIC [facility] QUALITATI VE URNLS DIP 50782 [facility] 2 Y Y STICK/TAB [facility] LET REAGENT AUTO MICROSCOP Y COMPREHEN 29471 [facility] SIVE 2 Y Y METABOLIC [facility] PANEL INFUSION J7030 [facility] NORMAL 2 Y Y SALINE [facility] SOLUTION [address] [place] [address] [facility] INFUSION 2 Y Y HYDRATION [facility] INITIAL 31 MIN-1 HOUR ONDANSETR Q0162 [facility] ON 1 MG 2 Y Y ORL NOT [facility] EXCEED 48 HR DOSE REG IADNA 42005 [facility] CHLAMYDIA 2 [facility] [employer] TRACHOM[employer] IS AMPLIFIED PROBE TQ IADNA 64361 [facility] NEISSERIA 2 [facility] [employer] GONORRHOE AE AMPLIFIED PROBE TQ SMR PRIM 80970 MIKI RAN MIKI RAN SRC WET 2 MOUNT NFCT AGT URINE 66448 LUIZ DEE 1 OUMOU OUMOU TEST VISUAL COLOR CMPRSN METHS IIV3 98846 [facility] VACCINE 1 [facility] VIRUS 0.5 ML DOSAGE IM USE BLOOD 48058 [facility] COUNT 1 [facility] COMPLETE INC INC AUTO&AUTO DIFRNTL WBC COMPREHEN 74208 [facility] SIVE 1 [facility] [address] [facility] THYROID 1 [facility] STIMULATI INC INC NG HORMONE TSH IAADIADOO 71147 [place] 1 DON DON ST[place] IV D[address]242 NEVAEH DMD NEVAEH DMD CONSCIOUS 1 RESTORATIONIST RESTORATIONIST SEDATION/ ANALG - EA ADD 15 MINUTES IV D9242 NEVAEH DMD NEVAEH DMD CONSCIOUS 1 RESTORATIONIST RESTORATIONIST SEDATION/ ANALG - EA ADD 15 MINUTES SMR PRIM 22793 [place] [facility] K[facility] SRC WET 1 INTEGRATION LEAD MOUNT ASSOCIATE NFCT AGT S CUL BACT 47385 [facility] STOOL 1 [facility] AEROBIC INC INC ISOL SALMONELL A&SHIGELL IAADIADOO 53300 [place] 1 DON DON STREPTOCO CCUS GROUP A CHIROPRAC 32850 [place] [facility] TIC 1 ROS MANIPULAT CHIROPRAC FARRAH TX TIC CENTE SPINAL 1-2 REGIONS APPL 01095 [place] [facility] MODALITY 1 ROS 1/> AREAS CHIROPRAC TRACTION TIC CENTE MECHANICA L APPL 05942 [place] [facility] MODALITY 1 ROS 1/> AREAS CHIROPRAC ELEC TIC CENTE STIMJ UNATTENDE D APPL 68571 [place] MODALITY 0 ROS 1/> AREAS CHIROPRAC TRACTION TIC CENTE MECHANICA L APPL 43145 [place] MODALITY 0 ROS 1/> AREAS CHIROPRAC ELEC TIC CENTE STIMJ UNATTENDE D CHIROPRAC 24366 [place] TIC 0 ROS MANIPULAT CHIROPRAC FARRAH TX TIC CENTE SPINAL 1-2 REGIONS CHIROPRAC 59494 [place] TIC 0 ROS MANIPLTV CHIROPRAC TX TIC CENTE EXTRASPIN AL 1/> REGION CHIROPRAC 88295 [place] TIC 0 ROS MANIPLTV CHIROPRAC TX TIC CENTE EXTRASPIN AL 1/> REGION CHIROPRAC 07446 [place] TIC 0 ROS MANIPULAT CHIROPRAC FARRAH TX TIC CENTE SPINAL 1-2 REGIONS APPL 88237 [place] MODALITY 0 ROS 1/> AREAS CHIROPRAC ELEC TIC CENTE STIMJ UNATTENDE D APPL 67625 [place] MODALITY 0 ROS 1/> AREAS CHIROPRAC TRACTION TIC CENTE MECHANICA L APPL 70184 [place] MODALITY 0 ROS 1/> AREAS CHIROPRAC ELEC TIC CENTE STIMJ UNATTENDE D APPL 91739 [place] MODALITY 0 ROS 1/> AREAS CHIROPRAC TRACTION TIC CENTE MECHANICA L CHIROPRAC 02368 [place] TIC 0 ROS MANIPULAT CHIROPRAC FARRAH TX TIC CENTE SPINAL 1-2 REGIONS CHIROPRAC 55074 [place] TIC 0 ROS MANIPLTV CHIROPRAC TX TIC CENTE EXTRASPIN AL 1/> REGION CHIROPRAC 31272 [place] TIC 0 ROS MANIPLTV CHIROPRAC TX TIC CENTE EXTRASPIN AL 1/> REGION CHIROPRAC 67165 [place] TIC 0 ROS MANIPULAT CHIROPRAC FARRAH TX TIC CENTE SPINAL 1-2 REGIONS APPL 54535 [place] MODALITY 0 ROS 1/> AREAS CHIROPRAC TRACTION TIC CENTE MECHANICA L APPL 19155 [place] MODALITY 0 ROS 1/> AREAS CHIROPRAC TIC CENTE ULTRASOUN D EA 15 MIN APPLICATI 00658 [place] ON 0 SAPPHIRE SAPPHIRE MODALITY 1/> AREAS HOT/COLD PACKS APPL 46915 [place] MODALITY 0 SAPPHIRE SAPPHIRE 1/> AREAS TRACTION MECHANICA L CHIROPRAC 85038 [place] TIC 0 SAPPHIRE SAPPHIRE MANIPULAT FARRAH TX SPINAL 1-2 REGIONS THERAPEUT 88729 [place] IC PX 1/> 0 SAPPHIRE SAPPHIRE AREAS EACH 15 MIN EXERCISES IIV3 64632 [facility] ROBB[facility] VACCINE 0 [facility] VIRUS 0.5 ML DOSAGE IM USE SUSCEPTIB 10369 [facility] LTY STDY 0 [facility] ANTIMICRB INC INC IAL MICRO/AGA R DILUTJ CUL BACT 71842 [facility] XCPT 0 [facility] URINE INC INC BLOOD/STO OL AEROBIC ISOL CUL BACT 31350 [facility] AEROBIC 0 [facility] ADDL INC INC METHS DEFINITIV E EA ISOL URINE 87234 [facility] 0 [facility] TEST INC INC VISUAL COLOR CMPRSN METHS 3D 95130 THIERRY PRANEETH, RENDERING 0 MEDICAL FILIPPO IMAGING W/INTERP& ASSOCIATE POSTPROC S DIFF WORK STATION URNLS DIP 02754 [facility] STICK/TAB INC [place] [address] [facility] MAXILLOFA 0 [facility] CIAL W/O INC INC CONTRAST MATERIAL RADEX 84683 [facility] WRIST 0 [facility] COMPLETE INC INC MINIMUM 3 VIEWS BLOOD 54053 [facility] COUNT 0 [facility] COMPLETE INC INC AUTO&AUTO DIFRNTL WBC BASIC 45797 [facility] METABOLIC 0 [facility] PANEL INC INC CALCIUM TOTAL RADEX 80061 MONCHO IVAN, ANKLE 0 DON R DON R COMPLETE MINIMUM 3 VIEWS RADIOLOGI 71973 MONCHO IVAN, C 0 DON R DON R EXAMINATI ON FOOT 2 VIEWS URNLS DIP 72600 COMBINED COMBINED 9 PHYSICIAN PHYSICIAN STICK/TAB S LAB S LAB LET REAGENT AUTO MICROSCOP Y IAADIADOO 95972 COMBINED COMBINED 9 PHYSICIAN PHYSICIAN INFLUENZA S LAB S LAB PARTICLE 28756 COMBINED COMBINED AGGLUTINA 9 PHYSICIAN PHYSICIAN TION S LAB S LAB SCREEN EACH ANTIBODY GENERAL 07186 COMBINED COMBINED HEALTH 9 PHYSICIAN PHYSICIAN PANEL S LAB S LAB IAADIADOO 04349 MONCHO IVAN, Marlen DON R DON R STREPTOCO CCUS GROUP A IAADI 23794 [facility] INFLUENZA 9 [facility] B VIRUS INC INC IAADI 25498 [facility] INFFLUENZ 9 [facility] A A VIRUS INC INC IADNA NOS 34400 [facility] ROBBINS 9 [facility] AMPLIFIED INC INC PROBE TQ EACH ORGANISM IIV3 33394 DHS/CO [facility] VACCINE 9 HEALTH [facility] VIRUS 0.5 BANK ACCT ML DOSAGE IM USE IAADIADOO 42661 MONCHO IVAN, 9 DON R DON R STREPTOCO CCUS GROUP A OPHTH 6[address] [facility] VISION NICKIE A XM&EVAL COMPRHNSV ESTAB PT 1/> ORTHOPANT 01774 [facility] CHRISTINA BEGUM 9 FOR HERIBERTO S ORAL&MAXI LLOFACIAL SURGERY Encounters Encounter Start End Date Code Location Performer Type Date OFFICE 40783 [facility] OUTPATIEN 7 7 T NEW 30 MINUTES OFFICE 17615 [facility] CONSULTAT 7 7 N ION NEUROLOGY NEW/ESTAB PATIENT 40 MIN OFFICE 57442 THIERRY BEGUM OUTPATIEN 7 7 [employer] [facility] T VISIT 25 MINUTES EMERGENCY 97799 [facility] 7 7 FRANNIE - YORBA [facility] EMERGENCY T VISIT PHYS HIGH/URGE NT SEVERITY OFFICE 41948 GUI CASE OUTPATIEN 7 7 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 T VISIT ASSOCIATE 15 S, MINUTES EMERGENCY 16303 BRANDYN BARRY DEPT 7 7 PHYSICIAN VISIT S, [facility] HIGH SEVERITY& THREAT [facility] - 7 7 [facility] OUTPATIEN INC T EMERGENCY 24003 [facility] 7 7 FRANNIE DEPARTMEN EMERGENCY T VISIT SERVI HIGH/URGE NT SEVERITY EMERGENCY 43546 [facility] 7 7 [facility] DEPARTMEN INC T VISIT LOW/MODER SEVERITY EMERGENCY 70428 BRANDYN SCHNEIDER 7 7 PHYSICIAN U [facility] S, [facility] T VISIT MODERATE SEVERITY HOSPITAL [facility] - 7 7 [facility] OUTPATIEN INC T OFFICE 34171 GUI FINEROTT OUTPATIEN 7 7 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 II T VISIT ASSOCIATE 15 S, MINUTES EMERGENCY 70487 [facility] 7 7 [facility] DEPARTMEN INC T VISIT LOW/MODER SEVERITY HOSPITAL [facility] - 7 7 [facility] OUTPATIEN INC T EMERGENCY 97859 BRANDYN SCHNEIDER DEPT 7 7 PHYSICIAN U VISIT S, PLLC HIGH SEVERITY& THREAT FUNCJ OFFICE 81729 ODELL BHAGATLEY OUTPATIEN 7 7 T NEW 30 MINUTES OFFICE 97945 MANDO CRUZ OUTPATIEN 7 7 FAMILY T NEW 30 CHIROPRAC MINUTES TIC PERIODIC 98350 REGINALDO Nation PREVENTIV 3 3 E MED EST PATIENT Emergency MANN DAMON MD (ER) 3 14:10 3 15:45 [facility] - 3 3 [facility] OUTPATIEN INC T Emergency MANN Simons MD (ER) 3 21:33 3 22:14 [facility] - 3 3 [facility] OUTPATIEN INC T EMERGENCY 93993 [facility] 3 3 [facility] DEPARTMEN INC T VISIT LOW/MODER SEVERITY OFFICE 54859 MONCHO CATHERINES OUTPATIEN 3 3 DON DON T VISIT 15 MINUTES OFFICE 87461 [facility] OUTPATIEN 3 3 PHYSICIAN T VISIT S GROUP 15 MINUTES OFFICE 44730 KRANTHI MÁRQUEZ OUTPATIEN 3 3 T VISIT 15 MINUTES OFFICE 36640 [facility] OUTPATIEN 3 3 PHYSICIAN T VISIT S GROUP 10 MINUTES OFFICE 72033 [facility] OUTPATIEN 3 3 PHYSICIAN T VISIT S GROUP 15 MINUTES OFFICE 43064 [facility] OUTPATIEN 3 3 PHYSICIAN T VISIT S GROUP 15 MINUTES OFFICE 73234 KRANTHI MÁRQUEZ OUTPATIEN 3 3 T VISIT 15 MINUTES Emergency MANN Barry MD (ER) 3 21:04 3 23:15 [facility] EMERGENCY 57323 MAIRA BARRY DEPT 3 3 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 VISIT HIGH SEVERITY& THREAT [facility] - 3 3 [facility] OUTPATIEN INC T OFFICE 93550 ARNEMELY STEEL OUTPATIEN 3 3 EDA EDA T VISIT 15 MINUTES OFFICE 20796 [facility] OUTPATIEN 3 3 PHYSICIAN T VISIT S GROUP 15 MINUTES OFFICE 21915 MILVIA STEEL OUTPATIEN 3 3 EDA EDA T NEW 30 MINUTES OFFICE 90202 [facility] OUTPATIEN 3 3 PHYSICIAN T VISIT S GROUP 15 MINUTES EMERGENCY 98655 [facility] 2 2 [facility] DEPARTMEN INC T VISIT MODERATE SEVERITY HOSPITAL [facility] - 2 2 [facility] OUTPATIEN INC T EMERGENCY 75711 LUCRECIA POWELL DEPT 2 2 EMERGENCY BRITNEY VISIT SERVICES HIGH SEVERITY& THREAT [facility] 65410 KRANTHI MÁRQUEZ OUTPATIEN 2 2 T VISIT 15 MINUTES OFFICE 14247 IVAN IVAN OUTPATIEN 2 2 DON DON T VISIT 15 MINUTES OFFICE 63164 IVAN IVAN OUTPATIEN 2 2 DON DON T VISIT 15 MINUTES OFFICE 57225 TERESA MOORE OUTPATIEN 2 2 CELESTE CELESTE T VISIT 15 MINUTES OFFICE 25516 KRANTHI MÁRQUEZ OUTPATIEN 2 2 T VISIT 15 MINUTES OFFICE 56863 [facility] ROBBINS OUTPATIEN 2 2 [facility] 15 HEAL HEAL MINUTES OFFICE 40770 MAIRA BARRY OUTPATIEN 2 2 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 T VISIT 10 MINUTES OFFICE 06649 MONCHO IVAN OUTPATIEN 2 2 DON DON T VISIT 15 MINUTES OFFICE 48702 [place] OUTPATIEN 2 2 T VISIT CHIROPRAC 15 TIC CENTE MINUTES OFFICE 64832 BHANU BHANU OUTPATIEN 2 2 DEWEY DEWEY T VISIT 15 MINUTES OFFICE 48302 ALE AGUILERA OUTPATIEN 2 2 JAM JAM T NEW 60 MINUTES OFFICE 79828 [facility] CURIEL OUTPATIEN 2 2 [facility] T VISIT HOSPITAL 15 MINUTES OFFICE 68181 BHANU BHANU OUTPATIEN 2 2 DEWEY DEWEY T VISIT 15 MINUTES OFFICE 96958 REGINALDO Nation OUTPATIEN 2 2 T VISIT 10 MINUTES HOSPITAL [facility] - 2 2 [facility] OUTPATIEN INC T OFFICE 68303 [facility] OUTPATIEN 2 2 II O II O T VISIT 15 MINUTES HOSPITAL [facility] - 2 2 [facility] OUTPATIEN INC T OFFICE 04057 [place] OUTPATIEN 2 2 BETTINA BETTINA T NEW 30 MINUTES HOSPITAL UNIVERSIT - 2 2 Y OUTPATI HOSPITAL T EMERGENCY 46157 KATT BOLIVAR 2 2 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 DEPARTMEN T VISIT HIGH/URGE NT SEVERITY OFFICE 67380 LUIZ DEE OUTPATIEN 2 2 [facility]UM[facility] OUMOU T VISIT 15 MINUTES OFFICE 14995 BHANU BHANU OUTPATIEN 2 2 DEWEY DEWEY T VISIT 10 MINUTES OFFICE 20783 LUIZ BOXER OUTPATIEN 2 2 [facility] OUMOU T VISIT 10 MINUTES OFFICE 89035 [facility] GARCIA OUTPATIEN 2 2 PHYSICIAN CHR T VISIT S GROUP 15 MINUTES OFFICE 13709 LUIZ BOXER OUTPATIEN 1 1 [facility]UM[facility] OUMOU T NEW 30 MINUTES HOSPITAL [facility] - 1 1 [facility] OUTPATIEN INC T OFFICE 99585 IVAN IVAN OUTPATIEN 1 1 DON DON T VISIT 15 MINUTES OFFICE 19564 IVAN IVAN OUTPATIEN 1 1 DON DON T VISIT 15 MINUTES OFFICE 59948 [facility] GER[facility] KER OUTPATIEN 1 1 INTEGRATION LEAD T NEW 30 ASSOCIATE MINUTES [facility] - 1 1 [facility] OUTPATIEN INC T OFFICE 91885 IVAN IVAN OUTPATIEN 1 1 DON DON T VISIT 15 MINUTES OFFICE 81474 [facility] ROBBINS OUTPATIEN 1 1 [facility] 15 MINUTES OFFICE 72465 [facility] OUTPATIEN 1 1 [facility] 15 MINUTES OFFICE 87711 [place] OUTPATIEN 0 0 ROS T NEW 30 CHIROPRAC MINUTES TIC [facility] OFFICE 04339 [facility] OUTPATIEN 0 0 [facility] 10 MINUTES OFFICE 74322 IVAN VIAN OUTPATIEN 0 0 DON DON T VISIT 15 MINUTES OFFICE 88524 IVAN IVAN OUTPATIEN 0 0 DON DON T VISIT 15 MINUTES HOSPITAL [facility] - 0 0 [facility] OUTPATIEN INC T OFFICE 24452 IVANNAVID IVAN OUTPATIEN 0 0 DON DON T VISIT 15 MINUTES OFFICE 91621 YULI MOSCOSO OUTPATIEN 0 0 VISION ANG T NEW 20 MINUTES OFFICE 56880 IVAN IVAN OUTPATIEN 0 0 DON DON T VISIT 15 MINUTES OFFICE 42515 [facility] ROBBINS OUTPATIEN 0 0 [facility] 15 MINUTES OFFICE 95817 MONCHO IVAN OUTSAMANTHAEN 0 0 DON R DON R T VISIT 15 MINUTES HOSPITAL [facility] - 0 0 [facility] OUTPATIEN INC T EMERGENCY 39753 [facility] 0 0 [facility] DEPARTMEN INC T VISIT LOW/MODER SEVERITY EMERGENCY 39322 LUCRECIA BARRY, DEPT 0 0 [facility]ER[facility]ENCY [facility] S VISIT SERVICES HIGH SEVERITY& ASSOCIATE THREAT S [facility] - 0 0 [facility] OUTPATIEN INC T OFFICE 60925 MONCHO IVAN OUTPATIEN 0 0 DON R DON R T VISIT 15 MINUTES OFFICE 81624 MONCHO IVAN OUTPATIEN 0 0 DON R DON R T VISIT 15 MINUTES OFFICE 28686 ELISABETH BARBER OUTPATIEN 0 0 IDRIS A IDRIS A T VISIT 15 MINUTES OFFICE 59140 MONCHO IVAN OUTPATIEN 0 0 DON R DON R T VISIT 25 MINUTES OFFICE 80849 ELISABETH BARBER OUTPATIEN 0 0 IDRIS A IDRIS A T VISIT 15 MINUTES OFFICE 02850 MONCHO IVAN OUTPATIEN 9 9 DON R DON R T VISIT 15 MINUTES OFFICE 16614 MONCHO IVAN OUTPATIEN 9 9 DON R DON R T VISIT 15 MINUTES EMERGENCY 30535 LUCRECIA BARRY, 9 9 EMERGENCY MARYAN S DEPARTMEN SERVICES T VISIT MODERATE ASSOCIATE SEVERITY S EMERGENCY 87904 [facility] 9 9 [facility] DEPARTMEN INC T VISIT LOW/MODER SEVERITY HOSPITAL [facility] - 9 9 [facility] OUTPATIEN INC T OFFICE 56212 MONCHO IVAN OUTPATIEN 9 9 DON R DON R T VISIT 15 MINUTES OFFICE 69995 MONCHO IVAN OUTPATIEN 9 9 DON R DON R T VISIT 15 MINUTES OFFICE 13494 MONCHO IVAN OUTPATIEN 9 9 DON R DON R T VISIT 15 MINUTES OFFICE 67849 [facility] SHERI MARCUM 9 9 FOR HERIBERTO ARROYO 10 ORAL&MAXI MINUTES LLOFACIAL SURGERY OFFICE 98525 MONCHO IVAN OUTPATIEN 8 8 DON R DON R T NEW 20 MINUTES
--- OUTSIDE RECORDS SUMMARY | 2017-03-28 09:06 | External Medical Summary Rpt | CCD ---
Author Author , ZAK LEMUSRENE Address Unknown Phone [email or web address] Care Team Providers Care Nuclear Weapons Custodian Name Role Phone REGINALDO Nation, REGINALDO Nation Unavailable Unavailable REGINALDO Nation, REGINALDO J Unavailable Unavailable ARNOLD EDA, ARNOLD Unavailable Unavailable EDA ARNOLD EDA, ARNOLD Unavailable Unavailable EDA ODELL, ODELL Unavailable Unavailable ODELL, ODELL Unavailable Unavailable BEINEKE, BEINEKE Unavailable Unavailable BESSON XANDER, BESSON Unavailable Unavailable XANDER KRANTHI YULISA, KRANTHI YULISA Unavailable Unavailable KRANTHI YULISA, KRANTHI YULISA Unavailable Unavailable [facility] Unavailable Unavailable SERVICE, [facility] KATT SHUTTLE OPERATOR, KATT Unavailable Unavailable SHUTTLE OPERATOR CELLAROSI - YORBA, Unavailable Unavailable CELLAROSI - YORBA SHY BEGUM Unavailable Unavailable HERIBERTO BEGUM, Unavailable Unavailable HERIBERTO BEGUM [facility], Un[facility] Unavailable Unavailable LAB, [facility] PRANEETH, PRANEETH Unavailable Unavailable PRANEETH TONJA, Unavailable Unavailable PRANEETH TONJA PRANEETH, FILIPPO, Unavailable Unavailable PRANEETH, FILIPPO [facility], Unavailable Unavailable [facility] [place] [facility] Un[facility] [place] BHANU DEWEY, Unavailable Unavailable BHANU DEWEY BHANU DEWEY, Unavailable Unavailable BHANU DEWEY MURRAY, MURRAY Unavailable Unavailable MURRAY, MURRAY Unavailable Unavailable [place] BETTINA, Unavailable Unavailable [place] BETTINA [place] BTETINA, Unavailable Unavailable [place] BETTINA MAIRA MAIRA Unavailable Unavailable MAIRA MANSOOR, MAIRA Unavailable Unavailable MANSOOR MAIRA MANSOOR, MAIRA Unavailable Unavailable MANSOOR MARYAN RAO, Unavailable Unavailable MARYAN RAO [facility], Unavailable Unavailable [facility] Unavailable Unavailable [facility] Un[place] Un[place] Unavailable Un[facility] Unavailable Unavailable [facility]available Un[facility] [employer] [facility] [employer] [employer] [facility] Unavailable Un[facility] [employer] [facility] Unavailable Unavailable INC, [facility] CASE, CASE Unavailable Unavailable MOORE, MOORE Unavailable Unavailable MOORE, MOORE Unavailable Unavailable MOORE, NICKIE A, Unavailable Unavailable MOORE, NICKIE A [facility], Unavailable Unavailable [facility], K[facility] Unavailable Unavailable [facility]PH[facility], [place] Unavailable Unavailable [facility] Unavailable Unavailable [facility], [facility] Unavailable Unavailable [facility], [facility]available Unavailable [facility] Unavailable Unavailable [facility], [facility] Unavailable Unavailable CORPORATION OF AM, [facility] Unavailable Unavailable [facility]OC[facility], [facility] Unavailable Unavailable SERVICES, [facility] DAVID HERNANDEZ Unavailable Unavailable AGUILERA JAM, Unavailable Unavailable AGUILERA JAM AGUILERA JAM, Unavailable Unavailable AGUILERA JAM LINWOOD ROS, LINWOOD Unavailable Unavailable ROS NEVAEH DMD MORAVIAN, NEVAEH Unavailable Unavailable DMD MORAVIAN NEVAEH DMD MORAVIAN, NEVAEH Unavailable Unavailable [facility]MD [facility] Un[facility], MED[facility] [...] [facility], [facility]available Unavailable [facility] Unavailable Unavailable [facility], [id number], Unavailable Unavailable [id number] Unavailable [facility]available [id number] [address] [id number], [facility] [id number] [address] [id number] ANDRE TAN, ANDRE Unavailable Unavailable BRITNEY DEE OUMOU, Unavailable Unavailable DEE OUMOU DEE OUMOU, Unavailable Unavailable [facility]EE [facility] TERESA CELESTE, TERESA Unavailable Unavailable CELESTE TERESA CELESTE, TERESA Unavailable Unavailable CELESTE SCIFRES ANG, SCIFRES Unavailable Unavailable ANG CURIEL EUGENIA, CURIEL Unavailable Unavailable EUGENIA HAILE, HAILE Unavailable Unavailable SOTINGEANU, Unavailable [facility]available [facility] Unavailable Unavailable EMERGENCY PHYS, [facility] IVAN DON, Unavailable Unavailable IVAN DON IVAN DON, Unavailable Unavailable IVAN DON IVAN, DON R, Unavailable Unavailable IVAN, DON R [facility], Unavailable Unavailable [facility] Unavailable Unavailable #591, [facility] ANTHONY CRUZ Unavailable Unavailable Purpose Continuity of Care Document - 02-02-2008 through 2016 Problems Code Diagnosis DOS Provider Status [id number] OTHER 01-16-2017 M[facility] SPECIFIED DORSOPATHIE S LUMBAR REGION M546 PAIN IN 01-16-2017 [facility] THORACIC SPINE M9906 SEGMENTAL & 01-16-2017 [facility] SOMATIC DYSFUNCTION LOWER EXTREMITY [id number] REGULAR 01-07-2017 [facility] ASTIGMATISM BILATERAL R51 HEADACHE 12-14-2016 [facility] [id number] MIGRAINE 10-23-2016 KRIST[facility] UNS NOT N EMERGENCY INTRACT W/O PHYS STATUS MIGRAINOSUS N938 OTHER SPEC 10-23-2016 LABORATORY ABNORMAL [facility] OF UTERINE & [facility]LE[facility] H VAGINAL BLEEDING R110 NAUSEA 10-23-2016 [facility] Z720 TOBACCO USE 10-20-2016 [facility] N939 ABNORMAL 10-18-2016 [facility] UTERINE & PHYSICIANS, VAGINAL PLLC BLEEDING UNSPECIFIED N08662 UNSPECIFIED 10-15-2016 [facility] OVARIAN PHYSICIANS, CYST RIGHT PLLC SIDE N921 EXCESS & 10-15-2016 [facility] FREQUENT PHYSICIANS, MENSTRUATIO PLLC N W/IRREGULAR CYCLE B33584 PAIN IN 09-26-2016 [facility] RIGHT SHOULDER M542 CERVICALGIA 09-26-2016 [facility] F61863 MUSCLE 09-26-2016 [facility] SPASM OF BACK M9901 [...] SPONTANEOUS 03-24-2013 [facility] 51185 OTHER CHEST 03-24-2013 [facility] PAIN [facility] 5990 URINARY 12-15-2012 KRANTHI YULISA TRACT INFECTION SITE NOT SPECIFIED 4139 OTHER AND 12-07-2012 [facility] UNSPECIFIED [facility] ANGINA INC PECTORIS 90605 ACUTE 10-28-2012 IVAN LARYNGITIS, DON WITHOUT MENTION OF OBSTRUCTIO 4659 ACUTE URIS 10-28-2012 IVAN OF DON UNSPECIFIED SITE 462 ACUTE 10-24-2012 [facility] 4618 OTHER ACUTE 10-16-2012 [facility] SINUS[facility]IS [facility] 00006 NAUSEA WITH 10-16-2012 [facility] VOMITING [facility]YSICIANS GROUP 19402 INTESTINAL 10-03-2012 [facility] INF PHYSICIANS ENTERITIS GROUP DUE OT VIRAL ENTERITIS 0091 COLITIS 09-25-2012 [facility] ENTERIT&GAS PHYSICIANS TROENTERIT GROUP INF ORIGIN 93527 UNSPECIFIED 09-02-2012 KRANTHI YULISA VIRAL INFECTION IN CCE & UNS SITE 56846 CHEST PAIN 09-01-2012 MAIRA MANSOOR UNSPECIFIED 7850 UNSPECIFIED 08-11-2012 [facility] TACHYCARDIA INC 0340 STREPTOCOCC 07-28-2012 [facility] AL SORE PHYSICIANS THROAT GROUP 65756 ESOPHAGEAL 07-10-2012 ARNEMELY EDA REFLUX 52186 UNS 07-10-2012 [facility] VERAS GASTRITIS&G ASTRODUODIT IS W/O MENTION HEMORR 5589 OTH&UNSPEC 05-29-2012 [facility] NONINFECTIO [facility] US SERVICES GASTROENTER ITIS&COLITI S 54424 ABDOMINAL 05-29-2012 [facility] PAIN, EMERGENCY UNSPECIFIED SERVICES SITE 57455 ABDOMINAL 05-29-2012 [facility] PAIN RIGHT [facility] LOWER INC QUADRANT 07981 NAUSEA 05-27-2012 KRANTHI YULISA ALONE 0542 HERPETIC 05-13-2012 IVAN GINGIVOSTOM DON ATITIS 27529 UNSPECIFIED 04-02-2012 TERESA KAR VAGINITIS AND VULVOVAGINI [...] 12-18-2011 BHANU AND ABSCESS DEWEY OF FACE 09693 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 40617 ULCERATIVE 11-21-2011 AGUILERA BLEPHARITIS JAM 4619 ACUTE 10-23-2011 BHANU SINUSITIS, DEWEY UNSPECIFIED 4660 ACUTE 10-23-2011 BHANU BRONCHITIS DEWEY 6100 SOLITARY 10-04-2011 HAIR J CYST OF BREAST 6102 FIBROADENOS 10-04-2011 HAIR J IS OF BREAST 6101 DIFFUSE 09-21-2011 [facility] MASTOPATHY IMAGING ASS 20328 MASTODYNIA 09-21-2011 [facility] 56843 LUMP OR 09-18-2011 RICH II MASS IN O BREAST 6260 ABSENCE OF 09-12-2011 [facility] MENSTRUATIO [facility] N INC 85448 ASTHMA, 08-23-2011 [place] UNSPECIFIED BETTINA , UNSPECIFIED STATUS 58371 OTHER SPEC 08-23-2011 [place] GASTRITIS BETTINA WITHOUT MENTION HEMORRHAGE 34005 ACUTE 08-09-2011 [facility] WITHOUT MENTION OF HEMORRHAGE 91459 VOMITING 08-09-2011 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 SHUTTLE 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 36142 CHRONIC 08-08-2011 DEE TENSION OUM[facility] TYPE HEADACHE 25625 ABDOMINAL 08-08-2011 DEE PAIN RIGHT OUM[facility] UPPER QUADRANT 6235 LEUKORRHEA 07-11-2011 LAB [facility] NOT AMERIC SPECIFIED HOLDING INFECTIVE V2503 ENCOUNTER 07-10-2011 [facility] ELIZONDO EMERGENCY CONTRACEPT CNSL&PRESCR IPTION 463 ACUTE 05-16-2011 DEE TONSILLITIS OUMOU V0481 NEED 04-18-2011 [facility] VACCINATION &INOCULATIO N FLU 80620 OTHER 03-26-2011 [facility] FATIGUE [facility] 65928 CHRONIC 03-21-2011 IVAN FATIGUE DON SYNDROME 6826 CELLULITIS 02-05-2011 IVAN AND ABSCESS DON OF LEG EXCEPT FOOT 5210 DENTAL 01-17-2011 NEVAEH DMD CARIES MORAVIAN 6253 DYSMENORRHE 01-02-2011 [place] [facility] 6262 EXCESSIVE 01-02-2011 [place] FREQUENT [facility] MENSTRUATIO N 35367 DIARRHEA 08-10-2010 [facility] 9199 OTH&UNSPEC 07-31-2010 [facility] SUP INJ[facility]Y [facility] OT S[facility]OL MX&UNSPEC SITES INF 83348 SHORTNESS 07-27-2010 [facility] OF BREATH [facility] S[facility] 7234 BRACHIAL 07-03-2010 [place] [facility] OR [facility]E RADICULITIS NOS 39351 SPASM OF 07-03-2010 [place] MUSCLE [facility]ENT[facility] 7397 NONALLOPATH 07-03-2010 [place] IC LESION CHIROP[facility]I OF UPPER C CENTE EXTREMITIES NEC 7231 CERVICALGIA 05-04-2010 [place] SAP[facility] 7840 HEADACHE 05-04-2010 [facility] 20762 METHICILLIN 04-04-2010 IVAN RESISTANT DON STAPHYLOCOC CUS AUREUS 7821 RASH AND 03-21-2010 IVAN OTHER DON NONSPECIFIC SKIN ERUPTION 56253 HORDEOLUM 03-02-2010 YULI EXTERNUM VISION 6929 CONTACT 01-31-2010 IVAN DERMATITIS& DON OTHER ECZEMA DUE UNSPEC CAUSE 7098 OTHER 01-31-2010 [facility] SPECIFIED MIDDLE DISORDER OF SCHOOL SKIN 9164 HIP THI 01-11-2010 IVAN, LEG&ANK DON R INSECT BITE NONVENOMOUS W/O INF 95704 PAIN IN 11-01-2009 [place] [facility] 84684 SPRAIN AND 11-01-2009 [facility] STRAIN OF EMERGENCY UNSPECIFIED SERVICES SITE OF ASSOCIATES WRIST 920 CONTUSION 11-01-2009 [facility] OF FACE EMERGENCY SCALP AND SERVICES NECK EXCEPT ASSOCIATES EYE 47843 UNSPECIFIED 08-26-2009 [facility], SITE OF DON R ANKLE SPRAIN AND STRAIN 4779 ALLERGIC 08-15-2009 BARBER, RHINITIS IDRIS A CAUSE UNSPECIFIED 4871 INFLUENZA 03-15-2009 [facility], WITH OTHER DON R RESPIRATORY MANIFESTATI ONS 3670 HYPERMETROP 01-17-2009 YULI [place] VISION 88518 DENTAL 08-24-2008 [facility] EXTENDING ORAL&MAXILL INTO PULP OFACIAL SURGERY 5216 ANKYLOSIS 08-24-2008 [facility] TE[facility] FOR ORAL&MAXILL OFACIAL SURGERY 08729 OTHER 02-02-2008 IVAN, SPECIFIED DON R DISORDERS [...] MG #3 TA 93 BL 8 ET GA 65 05 06 14 5 00 RI [...] AI RA 30 17 17 29 D WA 5 80 PH DE AR MA 10 [...] #3 MG 93 8 TA BL ET GA 59 05 06 15 5 00 RI [...] CR 8 EA # M 03 93 GA 68 11 11 1 12 2 CL [...] 34 8- 8- 00 12 HE ve GA 59 20 20 AI NS ED 31 [...] 00 10 5 WA 70 GA Ac WA 00 -2 -0 .0 L- 38 IN ti FL 40 5- 8- 00 MA 37 EY ve U 80 20 20 RT 5 75 08 09 09 WA 5 PH CH MG AR AE MA L CA CY S PS UL #5 E 91 GA 60 09 09 00 12 4 RI [...] AR N M R #3 93 8 GA 00 03 03 00 12 6 EA [...] Procedure DOS Code Location Performer Comment CHIROPRAC 66579 MURRAY MURRAY TIC 7 MANIPLTV TX EXTRASPIN AL 1/> REGION CHIROPRAC 00115 MURRAY MURRAY TIC 7 MANIPULAT FARRAH TX SPINAL 3-4 REGIONS APPL 96497 MURRAY MURRAY MODALITY 7 1/> AREAS ELEC STIMJ UNATTENDE D THERAPEUT 38956 MURRAY MURRAY IC PX 1/> 7 AREAS [place]ACH 15 [place] [address] MURRAY MURRAY 1/> AREAS 7 EACH 15 MIN NEUROMUSC REEDUCA FITTING 08137 [facility] SPECTACLE 7 S XCPT APHAKIA MONOFOCAL OPHTH 13539 [facility] MEDICAL 7 XM&EVAL COMPRHNSV ESTAB PT 1/> IADNA 30930 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 NEISSERIA 7 Y [facility] OF Y [facility] OF ALEENA ALEENA GONORRHOE H H AE AMPLIFIED PROBE TQ IADNA 55055 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 CHLAMYDIA 7 Y GAB[facility]E OF Y [facility] OF ALEENA ALEENA TRACHOMAT H H IS AMPLIFIED PROBE TQ IADNA 00031 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 TRICHOMON 7 Y GAB[facility]E OF Y [facility] OF ALEENA ALEENA VAGINALIS H H AMPLIFIED PROBE TECH [facility] A0425 [facility] MILEAGE 7 AMBULANCE AMBULANCE PER SERVICE SERVICE STATUTE MILE AMBULANCE A0429 [facility] SERVICE 7 AMBULANCE AMBULANCE [place] [address] THI[facility]Y HART HEAD/BRAI 7 MEDICAL N W/O IMAGING CONTRAST ASS MATERIAL FINAL G9638 [facility] REPORTS 7 MEDICAL W/O DOC IMAGING 1/MORE ASS DOSE REDUCTION TECH THERAPEUT 02219 [facility] IC 7 [facility] INJECTION INC INC IV PUSH EACH NEW DRUG GONADOTRO 24592 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 PIN 7 Y Y CHORIONIC CORPORATI CORPORATI ON OF AM ON OF AM QUANTITAT FARRAH US PREG 31596 THI[facility]Y PRANEETH UTERUS 7 MEDICAL REAL TIME IMAGING W/IMAGE ASS DCMTN TRANSVAG CHIROPRAC 26632 [facility] BAIN TIC 7 MANIPULAT FARRAH TX SPINAL 3-4 REGIONS CHIROPRAC 64766 [facility] BAIN TIC 7 MANIPLTV TX EXTRASPIN AL 1/> REGION CHIROPRAC 77583 [facility] TIC 7 FAMILY MANIPULAT CHIROPRAC FARRAH TX TIC SPINAL 5 REGIONS RADEX 41821 [facility] SPINE 7 FAMILY LUMBOSACR CHIROPRAC AL 2/3 TIC VIEWS RADEX 59422 [facility] SPINE 7 FAMILY CERVICAL CHIROPRAC 2 OR 3 TIC VIEWS APPL 66178 [facility] MODALITY 7 FAMILY 1/> AREAS CHIROPRAC TRACTION TIC MECHANICA L BLOOD 40438 [facility] COUNT 3 [facility] COMPLETE INC INC AUTO&AUTO DIFRNTL WBC URINE 06112 [facility]INS 3 [facility] TEST INC INC VISUAL COLOR CMPRSN METHS URNLS DIP 77108 [facility] ROBBINS 3 [facility] STICK/TAB INC INC LET REAGENT AUTO MICROSCOP Y IAADIADOO 26778 [facility] IVAN 3 DON DON STREPTOCO CCUS GROUP A CUL BACT 35667 [employer] [facility] XCPT 3 DIAGNOSTI DIAGNOSTI URINE CS CS BLOOD/STO OL AEROBIC ISOL IAADIADOO 77987 [facility] 3 PHYSICIAN PHYSICIAN STREPTOCO S GROUP S GROUP CCUS GROUP A URINE 89934 KRANTHI YULISA KRANTHI YULISA 3 TEST VISUAL COLOR CMPRSN METHS IAADIADOO 91877 [facility] 3 PHYSICIAN PHYSICIAN STREPTOCO S GROUP S GROUP CCUS GROUP A ECG 28082 BESSON BESSON ROUTINE 3 XANDER XANDER ECG W/LEAST 12 LDS I&R ONLY SEDIMENTA 96867 [facility] TION RATE 3 [facility] RBC INC INC NON-AUTOM ATED RADIOLOGI 23337 PRANEETH PRANEETH C EXAM 3 TONJA TONJA CHEST 2 VIEWS FRONTAL&L ATERAL THYROID 17162 [facility] RBOBINS HORM 3 [facility] UPTK/THYR INC INC OID HORMONE BINDING RATIO ECG 29855 BESSON BESSON ROUTINE 3 XANDER XANDER ECG W/LEAST 12 LDS I&R ONLY BLOOD 02010 [facility] ROBBINS COUNT 3 [facility] COMPLETE INC INC AUTO&[place] [address] [facility] THYROXINE 3 [facility] TOTAL INC INC ECG 00853 [facility] ROUTINE 3 [facility] ECG INC INC W/LEAST 12 LDS TRCG ONLY W/O I&R BILIRUBIN 27896 [facility] DIRECT 3 [place] [address] [facility] THYROID 3 [facility] STIMULATI INC INC NG HORMONE TSH LIPID 78425 [facility] PANEL 3 [facility] INC INC COMPREHEN 82574 [facility] SIVE 3 [facility] METABOLIC INC INC PANEL COMPREHEN 34914 [facility] SIVE 2 [facility] METABOLIC INC INC PANEL URNLS DIP 93156 [facility] ROBBINS 2 [facility] STICK/TAB INC INC LET REAGENT AUTO MICROSCOP Y URINE 61634 [facility] ROBBINS 2 [facility] TEST INC [place] [address] [facility] AMYLASE 2 [place] [address] [facility] LIPASE 2 [facility] INC INC BLOOD 00129 [facility] COUNT 2 [facility] COMPLETE INC INC AUTO&[place] [address] [facility] INFUSION 2 [facility] THERAPY/P INC INC ROPHYLAXI S /DX 1ST TO 1 HR THERAPEUT 15768 [facility] IC 2 [facility] INJECTION INC INC IV PUSH EACH NEW DRUG IAADIADOO 55605 KRANTHI MÁRQUEZ 2 STREPTOCO CCUS GROUP A URNLS DIP 41765 IVAN IVAN 2 DON DON STICK/TAB LET RGNT NON-AUTO W/O MICRSCP IADNA 13811 MEDICAL MEDICAL NEISSERIA 2 DIAGNOSTI DIAGNOSTI [facility] GONORRHOE AE AMPLIFIED PROBE TQ IADNA NOS 99923 MEDICAL MEDICAL 2 DIAGNOSTI DIAGNOSTI AMPLIFIED [facility] PROBE TQ EACH ORGANISM IADNA 06421 MEDICAL MEDICAL CHLAMYDIA 2 DIAGNOSTI DIAGNOSTI [facility] TRACHOMAT IS AMPLIFIED PROBE TQ IADNA 01516 MEDICAL MEDICAL ALAYNA 2 DIAGNOSTI DIAGNOSTI SPECIES [facility] AMPLIFIED PROBE TQ URINE 52437 KRANTHI MÁRQUEZ 2 TEST VISUAL COLOR CMPRSN METHS URINE 49775 [facility] ROBBINS 2 [facility] [employer] [employer] [facility] VISUAL HEAL HEAL COLOR CMPRSN METHS CHIROPRAC 09000 [facility] PATELANA TIC 2 MANIPULAT CHIROPRAC CHIROPRAC FARRAH TX TIC CENTE TIC CENTE SPINAL 3-4 REGIONS THERAPEUT 86268 CAREY PATELANA IC PX 1/> 2 AREAS CHIROPRAC CHIROPRAC EACH 15 TIC CENTE TIC CENTE MIN EXERCISES CHIROPRAC 97147 [place] TIC 2 MANIPULAT CHIROPRAC CHIROPRAC FARRAH TX TIC CENTE TIC CENTE SPINAL 3-[place] [address] [place] 1/> AREAS 2 EACH 15 CHIROPRAC CHIROPRAC MINUTES [place] [address] [place] 1/> AREAS 2 EACH 15 CHIROPRAC CHIROPRAC MIN TIC CENTE [place] [address] [place] 1/> AREAS 2 EACH 15 CHIROPRAC CHIROPRAC MINUTES TIC CENTE TIC CENTE MASSAGE CHIROPRAC 62004 [place] TIC 2 MANIPULAT CHIROPRAC CHIROPRAC FARRAH TX TIC CENTE TIC CENTE SPINAL 3-4 REGIONS RADEX 41883 [place] SPINE 2 LUMBOSACR CHIROPRAC CHIROPRAC AL 2/3 TIC CENTE TIC CENTE VIEWS THERAPEUT 90142 [place] IC PX 1/> 2 AREAS CHIROPRAC CHIROPRAC EACH 15 TIC CENT[place] [address] [place] 1/> AREAS 2 EACH 15 CHIROPRAC CHIROPRAC MIN TIC CENTE TIC CENTE NEUROMUSC REEDUCA APPL 48560 [place] MODALITY 2 1/> AREAS CHIROPRAC CHIROPRAC TRACTION TIC CENTE TIC CENTE MECHANICA L APPL 87090 [place] MODALITY 2 1/> AREAS CHIROPRAC CHIROPRAC TRACTION TIC CENTE TIC CENTE MECHANICA L THERAPEUT 85905 [place] IC PX 1/> 2 AREAS CHIROPRAC CHIROPRAC EACH 15 TIC [place] [address] [place] 1/> AREAS 2 EACH 15 CHIROPRAC CHIROPRAC MINUTES TIC CENTE TIC CENTE MASSAGE CHIROPRAC 66609 [place] TIC 2 MANIPULAT CHIROPRAC CHIROPRAC FARRAH TX TIC CENTE TIC CENTE SPINAL 3-4 REGIONS CHIROPRAC 35815 [place] TIC 2 MANIPULAT CHIROPRAC CHIROPRAC FARRAH TX TIC CENTE TIC CENTE SPINAL 3-4 REGIONS APPL 87676 [place] MODALITY 2 1/> AREAS CHIROPRAC CHIROPRAC TRACTION TIC CENTE TIC CENTE MECHANICA L THERAPEUT 07437 [place] IC PX 1/> 2 AREAS CHIROPRAC CHIROPRAC EACH 15 TIC CENTE TIC CENTE MIN EXERCISES APPL 44637 [place] MODALITY 2 1/> AREAS CHIROPRAC CHIROPRAC TRACTION TIC CENTE TIC CENTE MECHANICA L MANUAL 89304 [place] THERAPY 2 TQS 1/> CHIROPRAC CHIROPRAC REGIONS TIC CENTE TIC CENTE EACH 15 MINUTES CHIROPRAC 56977 [place] TIC 2 MANIPULAT CHIROPRAC CHIROPRAC FARRAH TX TIC CENTE TIC CENTE SPINAL 3-4 REGIONS DETERMINA 70226 ALE AGUILERA TION 2 JAM JAM REFRACTIV E STATE PRESSURIZ 05793 [facility] CURIEL ED/NONPRE 2 [facility] INHALATIO N TREATMENT ALBUTEROL J7613 [facility] CURIEL INHAL 2 [facility] PROD THRU DME U DOSE 1 MG US BREAST 94634 [facility] REAL 2 [facility] TIME INC INC W/IMAGE DOCUMENTA TION BASIC 46902 [facility] METABOLIC 2 [facility] [place] [address] [facility] THYROID 2 [facility] STIMULATI INC INC NG HORMONE TSH GONADOTRO 42475 [facility] PIN 2 [facility] CHORIONIC INC INC QUANTITAT FARRAH BLOOD 00604 [facility] COUNT 2 [facility] COMPLETE INC INC AUTO&AUTO DIFRNTL WBC SPMTRY 66623 [place] BARTHOLOMEW W/VC 2 BETTINA BETTINA EXPIRATOR Y ZOHAIB W/WO MXML VOL VNTJ GONADOTRO 62193 [facility] PIN 2 Y Y [facility] QUALITATI VE BLOOD 02616 [facility] COUNT 2 Y Y [place] [address] [facility] LIPASE 2 Y Y [facility]PITAL [facility]PITAL INFUSION J7030 [facility] NORMAL 2 Y Y SALINE [facility] SOLUTION 1000 CC URNLS DIP 20647 [facility] 2 Y Y STICK/TAB [facility] LET REAGENT AUTO MICROSCOP Y COMPREHEN 72758 [facility] SIVE 2 Y Y METABOLIC [facility] PANEL ONDANSETR Q0162 [facility] ON 1 MG 2 Y Y ORL NOT [facility] EXCEED 48 [place] [address] [facility] INFUSION 2 Y Y HYDRATION [facility] INITIAL 31 MIN-1 HOUR IADNA 25118 [facility] NEISSERIA 2 [facility] GONORRHOE AE AMPLIFIED PROBE TQ IADNA 24937 [facility] CHLAMYDIA 2 [facility] TRACHOMAT IS AMPLIFIED PROBE TQ SMR PRIM 10581 MIKI ELIZONDO MIKI RAN SRC WET 2 MOUNT NFCT AGT URINE 72510 LUIZ DEE 1 OUMOU OUMOU TEST VISUAL COLOR CMPRSN METHS IIV3 90177 [facility] VACCINE 1 [facility] VIRUS 0.5 [place] [address] [facility] THYROID 1 [facility] STIMULATI INC INC NG HORMONE TSH COMPREHEN 15241 [facility] SIVE 1 [facility] METABOLIC INC INC PANEL BLOOD 18003 [facility] COMPLETE INC INC AUTO&AUTO DIFRNTL WBC IAADIADOO 86787 IVAN IVAN 1 DON DON STREPTOC[place] IV D9242 NEVAEH DMD NEVAEH DMD CONSCIOUS 1 [facility] SEDATION/ ANALG - EA ADD 15 MINUTES IV D9242 NEVAEH DMD NEVAEH DMD CONSCIOUS 1 [facility] SEDATION/ ANALG - EA ADD 15 MINUTES SMR PRIM 47832 GUI GERALD KER SRC WET 1 DIRECTOR GLOBAL MOUNT ASSOCIATE NFCT AGT S CUL BACT 19719 [facility] STOOL 1 [facility] AEROBIC INC INC ISOL JANY Rosas&ALFRED IAADIADOO 64852 [facility] CATHERINES 1 DON DON STREPTOCO CCUS GROUP A APPL 35481 [place] [facility] MODALITY 1 ROS 1/> AREAS CHIROPRAC ELEC TIC CENTE STIMJ UNATTENDE D APPL 89208 [place] [facility] MODALITY 1 ROS 1/> AREAS CHIROPRAC TRACTION TIC CENTE MECHANICA L CHIROPRAC 80035 [place] [facility] TIC 1 ROS MANIPULAT CHIROPRAC [facility] TX TIC CENTE SPINAL 1-2 REGIONS CHIROPRAC 24574 [place] [facility] TIC 0 ROS MANIPLTV CHIROPRAC TX TIC CENTE EXTRASPIN AL 1/> REGION CHIROPRAC 06216 [place] TIC 0 ROS MANIPULAT CHIROPRAC [facility] TX TIC CENTE SPINAL 1-2 REGIONS APPL 49965 [place] [facility] MODALITY 0 ROS 1/> AREAS CHIROPRAC ELEC TIC CENTE STIMJ UNATTENDE D APPL 57241 [place] MODALITY 0 ROS 1/> AREAS CHIROPRAC TRACTION TIC CENTE MECHANICA L APPL 23142 [place] MODALITY 0 ROS 1/> AREAS CHIROPRAC ELEC TIC CENTE STIMJ UNATTENDE D CHIROPRAC 71152 [place] TIC 0 ROS MANIPLTV CHIROPRAC TX TIC CENTE EXTRASPIN AL 1/> REGION CHIROPRAC 93738 [place] TIC 0 ROS MANIPULAT CHIROPRAC [facility] TX TIC CENTE SPINAL 1-2 REGIONS APPL 40848 [place] MODALITY 0 ROS 1/> AREAS CHIROPRAC TRACTION TIC CENTE MECHANICA L CHIROPRAC 61936 [place] [facility] TIC 0 ROS MANIPULAT CHIROPRAC FARRAH TX TIC CENTE SPINAL 1-2 REGIONS CHIROPRAC 01268 [place] TIC 0 ROS MANIPLTV CHIROPRAC TX TIC CENTE EXTRASPIN AL 1/> REGION APPL 93290 [place] MODALITY 0 ROS 1/> AREAS CHIROPRAC ELEC TIC CENTE STIMJ UNATTENDE D APPL 46310 [place] MODALITY 0 ROS 1/> AREAS CHIROPRAC TRACTION TIC CENTE MECHANICA L APPL 89793 [place] MODALITY 0 ROS 1/> AREAS CHIROPRAC TIC CENTE ULTRASOUN D EA 15 MIN CHIROPRAC 81774 [place] TIC 0 ROS MANIPLTV CHIROPRAC TX TIC CENTE EXTRASPIN AL 1/> REGION CHIROPRAC 25996 [place] T[facility] 0 ROS MANIPULAT CHIROPRAC FARRAH TX TIC CENTE SPINAL 1-2 REGIONS APPL 94036 [place] MODALITY 0 ROS 1/> AREAS CHIROPRAC TRACTION TIC CENTE MECHANICA L CHIROPRAC 52150 [place] TIC 0 SAPPHIRE SAPPHIRE MANIPULAT FARRAH TX SPINAL 1-2 REGIONS APPL 56517 [place] MODALITY 0 SAPPHIRE SAPPHIRE 1/> AREAS TRACTION MECHANICA L THERAPEUT 33923 [place] IC PX 1/> 0 SAPPHIRE SAPPHIRE AREAS EACH 15 MIN EXERCISES APPLICATI 20954 [place] ON 0 SAPPHIRE SAPPHIRE MODALITY 1/> AREAS HOT/COLD PACKS IIV3 29553 [facility] VACCINE 0 [facility] VIRUS 0.5 ML DOSAGE IM USE SUSCEPTIB 48335 [facility]BBINS LTY STDY 0 [facility] ANTIMICRB INC INC IAL MICRO/AGA R DILUTJ CUL BACT 04746 [facility] AEROBIC 0 [facility] ADDL INC INC METHS DEFINITIV E EA ISOL CUL BACT 55267 [facility] XCPT 0 [facility] URINE INC INC BLOOD/STO OL AEROBIC ISOL URNLS DIP 24317 [facility]INS 0 [facility] STICK/TAB INC INC LET REAGENT AUTO MICROSCOP Y URINE 60564 [facility] ROB[facility]INS 0 [facility] TEST INC [place] [address] RAMONEMUSCOGEEKesha PRANEETH, MAXILLOFA 0 MEDICAL FILIPPO CIAL W/O IMAGING CONTRAST ASSOCIATE MATERIAL S 3D 26953 THIERRY PRANEETH, RENDERING 0 MEDICAL FILIPPO IMAGING W/INTERP& ASSOCIATE POSTPROC S DIFF WORK STATION RADEX 91145 RAMONEMUSCOGEEKesha PRANEETH, WRIST 0 MEDICAL FILIPPO COMPLETE IMAGING MINIMUM 3 ASSOCIATE VIEWS S BASIC 79042 [facility] METABOLIC 0 [facility] PANEL INC INC CALCIUM TOTAL BLOOD 83024 [facility] COUNT 0 [facility] COMPLETE INC INC AUTO&AUTO DIFRNTL WBC RADIOLOGI 83772 [facility] C 0 DON R DON R EXAMINATI ON FOOT 2 VIEWS RADEX 50003 [facility] ANKLE 0 DON R DON R COMPLETE MINIMUM 3 VIEWS PARTICLE 47250 COMBINED COMBINED AGGLUTINA 9 PHYSICIAN PHYSICIAN TION S LAB S LAB SCREEN EACH ANTIBODY IAADIADOO 39043 COMBINED COMBINED 9 PHYSICIAN PHYSICIAN INFLUENZA S LAB S LAB URNLS DIP 47401 COMBINED COMBINED 9 PHYSICIAN PHYSICIAN STICK/TAB S LAB S LAB LET REAGENT AUTO MICROSCOP Y GENERAL 42153 COMBINED COMBINED HEALTH 9 PHYSICIAN PHYSICIAN PANEL S LAB S LAB IAADIADOO 05680 MONCHO IVAN 9 DON R DON R STREPTOCO CCUS GROUP A IAADI 60812 [facility] ROBBINS INFLUENZA 9 [facility] B VIRUS INC INC IAADI 00459 [facility] BULLON INFFLUENZ 9 [facility] A A VIRUS INC INC IADNA NOS 02424 [facility] 9 [facility] AMPLIFIED INC INC PROBE TQ EACH ORGANISM IIV3 54866 [facility]/CO [facility] VACCINE 9 HEALTH CO [facility] VIRUS 0.5 BANK ACCT ML DOSAGE IM USE IAADIADOO 42721 MON[facility] IVAN 9 DON R DON R STREPTOCO CCUS GROUP A OPH 52938 YULI MOORE, [facility] 9 VISION NICKIE A XM&EVAL COMPRHNSV ESTAB PT 1/> ORTHOPANT 20880 MT CHRISTINA MARCUM 9 FOR HERIBERTO S ORAL&MAXI LLOFACIAL SURGERY Encounters Encounter Start End Date Code Location Performer Type Date OFFICE 69845 TERRI MURRAY OUTPATIEN 7 7 T NEW 30 MINUTES OFFICE 48505 SANDEEJasper HAILE CONSULTAT 7 7 N ION NEUROLOGY NEW/ESTAB PATIENT 40 MIN OFFICE 00308 THIERRY BEGUM OUTPATIEN 7 7 [facility] T VISIT 25 MINUTES EMERGENCY 67652 [facility] 7 7 FRANNIE - YORBA DEPARTMEN EMERGENCY T VISIT PHYS HIGH/URGE NT SEVERITY OFFICE 78893 GUI CASE 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 VISIT ASSOCIATE 15 S, MINUTES EMERGENCY 45352 BRANDYN RAO DEPT 7 7 PHYSICIAN VISIT S, PLLC HIGH SEVERITY& THREAT [facility] - 7 7 [facility] INC T EMERGENCY 98964 [facility] 7 7 FRANNIE DEPARTMEN EMERGENCY T VISIT SERVI HIGH/URGE NT SEVERITY HOSPITAL [facility] - 7 7 [facility] OUTPATIEN INC T EMERGENCY 69094 [facility] 7 7 [facility] DEPARTMEN INC T VISIT LOW/MODER SEVERITY EMERGENCY 65510 BRANDYN SCHNEIDER 7 7 PHYSICIAN U DEPARTMEN S, PLLC T VISIT MODERATE SEVERITY OFFICE 35625 GUI VILLANUEVA OUTPATIEN 7 7 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 II T VISIT ASSOCIATE 15 S, MINUTES EMERGENCY 97505 BRANDYN SCHNEIDER DEPT 7 7 PHYSICIAN U VISIT S, PLLC HIGH SEVERITY& THREAT FUNCJ EMERGENCY 32830 [facility] 7 7 [facility] DEPARTMEN INC T VISIT LOW/MODER SEVERITY [facility]OSP[facility] - 7 7 [facility] OUTPATIEN INC T OFFICE 52130 ODELL BAIN OUTPATIEN 7 7 T NEW 30 MINUTES OFFICE 48080 MANDO CRUZ OUTPATIEN 7 7 FAMILY T NEW 30 CHIROPRAC MINUTES TIC PERIODIC 88528 REGINALDO Nation PREVENTIV 3 3 E MED [facility] - 3 3 [facility] OUTPATIEN INC T EMERGENCY 91634 [facility] 3 3 [facility] DEPARTMEN INC T VISIT LOW/MODER SEVERITY OFFICE 11262 MONCHO IVAN OUTPATIEN 3 3 DON DON T VISIT 15 MINUTES OFFICE 96821 [facility] OUTPATIEN 3 3 PHYSICIAN T VISIT S GROUP 15 MINUTES OFFICE 31305 KRANTHI MÁRQUEZ OUTPATIEN 3 3 T VISIT 15 MINUTES OFFICE 15512 [facility] OUTPAT[facility]EN 3 3 PHYSICIAN T VISIT S GROUP 10 MINUTES OFFICE 60548 [facility] OUTPAT[facility]EN 3 3 PHYSICIAN T VISIT S GROUP 15 MINUTES OFFICE 38546 [facility] OUT[facility] 3 3 PHYSICIAN T VISIT S GROUP 15 MINUTES OFFICE 17347 KRANTHI MÁRQUEZ OUTPATIEN 3 3 T VISIT 15 MINUTES EMERGENCY 20945 MAIRA RAO DEPT 3 3 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 VISIT HIGH SEVERITY& THREAT [facility] - 3 3 [facility] OUTPATIEN INC T OFFICE 30502 MILVIA TYLEREMELY OUTPATIEN 3 3 EDA EDA T VISIT 15 MINUTES OFFICE 46271 [facility] OUTPATIEN 3 3 PHYSICIAN T VISIT S GROUP 15 MINUTES OFFICE 87032 MILVIA STEEL OUTPATIEN 3 3 EDA EDA T NEW 30 MINUTES OFFICE 24306 [facility] OUTPAT[facility]EN 3 3 PHYSICIAN T VISIT S GROUP 15 MINUTES EMERGENCY 90542 [facility] 2 2 [facility] DEPARTMEN INC T VISIT MODERATE SEVERITY EMERGENCY 76838 LUCRECIA POWELL DEPT 2 2 EMERGENCY BRITNEY VISIT SERVICES HIGH SEVERITY& THREAT [facility] - 2 2 [facility] OUTPATIEN INC T OFFICE 52158 KRANTHI MÁRQUEZ OUTPATIEN 2 2 T VISIT 15 MINUTES OFFICE 31668 [facility] CATHERINES OUTPATIEN 2 2 DON DON T VISIT 15 MINUTES OFFICE 29386 [facility] CATHERINES OUTPATIEN 2 2 DON DON T VISIT 15 MINUTES OFFICE 64850 TERESA MOORE OUTPATIEN 2 2 CELESTE CELESTE T VISIT 15 MINUTES OFFICE 47981 KRANTHI MÁRQUEZ OUTPATIEN 2 2 T VISIT 15 MINUTES OFFICE 88702 [facility] ROBBINS OUTPATIEN 2 2 [facility] 15 HEAL HEAL MINUTES OFFICE 17811 MAIRA RAO OUTPATIEN 2 2 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 T VISIT 10 MINUTES OFFICE 55181 MONCHO VIAN OUTPATIEN 2 2 DON DON T VISIT 15 MINUTES OFFICE 46991 [place] OUTPATIEN 2 2 T VISIT CHIROPRAC 15 TIC CENTE MINUTES OFFICE 00507 BHANU BHANU OUTPATIEN 2 2 DEWEY DEWEY T VISIT 15 MINUTES OFFICE 57340 ALE AGUILERA OUTPATIEN 2 2 JAM JAM T NEW 60 MINUTES OFFICE 00519 [facility] CURIEL OUTPATIEN 2 2 [facility] T VISIT HOSPITAL 15 MINUTES OFFICE 35083 BHANU BHANU OUTPATIEN 2 2 DEWEY DEWEY T VISIT 15 MINUTES OFFICE 49268 REGINALDO Nation OUTPATIEN 2 2 T VISIT 10 MINUTES HOSPITAL [facility] - 2 2 [facility] OUTPATIEN INC T OFFICE 62127 RICH RICH OUTPATIEN 2 2 II O II O T VISIT 15 MINUTES HOSPITAL [facility] - 2 2 [facility] OUTPATIEN INC T OFFICE 55814 FLORIDAROMEO BARTHOLOMEW OUTPATIEN 2 2 BETTINA BETTINA T NEW 30 MINUTES [facility]OSP[facility]244 [facility] 2 2 Y [facility] T VISIT HIGH/URGE NT SEVERITY OFFICE 89534 DEE DEE OUTPATIEN 2 2 [facility] T VISIT 15 MINUTES OFFICE 89649 BHANU BHANU OUTPATIEN 2 2 DEWEY DEWEY T VISIT 10 MINUTES OFFICE 34835 DEE DEE OUTPATIEN 2 2 [facility] OUMOU T VISIT 10 MINUTES OFFICE 25025 MIKI LIVINGSTON RAN OUTPATIEN 2 2 T VISIT 15 MINUTES OFFICE 53747 DEE DEE OUTPATIEN 1 1 [facility] OUMOU T NEW 30 MINUTES HOSPITAL [facility] - 1 1 [facility] OUTPATIEN INC T OFFICE 66763 MON[facility] IVAN OUTPATIEN 1 1 DON DON T VISIT 15 MINUTES OFFICE 51996 [facility] CATHERINES OUTPATIEN 1 1 DON DON T VISIT 15 MINUTES OFFICE 06968 [place] GERALD KER OUTPATIEN 1 1 DIRECTOR GLOBAL T NEW 30 ASSOCIATE MINUTES [facility] - 1 1 [facility] OUTPATIEN INC T OFFICE 43699 [facility] ARMSTRONGHENS OUTPATIEN 1 1 DON DON T VISIT 15 MINUTES OFFICE 75666 [facility] ROBBINS OUTPATIEN 1 1 [facility] 15 MINUTES OFFICE 31190 [facility] ROBBINS OUTPATIEN 1 1 [facility] 15 MINUTES OFFICE 13301 CAREY MURRAYX OUTPATIEN 0 0 ROS T NEW 30 CHIROPRAC MINUTES [facility] CENTE OFFICE 62040 [facility] ROBBINS OUTPATIEN 0 0 [facility] 10 MINUTES OFFICE 60383 MONCHO CATHERINES OUTPATIEN 0 0 DON DON T VISIT 15 MINUTES OFFICE 02204 [facility] ARMSTRONGHENS OUTPATIEN 0 0 DON DON T VISIT 15 MINUTES OFFICE 92182 IVAN IVAN OUTPATIEN 0 0 DON DON T VISIT 15 MINUTES HOSPITAL [facility] - 0 0 [facility] OUTPATIEN INC T OFFICE 72430 YULI MOSCOSO OUTPATIEN 0 0 VISION ANG T NEW 20 MINUTES OFFICE 86883 MON[facility] ARMSTRONGHENS OUTPATIEN 0 0 DON DON T VISIT 15 MINUTES OFFICE 10584 [facility] ROBBINS OUTPATIEN 0 0 [facility] 15 MINUTES OFFICE 46450 IVAN, IVAN, OUTPATIEN 0 0 DON R DON R T VISIT 15 MINUTES EMERGENCY 02937 LUCRECIA RAO, DEPT 0 0 EMERGENCY [facility] VISIT SERVICES HIGH SEVERITY& ASSOCIATE THREAT S [facility] - 0 0 [facility] OUTPATIEN INC T EMERGENCY 87756 [facility] 0 0 [facility] DEPARTMEN INC T VISIT LOW/MODER SEVERITY OFFICE 76366 MONCHO IVAN OUTPATIEN 0 0 DON R DON R T VISIT 15 MINUTES HOSPITAL [facility] - 0 0 [facility] INC T OFFICE 98670 MONCHO IVAN OUTPATIEN 0 0 DON R DON R T VISIT 15 MINUTES OFFICE 54666 ELISABETH BARBER OUTPATIEN 0 0 IDRIS A IDRIS A T VISIT 15 MINUTES OFFICE 67646 [facility] IVAN OUTPATIEN 0 0 DON R DON R T VISIT 25 MINUTES OFFICE 29509 ELISABETH BARBER OUTPATIEN 0 0 IDRIS A IDRIS A T VISIT 15 MINUTES OFFICE 55907 MONCHO IVAN OUTPATIEN 9 9 DON R DON R T VISIT 15 MINUTES OFFICE 69261 MONCHO IVAN OUTPATIEN 9 9 DON R DON R T VISIT 15 MINUTES EMERGENCY 75432 [facility] 9 9 [facility] DEPART[facility] INC T VISIT LOW/MODER SEVERITY [facility]OSPITAL [facility] - 9 9 [facility] 10450 LUCRECIA RAO, 9 9 EMERGENCY [facility] SERVICES T VISIT MODERATE ASSOCIATE SEVERITY S OFFICE 79529 MONCHO IVAN OUTPATIEN 9 9 DON R DON R T VISIT 15 MINUTES OFFICE 83536 MONCHO IVAN OUTPATIEN 9 9 DON R DON R T VISIT 15 MINUTES OFFICE 25129 MONCHO IVAN OUTPATIEN 9 9 DON R DON R T VISIT 15 MINUTES OFFICE 28291 MT SHERI MARCUM 9 9 FOR HERIBERTO S T NEW 10 ORAL&MAXI MINUTES LLOFACIAL SURGERY OFFICE 15259 MONCHO IVAN OUTPATIEN 8 8 DAINA R DAINA R T DINA 20 MINUTES
--- OUTSIDE RECORDS SUMMARY | 2017-03-28 09:06 | External Medical Summary Rpt | CCD ---
Author Author , ZAK LEMUSRENE Address Unknown Phone [email or web address] Care Team Providers Care School Custodian Name Role Phone REGINALDO Nation, REGINALDO Nation Unavailable Unavailable REGINALDO Nation, REGINALDO J Unavailable Unavailable ARNOLD EDA, ARNOLD Unavailable Unavailable EDA ARNOLD EDA, ARNOLD Unavailable Unavailable EDA ODELL, ODELL Unavailable Unavailable ODELL, ODELL Unavailable Unavailable BEINEKE, BEINEKE Unavailable Unavailable BESSON XANDER, BESSON Unavailable Unavailable XANDER KRANTHI YULISA, KRANTHI YULISA Unavailable Unavailable KRANTHI YULISA, KRANTHI YULISA Unavailable Unavailable [facility] Unavailable Unavailable SERVICE, [facility] KATT FIFTH GRADE TEACHER, KATT Unavailable Unavailable FIFTH GRADE TEACHER CELLAROSI - YORBA, Unavailable Unavailable CELLAROSI - YORBA SHY BEGUM Unavailable Unavailable HERIBERTO BEGUM, Unavailable Unavailable HERIBERTO BEGUM [facility], Un[facility] Unavailable Unavailable LAB, [facility] PRANEETH, PRANEETH Unavailable Unavailable PRANEETH TONJA, Unavailable Unavailable PRANEETH TONJA PRANEETH, FILIPPO, Unavailable Unavailable PRANEETH, FILIPPO [facility], Unavailable Unavailable [facility] [place] [facility] [place] [place] BHANU DEWEY, Unavailable Unavailable BHANU DEWEY BHANU DEWEY, Unavailable Unavailable BHANU DEWEY MURRAY, MURRAY Unavailable Unavailable MURRAY, MURRAY Unavailable Unavailable [place] BETTINA, Unavailable Unavailable [place] BETTINA [place] BETTINA, Unavailable Unavailable [place] BETTINA MAIRA MAIRA Unavailable Unavailable MAIRA MANSOOR, MAIRA Unavailable Unavailable MANSOOR MAIRA MANSOOR, MAIRA Unavailable Unavailable MANSOOR MARYAN RAO, Unavailable Unavailable MARYAN RAO [facility], Unavailable Unavailable [facility] Unavailable Unavailable [facility] [place] Un[place] Unavailable Unavailable [facility] Unavailable Unavailable [facility] Unavailable [facility]available [facility], [employer] [facility] [employer] [facility] Un[facility] Un[facility], [employer] [facility] Unavailable Unavailable INC, [facility] CASE, CASE Unavailable Unavailable MOORE, MOORE Unavailable Unavailable MOORE, MOORE Unavailable Unavailable MOORE, NICKIE A, Unavailable Unavailable MOORE, NICKIE A [facility], Unavailable Unavailable [facility], KEDING Unavailable Unavailable SAPPHIRE [facility] [facility], [place] Unavailable Unavailable [facility], [facility] Unavailable Unavailable [facility], [facility] Unavailable Unavailable [facility], [facility] Unavailable Unavailable [facility], [facility] Unavailable Unavailable [facility], [facility] Unavailable Unavailable CORPORATION OF AM, [facility] Unavailable Unavailable [facility]OCI[facility], [facility] Unavailable Unavailable SERVICES, [facility] DAVID HERNANDEZ Unavailable Unavailable AGUILERA JAM, Unavailable Unavailable AGUILERA JAM AGUILERA JAM, Unavailable Unavailable AGUILERA JAM LINWOOD ROS, LINWOOD Unavailable Unavailable ROS NEVAEH DMD ANGLICAN, NEVAEH Unavailable Unavailable DMD ANGLICAN NEVAEH DMD ANGLICAN, NEVAEH Unavailable Unavailable [facility] Un[facility], MEDICAL [...] DIAGNOST[facility], Unavailable Unavailable [facility] Unavailable Unavailable CHIROPRACTIC, [id number], Unavailable Unavailable [id number] Unavailable [facility]available [id number] [address] [id number], [facility] [address] [address] [id number] ANDRE TAN, ANDRE Unavailable Unavailable BRITNEY DEE OUMOU, Unavailable Unavailable DEE OUMOU DEE OUMOU, Unavailable Unavailable DEE [facility] TERESA CELESTE, TERESA Unavailable Unavailable CELESTE TERESA CELESTE, TERESA Unavailable Unavailable CELESTE SCIFRES ANG, SCIFRES Unavailable Unavailable ANG CURIEL EUGENIA, CURIEL Unavailable Unavailable EUGENIA HAILE, HAILE Unavailable Unavailable SOTINGEANU, Unavailable Unavailable [facility] Unavailable Unavailable EMERGENCY PHYS, [facility] IVAN DON, Unavailable Unavailable IVAN DON IVAN DON, Unavailable Unavailable IVAN DON IVAN, DON R, Unavailable Unavailable IVAN, DON R [facility], Unavailable Unavailable [facility] Unavailable Unavailable #[id number], [facility] ANTHONY CRUZ Unavailable Unavailable Purpose Continuity of Care Document - 02-02-2008 through 2016 Problems Code Diagnosis DOS Provider Status M5386 OTHER 01-16-2017 MURRAY SPECIFIED DORSOPATHIE S LUMBAR REGION M546 PAIN IN 01-16-2017 M[facility] THORACIC SPINE M9906 SEGMENTAL & 01-16-2017 M[facility] SOMATIC DYSFUNCTION LOWER EXTREMITY A09894 REGULAR 01-07-2017 MOORE ASTIGMATISM BILATERAL R51 HEADACHE 12-14-2016 [facility] [id number] MIGRAINE 10-23-2016 KRISTIN UNS NOT N EMERGENCY INTRACT W/O PHYS STATUS MIGRAINOSUS N938 OTHER SPEC 10-23-2016 LABORATORY ABNORMAL [facility]TER[facility] & [facility] H VAGINAL BLEEDING R110 NAUSEA 10-23-2016 [facility] Z720 TOBACCO USE 10-20-2016 [facility] N939 ABNORMAL 10-18-2016 [facility] UTERINE & PHYSICIANS, VAGINAL PLLC BLEEDING UNSPECIFIED N49176 UNSPECIFIED 10-15-2016 [facility] OVARIAN PHYSICIANS, CYST RIGHT PLLC SIDE N921 EXCESS & 10-15-2016 [facility] FREQUENT PHYSICIANS, MENSTRUATIO PLLC N W/IRREGULAR CYCLE U61709 PAIN IN 09-26-2016 [facility] RIGHT SHOULDER M542 CERVICALGIA 09-26-2016 O[facility] I45838 MUSCLE 09-26-2016 [facility] SPASM OF BACK M9901 [...] SPONTANEOUS 03-24-2013 [facility] 94235 OTHER CHEST 03-24-2013 [facility] PAIN [facility] 5990 URINARY 12-15-2012 KRANTHI YULISA TRACT INFECTION SITE NOT SPECIFIED 4139 OTHER AND 12-07-2012 [facility] UNSPECIFIED [facility] ANGINA INC PECTORIS 77828 ACUTE 10-28-2012 IVAN LARYNGITIS, DON WITHOUT MENTION OF OBSTRUCTIO 4659 ACUTE URIS 10-28-2012 IVAN OF DON UNSPECIFIED SITE 462 ACUTE 10-24-2012 [facility] 4618 OTHER ACUTE 10-16-2012 [facility]INUS[facility] 77976 NAUSEA WITH 10-16-2012 [facility] VOMITING [facility] 54984 INTESTINAL 10-03-2012 [facility] INF [facility]YSIC[facility]ANS ENTERITIS GROUP DUE OT VIRAL ENTERITIS 0091 COLITIS 09-25-2012 [facility] ENTERIT&GAS PHYSICIANS TROENTERIT GROUP INF ORIGIN 41827 UNSPECIFIED 09-02-2012 KRANTHI YULISA VIRAL INFECTION IN CCE & UNS SITE 11882 CHEST PAIN 09-01-2012 MAIRA MANSOOR UNSPECIFIED 7850 UNSPECIFIED 08-11-2012 [facility] TACHYCARDIA INC 0340 STREPTOCOCC 07-28-2012 [facility] AL SORE PHYSICIANS THROAT GROUP 74832 ESOPHAGEAL 07-10-2012 ARNEMELY EDA REFLUX 29835 UNS 07-10-2012 [facility] VERAS GASTRITIS&G ASTRODUODIT IS W/O MENTION HEMORR 5589 OTH&UNSPEC 05-29-2012 [facility] NONINFECTIO [facility] US SERVICES GASTROENTER ITIS&COLITI S 83196 ABDOMINAL 05-29-2012 [facility] PAIN, EMERGENCY UNSPECIFIED SERVICES SITE 70001 ABDOMINAL 05-29-2012 [facility] PAIN RIGHT [facility] LOWER INC QUADRANT 21290 NAUSEA 05-27-2012 KRANTHI YULISA ALONE 0542 HERPETIC 05-13-2012 IVAN GINGIVOSTOM DON ATITIS 97677 UNSPECIFIED 04-02-2012 TERESA KAR VAGINITIS AND VULVOVAGINI [...] 12-18-2011 BHANU AND ABSCESS DEWEY OF FACE 05282 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 57871 ULCERATIVE 11-21-2011 AGUILERA BLEPHARITIS JAM 4619 ACUTE 10-23-2011 BHANU SINUSITIS, DEWEY UNSPECIFIED 4660 ACUTE 10-23-2011 BHANU BRONCHITIS DEWEY 6100 SOLITARY 10-04-2011 HAIR J CYST OF BREAST 6102 FIBROADENOS 10-04-2011 HAIR J IS OF BREAST 6101 DIFFUSE 09-21-2011 [facility] 86506 MASTODYNIA 09-21-2011 [facility] 85145 LUMP OR 09-18-2011 RICH II MASS IN O BREAST 6260 ABSENCE OF 09-12-2011 [facility] MENSTRUATIO [facility] N INC 09988 ASTHMA, 08-23-2011 [place] UNSPECIFIED BETTINA , UNSPECIFIED STATUS 88114 OTHER SPEC 08-23-2011 [place] GASTRITIS BETTINA WITHOUT MENTION HEMORRHAGE 38832 ACUTE 08-09-2011 [facility] WITHOUT MENTION OF HEMORRHAGE 33505 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 24779 CHRONIC 08-08-2011 DEE TENSION [facility] TYPE HEADACHE 34852 ABDOMINAL 08-08-2011 DEE PAIN RIGHT OUM[facility] UPPER QUADRANT 6235 LEUKORRHEA 07-11-2011 LAB [facility] NOT AMERIC SPECIFIED HOLDING INFECTIVE V2503 ENCOUNTER 07-10-2011 MIKI ELIZONDO EMERGENCY CONTRACEPT CNSL&PRESCR IPTION 463 ACUTE 05-16-2011 DEE TONSILLITIS OUMOU V0481 NEED 04-18-2011 [facility] VACCINATION &INOCULATIO N FLU 87787 OTHER 03-26-2011 [facility] FATIGUE INC 41015 CHRONIC 03-21-2011 IVNA FATIGUE DON SYNDROME 6826 CELLULITIS 02-05-2011 IVAN AND ABSCESS DON OF LEG EXCEPT FOOT 5210 DENTAL 01-17-2011 NEVAEH DMD CARIES ANGLICAN 6253 DYSMENORRHE 01-02-2011 [place] [facility] 6262 EXCESSIVE 01-02-2011 [place] [facility] MENSTRUATIO N 57711 DIARRHEA 08-10-2010 [facility] 9199 OTH&UNSPEC 07-31-2010 [facility] SUP INJURY [facility] OT SCHOOL MX&UNSPEC SITES INF 79857 SHORTNESS 07-27-2010 [facility] OF BREATH MIDDLE SCHOOL 7234 BRACHIAL 07-03-2010 [place] [facility]URIT[facility] OR [facility] RADICULITIS NOS 52312 SPASM OF 07-03-2010 [place] MUSCLE [facility]ENT[facility] 7397 NONALLOPATH 07-03-2010 [place] IC LESION CHIROPRA[facility]I OF UPPER C CENTE EXTREMITIES NEC 7231 CERVICALGIA 05-04-2010 [place] SAP[facility]IRE 7840 HEADACHE 05-04-2010 [facility] 31441 METHICILLIN 04-04-2010 IVAN RESISTANT DON STAPHYLOCOC CUS AUREUS 7821 RASH AND 03-21-2010 IVAN OTHER DON NONSPECIFIC SKIN ERUPTION 90967 HORDEOLUM 03-02-2010 YULI EXTERNUM VISION 6929 CONTACT 01-31-2010 IVAN DERMATITIS& DON OTHER ECZEMA DUE UNSPEC CAUSE 7098 OTHER 01-31-2010 [facility] SPECIFIED MIDDLE DISORDER OF SCHOOL SKIN 9164 HIP THI 01-11-2010 IVAN, LEG&ANK DON R INSECT BITE NONVENOMOUS W/O INF 63659 PAIN IN 11-01-2009 [facility] 35250 SPRAIN AND 11-01-2009 [facility] STRAIN OF EMERGENCY UNSPECIFIED SERVICES SITE OF ASSOCIATES WRIST 920 CONTUSION 11-01-2009 [facility] OF FACE EMERGENCY SCALP AND SERVICES NECK EXCEPT ASSOCIATES EYE 71147 UNSPECIFIED 08-26-2009 [facility], SITE OF DON R ANKLE SPRAIN AND STRAIN 4779 ALLERGIC 08-15-2009 BARBER, RHINITIS IDRIS A CAUSE UNSPECIFIED 4871 INFLUENZA 03-15-2009 [facility], WITH OTHER DON R RESPIRATORY MANIFESTATI ONS 3670 HYPERMETROP 01-17-2009 YULI [place] VISION 56089 DENTAL 08-24-2008 [facility] EXTENDING ORAL&MAXILL INTO PULP OFACIAL SURGERY 5216 ANKYLOSIS 08-24-2008 [facility] OF TEETH FOR ORAL&MAXILL OFACIAL SURGERY 20564 OTHER 02-02-2008 IVAN, SPECIFIED DON R DISORDERS [...] MG #3 TA 93 BL 8 ET NE 65 05 06 14 5 00 RI [...] #3 MG 93 8 TA BL ET NE 59 05 06 15 5 00 RI [...] CR 8 EA # M 03 93 NE 68 11 11 1 12 2 CL [...] 34 8- 8- 00 12 HE ve NE 59 20 20 AI NS ED 31 [...] CY S PS UL #5 E 91 NE 60 09 09 00 12 4 RI [...] AR N M R #3 93 8 NE 00 03 03 00 12 6 EA [...] Procedure DOS Code Location Performer Comment CHIROP[facility]AC 48759 MURRAY MURRAY TIC 7 MANIPLTV TX EXTRASPIN AL 1/> REGION CHIROPRAC 09443 MURRAY MURRAY TIC 7 MANIPULAT FARRAH TX SPINAL 3-4 REGIONS APPL 64839 MURRAY MURRAY MODALITY 7 1/> AREAS ELEC STIMJ UNATTENDE D THERAPEUT 35085 MURRAY MURRAY IC PX 1/> 7 AREAS EACH 15 [place] [address] MURRAY MURRAY 1/> AREAS 7 EACH 15 MIN NEUROMUSC REEDUCA FITTING 54785 [facility] SPECTACLE 7 S XCPT APHAKIA MONOFOCAL OPHTH 40997 [facility] MEDICAL 7 XM&EVAL COMPRHNSV ESTAB PT 1/> IADNA 78579 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 NEISSERIA 7 Y GABBIE OF Y GAB[facility] OF ALEENA ALEENA GONORRHOE H H AE AMPLIFIED PROBE TQ IADNA 03202 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 CHLAMYDIA 7 Y GAB[facility]E OF Y [facility] OF [facility] ALEENA TRACHOMAT H H IS AMPLIFIED PROBE TQ IADNA 99252 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 TRICHOMON 7 Y GABBIE OF Y [facility] OF ALEENA ALEENA VAGINALIS H H AMPLIFIED PROBE TECH [facility] A0425 [facility] MILEAGE 7 AMBULANCE AMBULANCE PER SERVICE SERVICE STATUTE MILE AMBULANCE A0429 [facility] SERVICE 7 AMBULANCE AMBULANCE [place] [address] THIERRY HART HEAD/BRAI 7 MEDICAL N W/O IMAGING CONTRAST ASS MATERIAL FINAL G9638 [facility]Y HART REPORTS 7 MEDICAL W/O DOC IMAGING 1/MORE ASS DOSE REDUCTION TECH THERAPEUT 32916 [facility] IC 7 [facility] INJECTION INC INC IV PUSH EACH NEW DRUG GONADOTRO 47206 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 PIN 7 Y Y CHORIONIC CORPORATI CORPORATI ON OF AM ON OF AM QUANTITAT FARRAH US PREG 62302 THIERRY PRANEETH UTERUS 7 MEDICAL REAL TIME IMAGING W/IMAGE ASS DCMTN TRANSVAG [facility] 46288 [facility] BAIN TIC 7 MANIPULAT FARRAH TX SPINAL 3-4 REGIONS CHIROP[facility]AC 61517 O[facility] BAIN TIC 7 MANIPLTV TX EXTRASPIN AL 1/> REGION CHIROP[facility]AC [address] [facility] TIC 7 FAMILY MANIPULAT CHIROPRAC FARRAH TX TIC SPINAL 5 REGIONS RAD[address] [facility] SPINE 7 FAMILY LUMBOSACR CHIROPRAC AL 2/3 TIC VIEWS RADEX [address] [facility] SPINE 7 FAMILY CERVICAL CHIROPRAC 2 OR 3 TIC VIEWS APPL [address] [facility] MODALITY 7 FAMILY 1/> AREAS CHIROPRAC TRACTION TIC MECHANICA L BLOOD 25253 [facility] COUNT 3 [facility] COMPLETE INC INC AUTO&AUTO DIFRNTL WBC URINE 04492 [facility] ROBBINS 3 [facility] TEST INC INC VISUAL COLOR CMPRSN METHS URNLS DIP 97503 [facility] ROBBINS 3 [facility] STICK/TAB INC INC LET REAGENT AUTO MICROSCOP Y IAADIADOO 80212 [facility] IVAN 3 DON DON STREPTOCO CCUS GROUP A CUL BACT 40102 JackBe [facility] XCPT 3 DIAGNOSTI DIAGNOSTI URINE CS CS BLOOD/STO OL AEROBIC ISOL IAADIADOO 41779 [facility] 3 PHYSICIAN PHYSICIAN STREPTOCO S GROUP S GROUP CCUS GROUP A URINE 83248 KRANTHI YULISA KRANTHI YULISA 3 TEST VISUAL COLOR CMPRSN METHS IAADIADOO 89106 [facility] 3 PHYSICIAN PHYSICIAN STREPTOCO S GROUP S GROUP CCUS GROUP A ECG 42249 BESSON BESSON ROUTINE 3 XANDER XANDER ECG W/LEAST 12 LDS I&R ONLY SEDIMENTA 59242 [facility] TION RATE 3 [facility] RBC INC INC NON-AUTOM ATED RADIOLOGI 51306 PRANEETH PRANEETH C EXAM 3 TONJA TONJA CHEST 2 VIEWS FRONTAL&L ATERAL THYROID 96144 [facility] HORM 3 [facility] UPTK/THYR INC INC OID HORMONE BINDING RATIO ECG 17459 BESSON BESSON ROUTINE 3 XANDER XANDER ECG W/LEAST 12 LDS I&R ONLY BLOOD 18612 [facility]INS COUNT 3 [facility] COMPLETE INC INC AUTO&[place] [address] [facility] THYROXINE 3 [facility] TOTAL INC INC ECG 59914 [facility] ROUTINE 3 [facility] ECG INC INC W/LEAST 12 LDS TRCG ONLY W/O I&R BILIRUBIN 04732 [facility] DIRECT 3 [place] [address] [facility] THYROID 3 [facility] STIMULATI INC INC NG HORMONE TSH LIPID 89847 [facility] PANEL 3 [facility] INC INC COMPREHEN 78529 [facility] SIVE 3 [facility] METABOLIC INC INC PANEL COMPREHEN 69426 [facility] SIVE 2 [facility] METABOLIC INC INC PANEL URNLS DIP 54494 [facility] ROB[facility]INS 2 [facility] STICK/TAB INC INC LET REAGENT AUTO MICROSCOP Y URINE 75666 [facility]INS 2 [facility] TEST INC [place] [address] [facility] AMYLASE 2 [place] [address] [facility] LIPASE 2 [facility] INC INC BLOOD 51275 [facility] COUNT 2 [facility] COMPLETE INC INC AUTO&[place] [address] [facility] INFUSION 2 [facility] THERAPY/P INC INC ROPHYLAXI S /DX 1ST TO 1 HR THERAPEUT 67469 [facility] IC 2 [facility] INJECTION INC INC IV PUSH EACH NEW DRUG IAADIADOO 67778 KRANTHI MÁRQUEZ 2 STREPTOCO CCUS GROUP A URNLS DIP 65537 IVAN IVAN 2 DON DON STICK/TAB LET RGNT NON-AUTO W/O MICRSCP IADNA 75159 MEDICAL MEDICAL NEISSERIA 2 DIAGNOSTI DIAGNOSTI [facility] GONORRHOE AE AMPLIFIED PROBE TQ IADNA NOS 88335 MEDICAL MEDICAL 2 DIAGNOSTI DIAGNOSTI AMPLIFIED [facility] PROBE TQ EACH ORGANISM IADNA 35819 MEDICAL MEDICAL CHLAMYDIA 2 [facility]AG[facility]STI DIAGNOSTI [facility] TRACHOMAT IS AMPLIFIED PROBE TQ IADNA 35668 MEDICAL MEDICAL ALAYNA 2 DIAGNOSTI DIAGNOSTI SPECIES [facility] AMPLIFIED PROBE TQ URINE 06342 KRANTHI MÁRQUEZ 2 TEST VISUAL COLOR CMPRSN METHS URINE 91267 [facility] ROBBINS 2 [facility] [employer] [employer] S[facility]OL VISUAL HEAL HEAL COLOR CMPRSN METHS CHIROPRAC 39321 [facility] PATELANA TIC 2 MANIPULAT CHIROPRAC CHIROPRAC FARRAH TX TIC CENTE TIC CENTE SPINAL 3-4 REGIONS THERAPEUT 47848 CAREY PATELANA IC PX 1/> 2 AREAS CHIROPRAC CHIROPRAC EACH 15 TIC CENTE TIC CENTE MIN EXERCISES [facility] 11140 [place] TIC 2 MANIPULAT CHIROPRAC CHIROPRAC FARRAH TX TIC CENTE TIC CENTE SPINAL 3-[place] [address] [place] 1/> AREAS 2 EACH 15 CHIROPRAC CHIROPRAC MINUTES [place] [address] [place] 1/> AREAS 2 EACH 15 CHIROPRAC CHIROPRAC MIN TIC CENTE [place] [address] [place] 1/> AREAS 2 EACH 15 CHIROPRAC CHIROPRAC MINUTES TIC CENTE TIC CENTE MASSAGE CHIROPRAC 66514 [place] TIC 2 MANIPULAT CHIROPRAC CHIROPRAC FARRAH TX TIC CENTE TIC CENTE SPINAL 3-4 REGIONS RADEX 66472 [place] SPINE 2 LUMBOSACR CHIROPRAC CHIROPRAC AL 2/3 TIC CENTE TIC CENTE VIEWS THERAPEUT 43697 [place] IC PX 1/> 2 AREAS CHIROPRAC CHIROPRAC EACH 15 TIC CENT[place] [address] [place] 1/> AREAS 2 EACH 15 CHIROPRAC CHIROPRAC MIN TIC CENTE TIC CENTE NEUROMUSC REEDUCA APPL 90045 [place] MODALITY 2 1/> AREAS CHIROPRAC CHIROPRAC TRACTION TIC CENTE TIC CENTE MECHANICA L APPL 94091 [place] MODALITY 2 1/> AREAS CHIROPRAC CHIROPRAC TRACTION TIC CENTE TIC CENTE MECHANICA L THERAPEUT 30361 [place] IC PX 1/> 2 AREAS CHIROPRAC CHIROPRAC EACH 15 TIC [place] [address] [place] 1/> AREAS 2 EACH 15 CHIROPRAC CHIROPRAC MINUTES TIC CENTE TIC CENTE MASSAGE CHIROPRAC 01636 [place] TIC 2 MANIPULAT CHIROPRAC CHIROPRAC FARRAH TX TIC CENTE TIC CENTE SPINAL 3-4 REGIONS CHIROPRAC 51197 [place] TIC 2 MANIPULAT CHIROPRAC CHIROPRAC FARRAH TX TIC CENTE TIC CENTE SPINAL 3-4 REGIONS APPL 21558 [place] MODALITY 2 1/> AREAS CHIROPRAC CHIROPRAC TRACTION TIC CENTE TIC CENTE MECHANICA L THERAPEUT 23337 [place] IC PX 1/> 2 AREAS CHIROPRAC CHIROPRAC EACH 15 TIC CENTE TIC CENTE MIN EXERCISES APPL 98002 [place] MODALITY 2 1/> AREAS CHIROPRAC CHIROPRAC TRACTION TIC CENTE TIC CENTE MECHANICA L MANUAL 76470 [place] THERAPY 2 TQS 1/> CHIROPRAC CHIROPRAC REGIONS TIC CENTE TIC CENTE EACH 15 MINUTES CHIROPRAC 66814 [place] TIC 2 MANIPULAT CHIROPRAC CHIROPRAC FARRAH TX TIC CENTE TIC CENTE SPINAL 3-4 REGIONS DETERMINA 66188 ALE AGUILERA TION 2 JAM JAM REFRACTIV E STATE PRESSURIZ 27565 [facility] CURIEL ED/NONPRE 2 [facility] INHALATIO N TREATMENT ALBUTEROL J7613 [facility] CURIEL INHAL 2 [facility] PROD THRU DME U DOSE 1 MG US BREAST 01477 [facility] REAL 2 [facility] TIME INC INC W/IMAGE DOCUMENTA TION BASIC 81339 [facility] METABOLIC 2 [facility] [place] [address] [facility] THYROID 2 [facility] STIMULATI INC INC NG HORMONE TSH GONADOTRO 09457 [facility] PIN 2 [facility] CHORIONIC INC INC QUANTITAT FARRAH BLOOD 14163 [facility] COUNT 2 [facility] COMPLETE INC INC AUTO&AUTO DIFRNTL WBC SPMTRY 31797 [place] BARTHOLOMEW W/VC 2 BETTINA BETTINA EXPIRATOR Y ZOHAIB W/WO MXML VOL VNTJ GONADOTRO 87504 [facility] PIN 2 Y Y CHORIONIC [facility] QUALITATI VE BLOOD 09828 [facility] COUNT 2 Y Y COMPLETE [facility] [place] [address] [facility] LIPASE 2 Y Y HOSPITAL HOSPITAL INFUSION J7030 [facility] NORMAL 2 Y Y SALINE [facility] SOLUTION 1000 CC URNLS DIP 25579 [facility] 2 Y Y STICK/TAB [facility] LET REAGENT AUTO MICROSCOP Y COMPREHEN 93084 [facility] SIVE 2 Y Y METABOLIC [facility] PANEL ONDANSETR Q0162 [facility] ON 1 MG 2 Y Y ORL NOT BLUE [facility] EXCEED [address] [place] [address] [facility] INFUSION 2 Y Y HYDRATION [facility] INITIAL 31 MIN-1 HOUR IADNA 11470 [facility] NEISSERIA 2 [employer] GONORRHOE AE AMPLIFIED PROBE TQ IADNA 18777 [facility] CHLAMYDIA 2 [employer] [employer] TRACHOMAT IS AMPLIFIED PROBE TQ SMR PRIM 22819 MIKI ELIZONDO MIKI RAN SRC WET 2 MOUNT NFCT AGT URINE 86050 LUIZ DEE 1 OUMOU OUMOU TEST VISUAL COLOR CMPRSN METHS IIV3 22295 [facility] VACCINE 1 [facility] VIRUS 0.5 [place] [address] [facility] THYROID 1 [facility] STIMULATI INC INC NG HORMONE TSH COMPREHEN 01561 [facility] SIVE 1 [facility] METABOLIC INC INC PANEL BLOOD 89541 [facility] COUNT 1 [facility] COMPLETE INC INC AUTO&AUTO DIFRNTL WBC IAADIADOO 84877 IVAN IVAN 1 DON [place] IV D[address]242 NEVAEH DMD NEVAEH DMD CONSCIOUS 1 ANGLICAN ANGLICAN SEDATION/ ANALG - EA ADD 15 MINUTES IV D9242 NEVAEH DMD NEVAEH DMD CONSCIOUS 1 [facility] SEDATION/ ANALG - EA ADD 15 MINUTES SMR PRIM 89634 GUI GERALD KER SRC WET 1 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 NFCT AGT S CUL BACT 85655 [facility] STOOL 1 [facility] AEROBIC INC INC ISOL JANY Rosas&ALFRED IAADIADOO 29281 MONCHO CATHERINES 1 DON DON STREPTOCO CCUS GROUP A APPL 72552 [place] [facility] MODALITY 1 ROS 1/> AREAS CHIROPRAC ELEC TIC CENTE STIMJ UNATTENDE D APPL 09952 [place] [facility] MODALITY 1 ROS 1/> AREAS CHIROPRAC TRACTION TIC CENTE MECHANICA L CHIROPRAC 19757 [place] [facility] TIC 1 ROS MANIPULAT CHIROPRAC FARRAH TX TIC CENTE SPINAL 1-2 REGIONS CHIROPRAC 03138 [place] [facility] TIC 0 ROS MANIPLTV CHIROPRAC TX TIC CENTE EXTRASPIN AL 1/> REGION CHIROPRAC 58202 [place] TIC 0 ROS MANIPULAT CHIROPRAC FARRAH TX TIC CENTE SPINAL 1-2 REGIONS APPL 81083 [place] MODALITY 0 ROS 1/> AREAS CHIROPRAC ELEC TIC CENTE STIMJ UNATTENDE D APPL 78021 [place] MODALITY 0 ROS 1/> AREAS CHIROPRAC TRACTION TIC CENTE MECHANICA L APPL 85716 [place] MODALITY 0 ROS 1/> AREAS CHIROPRAC ELEC TIC CENTE STIMJ UNATTENDE D CHIROPRAC 91731 [place] TIC 0 ROS MANIPLTV CHIROPRAC TX TIC CENTE EXTRASPIN AL 1/> REGION CHIROPRAC 09331 [place] TIC 0 ROS MANIPULAT CHIROPRAC FARRAH TX TIC CENTE SPINAL 1-2 REGIONS APPL 07493 [place] MODALITY 0 ROS 1/> AREAS CHIROPRAC TRACTION TIC CENTE MECHANICA L CHIROPRAC 56703 [place] TIC 0 ROS MANIPULAT CHIROPRAC FARRAH TX TIC CENTE SPINAL 1-2 REGIONS CHIROPRAC 26978 [place] TIC 0 ROS MANIPLTV CHIROPRAC TX TIC CENTE EXTRASPIN AL 1/> REGION APPL 63297 [place] MODALITY 0 ROS 1/> AREAS CHIROPRAC ELEC TIC CENTE STIMJ UNATTENDE D APPL 28965 [place] MODALITY 0 ROS 1/> AREAS CHIROPRAC TRACTION TIC CENTE MECHANICA L APPL 02002 [place] MODALITY 0 ROS 1/> AREAS CHIROPRAC TIC CENTE ULTRASOUN D EA 15 MIN CHIROPRAC 15946 [place] TIC 0 ROS MANIPLTV CHIROPRAC TX TIC CENTE EXTRASPIN AL 1/> REGION CHIROPRAC 92826 [place] TIC 0 ROS MANIPULAT CHIROPRAC FARRAH TX TIC CENTE SPINAL 1-2 REGIONS APPL 35489 [place] MODALITY 0 ROS 1/> AREAS CHIROPRAC TRACTION TIC CENTE MECHANICA L CHIROPRAC 70098 [place] TIC 0 SAPPHIRE SAPPHIRE MANIPULAT FARRAH TX SPINAL 1-2 REGIONS APPL 99449 [place] MODALITY 0 SAPPHIRE SAPPHIRE 1/> AREAS TRACTION MECHANICA L THERAPEUT 50175 [place] IC PX 1/> 0 SAPPHIRE SAPPHIRE AREAS EACH 15 MIN EXERCISES APPLICATI 65288 [place] ON 0 SAPPHIRE SAPPHIRE MODALITY 1/> AREAS HOT/COLD PACKS IIV3 97744 [facility] VACCINE 0 [facility] VIRUS 0.5 ML DOSAGE IM USE SUSCEPTIB 95852 [facility] LTY STDY 0 [facility] ANTIMICRB INC INC IAL MICRO/AGA R DILUTJ CUL BACT 93190 [facility] AEROBIC 0 [facility] ADDL INC INC METHS DEFINITIV E EA ISOL CUL BACT 73200 [facility] XCPT 0 [facility] URINE INC INC BLOOD/STO OL AEROBIC ISOL URNLS DIP 67089 [facility]INS 0 [facility] STICK/TAB INC INC LET REAGENT AUTO MICROSCOP Y URINE 03847 [facility] 0 [facility] TEST INC [place] [address] [facility] PRANE[facility], MAXILLOFA 0 MEDICAL FILIPPO CIAL W/O IMAGING CONTRAST ASSOCIATE MATERIAL S 3D 66923 THIERRY PRANEETH, RENDERING 0 MEDICAL FILIPPO IMAGING W/INTERP& ASSOCIATE POSTPROC S DIFF WORK STATION RADEX 50527 [facility] PRANE[facility], WRIST 0 MEDICAL FILIPPO COMPLETE IMAGING MINIMUM 3 ASSOCIATE VIEWS S BASIC 93461 [facility] METABOLIC 0 [facility] PANEL INC INC CALCIUM TOTAL BLOOD 60787 [facility] ROB[facility] COUNT 0 [facility] COMPLETE INC INC AUTO&AUTO DIFRNTL WBC RADIOLOGI 92508 [facility] C 0 DON R DON R EXAMINATI ON FOOT 2 VIEWS RADEX 58128 [facility] ANKLE 0 DON R DON R COMPLETE MINIMUM 3 VIEWS PARTICLE 62221 COMBINED COMBINED AGGLUTINA 9 PHYSICIAN PHYSICIAN TION S LAB S LAB SCREEN EACH ANTIBODY IAADIADOO 24774 COMBINED COMBINED 9 PHYSICIAN PHYSICIAN INFLUENZA S LAB S LAB URNLS DIP 22599 COMBINED COMBINED 9 PHYSICIAN PHYSICIAN STICK/TAB S LAB S LAB LET REAGENT AUTO MICROSCOP Y GENERAL 23566 COMBINED COMBINED HEALTH 9 PHYSICIAN PHYSICIAN PANEL S LAB S LAB IAADIADOO 31413 MONCHO IVAN 9 DON R DON R STREPTOCO CCUS GROUP A IAADI 91125 [facility] ROBBINS INFLUENZA 9 [facility] B VIRUS INC INC IAADI 76209 [facility] BULLON INFFLUENZ 9 [facility] A A VIRUS INC INC IADNA NOS 61022 [facility] 9 [facility] AMPLIFIED INC INC PROBE TQ EACH ORGANISM IIV3 94243 [facility]/CO [facility] VACCINE 9 [facility]ALTH [facility] VIRUS 0.5 BANK ACCT ML DOSAGE IM USE IAADIADOO 61040 MONCHO IVAN 9 DON R DON R STREPTOCO CCUS GROUP A OPH 78536 YULI MOORE, [facility] 9 VISION NICKIE A XM&EVAL COMPRHNSV ESTAB PT 1/> ORTHOPANT 66152 [place] CHRISTINA MARCUM 9 FOR HERIBERTO S ORAL&MAXI LLOFACIAL SURGERY Encounters Encounter Start End Date Code Location Performer Type Date OFFICE 50676 TERRI MURRAY OUTPATIEN 7 7 T NEW 30 MINUTES OFFICE 10934 SANDEEJasper HAILE CONSULTAT 7 7 N ION NEUROLOGY NEW/ESTAB PATIENT 40 MIN OFFICE 70268 THIERRY BEGUM OUTPATIEN 7 7 [facility] T VISIT 25 MINUTES EMERGENCY 52786 [facility] 7 7 FRANNIE - YORBA DEPARTMEN EMERGENCY T VISIT PHYS HIGH/URGE NT SEVERITY OFFICE 31622 GUI CASE OUTPATIEN 7 7 LIABILITY CLAIMS EXAMINER T VISIT ASSOCIATE 15 S, MINUTES EMERGENCY 37899 BRANDYN RAO DEPT 7 7 PHYSICIAN VISIT S, PLLC HIGH SEVERITY& THREAT [facility] - 7 7 [facility] OUT[facility]EN INC T EMERGENCY 51559 [facility] 7 7 FRANNIE DEPARTMEN EMERGENCY T VISIT SERVI HIGH/URGE NT SEVERITY [facility]OSPITAL [facility] - 7 7 [facility] OUTPATIEN INC T EMERGENCY 35016 [facility] 7 7 [facility] DEPARTMEN INC T VISIT LOW/MODER SEVERITY EMERGENCY 94166 BRANDYN SCHNEIDER 7 7 PHYSICIAN U DEPARTMEN S, PLLC T VISIT MODERATE SEVERITY OFFICE 66650 GUI VILLANUEVA OUTPATIEN 7 7 LIABILITY CLAIMS EXAMINER II T VISIT ASSOCIATE 15 S, MINUTES EMERGENCY 05276 BRANDYN SCHNEIDER DEPT 7 7 PHYSICIAN U VISIT S, PLLC HIGH SEVERITY& THREAT FUNCJ EMERGENCY 24423 [facility] 7 7 [facility] DEPARTMEN INC T VISIT LOW/MODER SEVERITY [facility]OSPITAL [facility] - 7 7 [facility] OUTPATIEN INC T OFFICE 43593 ODELL BAIN OUTPATIEN 7 7 T NEW 30 MINUTES OFFICE 27116 MANDO CRUZ OUTPATIEN 7 7 FAMILY T NEW 30 CHIROPRAC MINUTES TIC PERIODIC 55451 REGINALDO Nation PREVENTIV 3 3 E MED EST PATIENT 06-02YRLDS [facility] - 3 3 [facility] OUTPATIEN INC T [facility] - 3 3 [facility] OUTPATIEN INC T EMERGENCY 07251 [facility] 3 3 [facility] DEPARTMEN INC T VISIT LOW/MODER SEVERITY OFFICE 41870 MONCHO IVAN OUTPATIEN 3 3 DON DON T VISIT 15 MINUTES OFFICE 95346 [facility] OUT[facility]EN 3 3 PHYSICIAN T VISIT S GROUP 15 MINUTES OFFICE 26849 KRANTHI MÁRQUEZ OUTPATIEN 3 3 T VISIT 15 MINUTES OFFICE 17768 [facility] OUT[facility] 3 3 PHYSICIAN T VISIT S GROUP 10 MINUTES OFFICE 36264 [facility] OUT[facility] 3 3 PHYSICIAN T VISIT S GROUP 15 MINUTES OFFICE 91186 [facility] OUT[facility] 3 3 PHYSICIAN T VISIT S GROUP 15 MINUTES OFFICE 50943 KRANTHI MÁRQUEZ OUTPATIEN 3 3 T VISIT 15 MINUTES EMERGENCY 93290 MAIRA RAO DEPT 3 3 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 VISIT HIGH SEVERITY& THREAT [facility] - 3 3 [facility] OUTPATIEN INC T OFFICE 18597 MILVIA TYLEREMELY OUTPATIEN 3 3 EDA EDA T VISIT 15 MINUTES OFFICE 33934 [facility] OUTPATIEN 3 3 PHYSICIAN T VISIT S GROUP 15 MINUTES OFFICE 76786 MILVIA STEEL OUTPATIEN 3 3 EDA EDA T NEW 30 MINUTES OFFICE 61093 [facility] OUTPATIEN 3 3 PHYSICIAN T VISIT S GROUP 15 MINUTES EMERGENCY 05561 [facility] 2 2 [facility] DEPARTMEN INC T VISIT MODERATE SEVERITY EMERGENCY 91558 LUCRECIA POWELL DEPT 2 2 EMERGENCY BRITNEY VISIT SERVICES HIGH SEVERITY& THREAT [facility] - 2 2 [facility] OUTPATIEN INC T OFFICE 87993 KRANTHI MÁRQUEZ OUTPATIEN 2 2 T VISIT 15 MINUTES OFFICE 53125 [facility] CATHERINES OUTPATIEN 2 2 DON DON T VISIT 15 MINUTES OFFICE 98297 [facility] CATHERINES OUTPATIEN 2 2 DON DON T VISIT 15 MINUTES OFFICE 23886 TERESA MOORE OUTPATIEN 2 2 CELESTE CELESTE T VISIT 15 MINUTES OFFICE 16898 KRANTHI MÁRQUEZ OUTPATIEN 2 2 T VISIT 15 MINUTES OFFICE 02619 [facility] ROBBINS OUTPATIEN 2 2 [facility] 15 HEAL HEAL MINUTES OFFICE 00865 MAIRA RAO OUTPATIEN 2 2 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 T VISIT 10 MINUTES OFFICE 98649 MONCHO IVAN OUTPATIEN 2 2 DON DON T VISIT 15 MINUTES OFFICE 36335 [place] OUTPATIEN 2 2 T VISIT CHIROPRAC 15 TIC CENTE MINUTES OFFICE 95618 BHANU BHANU OUTPATIEN 2 2 DEWEY DEWEY T VISIT 15 MINUTES OFFICE 05935 ALE AGUILERA OUTPATIEN 2 2 JAM JAM T NEW 60 MINUTES OFFICE 43929 [facility] CURIEL OUTPATIEN 2 2 [facility] T VISIT HOSPITAL 15 MINUTES OFFICE 95533 BHANU BHANU OUTPATIEN 2 2 DEWEY DEWEY T VISIT 15 MINUTES OFFICE 12004 REGINALDO Nation OUTPATIEN 2 2 T VISIT 10 MINUTES [facility]OSPITAL [facility] - 2 2 [facility]PATI[facility] INC T OFFICE 14323 RICH RICH OUTPATIEN 2 2 II O II O T VISIT 15 MINUTES HOSPITAL [facility] - 2 2 [facility] OUTPATIEN INC T OFFICE 04412 FLORIDAROMEO BARTHOLOMEW OUTPATIEN 2 2 BETTINA BETTINA T NEW 30 MINUTES [facility]OSPITAL [facility]149 [facility] 2 2 [facility] T VISIT HIGH/URGE NT SEVERITY OFFICE 37874 DEE DEE OUTPATIEN 2 2 OUMOU OUMOU T VISIT 15 MINUTES OFFICE 27631 BHANU BHANU OUTPATIEN 2 2 DEWEY DEWEY T VISIT 10 MINUTES OFFICE 71809 DEE DEE OUTPATIEN 2 2 OUMOU OUMOU T VISIT 10 MINUTES OFFICE 01375 MIKI LIVINGSTON RAN OUTPATIEN 2 2 T VISIT 15 MINUTES OFFICE 28693 DEE DEE OUTPATIEN 1 1 OUMOU OUMOU T NEW 30 MINUTES HOSPITAL [facility] - 1 1 [facility] OUTPATIEN INC T OFFICE 30486 MON[facility] IVAN OUTPATIEN 1 1 DON DON T VISIT 15 MINUTES OFFICE 31291 [facility] CATHERINES OUTPATIEN 1 1 DON DON T VISIT 15 MINUTES OFFICE 01170 [place] GERALD KER OUTPATIEN 1 1 VEST BACKER T NEW 30 ASSOCIATE MINUTES [facility] - 1 1 [facility] OUTPATIEN INC T OFFICE 26973 [facility] ARMSTRONGHENS OUTPATIEN 1 1 DON DON T VISIT 15 MINUTES OFFICE 26283 [facility] ROBBINS OUTPATIEN 1 1 [facility] 15 MINUTES OFFICE 89697 [facility] ROBBINS OUTPATIEN 1 1 [facility] 15 MINUTES OFFICE 84243 CAREY MURRAYX OUTPATIEN 0 0 ROS T NEW 30 CHIROPRAC MINUTES [facility] 75079 [facility] ROBBINS OUTPATIEN 0 0 [facility] 10 MINUTES OFFICE 96592 MON[facility] CATHERINES OUTPATIEN 0 0 DON DON T VISIT 15 MINUTES OFFICE 86676 MON[facility] ARMSTRONGHENS OUTPATIEN 0 0 DON DON T VISIT 15 MINUTES OFFICE 85809 IVAN IVAN OUTPATIEN 0 0 DON DON T VISIT 15 MINUTES [facility]OSP[facility] - 0 0 [facility] OUTPATIEN INC T OFFICE 22204 YULI MOSCOSO OUTPATIEN 0 0 VISION ANG T NEW 20 MINUTES OFFICE 17200 MONCHO ARMSTRONGHENS OUTPATIEN 0 0 DON DON T VISIT 15 MINUTES OFFICE 00686 [facility] ROBBINS OUTPATIEN 0 0 [facility] 15 MINUTES OFFICE 57408 IVAN, IVAN, OUTPATIEN 0 0 DON R DON R T VISIT 15 MINUTES EMERGENCY 89746 LUCRECIA RAO, DEPT 0 0 EMERGENCY [facility] VISIT SERVICES HIGH SEVERITY& ASSOCIATE THREAT S [facility] - 0 0 [facility] OUTPATIEN INC T EMERGENCY 85953 [facility] 0 0 [facility] DEPARTMEN INC T VISIT LOW/MODER SEVERITY OFFICE 81451 MONCHO IVAN OUTPATIEN 0 0 DON R DON R T VISIT 15 MINUTES HOSPITAL [facility] - 0 0 [facility] OUTPATI[facility] INC T OFFICE 01992 MONCHO IVAN OUTPATIEN 0 0 DON R DON R T VISIT 15 MINUTES OFFICE 31737 ELISABETH BARBER OUTPATIEN 0 0 IDRIS A IDRIS A T VISIT 15 MINUTES OFFICE 84658 [facility] IVAN OUTPATIEN 0 0 DON R DON R T VISIT 25 MINUTES OFFICE 23216 ELISABETH BARBER OUTPATIEN 0 0 IDRIS A IDRIS A T VISIT 15 MINUTES OFFICE 23223 MONCHO IVAN OUTPATIEN 9 9 DON R DON R T VISIT 15 MINUTES OFFICE 85575 MONCHO IVAN OUTPATIEN 9 9 DON R DON R T VISIT 15 MINUTES EMERGENCY 01128 [facility] 9 9 [facility] DEPARTMEN INC T VISIT LOW/MODER SEVERITY [facility]OSPITAL [facility] - 9 9 [facility] 24988 LUCRECIA RAO, 9 9 EMERGENCY [facility] T VISIT MODERATE ASSOCIATE SEVERITY S OFFICE 76375 MONCHO IVAN OUTPATIEN 9 9 DON R DON R T VISIT 15 MINUTES OFFICE 47197 MONCHO IVAN OUTPATIEN 9 9 DON R DON R T VISIT 15 MINUTES OFFICE 82626 MONCHO IVAN OUTPATIEN 9 9 DON R DON R T VISIT 15 MINUTES OFFICE 74402 [place] SHERI MARCUM 9 9 FOR HERIBERTO S T NEW 10 ORAL&MAXI MINUTES LLOFACIAL SURGERY OFFICE 44221 MONCHO IVAN OUTPATIEN 8 8 DAINA R DAINA R T DINA 20 MINUTES
--- OUTSIDE RECORDS SUMMARY | 2017-03-28 09:08 | External Medical Summary Rpt | CCD ---
Author Author , ZAK LEMUSRENE Address Unknown Phone [email or web address] [facility] Immunization Name Date Rout CVX Reac Dose [...]
--- OUTSIDE RECORDS SUMMARY | 2017-03-28 09:08 | External Medical Summary Rpt | CCD ---
Author Author , ZAK LEMUSRENE Address Unknown Phone [email or web address] Immunization Name Date Rout CVX Reac Dose [...] ion - Sour ce Unsp ecif ied Hcetor 07- 2 999 Hist H196 No H196 o-OP 5-19 oric V 96 al Info rmat ion - Sour ce Unsp ecif ied Hep 07- 8 999 Hist H196 No H196 B, 5-19 oric ped/ 96 al adol Info rmat ion - Sour ce Unsp ecif ied
== END 2017-03-19 23:15 | disposition home or self-care (01) ==
LOC: ER 17:38 → UTC 17:52 → ER 17:52
PROVIDERS: General Practice
DX: N30.00 Acute cystitis without hematuria (principal); R10.32 Left lower quadrant pain; F17.210 Nicotine dependence, cigarettes, uncomplicated